=== PATIENT | male | born 1940 | race Caucasian/White ===

== ENCOUNTER → 2020-05-06 08:21 | Outpatient (BNVA) | payer MEDICARE, SELFPAY | PROVIDERS: PCP Internal Medicine; Referring Provider Internal Medicine; Visit Provider Internal Medicine | DX: I48.19 Other persistent atrial fibrillation (principal); Z51.81 Encounter for therapeutic drug level monitoring; Z79.01 Long term (current) use of anticoagulants | CPT/HCPCS: 85610 ==

== ENCOUNTER 2020-05-06 18:57 | Outpatient (REF) | payer MEDICARE, SELFPAY | END 2020-05-06 18:58 | disposition home or self-care (01) | LOC: HO.LNP 18:57 | PROVIDERS: Visit Provider Internal Medicine | DX: Z79.01 Long term (current) use of anticoagulants (principal) ==

== ENCOUNTER → 2020-05-25 10:03 | Outpatient (BNVA) | payer MEDICARE, SELFPAY | PROVIDERS: PCP Internal Medicine; Visit Provider Internal Medicine | DX: I48.19 Other persistent atrial fibrillation (principal); Z51.81 Encounter for therapeutic drug level monitoring; Z79.01 Long term (current) use of anticoagulants | CPT/HCPCS: 85610; 99211 ==

== ENCOUNTER → 2020-06-08 08:02 | Outpatient (BNVA) | payer MEDICARE, SELFPAY | PROVIDERS: PCP Internal Medicine; Visit Provider Internal Medicine | DX: I48.19 Other persistent atrial fibrillation (principal); Z51.81 Encounter for therapeutic drug level monitoring; Z79.01 Long term (current) use of anticoagulants | CPT/HCPCS: 85610; 99211 ==

== ENCOUNTER → 2020-07-06 08:06 | Outpatient (BNVA) | payer MEDICARE, SELFPAY | PROVIDERS: PCP Internal Medicine; Visit Provider Internal Medicine | DX: I48.19 Other persistent atrial fibrillation (principal); Z51.81 Encounter for therapeutic drug level monitoring; Z79.01 Long term (current) use of anticoagulants | CPT/HCPCS: 85610; 99211 ==

== ENCOUNTER → 2020-07-21 14:47 | Outpatient (BNVA) | payer MEDICARE, SELFPAY | PROVIDERS: PCP Internal Medicine; Visit Provider Internal Medicine | DX: I48.19 Other persistent atrial fibrillation (principal); Z51.81 Encounter for therapeutic drug level monitoring; Z79.01 Long term (current) use of anticoagulants | CPT/HCPCS: 85610; 99211 ==

== ENCOUNTER → 2020-08-01 09:01 | Outpatient (BNVA) | payer MEDICARE, SELFPAY | PROVIDERS: PCP Internal Medicine; Visit Provider Internal Medicine | DX: I48.19 Other persistent atrial fibrillation (principal); Z51.81 Encounter for therapeutic drug level monitoring; Z79.01 Long term (current) use of anticoagulants | CPT/HCPCS: 85610; 99211 ==

== ENCOUNTER → 2020-08-31 15:48 | Outpatient (BNVA) | payer MEDICARE, SELFPAY | PROVIDERS: PCP Internal Medicine; Visit Provider Internal Medicine | DX: I48.19 Other persistent atrial fibrillation (principal); Z51.81 Encounter for therapeutic drug level monitoring; Z79.01 Long term (current) use of anticoagulants | CPT/HCPCS: 85610; 99211 ==

== ENCOUNTER → 2020-09-12 08:49 | Outpatient (BNVA) | payer MEDICARE, SELFPAY | PROVIDERS: PCP Internal Medicine; Visit Provider Internal Medicine | DX: I48.19 Other persistent atrial fibrillation (principal); Z51.81 Encounter for therapeutic drug level monitoring; Z79.01 Long term (current) use of anticoagulants | CPT/HCPCS: 85610; 99211 ==

== ENCOUNTER → 2020-09-28 08:27 | Outpatient (BNVA) | payer MEDICARE, SELFPAY | PROVIDERS: PCP Internal Medicine; Visit Provider Internal Medicine | DX: I48.19 Other persistent atrial fibrillation (principal); Z51.81 Encounter for therapeutic drug level monitoring; Z79.01 Long term (current) use of anticoagulants | CPT/HCPCS: 85610; 99211 ==

== ENCOUNTER → 2020-10-06 08:04 | Outpatient (BNVA) | payer MEDICARE, SELFPAY | PROVIDERS: PCP Internal Medicine; Visit Provider Internal Medicine | DX: I48.19 Other persistent atrial fibrillation (principal); Z51.81 Encounter for therapeutic drug level monitoring; Z79.01 Long term (current) use of anticoagulants | CPT/HCPCS: 85610; 99211 ==

== ENCOUNTER → 2020-10-10 08:50 | Outpatient (BNVA) | payer MEDICARE, SELFPAY | PROVIDERS: PCP Internal Medicine; Visit Provider Internal Medicine | DX: I48.19 Other persistent atrial fibrillation (principal); Z51.81 Encounter for therapeutic drug level monitoring; Z79.01 Long term (current) use of anticoagulants | CPT/HCPCS: 85610; 99211 ==

== ENCOUNTER → 2020-10-13 08:03 | Outpatient (BNVA) | payer MEDICARE, SELFPAY | PROVIDERS: PCP Internal Medicine; Visit Provider Internal Medicine | DX: I48.19 Other persistent atrial fibrillation (principal); Z51.81 Encounter for therapeutic drug level monitoring; Z79.01 Long term (current) use of anticoagulants | CPT/HCPCS: 85610; 99211 ==

== ENCOUNTER → 2020-10-27 08:09 | Outpatient (BNVA) | payer MEDICARE, SELFPAY | PROVIDERS: PCP Internal Medicine; Visit Provider Internal Medicine | DX: I48.19 Other persistent atrial fibrillation (principal); Z51.81 Encounter for therapeutic drug level monitoring; Z79.01 Long term (current) use of anticoagulants | CPT/HCPCS: 85610; 99211 ==

== ENCOUNTER → 2020-11-10 08:04 | Outpatient (BNVA) | payer MEDICARE, SELFPAY | PROVIDERS: PCP Internal Medicine; Visit Provider Internal Medicine | DX: I48.19 Other persistent atrial fibrillation (principal); Z79.01 Long term (current) use of anticoagulants; Z51.81 Encounter for therapeutic drug level monitoring | CPT/HCPCS: 85610; 99211 ==

== ENCOUNTER → 2020-11-24 08:02 | Outpatient (BNVA) | payer MEDICARE, SELFPAY | PROVIDERS: PCP Internal Medicine; Visit Provider Internal Medicine | DX: I48.19 Other persistent atrial fibrillation (principal); Z79.01 Long term (current) use of anticoagulants; Z51.81 Encounter for therapeutic drug level monitoring | CPT/HCPCS: 85610; 99211 ==

== ENCOUNTER → 2020-12-12 08:46 | Outpatient (BNVA) | payer MEDICARE, SELFPAY | PROVIDERS: PCP Internal Medicine; Visit Provider Internal Medicine | DX: I48.19 Other persistent atrial fibrillation (principal); Z51.81 Encounter for therapeutic drug level monitoring; Z79.01 Long term (current) use of anticoagulants | CPT/HCPCS: 99211 ==

== ENCOUNTER → 2020-12-22 08:21 | Outpatient (BNVA) | payer MEDICARE, SELFPAY | PROVIDERS: PCP Internal Medicine; Visit Provider Internal Medicine | DX: I48.19 Other persistent atrial fibrillation (principal); Z51.81 Encounter for therapeutic drug level monitoring; Z79.01 Long term (current) use of anticoagulants | CPT/HCPCS: 85610; 99211 ==

== ENCOUNTER → 2020-12-29 08:19 | Outpatient (BNVA) | payer MEDICARE, SELFPAY | PROVIDERS: PCP Internal Medicine; Visit Provider Internal Medicine | DX: I48.19 Other persistent atrial fibrillation (principal); Z51.81 Encounter for therapeutic drug level monitoring; Z79.01 Long term (current) use of anticoagulants | CPT/HCPCS: 85610; 99211 ==

== ENCOUNTER → 2021-01-05 11:04 | Outpatient (BNVA) | payer MEDICARE, SELFPAY | PROVIDERS: PCP Internal Medicine; Visit Provider Internal Medicine | DX: Z13.89 Encounter for screening for other disorder (principal) | CPT/HCPCS: Q3014 ==

== ENCOUNTER → 2021-01-12 08:21 | Outpatient (BNVA) | payer MEDICARE, SELFPAY | PROVIDERS: PCP Internal Medicine; Visit Provider Internal Medicine | DX: I48.19 Other persistent atrial fibrillation (principal); Z51.81 Encounter for therapeutic drug level monitoring; Z79.01 Long term (current) use of anticoagulants | CPT/HCPCS: 85610; 99211 ==

== ENCOUNTER → 2021-01-19 08:16 | Outpatient (BNVA) | payer MEDICARE, SELFPAY | PROVIDERS: PCP Internal Medicine; Visit Provider Internal Medicine | DX: I48.19 Other persistent atrial fibrillation (principal); Z51.81 Encounter for therapeutic drug level monitoring; Z79.01 Long term (current) use of anticoagulants | CPT/HCPCS: 85610; 99211 ==

== ENCOUNTER → 2021-02-01 08:06 | Outpatient (BNVA) | payer MEDICARE, SELFPAY | PROVIDERS: PCP Internal Medicine; Visit Provider Internal Medicine | DX: I48.19 Other persistent atrial fibrillation (principal); Z51.81 Encounter for therapeutic drug level monitoring; Z79.01 Long term (current) use of anticoagulants | CPT/HCPCS: 85610; 99211 ==

== ENCOUNTER → 2021-02-09 08:15 | Outpatient (BNVA) | payer MEDICARE, SELFPAY | PROVIDERS: PCP Internal Medicine; Visit Provider Internal Medicine | DX: I48.19 Other persistent atrial fibrillation (principal); Z51.81 Encounter for therapeutic drug level monitoring; Z79.01 Long term (current) use of anticoagulants | CPT/HCPCS: 85610; 99211 ==

== ENCOUNTER → 2021-02-23 08:00 | Outpatient (BNVA) | payer MEDICARE, SELFPAY | PROVIDERS: PCP Internal Medicine; Visit Provider Internal Medicine | DX: I48.0 Paroxysmal atrial fibrillation (principal); Z51.81 Encounter for therapeutic drug level monitoring; Z79.01 Long term (current) use of anticoagulants | CPT/HCPCS: 85610; 99211 ==

== ENCOUNTER → 2021-03-09 08:05 | Outpatient (BNVA) | payer MEDICARE, SELFPAY | PROVIDERS: PCP Internal Medicine; Visit Provider Internal Medicine | DX: I48.19 Other persistent atrial fibrillation (principal); Z51.81 Encounter for therapeutic drug level monitoring; Z79.01 Long term (current) use of anticoagulants | CPT/HCPCS: 85610; 99211 ==

== ENCOUNTER → 2021-03-22 08:00 | Outpatient (BNVA) | payer MEDICARE, SELFPAY | PROVIDERS: PCP Internal Medicine; Visit Provider Internal Medicine | DX: I48.19 Other persistent atrial fibrillation (principal); Z51.81 Encounter for therapeutic drug level monitoring; Z79.01 Long term (current) use of anticoagulants | CPT/HCPCS: 85610; 99211 ==

== ENCOUNTER → 2021-04-03 10:02 | Outpatient (BNVA) | payer MEDICARE, SELFPAY | PROVIDERS: PCP Internal Medicine; Visit Provider Internal Medicine | DX: I48.19 Other persistent atrial fibrillation (principal); Z51.81 Encounter for therapeutic drug level monitoring; Z79.01 Long term (current) use of anticoagulants | CPT/HCPCS: 85610; 99211 ==

== ENCOUNTER → 2021-04-26 08:02 | Outpatient (BNVA) | payer MEDICARE, SELFPAY | PROVIDERS: PCP Internal Medicine; Visit Provider Internal Medicine | DX: I48.19 Other persistent atrial fibrillation (principal); Z51.81 Encounter for therapeutic drug level monitoring; Z79.01 Long term (current) use of anticoagulants | CPT/HCPCS: 85610; 99211 ==

== ENCOUNTER → 2021-05-24 08:17 | Outpatient (BNVA) | payer MEDICARE, SELFPAY | PROVIDERS: PCP Internal Medicine; Visit Provider Internal Medicine | DX: I48.19 Other persistent atrial fibrillation (principal); Z51.81 Encounter for therapeutic drug level monitoring; Z79.01 Long term (current) use of anticoagulants | CPT/HCPCS: 85610; 99211 ==

== ENCOUNTER → 2021-06-21 08:13 | Outpatient (BNVA) | payer MEDICARE, SELFPAY | PROVIDERS: PCP Internal Medicine; Visit Provider Internal Medicine | DX: I48.19 Other persistent atrial fibrillation (principal); Z51.81 Encounter for therapeutic drug level monitoring; Z79.01 Long term (current) use of anticoagulants | CPT/HCPCS: 85610; 99211 ==

== ENCOUNTER → 2021-07-05 08:11 | Outpatient (BNVA) | payer MEDICARE, SELFPAY | PROVIDERS: PCP Internal Medicine; Visit Provider Internal Medicine | DX: I48.19 Other persistent atrial fibrillation (principal); Z51.81 Encounter for therapeutic drug level monitoring; Z79.01 Long term (current) use of anticoagulants | CPT/HCPCS: 85610; 99211 ==

== ENCOUNTER → 2021-07-26 08:02 | Outpatient (BNVA) | payer MEDICARE, SELFPAY | PROVIDERS: PCP Internal Medicine; Visit Provider Internal Medicine | DX: I48.19 Other persistent atrial fibrillation (principal); Z51.81 Encounter for therapeutic drug level monitoring; Z79.01 Long term (current) use of anticoagulants | CPT/HCPCS: 85610; 99211 ==

== ENCOUNTER → 2021-07-31 08:44 | Outpatient (BNVA) | payer MEDICARE, SELFPAY | PROVIDERS: PCP Internal Medicine; Visit Provider Internal Medicine | DX: I48.19 Other persistent atrial fibrillation (principal); Z51.81 Encounter for therapeutic drug level monitoring; Z79.01 Long term (current) use of anticoagulants | CPT/HCPCS: 85610; 99211 ==

== ENCOUNTER → 2021-08-03 11:14 | Outpatient (BNVA) | payer MEDICARE, SELFPAY | PROVIDERS: PCP Internal Medicine; Visit Provider Internal Medicine | DX: I48.19 Other persistent atrial fibrillation (principal); Z51.81 Encounter for therapeutic drug level monitoring; Z79.01 Long term (current) use of anticoagulants | CPT/HCPCS: 85610; 99211 ==

== ENCOUNTER → 2021-08-24 08:10 | Outpatient (BNVA) | payer MEDICARE, SELFPAY | PROVIDERS: PCP Internal Medicine; Visit Provider Internal Medicine | DX: I48.19 Other persistent atrial fibrillation (principal); Z51.81 Encounter for therapeutic drug level monitoring; Z79.01 Long term (current) use of anticoagulants | CPT/HCPCS: 85610; 99211 ==

== ENCOUNTER → 2021-09-21 08:01 | Outpatient (BNVA) | payer MEDICARE, SELFPAY | PROVIDERS: PCP Internal Medicine; Visit Provider Internal Medicine | DX: I48.19 Other persistent atrial fibrillation (principal); Z51.81 Encounter for therapeutic drug level monitoring; Z79.01 Long term (current) use of anticoagulants | CPT/HCPCS: 85610; 99211 ==

== ENCOUNTER → 2021-10-19 07:59 | Outpatient (BNVA) | payer MEDICARE, SELFPAY | PROVIDERS: PCP Internal Medicine; Visit Provider Internal Medicine | DX: I48.19 Other persistent atrial fibrillation (principal); Z51.81 Encounter for therapeutic drug level monitoring; Z79.01 Long term (current) use of anticoagulants | CPT/HCPCS: 85610; 99211 ==

== ENCOUNTER → 2021-11-16 08:06 | Outpatient (BNVA) | payer MEDICARE, SELFPAY | PROVIDERS: PCP Internal Medicine; Visit Provider Internal Medicine | DX: I48.19 Other persistent atrial fibrillation (principal); Z79.01 Long term (current) use of anticoagulants; Z51.81 Encounter for therapeutic drug level monitoring | CPT/HCPCS: 85610; 99211 ==

== ENCOUNTER → 2021-12-14 08:03 | Outpatient (BNVA) | payer MEDICARE, SELFPAY | PROVIDERS: PCP Internal Medicine; Visit Provider Internal Medicine | DX: I48.19 Other persistent atrial fibrillation (principal); Z79.01 Long term (current) use of anticoagulants; Z51.81 Encounter for therapeutic drug level monitoring | CPT/HCPCS: 85610; 99211 ==

== ENCOUNTER → 2021-12-18 08:29 | Outpatient (BNVA) | payer MEDICARE, SELFPAY | PROVIDERS: PCP Internal Medicine; Visit Provider Internal Medicine | DX: I48.19 Other persistent atrial fibrillation (principal); Z79.01 Long term (current) use of anticoagulants; Z51.81 Encounter for therapeutic drug level monitoring | CPT/HCPCS: 85610; 99211 ==

== ENCOUNTER → 2022-01-10 08:22 | Outpatient (BNVA) | payer MEDICARE, SELFPAY | PROVIDERS: PCP Internal Medicine; Visit Provider Internal Medicine | DX: I48.19 Other persistent atrial fibrillation (principal); Z79.01 Long term (current) use of anticoagulants; Z51.81 Encounter for therapeutic drug level monitoring | CPT/HCPCS: 85610; 99211 ==

== ENCOUNTER → 2022-02-07 08:01 | Outpatient (BNVA) | payer MEDICARE, SELFPAY | PROVIDERS: PCP Internal Medicine; Visit Provider Internal Medicine | DX: I48.19 Other persistent atrial fibrillation (principal); Z79.01 Long term (current) use of anticoagulants; Z51.81 Encounter for therapeutic drug level monitoring | CPT/HCPCS: 85610; 99211 ==

== ENCOUNTER → 2022-03-07 08:05 | Outpatient (BNVA) | payer MEDICARE, SELFPAY | PROVIDERS: PCP Internal Medicine; Visit Provider Internal Medicine | DX: I48.19 Other persistent atrial fibrillation (principal); Z79.01 Long term (current) use of anticoagulants; Z51.81 Encounter for therapeutic drug level monitoring | CPT/HCPCS: 85610; 99211 ==

== ENCOUNTER → 2022-04-04 08:01 | Outpatient (BNVA) | payer MEDICARE, SELFPAY | PROVIDERS: PCP Internal Medicine; Visit Provider Internal Medicine | DX: I48.19 Other persistent atrial fibrillation (principal); Z51.81 Encounter for therapeutic drug level monitoring; Z79.01 Long term (current) use of anticoagulants | CPT/HCPCS: 85610; 99211 ==

== ENCOUNTER → 2022-04-11 09:06 | Outpatient (BNVA) | payer MEDICARE, SELFPAY | PROVIDERS: PCP Internal Medicine; Visit Provider Internal Medicine | DX: I48.19 Other persistent atrial fibrillation (principal); Z79.01 Long term (current) use of anticoagulants; Z51.81 Encounter for therapeutic drug level monitoring | CPT/HCPCS: 85610; 99211 ==

== ENCOUNTER → 2022-04-18 08:39 | Outpatient (BNVA) | payer MEDICARE, SELFPAY | PROVIDERS: PCP Internal Medicine; Visit Provider Internal Medicine | DX: I48.19 Other persistent atrial fibrillation (principal); Z51.81 Encounter for therapeutic drug level monitoring; Z79.01 Long term (current) use of anticoagulants | CPT/HCPCS: 85610; 99211 ==

== ENCOUNTER → 2022-05-02 08:36 | Outpatient (BNVA) | payer MEDICARE, SELFPAY | PROVIDERS: PCP Internal Medicine; Visit Provider Internal Medicine | DX: I48.19 Other persistent atrial fibrillation (principal); Z79.01 Long term (current) use of anticoagulants; Z51.81 Encounter for therapeutic drug level monitoring | CPT/HCPCS: 85610; 99211 ==

== ENCOUNTER → 2022-05-23 08:22 | Outpatient (BNVA) | payer MEDICARE, SELFPAY | PROVIDERS: PCP Internal Medicine; Visit Provider Internal Medicine | DX: I48.19 Other persistent atrial fibrillation (principal); Z79.01 Long term (current) use of anticoagulants; Z51.81 Encounter for therapeutic drug level monitoring | CPT/HCPCS: 85610; 99212 ==

== ENCOUNTER → 2022-06-13 08:16 | Outpatient (BNVA) | payer MEDICARE, SELFPAY | PROVIDERS: PCP Internal Medicine; Visit Provider Internal Medicine | DX: I48.19 Other persistent atrial fibrillation (principal); Z79.01 Long term (current) use of anticoagulants; Z51.81 Encounter for therapeutic drug level monitoring | CPT/HCPCS: 85610; 99211 ==

== ENCOUNTER → 2022-07-12 08:03 | Outpatient (BNVA) | payer MEDICARE, SELFPAY | PROVIDERS: PCP Internal Medicine; Visit Provider Internal Medicine | DX: I48.19 Other persistent atrial fibrillation (principal); Z79.01 Long term (current) use of anticoagulants; Z51.81 Encounter for therapeutic drug level monitoring | CPT/HCPCS: 85610; 99211 ==

== ENCOUNTER → 2022-08-09 08:10 | Outpatient (BNVA) | payer MEDICARE, SELFPAY | PROVIDERS: PCP Internal Medicine; Visit Provider Internal Medicine | DX: I48.19 Other persistent atrial fibrillation (principal); Z79.01 Long term (current) use of anticoagulants; Z51.81 Encounter for therapeutic drug level monitoring | CPT/HCPCS: 85610; 99211 ==

== ENCOUNTER → 2022-08-23 08:01 | Outpatient (BNVA) | payer MEDICARE, SELFPAY | PROVIDERS: PCP Internal Medicine; Visit Provider Internal Medicine | DX: I48.19 Other persistent atrial fibrillation (principal); Z79.01 Long term (current) use of anticoagulants; Z51.81 Encounter for therapeutic drug level monitoring | CPT/HCPCS: 85610; 99211 ==

== ENCOUNTER → 2022-09-20 07:55 | Outpatient (BNVA) | payer MEDICARE, SELFPAY | PROVIDERS: PCP Internal Medicine; Visit Provider Internal Medicine | DX: I48.19 Other persistent atrial fibrillation (principal); Z51.81 Encounter for therapeutic drug level monitoring; Z79.01 Long term (current) use of anticoagulants | CPT/HCPCS: 85610; 99211 ==

== ENCOUNTER → 2022-10-04 08:34 | Outpatient (BNVA) | payer MEDICARE, SELFPAY | PROVIDERS: PCP Internal Medicine; Visit Provider Internal Medicine | DX: I48.19 Other persistent atrial fibrillation (principal); Z79.01 Long term (current) use of anticoagulants; Z51.81 Encounter for therapeutic drug level monitoring | CPT/HCPCS: 85610; 99211 ==

== ENCOUNTER → 2022-10-25 08:04 | Outpatient (BNVA) | payer MEDICARE, SELFPAY | PROVIDERS: PCP Internal Medicine; Visit Provider Internal Medicine | DX: I48.19 Other persistent atrial fibrillation (principal); Z79.01 Long term (current) use of anticoagulants; Z51.81 Encounter for therapeutic drug level monitoring | CPT/HCPCS: 85610; 99211 ==

== ENCOUNTER → 2022-10-30 08:25 | Outpatient (BNVA) | payer MEDICARE, SELFPAY | PROVIDERS: PCP Internal Medicine; Visit Provider Internal Medicine | DX: I48.19 Other persistent atrial fibrillation (principal); Z79.01 Long term (current) use of anticoagulants; Z51.81 Encounter for therapeutic drug level monitoring | CPT/HCPCS: 85610; 99211 ==

== ENCOUNTER → 2022-11-05 08:00 | Outpatient (BNVA) | payer MEDICARE, SELFPAY | PROVIDERS: PCP Internal Medicine; Visit Provider Internal Medicine | DX: I48.19 Other persistent atrial fibrillation (principal); Z79.01 Long term (current) use of anticoagulants; Z51.81 Encounter for therapeutic drug level monitoring | CPT/HCPCS: 85610; 99211 ==

== ENCOUNTER → 2022-11-21 07:58 | Outpatient (BNVA) | payer MEDICARE, SELFPAY | PROVIDERS: PCP Internal Medicine; Visit Provider Internal Medicine | DX: I48.19 Other persistent atrial fibrillation (principal); Z79.01 Long term (current) use of anticoagulants; Z51.81 Encounter for therapeutic drug level monitoring | CPT/HCPCS: 85610; 99211 ==

== ENCOUNTER → 2022-12-18 13:42 | Outpatient (BNVA) | payer MEDICARE, SELFPAY | PROVIDERS: PCP Internal Medicine; Visit Provider Internal Medicine | DX: I48.19 Other persistent atrial fibrillation (principal); Z79.01 Long term (current) use of anticoagulants; Z51.81 Encounter for therapeutic drug level monitoring | CPT/HCPCS: 85610; 99211 ==

== ENCOUNTER → 2023-01-08 07:53 | Outpatient (BNVA) | payer MEDICARE, SELFPAY | PROVIDERS: PCP Internal Medicine; Visit Provider Internal Medicine | DX: I48.19 Other persistent atrial fibrillation (principal); Z79.01 Long term (current) use of anticoagulants; Z51.81 Encounter for therapeutic drug level monitoring | CPT/HCPCS: 85610; 99211 ==

== ENCOUNTER → 2023-01-29 08:02 | Outpatient (BNVA) | payer MEDICARE, SELFPAY | PROVIDERS: PCP Internal Medicine; Visit Provider Internal Medicine | DX: I48.19 Other persistent atrial fibrillation (principal); Z51.81 Encounter for therapeutic drug level monitoring; Z79.01 Long term (current) use of anticoagulants | CPT/HCPCS: 85610; 99211 ==

== ENCOUNTER 2023-02-12 09:02 | Outpatient (AMB) | payer MEDICARE, SELFPAY ==
--- NOTE | 2023-02-12 09:25 | MHC.OFFVISCO ---
Intake Intake Visit Reasons: Anticoagulation Allergies morphine Allergy (Severe, Verified 02/12/23 09:19) Rash baclofen Adverse Reaction (Intermediate, Verified 02/12/23 09:19) Confusion codeine Adverse Reaction (Intermediate, Verified 02/12/23 09:19) GI UPSET divalproex sodium [From Depakote] Adverse Reaction (Intermediate, Verified 02/12/23 09:19) Chest Pain latex Adverse Reaction (Intermediate, Verified 02/12/23 09:19) RASH Medication List - Last Reconciled 02/12/23 by Africa Cao RN acetaminophen ER 1,300 mg PO Q12H allopurinol 200 mg PO DAILY atorvastatin 40 mg PO DAILY brimonidine 0.2% 0 drps ophthalmic (eye) chlorthalidone 25 mg PO DAILY duloxetine 30 mg PO BID gabapentin 600 mg PO TID lisinopril 20 mg PO DAILY prednisolone acetate 1% 1 drp ophthalmic (eye) BID sotalol 120 mg PO BID [carlene bio healer topical] timolol maleate 0.5% 0 drps ophthalmic (eye) warfarin 5 mg See Protocol PO DAILY Nursing Note INR 3.7-?? out of therapeutic range Medications and supplements reviewed Patient status: pt s/p corneal surgery left eye on 01/31/23- no hold for warfarin- eye sclera reddened, pt states improved vision in that eye Medications or supplements: no longer taking ganesh and ofloxacin eye drops, cont timoptic, pred and Diet: states decreased appetite, had less greens Denies any signs and symptoms of bleeding or clotting or unusual bruising Bleeding, bruising, clotting discussed Nutritional guidance given: eat greens to lower inr, no reds for 2 days Dose: 2.5mg today and tomm then cont reg dosing- 5mg x 5, 2.5mg x 2 F/U INR Date : 10 days Patient verbalizing understanding of instructions given. 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
[2023-02-12 15:40] LABS: Prothrombin Time Whole Bld POC 44.8 sec (11.1-13.5); ~PT, ~INR - Anti Coag Clinic 3.7 (0.9-1.1)
== END 2023-02-12 09:38 | disposition home or self-care (01) ==
LOC: HO.ACS 09:02
PROVIDERS: PCP Internal Medicine; Visit Provider Internal Medicine
DX: Z79.01 Long term (current) use of anticoagulants (principal)

== ENCOUNTER → 2023-02-12 09:02 | Outpatient (BNVA) | payer MEDICARE, SELFPAY | PROVIDERS: PCP Internal Medicine; Visit Provider Internal Medicine | DX: I48.19 Other persistent atrial fibrillation (principal); Z79.01 Long term (current) use of anticoagulants; Z51.81 Encounter for therapeutic drug level monitoring | CPT/HCPCS: 85610; 99211 ==

== ENCOUNTER 2023-02-22 08:25 | Outpatient (AMB) | payer MEDICARE, SELFPAY ==
[2023-02-22 08:34] LABS: Prothrombin Time Whole Bld POC 31.8 sec (11.1-13.5); ~PT, ~INR - Anti Coag Clinic 2.7 (0.9-1.1)
--- NOTE | 2023-02-22 08:36 | MHC.OFFVISCO ---
Intake Intake Visit Reasons: Anticoagulation Allergies morphine Allergy (Severe, Verified 02/22/23 08:27) Rash baclofen Adverse Reaction (Intermediate, Verified 02/22/23 08:27) Confusion codeine Adverse Reaction (Intermediate, Verified 02/22/23 08:27) GI UPSET divalproex sodium [From Depakote] Adverse Reaction (Intermediate, Verified 02/22/23 08:27) Chest Pain latex Adverse Reaction (Intermediate, Verified 02/22/23 08:27) RASH Medication List - Last Reconciled 02/22/23 by Annia Mckeon RN acetaminophen ER 1,300 mg PO Q12H allopurinol 200 mg PO DAILY atorvastatin 40 mg PO DAILY brimonidine 0.2% 0 drps ophthalmic (eye) chlorthalidone 25 mg PO DAILY duloxetine 30 mg PO BID gabapentin 600 mg PO TID lisinopril 20 mg PO DAILY prednisolone acetate 1% 1 drp ophthalmic (eye) BID sotalol 120 mg PO BID [carlene bio healer topical] timolol maleate 0.5% 0 drps ophthalmic (eye) warfarin 5 mg See Protocol PO DAILY Nursing Note PT.DENIES ANY CP,SOB,DIET/MD CHANGES,FALLS OR SX OF BLEEDING. CONTINUE PRESEN DOSE AND FOLLOW-UP IN 2 WEEKS. GOOD UNDERSTANDING OF DOSING INSTR. Coding Level of Care Code Est Patient Level 1 Diagnoses Current use of anticoagulant therapy Z79.01 Assessment & Plan Assessment & Plan (1) Current use of anticoagulant therapy: Code(s): Z79.01 - digital analyst (current) 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
== END 2023-02-22 09:11 | disposition home or self-care (01) ==
LOC: HO.ACS 08:25
PROVIDERS: PCP Internal Medicine; Visit Provider Internal Medicine
DX: Z79.01 Long term (current) use of anticoagulants (principal)

== ENCOUNTER → 2023-02-22 08:25 | Outpatient (BNVA) | payer MEDICARE, SELFPAY | PROVIDERS: PCP Internal Medicine; Visit Provider Internal Medicine | DX: I48.19 Other persistent atrial fibrillation (principal); Z79.01 Long term (current) use of anticoagulants; Z51.81 Encounter for therapeutic drug level monitoring | CPT/HCPCS: 85610; 99211 ==

== ENCOUNTER 2023-03-08 08:20 | Outpatient (AMB) | payer MEDICARE, SELFPAY ==
[2023-03-08 08:27] LABS: Prothrombin Time Whole Bld POC 30.9 sec (11.1-13.5); ~PT, ~INR - Anti Coag Clinic 2.6 (0.9-1.1)
--- NOTE | 2023-03-08 08:30 | MHC.OFFVISCO ---
Intake Intake Visit Reasons: Anticoagulation Allergies morphine Allergy (Severe, Verified 03/08/23 08:20) Rash baclofen Adverse Reaction (Intermediate, Verified 03/08/23 08:20) Confusion codeine Adverse Reaction (Intermediate, Verified 03/08/23 08:20) GI UPSET divalproex sodium [From Depakote] Adverse Reaction (Intermediate, Verified 03/08/23 08:20) Chest Pain latex Adverse Reaction (Intermediate, Verified 03/08/23 08:20) RASH Medication List - Last Reconciled 03/08/23 by Aster De La Fuente, RN acetaminophen ER 1,300 mg PO Q12H allopurinol 200 mg PO DAILY atorvastatin 40 mg PO DAILY brimonidine 0.2% 0 drps ophthalmic (eye) chlorthalidone 25 mg PO DAILY duloxetine 30 mg PO BID gabapentin 600 mg PO TID lisinopril 20 mg PO DAILY prednisolone acetate 1% 1 drp ophthalmic (eye) BID sotalol 120 mg PO BID [carlene bio healer topical] timolol maleate 0.5% 0 drps ophthalmic (eye) warfarin 5 mg See Protocol PO DAILY Nursing Note Amb to [facility] feeling tuckered out , sts didn't sleep well last night Medications and supplements reviewed No changes in health, diet, medications, or supplements Denies any unusual signs and symptoms of bruising, bleeding Denies any new Chest pain, SOB, or clotting INR: 2.6 in therapeutic range Nutritional guidance given: balance greens and reds in diet, be conistent Dose: continue usual dosing;2.5mg x 2 days and 5mg x 5 days F/U INR:4 weeks Patient verbalizes understanding of instructions given with accurate read back/ teach back of dosing Coding Level of Care Code Est Patient Level 1 Diagnoses Current use of anticoagulant therapy Z79.01 Time Spent (min) 15 Assessment & Plan Assessment & Plan (1) Current use of anticoagulant therapy: Code(s): 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
== END 2023-03-08 08:35 | disposition home or self-care (01) ==
LOC: HO.ACS 08:20
PROVIDERS: PCP Internal Medicine; Visit Provider Internal Medicine
DX: Z79.01 Long term (current) use of anticoagulants (principal)

== ENCOUNTER → 2023-03-08 08:20 | Outpatient (BNVA) | payer MEDICARE, SELFPAY | PROVIDERS: PCP Internal Medicine; Visit Provider Internal Medicine | DX: I48.19 Other persistent atrial fibrillation (principal); Z79.01 Long term (current) use of anticoagulants; Z51.81 Encounter for therapeutic drug level monitoring | CPT/HCPCS: 85610; 99211 ==

== ENCOUNTER 2023-04-04 08:02 | Outpatient (AMB) | payer MEDICARE, SELFPAY ==
[2023-04-04 08:09] LABS: Prothrombin Time Whole Bld POC 42.8 sec (11.1-13.5); ~PT, ~INR - Anti Coag Clinic 3.6 (0.9-1.1)
--- NOTE | 2023-04-04 08:12 | MHC.OFFVISCO ---
Intake Intake Visit Reasons: Anticoagulation Allergies morphine Allergy (Severe, Verified 04/04/23 08:03) Rash baclofen Adverse Reaction (Intermediate, Verified 04/04/23 08:03) Confusion codeine Adverse Reaction (Intermediate, Verified 04/04/23 08:03) GI UPSET divalproex sodium [From Depakote] Adverse Reaction (Intermediate, Verified 04/04/23 08:03) Chest Pain latex Adverse Reaction (Intermediate, Verified 04/04/23 08:03) RASH Medication List - Last Reconciled 04/04/23 by Sofía Gillette, RN acetaminophen ER 1,300 mg PO Q12H allopurinol 200 mg PO DAILY atorvastatin 40 mg PO DAILY brimonidine 0.2% 0 drps ophthalmic (eye) chlorthalidone 25 mg PO DAILY duloxetine 30 mg PO BID gabapentin 600 mg PO TID lisinopril 20 mg PO DAILY prednisolone acetate 1% 1 drp ophthalmic (eye) BID sotalol 120 mg PO BID [carlene bio healer topical] timolol maleate 0.5% 0 drps ophthalmic (eye) warfarin 5 mg See Protocol PO DAILY Nursing Note INR: 3.6 NOT therapeutic range Medications and supplements reviewed TAKING CBD AT NIGHT FOR PAIN WITH RELIEF PT STATING HE HAS RENAL CANCER - NOT TAKING ANY TREATMENT THE GROWTH, USING THE CARLENE BIO HEALER Denies any signs and symptoms of bleeding or bruising or clotting. 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
== END 2023-04-04 08:20 | disposition home or self-care (01) ==
LOC: HO.ACS 08:02
PROVIDERS: PCP Internal Medicine; Visit Provider Internal Medicine
DX: Z79.01 Long term (current) use of anticoagulants (principal)

== ENCOUNTER → 2023-04-04 08:02 | Outpatient (BNVA) | payer MEDICARE, SELFPAY | PROVIDERS: PCP Internal Medicine; Visit Provider Internal Medicine | DX: I48.19 Other persistent atrial fibrillation (principal); Z79.01 Long term (current) use of anticoagulants; Z51.81 Encounter for therapeutic drug level monitoring | CPT/HCPCS: 85610; 99211 ==

== ENCOUNTER 2023-04-18 08:01 | Outpatient (AMB) | payer MEDICARE, SELFPAY ==
--- NOTE | 2023-04-18 08:14 | MHC.OFFVISCO ---
Intake Intake Visit Reasons: Anticoagulation Allergies morphine Allergy (Severe, Verified 04/18/23 08:07) Rash baclofen Adverse Reaction (Intermediate, Verified 04/18/23 08:07) Confusion codeine Adverse Reaction (Intermediate, Verified 04/18/23 08:07) GI UPSET divalproex sodium [From Depakote] Adverse Reaction (Intermediate, Verified 04/18/23 08:07) Chest Pain latex Adverse Reaction (Intermediate, Verified 04/18/23 08:07) RASH Medication List - Last Reconciled 04/18/23 by Sofía Gillette RN acetaminophen ER 1,300 mg PO Q12H allopurinol 200 mg PO DAILY atorvastatin 40 mg PO DAILY brimonidine 0.2% 0 drps ophthalmic (eye) [CBD PO] chlorthalidone 25 mg PO DAILY duloxetine 30 mg PO BID gabapentin 600 mg PO TID lisinopril 20 mg PO DAILY prednisolone acetate 1% 1 drp ophthalmic (eye) BID sotalol 120 mg PO BID [carlene bio healer topical] timolol maleate 0.5% 0 drps ophthalmic (eye) triamcinolone acetonide 0.1% 1 appl topical BID-TID warfarin 5 mg See Protocol PO DAILY Nursing Note INR: 3.5 OUT OF therapeutic range Medications and supplements reviewed No changes in health, diet, medications, or supplements, Denies any signs and symptoms of bleeding or bruising or clotting. 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
[2023-04-18 08:19] LABS: Prothrombin Time Whole Bld POC 42.2 sec (11.1-13.5); ~PT, ~INR - Anti Coag Clinic 3.5 (0.9-1.1)
== END 2023-04-18 08:31 | disposition home or self-care (01) ==
LOC: HO.ACS 08:01
PROVIDERS: PCP Internal Medicine; Visit Provider Internal Medicine
DX: Z79.01 Long term (current) use of anticoagulants (principal)

== ENCOUNTER → 2023-04-18 08:01 | Outpatient (BNVA) | payer MEDICARE, SELFPAY | PROVIDERS: PCP Internal Medicine; Visit Provider Internal Medicine | DX: I48.19 Other persistent atrial fibrillation (principal); Z79.01 Long term (current) use of anticoagulants; Z51.81 Encounter for therapeutic drug level monitoring | CPT/HCPCS: 85610; 99211 ==

== ENCOUNTER 2023-05-03 08:07 | Outpatient (AMB) | payer MEDICARE, SELFPAY ==
[2023-05-03 08:25] LABS: Prothrombin Time Whole Bld POC 14.7 sec (11.1-13.5); ~PT, ~INR - Anti Coag Clinic 1.2 (0.9-1.1)
--- NOTE | 2023-05-03 08:34 | MHC.OFFVISCO ---
Intake Intake Visit Reasons: Anticoagulation Allergies morphine Allergy (Severe, Verified 05/03/23 08:20) Rash baclofen Adverse Reaction (Intermediate, Verified 05/03/23 08:20) Confusion codeine Adverse Reaction (Intermediate, Verified 05/03/23 08:20) GI UPSET divalproex sodium [From Depakote] Adverse Reaction (Intermediate, Verified 05/03/23 08:20) Chest Pain latex Adverse Reaction (Intermediate, Verified 05/03/23 08:20) RASH Medication List - Last Reconciled 05/03/23 by Annia Mckeon, RN acetaminophen ER 1,300 mg PO Q12H allopurinol 200 mg PO DAILY atorvastatin 40 mg PO DAILY brimonidine 0.2% 0 drps ophthalmic (eye) [CBD PO] chlorthalidone 25 mg PO DAILY duloxetine 30 mg PO BID gabapentin 600 mg PO TID lisinopril 20 mg PO DAILY prednisolone acetate 1% 1 drp ophthalmic (eye) BID sotalol 120 mg PO BID [carlene bio healer topical] timolol maleate 0.5% 0 drps ophthalmic (eye) triamcinolone acetonide 0.1% 1 appl topical BID-TID warfarin 5 mg See Protocol PO DAILY Nursing Note PT.MISSED AT LEAST 1 DOSE THIS WEEK. NO CP,SOB,DIET/MED CHANGES,FALLS OR SX OF BLEEDING. 7.5MGM BOOSTER DOSE TODAY THEN RESUME PREVIOUS DOSE AND FOLLOW-UP ON 05/08. NO GREENS 3 DAYS AND WILL INCREASE REDS. GOOD UNDERSTANDING OF DOSING INSTR. ([facility])NOTIFIED OF LOW INR AND PLAN OF CARE. Coding Level of Care Code Est Patient Level 1 Diagnoses Current use of anticoagulant therapy Z79.01 Assessment & Plan Assessment & Plan (1) Current use of anticoagulant therapy: Code(s): Z79.01 - detention (current) 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
== END 2023-05-03 10:11 | disposition home or self-care (01) ==
LOC: HO.ACS 08:07
PROVIDERS: PCP Internal Medicine; Visit Provider Internal Medicine
DX: Z79.01 Long term (current) use of anticoagulants (principal)

== ENCOUNTER → 2023-05-03 08:07 | Outpatient (BNVA) | payer MEDICARE, SELFPAY | PROVIDERS: PCP Internal Medicine; Visit Provider Internal Medicine | DX: I48.19 Other persistent atrial fibrillation (principal); Z79.01 Long term (current) use of anticoagulants; Z51.81 Encounter for therapeutic drug level monitoring | CPT/HCPCS: 85610; 99211 ==

== ENCOUNTER 2023-05-08 08:49 | Outpatient (AMB) | payer MEDICARE, SELFPAY ==
[2023-05-08 08:58] LABS: Prothrombin Time Whole Bld POC 25.5 sec (11.1-13.5); ~PT, ~INR - Anti Coag Clinic 2.1 (0.9-1.1)
--- NOTE | 2023-05-08 09:05 | MHC.OFFVISCO ---
Intake Intake Visit Reasons: Anticoagulation Allergies morphine Allergy (Severe, Verified 05/08/23 08:53) Rash baclofen Adverse Reaction (Intermediate, Verified 05/08/23 08:53) Confusion codeine Adverse Reaction (Intermediate, Verified 05/08/23 08:53) GI UPSET divalproex sodium [From Depakote] Adverse Reaction (Intermediate, Verified 05/08/23 08:53) Chest Pain latex Adverse Reaction (Intermediate, Verified 05/08/23 08:53) RASH Medication List - Last Reconciled 05/08/23 by Annia Mckeon, RN acetaminophen ER 1,300 mg PO Q12H allopurinol 200 mg PO DAILY atorvastatin 40 mg PO DAILY brimonidine 0.2% 0 drps ophthalmic (eye) [CBD PO] chlorthalidone 25 mg PO DAILY duloxetine 30 mg PO BID gabapentin 600 mg PO TID lisinopril 20 mg PO DAILY prednisolone acetate 1% 1 drp ophthalmic (eye) BID sotalol 120 mg PO BID [carlene bio healer topical] timolol maleate 0.5% 0 drps ophthalmic (eye) triamcinolone acetonide 0.1% 1 appl topical BID-TID warfarin 5 mg See Protocol PO DAILY Nursing Note NO CP,SOB,DIET/MED CHANGES,FALLS OR SX OF BLEEDING. CONTINUE PRESENT DOSE AND FOLLOW-UP IN 2 WEEKS. GOOD UNDERSTANDING OF DOSING INSTR. 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
== END 2023-05-08 09:07 | disposition home or self-care (01) ==
LOC: HO.ACS 08:49
PROVIDERS: PCP Internal Medicine; Visit Provider Internal Medicine
DX: Z79.01 Long term (current) use of anticoagulants (principal)

== ENCOUNTER → 2023-05-08 08:49 | Outpatient (BNVA) | payer MEDICARE, SELFPAY | PROVIDERS: PCP Internal Medicine; Visit Provider Internal Medicine | DX: I48.19 Other persistent atrial fibrillation (principal); Z51.81 Encounter for therapeutic drug level monitoring; Z79.01 Long term (current) use of anticoagulants | CPT/HCPCS: 85610; 99211 ==

== ENCOUNTER 2023-05-23 08:01 | Outpatient (AMB) | payer MEDICARE, SELFPAY ==
[2023-05-23 08:07] LABS: Prothrombin Time Whole Bld POC 46.3 sec (11.1-13.5); ~PT, ~INR - Anti Coag Clinic 3.9 (0.9-1.1)
--- NOTE | 2023-05-23 08:19 | MHC.OFFVISCO ---
Intake Intake Visit Reasons: Anticoagulation Allergies morphine Allergy (Severe, Verified 05/23/23 08:01) Rash baclofen Adverse Reaction (Intermediate, Verified 05/23/23 08:01) Confusion codeine Adverse Reaction (Intermediate, Verified 05/23/23 08:01) GI UPSET divalproex sodium [From Depakote] Adverse Reaction (Intermediate, Verified 05/23/23 08:01) Chest Pain latex Adverse Reaction (Intermediate, Verified 05/23/23 08:01) RASH Medication List - Last Reconciled 05/23/23 by Sofía Gillette, RN acetaminophen ER 1,300 mg PO Q12H allopurinol 200 mg PO DAILY atorvastatin 40 mg PO DAILY brimonidine 0.2% 0 drps ophthalmic (eye) [CBD PO] chlorthalidone 25 mg PO DAILY duloxetine 30 mg PO BID gabapentin 600 mg PO TID lisinopril 20 mg PO DAILY nitroglycerin mg sublingual prednisolone acetate 1% 1 drp ophthalmic (eye) BID sotalol 120 mg PO BID [carlene bio healer topical] timolol maleate 0.5% 0 drps ophthalmic (eye) triamcinolone acetonide 0.1% 1 appl topical BID-TID warfarin 5 mg See Protocol PO DAILY Nursing Note INR: 3.9 in therapeutic range HE HAD BEEN TAKING NITRO DURING THE WEEK FOR C/PRESSURE STATES HE GETS RELIEF WITH NITRO - B/P 130/82 HR 62 AFIB Medications and supplements reviewed TAKING MORE TYLENOL THAN UUAL FOR BACK PAIN Denies any signs and symptoms of bleeding or bruising or clotting. Bleeding, bruising, clotting discussed Nutritional guidance given - EAT GREENS TODAY Dose: DECREASE DOSE 2.5 TODY THEN KEEP 5MG X 4 DAYS/ 2.5MG X 3 DAYS F/U INR: 2 WEEKS PT ENC TO GO TO ER WITH CONT C/PRESSURE AND BODY ACHES - HE HAS CARDIOLOGY APPT 06/14/23 Patient verbalizes understanding of instructions given ' WILL NOTIFY PCP Coding Level of Care Code Est Patient Level 1 Diagnoses Current use of anticoagulant therapy Z79.01 Assessment & Plan Assessment & Plan (1) Current use of anticoagulant therapy: Code(s): Z79.01 - [facility] (current) 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
== END 2023-05-23 08:24 | disposition home or self-care (01) ==
LOC: HO.ACS 08:01
PROVIDERS: PCP Internal Medicine; Visit Provider Internal Medicine
DX: Z79.01 Long term (current) use of anticoagulants (principal)

== ENCOUNTER → 2023-05-23 08:01 | Outpatient (BNVA) | payer MEDICARE, SELFPAY | PROVIDERS: PCP Internal Medicine; Visit Provider Internal Medicine | DX: I48.19 Other persistent atrial fibrillation (principal); Z79.01 Long term (current) use of anticoagulants; Z51.81 Encounter for therapeutic drug level monitoring | CPT/HCPCS: 85610; 99211 ==

== ENCOUNTER 2023-05-27 08:12 | Outpatient (AMB) | payer MEDICARE, SELFPAY ==
[2023-05-27 08:47] LABS: Prothrombin Time Whole Bld POC 16.3 sec (11.1-13.5); ~PT, ~INR - Anti Coag Clinic 1.4 (0.9-1.1)
--- NOTE | 2023-05-27 08:54 | MHC.OFFVISCO ---
Intake Intake Visit Reasons: Anticoagulation Allergies morphine Allergy (Severe, Verified 05/27/23 08:39) Rash baclofen Adverse Reaction (Intermediate, Verified 05/27/23 08:39) Confusion codeine Adverse Reaction (Intermediate, Verified 05/27/23 08:39) GI UPSET divalproex sodium [From Depakote] Adverse Reaction (Intermediate, Verified 05/27/23 08:39) Chest Pain latex Adverse Reaction (Intermediate, Verified 05/27/23 08:39) RASH Medication List - Last Reconciled 05/27/23 by Sofía Gillette RN acetaminophen ER 1,300 mg PO Q12H allopurinol 200 mg PO DAILY atorvastatin 40 mg PO DAILY brimonidine 0.2% 0 drps ophthalmic (eye) [CBD PO] chlorthalidone 25 mg PO DAILY duloxetine 30 mg PO BID gabapentin 600 mg PO TID isosorbide mononitrate ER 30 mg PO DAILY lisinopril 20 mg PO DAILY nitroglycerin mg sublingual prednisolone acetate 1% 1 drp ophthalmic (eye) BID sotalol 120 mg PO BID [carlene bio healer topical] timolol maleate 0.5% 0 drps ophthalmic (eye) triamcinolone acetonide 0.1% 1 appl topical BID-TID warfarin 5 mg See Protocol PO DAILY Nursing Note INR: 1.4 out of therapeutic range pt went to PCP office last after being notified of pt status last week of having chest pressure, he was admitted started on isosorbide and to have cardiac cath in near future Medications and supplements reviewed No changes in health, diet, medications, or supplements, Denies any signs and symptoms of bleeding or bruising or clotting. Bleeding, bruising, clotting discussed Nutritional guidance given - avoid greens today Dose: 5mg today then resume 5mg x sun sat, 2.5mg x 4 days F/U INR: this week saturday05/31/23 Patient verbalizes understanding of instructions given t/c to PCP with pt status PCP office instructed to call [facility]. t/c to [facility] cardiology spoke with Sissy who will talk with medical team and call [facility] back Coding Level of Care Code Est Patient Level 1 Diagnoses Current use of anticoagulant therapy Z79.01 Results AMB INR Fingerstick AMB INR Fingerstick 1.4 Last Edit by Sofía Gillette RN on 05/27/23 08:47 manual entry delayed interface Assessment & Plan Assessment & Plan (1) Current use of anticoagulant therapy: Code(s): Z79.01 - halfway (current) 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
== END 2023-05-27 10:08 | disposition home or self-care (01) ==
LOC: HO.ACS 08:12
PROVIDERS: PCP Internal Medicine; Visit Provider Internal Medicine
DX: Z79.01 Long term (current) use of anticoagulants (principal)

== ENCOUNTER → 2023-05-27 08:12 | Outpatient (BNVA) | payer MEDICARE, SELFPAY | PROVIDERS: PCP Internal Medicine; Visit Provider Internal Medicine | DX: I48.19 Other persistent atrial fibrillation (principal); Z79.01 Long term (current) use of anticoagulants; Z51.81 Encounter for therapeutic drug level monitoring | CPT/HCPCS: 85610; 99211 ==

== ENCOUNTER 2023-05-31 08:14 | Outpatient (AMB) | payer MEDICARE, SELFPAY ==
[2023-05-31 08:21] LABS: ~PT, ~INR - Anti Coag Clinic 2.3 (0.9-1.1)
--- NOTE | 2023-05-31 08:28 | MHC.OFFVISCO ---
Intake Intake Visit Reasons: Anticoagulation Allergies morphine Allergy (Severe, Verified 05/31/23 08:15) Rash baclofen Adverse Reaction (Intermediate, Verified 05/31/23 08:15) Confusion codeine Adverse Reaction (Intermediate, Verified 05/31/23 08:15) GI UPSET divalproex sodium [From Depakote] Adverse Reaction (Intermediate, Verified 05/31/23 08:15) Chest Pain latex Adverse Reaction (Intermediate, Verified 05/31/23 08:15) RASH Medication List - Last Reconciled 05/31/23 by Sofía Gillette, RN acetaminophen ER 1,300 mg PO Q12H allopurinol 200 mg PO DAILY atorvastatin 40 mg PO DAILY brimonidine 0.2% 0 drps ophthalmic (eye) [CBD PO] chlorthalidone 25 mg PO DAILY duloxetine 30 mg PO BID gabapentin 600 mg PO TID isosorbide mononitrate ER 30 mg PO DAILY lisinopril 20 mg PO DAILY nitroglycerin mg sublingual prednisolone acetate 1% 1 drp ophthalmic (eye) BID sotalol 120 mg PO BID [carlene bio healer topical] timolol maleate 0.5% 0 drps ophthalmic (eye) triamcinolone acetonide 0.1% 1 appl topical BID-TID warfarin 5 mg See Protocol PO DAILY Nursing Note HAVING INERMITTEN FLANK PAIN, HAS RENAL CANCER - ENC TO CALL MD - COULD BE THAT OR INFECTION INR: 2.6 in therapeutic range Medications and supplements reviewed No changes in health, diet, medications, or supplements, Denies any signs and symptoms of bleeding or bruising or clotting. 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
== END 2023-05-31 08:33 | disposition home or self-care (01) ==
LOC: HO.ACS 08:14
PROVIDERS: PCP Internal Medicine; Visit Provider Internal Medicine
DX: Z79.01 Long term (current) use of anticoagulants (principal)

== ENCOUNTER → 2023-05-31 08:14 | Outpatient (BNVA) | payer MEDICARE, SELFPAY | PROVIDERS: PCP Internal Medicine; Visit Provider Internal Medicine | DX: I48.19 Other persistent atrial fibrillation (principal); Z79.01 Long term (current) use of anticoagulants; Z51.81 Encounter for therapeutic drug level monitoring | CPT/HCPCS: 85610; 99211 ==

== ENCOUNTER 2023-06-07 08:00 | Outpatient (AMB) | payer MEDICARE, SELFPAY ==
[2023-06-07 08:12] LABS: Prothrombin Time Whole Bld POC 42.6 sec (11.1-13.5); ~PT, ~INR - Anti Coag Clinic 3.6 (0.9-1.1)
--- NOTE | 2023-06-07 08:22 | MHC.OFFVISCO ---
Intake Intake Visit Reasons: Anticoagulation Allergies morphine Allergy (Severe, Verified 05/31/23 08:15) Rash baclofen Adverse Reaction (Intermediate, Verified 05/31/23 08:15) Confusion codeine Adverse Reaction (Intermediate, Verified 05/31/23 08:15) GI UPSET divalproex sodium [From Depakote] Adverse Reaction (Intermediate, Verified 05/31/23 08:15) Chest Pain latex Adverse Reaction (Intermediate, Verified 05/31/23 08:15) RASH Nursing Note INR 3.6?? out of therapeutic range Medications and supplements reviewed Patient status: ATE A LOT OF GRAPES A WHOLE BAG FEW DAYS AGO, STILL HAS CHEST PRESSURE - MDS ARE, HE IS ON ISOSORBIDE , TO HAVE ECHO 06/18/23 THEN POSSBILE CATH AND OR AGIOGRAM AD OR ABLATION ALL CONTINGENT ON ECHO Medications or supplements: NO NEW CHANGES Diet: GOOD Denies any signs and symptoms of bleeding or clotting or unusual bruising Bleeding, bruising, clotting discussed Nutritional guidance given: GREENS TODAY AND TOMORROW Dose: KEEP SAME DUE TO HEART PRESSURE HE HAS BEEN HAVING 2.5MG MWF/ 5MG X 4 DAYS F/U INR Date : 2 WEEKS?? Patient verbalizing understanding of instructions given. 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
== END 2023-06-07 08:26 | disposition home or self-care (01) ==
LOC: HO.ACS 08:00
PROVIDERS: PCP Internal Medicine; Visit Provider Internal Medicine
DX: Z79.01 Long term (current) use of anticoagulants (principal)

== ENCOUNTER → 2023-06-07 08:00 | Outpatient (BNVA) | payer MEDICARE, SELFPAY | PROVIDERS: PCP Internal Medicine; Visit Provider Internal Medicine | DX: I48.19 Other persistent atrial fibrillation (principal); Z79.01 Long term (current) use of anticoagulants; Z51.81 Encounter for therapeutic drug level monitoring | CPT/HCPCS: 85610; 99211 ==

== ENCOUNTER 2023-06-21 08:28 | Outpatient (AMB) | payer MEDICARE, SELFPAY ==
[2023-06-21 08:41] LABS: Prothrombin Time Whole Bld POC 31.1 sec (11.1-13.5); ~PT, ~INR - Anti Coag Clinic 2.6 (0.9-1.1)
--- NOTE | 2023-06-21 08:48 | MHC.OFFVISCO ---
Intake Intake Visit Reasons: Anticoagulation Allergies morphine Allergy (Severe, Verified 06/21/23 08:42) Rash baclofen Adverse Reaction (Intermediate, Verified 06/21/23 08:42) Confusion codeine Adverse Reaction (Intermediate, Verified 06/21/23 08:42) GI UPSET divalproex sodium [From Depakote] Adverse Reaction (Intermediate, Verified 06/21/23 08:42) Chest Pain latex Adverse Reaction (Intermediate, Verified 06/21/23 08:42) RASH Medication List - Last Reconciled 06/21/23 by Aster De La Fuente, RN acetaminophen ER 1,300 mg PO Q12H allopurinol 200 mg PO DAILY atorvastatin 40 mg PO DAILY brimonidine 0.2% 0 drps ophthalmic (eye) [CBD PO] chlorthalidone 25 mg PO DAILY duloxetine 30 mg PO BID gabapentin 600 mg PO TID isosorbide mononitrate ER 30 mg PO DAILY lisinopril 20 mg PO DAILY nitroglycerin mg sublingual prednisolone acetate 1% 1 drp ophthalmic (eye) BID sotalol 120 mg PO BID [carlene bio healer topical] timolol maleate 0.5% 0 drps ophthalmic (eye) triamcinolone acetonide 0.1% 1 appl topical BID-TID warfarin 5 mg See Protocol PO DAILY Nursing Note Amb to [facility] feeling well Medications and supplements reviewed No changes in health, diet, medications, or supplements PT STS THAT HE IS HAVING A TEST ON 07/01 FOR SPINE , IS NOT AWARE IF HOLDING WARFARIN I HAVEN'T HEARD PT ALSO SPOKE ABOUT CARDIAC CATH, AND ABLATION PT ENCOURAGED TO CALL ALL PROVIDERS REGARDING THESE TESTS AND THAT HE IS ON WARFARIN PT STS HE DIDN'T TAKE WARFARIN ON SATURDAY BECAUSE SOMEONE CALLED ME ABOUT A TEST AND TO HOLD IT THEN NEVER CALLED BACK SO I TOOK USUAL DOSING ON SATURDAY Denies any unusual signs and symptoms of bruising, bleeding Denies any new Chest pain, SOB, or clotting INR: 2.6 in therapeutic range Nutritional guidance given: no greens x 2 days because of missed dose then balance greens and reds in diet Dose: continue usual dosing;2.5mg x 3 days and 5mg x4 days unless there will be hold for upcoming procedure F/U INR: 10 days Sunday 07/01 Patient verbalizes understanding of instructions given with accurate read back/ teach back of dosing PT TO CALL US WITH DATES AND WARFARIN HOLDS TC TO PCP DR CHOI- OFFICE CLOSED TODAY WILL TRY TO REACH ON SATURDAY Coding Level of Care Code Est Patient Level 2 Diagnoses Current use of anticoagulant therapy Z79.01 Time Spent (min) 30 Assessment & Plan Assessment & Plan (1) Current use of anticoagulant therapy: Code(s): 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
== END 2023-06-21 08:52 | disposition home or self-care (01) ==
LOC: HO.ACS 08:28
PROVIDERS: PCP Internal Medicine; Visit Provider Internal Medicine
DX: Z79.01 Long term (current) use of anticoagulants (principal)

== ENCOUNTER → 2023-06-21 08:28 | Outpatient (BNVA) | payer MEDICARE, SELFPAY | PROVIDERS: PCP Internal Medicine; Visit Provider Internal Medicine | DX: I48.19 Other persistent atrial fibrillation (principal); Z79.01 Long term (current) use of anticoagulants; Z51.81 Encounter for therapeutic drug level monitoring | CPT/HCPCS: 85610; 99212 ==

== ENCOUNTER 2023-07-01 08:35 | Outpatient (AMB) | payer MEDICARE, SELFPAY ==
[2023-07-01 08:45] LABS: Prothrombin Time Whole Bld POC 31.7 sec (11.1-13.5); ~PT, ~INR - Anti Coag Clinic 2.6 (0.9-1.1)
--- NOTE | 2023-07-01 08:56 | MHC.OFFVISCO ---
Intake Intake Visit Reasons: Anticoagulation Allergies morphine Allergy (Severe, Verified 06/21/23 08:42) Rash baclofen Adverse Reaction (Intermediate, Verified 06/21/23 08:42) Confusion codeine Adverse Reaction (Intermediate, Verified 06/21/23 08:42) GI UPSET divalproex sodium [From Depakote] Adverse Reaction (Intermediate, Verified 06/21/23 08:42) Chest Pain latex Adverse Reaction (Intermediate, Verified 06/21/23 08:42) RASH Nursing Note cardiac cath 07/08/23 holding warfarin 5 days per md orders, no lovenox order at this time - will f/u call with pcp and cardiology today INR:2.6 in therapeutic range Medications and supplements reviewed No changes in health, diet, medications, or supplements, Denies any signs and symptoms of bleeding or bruising or clotting. Bleeding, bruising, clotting discussed Nutritional guidance given- avoid greens after your procedure eat orange and reds to help raise the INR post procedure Dose: keep same for now 2.5mg x 3 days/ 5mg x 4 days then hold per md orders, lovenox per md orders, then post procedure 5mg sat / 7.5mg sat/ 5mg sat and recheck saturday F/U INR: 08/01/23Patient verbalizes understanding of instructions given Coding Level of Care Code Est Patient Level 1 Comment calls need to made to cardiology and PCP
== END 2023-07-01 09:01 | disposition home or self-care (01) ==
LOC: HO.ACS 08:35
PROVIDERS: PCP Internal Medicine; Visit Provider Internal Medicine
DX: Z79.01 Long term (current) use of anticoagulants (principal)

== ENCOUNTER → 2023-07-01 08:35 | Outpatient (BNVA) | payer MEDICARE, SELFPAY | PROVIDERS: PCP Internal Medicine; Visit Provider Internal Medicine | DX: I48.19 Other persistent atrial fibrillation (principal); Z79.01 Long term (current) use of anticoagulants; Z51.81 Encounter for therapeutic drug level monitoring | CPT/HCPCS: 85610; 99211 ==

== ENCOUNTER 2023-07-12 08:04 | Outpatient (AMB) | payer MEDICARE, SELFPAY ==
[2023-07-12 08:36] LABS: Prothrombin Time Whole Bld POC 20.9 sec (11.1-13.5); ~PT, ~INR - Anti Coag Clinic 1.7 (0.9-1.1)
--- NOTE | 2023-07-12 08:48 | MHC.OFFVISCO ---
Intake Intake Visit Reasons: Anticoagulation Allergies morphine Allergy (Severe, Verified 07/12/23 08:29) Rash baclofen Adverse Reaction (Intermediate, Verified 07/12/23 08:29) Confusion codeine Adverse Reaction (Intermediate, Verified 07/12/23 08:29) GI UPSET divalproex sodium [From Depakote] Adverse Reaction (Intermediate, Verified 07/12/23 08:29) Chest Pain latex Adverse Reaction (Intermediate, Verified 07/12/23 08:29) RASH Medication List - Last Reconciled 07/12/23 by Sofía Gillette RN acetaminophen ER 1,300 mg PO Q12H allopurinol 200 mg PO DAILY atorvastatin 40 mg PO DAILY brimonidine 0.2% 0 drps ophthalmic (eye) [CBD PO] chlorthalidone 25 mg PO DAILY duloxetine 30 mg PO BID enoxaparin mg subcut gabapentin 600 mg PO TID isosorbide mononitrate ER 30 mg PO DAILY lisinopril 20 mg PO DAILY nitroglycerin mg sublingual prednisolone acetate 1% 1 drp ophthalmic (eye) BID sotalol 120 mg PO BID [carlene bio healer topical] timolol maleate 0.5% 0 drps ophthalmic (eye) triamcinolone acetonide 0.1% 1 appl topical BID-TID warfarin 5 mg See Protocol PO DAILY Nursing Note INR 1.7? out of therapeutic range Medications and supplements reviewed Patient status:STATUS POST CARDIAC CATH 07/08/23 , NEEDS STENT AND ABLATION, 90% BLOCAKAGE Medications or supplements: NO CHANGE, COMPLETED LOVENOX Diet: GOOD Denies any signs and symptoms of bleeding or clotting or unusual bruising Bleeding, bruising, clotting discussed Nutritional guidance given: AVOID GREENS X 3 DAYS Dose: HAD BOOSTER DOSES THIS WEEK, 7.5MGTODAY DUE TO HEART BLOCKAGE THEN RESUME 2.5MG MWF/ 5MG X 4 DAYS F/U INR Date : 07/15/23 ?? Patient verbalizing understanding of instructions given. Coding Level of Care Code Est Patient Level 1 Diagnoses Current use of anticoagulant therapy Z79.01 Results AMB INR Fingerstick AMB INR Fingerstick 1.7 Last Edit by Sofía Gillette RN on 07/12/23 08:40 manual entry Assessment & Plan Assessment & Plan (1) Current use of anticoagulant therapy: Code(s): Z79.01 - long term acute care registered nurse (current) 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
== END 2023-07-12 08:53 | disposition home or self-care (01) ==
LOC: HO.ACS 08:04
PROVIDERS: PCP Internal Medicine; Visit Provider Internal Medicine
DX: Z79.01 Long term (current) use of anticoagulants (principal)

== ENCOUNTER → 2023-07-12 08:04 | Outpatient (BNVA) | payer MEDICARE, SELFPAY | PROVIDERS: PCP Internal Medicine; Visit Provider Internal Medicine | DX: I48.19 Other persistent atrial fibrillation (principal); Z79.01 Long term (current) use of anticoagulants; Z51.81 Encounter for therapeutic drug level monitoring | CPT/HCPCS: 85610; 99211 ==

== ENCOUNTER 2023-07-15 08:02 | Outpatient (AMB) | payer MEDICARE, SELFPAY ==
--- NOTE | 2023-07-15 08:11 | MHC.OFFVISCO ---
Intake Intake Visit Reasons: Anticoagulation Allergies morphine Allergy (Severe, Verified 07/15/23 08:07) Rash baclofen Adverse Reaction (Intermediate, Verified 07/15/23 08:07) Confusion codeine Adverse Reaction (Intermediate, Verified 07/15/23 08:07) GI UPSET divalproex sodium [From Depakote] Adverse Reaction (Intermediate, Verified 07/12/23 08:29) Chest Pain latex Adverse Reaction (Intermediate, Verified 07/12/23 08:29) RASH Medication List - Last Reconciled 07/15/23 by Africa Cao RN acetaminophen ER 1,300 mg PO Q12H allopurinol 200 mg PO DAILY atorvastatin 40 mg PO DAILY brimonidine 0.2% 0 drps ophthalmic (eye) [CBD PO] chlorthalidone 25 mg PO DAILY duloxetine 30 mg PO BID gabapentin 600 mg PO TID isosorbide mononitrate ER 30 mg PO DAILY lisinopril 20 mg PO DAILY nitroglycerin mg sublingual prednisolone acetate 1% 1 drp ophthalmic (eye) BID sotalol 120 mg PO BID [carlene bio healer topical] timolol maleate 0.5% 0 drps ophthalmic (eye) triamcinolone acetonide 0.1% 1 appl topical BID-TID warfarin 5 mg See Protocol PO DAILY Nursing Note INR: 2.6-in therapeutic range- of 2-3 Medications and supplements reviewed No changes in health, diet, medications, or supplements, Denies any signs and symptoms of bleeding or bruising or clotting. Bleeding, bruising, clotting discussed Nutritional guidance given Dose: 2.5mg x 3, 5mg x 4 F/U INR: 1 week Patient verbalizes understanding of instructions given pt s/p cardiac cath on 07/08/23, pt states ablation scheduled for 07/24/23, no appt for stent pt will ? warfarin hold and call acs Coding Level of Care Code Est Patient Level 1 Diagnoses Current use of anticoagulant therapy Z79.01 Results AMB INR Fingerstick AMB INR Fingerstick 2.6 Last Edit by Africa Cao RN on 07/15/23 08:15 AMB INR Fingerstick AMB INR Fingerstick 2.6 Last Edit by Africa Cao RN on 07/15/23 08:16 AMB INR Fingerstick AMB INR Fingerstick 2.6 Last Edit by Africa Cao RN on 07/15/23 08:17 Assessment & Plan Assessment & Plan (1) Current use of anticoagulant therapy: Code(s): Z79.01 - nursing home (current) 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
[2023-07-15 08:22] LABS: Prothrombin Time Whole Bld POC 30.8 sec (11.1-13.5); ~PT, ~INR - Anti Coag Clinic 2.6 (0.9-1.1)
== END 2023-07-15 08:21 | disposition home or self-care (01) ==
PROVIDERS: PCP Internal Medicine; Visit Provider Internal Medicine
DX: Z79.01 Long term (current) use of anticoagulants (principal)

== ENCOUNTER → 2023-07-15 08:02 | Outpatient (BNVA) | payer MEDICARE, SELFPAY | PROVIDERS: PCP Internal Medicine; Visit Provider Internal Medicine | DX: I48.19 Other persistent atrial fibrillation (principal); Z79.01 Long term (current) use of anticoagulants; Z51.81 Encounter for therapeutic drug level monitoring | CPT/HCPCS: 85610; 99211 ==

== ENCOUNTER 2023-07-22 09:18 | Outpatient (AMB) | payer MEDICARE, SELFPAY ==
[2023-07-22 09:48] LABS: Prothrombin Time Whole Bld POC 34.5 sec (11.1-13.5); ~PT, ~INR - Anti Coag Clinic 2.9 (0.9-1.1)
--- NOTE | 2023-07-22 09:48 | MHC.OFFVISCO ---
Intake Intake Visit Reasons: Anticoagulation Allergies morphine Allergy (Severe, Verified 07/22/23 09:31) Rash baclofen Adverse Reaction (Intermediate, Verified 07/22/23 09:31) Confusion codeine Adverse Reaction (Intermediate, Verified 07/22/23 09:31) GI UPSET divalproex sodium [From Depakote] Adverse Reaction (Intermediate, Verified 07/22/23 09:31) Chest Pain latex Adverse Reaction (Intermediate, Verified 07/22/23 09:31) RASH Medication List - Last Reconciled 07/22/23 by Sofía Gillette, RN acetaminophen ER 1,300 mg PO Q12H allopurinol 200 mg PO DAILY atorvastatin 40 mg PO DAILY brimonidine 0.2% 0 drps ophthalmic (eye) [CBD PO] chlorthalidone 25 mg PO DAILY duloxetine 30 mg PO BID gabapentin 600 mg PO TID isosorbide mononitrate ER 30 mg PO DAILY lisinopril 20 mg PO DAILY nitroglycerin mg sublingual prednisolone acetate 1% 1 drp ophthalmic (eye) BID sotalol 120 mg PO BID [carlene bio healer topical] timolol maleate 0.5% 0 drps ophthalmic (eye) triamcinolone acetonide 0.1% 1 appl topical BID-TID warfarin 5 mg See Protocol PO DAILY Nursing Note INR: 2.6 in therapeutic range Medications and supplements reviewed pt to have a cardiac stent placed possibly 07/30/23 but has not heard from [facility] with any instructions as of this date - he may need to hold warfrain and bridge with lovenox, will call cardiology and PCP today. Denies any signs and symptoms of bleeding or bruising or clotting. Bleeding, bruising, clotting discussed Nutritional guidance given - eat a mix of fruits and vegetables Dose: keep same dose for now until instructions are received F/U INR: 08/02/23 a tentative date - he may need to stay 1-2 days post procedure Patient verbalizes understanding of instructions given call placed to [facility] cardiology group spoke with Linda regarding pt instructions regarding warfarin and lovenox bridging prior and post procedure for cardiac stent, she stated that he may be having the procedure there but is not a pt there, will try [facility] cardiology after the re-open from lunch. 1400 t/c to [facility] cardiology - spoke with Mikhail the procedure is pending a peer review bcause the insurance has declined the procedure at the moment, Mikhail will call the pt if approved and if on target for 07/30/23 - if not it will be r/s to another time, call to PCP office for mahnaz cady spoke with Taylor who will convey msg to pcp of pt status and request. will call PCP and have them f/u with providers and the person performing the stent. t/c to pt he stated he is now going to have the ablation done and does not have to stop the warfarin for that procedure. [facility] will f/u with pt 07/25/23 for an update. Coding Level of Care Code Est Patient Level 1 Diagnoses Current use of anticoagulant therapy Z79.01 Assessment & Plan Assessment & Plan (1) Current use of anticoagulant therapy: Code(s): Z79.01 - correction (current) 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
== END 2023-07-22 16:03 | disposition home or self-care (01) ==
LOC: HO.ACS 09:18
PROVIDERS: PCP Internal Medicine; Visit Provider Internal Medicine
DX: Z79.01 Long term (current) use of anticoagulants (principal)

== ENCOUNTER → 2023-07-22 09:18 | Outpatient (BNVA) | payer MEDICARE, SELFPAY | PROVIDERS: PCP Internal Medicine; Visit Provider Internal Medicine | DX: I48.19 Other persistent atrial fibrillation (principal); Z79.01 Long term (current) use of anticoagulants; Z51.81 Encounter for therapeutic drug level monitoring | CPT/HCPCS: 85610; 99211 ==

== ENCOUNTER 2023-07-26 08:16 | Outpatient (AMB) | payer MEDICARE, SELFPAY ==
[2023-07-26 08:49] LABS: Prothrombin Time Whole Bld POC 26.6 sec (11.1-13.5); ~PT, ~INR - Anti Coag Clinic 2.2 (0.9-1.1)
--- NOTE | 2023-07-26 09:02 | MHC.OFFVISCO ---
Intake Intake Visit Reasons: Anticoagulation Allergies morphine Allergy (Severe, Verified 07/26/23 08:42) Rash baclofen Adverse Reaction (Intermediate, Verified 07/26/23 08:42) Confusion codeine Adverse Reaction (Intermediate, Verified 07/26/23 08:42) GI UPSET divalproex sodium [From Depakote] Adverse Reaction (Intermediate, Verified 07/26/23 08:42) Chest Pain latex Adverse Reaction (Intermediate, Verified 07/26/23 08:42) RASH Medication List - Last Reconciled 07/26/23 by Sofía Gillette, RN acetaminophen ER 1,300 mg PO Q12H allopurinol 200 mg PO DAILY atorvastatin 40 mg PO DAILY brimonidine 0.2% 0 drps ophthalmic (eye) [CBD PO] chlorthalidone 25 mg PO DAILY duloxetine 30 mg PO BID enoxaparin mg subcut gabapentin 600 mg PO TID isosorbide mononitrate ER 30 mg PO DAILY lisinopril 20 mg PO DAILY nitroglycerin mg sublingual prednisolone acetate 1% 1 drp ophthalmic (eye) BID sotalol 120 mg PO BID [carlene bio healer topical] timolol maleate 0.5% 0 drps ophthalmic (eye) triamcinolone acetonide 0.1% 1 appl topical BID-TID warfarin 5 mg See Protocol PO DAILY Nursing Note INR: 2.2 in therapeutic range pt is status post ablation yesterday - has stopped warfarin and started lovenox as of yesterday he will cont per md orders stopping the lovenox 24 hours before the procedure Medications and supplements reviewed No changes in health, diet, medications, or supplements, Denies any signs and symptoms of bleeding or bruising or clotting. Bleeding, bruising, clotting discussed Nutritional guidance given - avoid greens until INR 2.0 or greater Dose: holding warfarin to resume 7.5mg x 3 days post procedure per md, then resume usual dose f/u INR 08/02/23 if able then 08/06/22 or per md orders F/U INR: 08/02/23 Patient verbalizes understanding of instructions given Coding Level of Care Code Est Patient Level 2 Diagnoses Current use of anticoagulant therapy Z79.01 Assessment & Plan Assessment & Plan (1) Current use of anticoagulant therapy: Code(s): Z79.01 - USP (current) 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
== END 2023-07-26 09:07 | disposition home or self-care (01) ==
LOC: HO.ACS 08:16
PROVIDERS: PCP Internal Medicine; Visit Provider Internal Medicine
DX: Z79.01 Long term (current) use of anticoagulants (principal)

== ENCOUNTER → 2023-07-26 08:16 | Outpatient (BNVA) | payer MEDICARE, SELFPAY | PROVIDERS: PCP Internal Medicine; Visit Provider Internal Medicine | DX: I48.19 Other persistent atrial fibrillation (principal); Z51.81 Encounter for therapeutic drug level monitoring; Z79.01 Long term (current) use of anticoagulants | CPT/HCPCS: 85610; 99212 ==

== ENCOUNTER 2023-08-02 08:07 | Outpatient (AMB) | payer MEDICARE, SELFPAY ==
[2023-08-02 08:28] LABS: ~PT, ~INR - Anti Coag Clinic 1.3 (0.9-1.1)
--- NOTE | 2023-08-02 09:30 | MHC.OFFVISCO ---
Intake Intake Visit Reasons: Anticoagulation Allergies morphine Allergy (Severe, Verified 08/02/23 08:22) Rash baclofen Adverse Reaction (Intermediate, Verified 08/02/23 08:22) Confusion codeine Adverse Reaction (Intermediate, Verified 08/02/23 08:22) GI UPSET divalproex sodium [From Depakote] Adverse Reaction (Intermediate, Verified 08/02/23 08:22) Chest Pain latex Adverse Reaction (Intermediate, Verified 08/02/23 08:22) RASH Medication List - Last Reconciled 08/02/23 by Annia Mckeon RN acetaminophen ER 1,300 mg PO Q12H allopurinol 200 mg PO DAILY atorvastatin 40 mg PO DAILY brimonidine 0.2% 0 drps ophthalmic (eye) [CBD PO] chlorthalidone 25 mg PO DAILY duloxetine 30 mg PO BID enoxaparin mg See Protocol subcut gabapentin 600 mg PO TID isosorbide mononitrate ER 30 mg PO DAILY lisinopril 20 mg PO DAILY nitroglycerin mg sublingual prednisolone acetate 1% 1 drp ophthalmic (eye) BID sotalol 120 mg PO BID [carlene bio healer topical] timolol maleate 0.5% 0 drps ophthalmic (eye) triamcinolone acetonide 0.1% 1 appl topical BID-TID warfarin 5 mg See Protocol PO DAILY Nursing Note PT.HAD CARDIAC ABLATION ON 07/26 AND STENT PLACEMENT ON 07/30 WITHOUT INCIDENT. PT.STARTED PLAVIX AND ASA 81MGM ON 07/30. PT.AND SON SABINA STATE THAT PER DR. KRISHNAN NO LOVENOX POST PROCEDURE WAS PREV.PLANNED DUE TO INCREASED BLEEDING RISK. TO REMAIN ON ASA UNTIL INR IS > 2.0. WARFARIN 7.5MGM AGAIN TODAY THEN RESUME USUAL DOSE AND FOLLOW-UP HERE ON 08/06. NO GREENS IN MEANTIME. PT.DENIES ANY CP,SOB OR SX OF BLEEDING. LASIX IS INCREASED TO 40MGM BID. 'S OFFICE CLOSED TODAY. MESSAGE LEFT ON [facility] [employer] LINE WITH INR AND PLAN OF CARE AT 1:15PM. PT.AND SON AYALA.GOOD UNDERSTANDING OF INSTRUCTIONS. TO SEE PCP TODAY AFTER [facility] APPT. Coding Level of Care Code Est Patient Level 1 Diagnoses Current use of anticoagulant therapy Z79.01 Assessment & Plan Assessment & Plan (1) Current use of anticoagulant therapy: Code(s): Z79.01 - half-way (current) 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
== END 2023-08-02 14:16 | disposition home or self-care (01) ==
LOC: HO.ACS 08:07
PROVIDERS: PCP Internal Medicine; Visit Provider Internal Medicine
DX: Z79.01 Long term (current) use of anticoagulants (principal)

== ENCOUNTER → 2023-08-02 08:07 | Outpatient (BNVA) | payer MEDICARE, SELFPAY | PROVIDERS: PCP Internal Medicine; Visit Provider Internal Medicine | DX: I48.19 Other persistent atrial fibrillation (principal); Z51.81 Encounter for therapeutic drug level monitoring; Z79.01 Long term (current) use of anticoagulants | CPT/HCPCS: 85610; 99211 ==

== ENCOUNTER 2023-08-06 08:04 | Outpatient (AMB) | payer MEDICARE, SELFPAY ==
--- NOTE | 2023-08-06 08:14 | MHC.OFFVISCO ---
Intake Intake Visit Reasons: Anticoagulation Allergies morphine Allergy (Severe, Verified 08/06/23 08:08) Rash baclofen Adverse Reaction (Intermediate, Verified 08/06/23 08:08) Confusion codeine Adverse Reaction (Intermediate, Verified 08/06/23 08:08) GI UPSET divalproex sodium [From Depakote] Adverse Reaction (Intermediate, Verified 08/06/23 08:08) Chest Pain latex Adverse Reaction (Intermediate, Verified 08/06/23 08:08) RASH Medication List - Last Reconciled 08/06/23 by Africa Cao RN acetaminophen ER 1,300 mg PO Q12H allopurinol 200 mg PO DAILY atorvastatin 40 mg PO DAILY brimonidine 0.2% 0 drps ophthalmic (eye) [CBD PO] chlorthalidone 25 mg PO DAILY duloxetine 30 mg PO BID gabapentin 600 mg PO TID isosorbide mononitrate ER 30 mg PO DAILY lisinopril 20 mg PO DAILY nitroglycerin mg sublingual prednisolone acetate 1% 1 drp ophthalmic (eye) BID sotalol 120 mg PO BID [carlene bio healer topical] timolol maleate 0.5% 0 drps ophthalmic (eye) triamcinolone acetonide 0.1% 1 appl topical BID-TID warfarin 5 mg See Protocol PO DAILY Nursing Note INR: 2.4- in therapeutic range of 2-3 no lovenox post proc- pt s/p ablation 07/26/23 and stent 07/30/23 Medications and supplements reviewed- stop asa when inr greater than 2.0 No changes in health, diet, medications, or supplements, Denies any signs and symptoms of bleeding or bruising or clotting. Bleeding, bruising, clotting discussed Nutritional guidance given Dose: 2.5mg x 3, 5mg x 4 F/U INR: 1 week Patient verbalizes understanding of instructions given Coding Level of Care Code Est Patient Level 1 Diagnoses Current use of anticoagulant therapy Z79.01 Assessment & Plan Assessment & Plan (1) Current use of anticoagulant therapy: Code(s): Z79.01 - half-way (current) 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
[2023-08-06 08:15] LABS: Prothrombin Time Whole Bld POC 29.1 sec (11.1-13.5); ~PT, ~INR - Anti Coag Clinic 2.4 (0.9-1.1)
== END 2023-08-06 08:23 | disposition home or self-care (01) ==
LOC: HO.ACS 08:04
PROVIDERS: PCP Internal Medicine; Visit Provider Internal Medicine
DX: Z79.01 Long term (current) use of anticoagulants (principal)

== ENCOUNTER → 2023-08-06 08:04 | Outpatient (BNVA) | payer MEDICARE, SELFPAY | PROVIDERS: PCP Internal Medicine; Visit Provider Internal Medicine | DX: I48.19 Other persistent atrial fibrillation (principal); Z51.81 Encounter for therapeutic drug level monitoring; Z79.01 Long term (current) use of anticoagulants | CPT/HCPCS: 85610; 99211 ==

== ENCOUNTER 2023-08-13 08:01 | Outpatient (AMB) | payer MEDICARE, SELFPAY ==
[2023-08-13 08:11] LABS: Prothrombin Time Whole Bld POC 27.2 sec (11.1-13.5); ~PT, ~INR - Anti Coag Clinic 2.3 (0.9-1.1)
--- NOTE | 2023-08-13 08:12 | MHC.OFFVISCO ---
Intake Intake Visit Reasons: Anticoagulation Allergies morphine Allergy (Severe, Verified 08/13/23 08:05) Rash baclofen Adverse Reaction (Intermediate, Verified 08/13/23 08:05) Confusion codeine Adverse Reaction (Intermediate, Verified 08/13/23 08:05) GI UPSET divalproex sodium [From Depakote] Adverse Reaction (Intermediate, Verified 08/13/23 08:05) Chest Pain latex Adverse Reaction (Intermediate, Verified 08/13/23 08:05) RASH Medication List - Last Reconciled 08/13/23 by Sofía Gillette, RN acetaminophen ER 1,300 mg PO Q12H allopurinol 200 mg PO DAILY atorvastatin 40 mg PO DAILY brimonidine 0.2% 0 drps ophthalmic (eye) [CBD PO] chlorthalidone 25 mg PO DAILY clopidogrel 75 mg PO DAILY duloxetine 30 mg PO BID gabapentin 600 mg PO TID isosorbide mononitrate ER 30 mg PO DAILY lisinopril 20 mg PO DAILY nitroglycerin mg sublingual prednisolone acetate 1% 1 drp ophthalmic (eye) BID sotalol 120 mg PO BID [carlene bio healer topical] timolol maleate 0.5% 0 drps ophthalmic (eye) triamcinolone acetonide 0.1% 1 appl topical BID-TID warfarin 5 mg See Protocol PO DAILY Nursing Note INR: 2.3 in therapeutic range Medications and supplements reviewed feeling better with new cardiac stent walking more and improving strength and going to cardiac rehab Denies any signs and symptoms of bleeding or bruising or clotting. Bleeding, bruising, clotting discussed Nutritional guidance given Dose: 2.5mg mwf/ 5mg x 4 days F/U INR: 2 weeks Patient verbalizes understanding of instructions given Coding Level of Care Code Est Patient Level 1 Diagnoses Current use of anticoagulant therapy Z79.01 Assessment & Plan Assessment & Plan (1) Current use of anticoagulant therapy: Code(s): Z79.01 - half-way (current) 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
== END 2023-08-13 08:21 | disposition home or self-care (01) ==
LOC: HO.ACS 08:01
PROVIDERS: PCP Internal Medicine; Visit Provider Internal Medicine
DX: Z79.01 Long term (current) use of anticoagulants (principal)

== ENCOUNTER → 2023-08-13 08:01 | Outpatient (BNVA) | payer MEDICARE, SELFPAY | PROVIDERS: PCP Internal Medicine; Visit Provider Internal Medicine | DX: I48.19 Other persistent atrial fibrillation (principal); Z79.01 Long term (current) use of anticoagulants; Z51.81 Encounter for therapeutic drug level monitoring | CPT/HCPCS: 85610; 99211 ==

== ENCOUNTER 2023-08-27 08:00 | Outpatient (AMB) | payer MEDICARE, SELFPAY ==
[2023-08-27 08:17] LABS: Prothrombin Time Whole Bld POC 33.8 sec (11.1-13.5); ~PT, ~INR - Anti Coag Clinic 2.8 (0.9-1.1)
--- NOTE | 2023-08-27 08:21 | MHC.OFFVISCO ---
Intake Intake Visit Reasons: Anticoagulation Allergies morphine Allergy (Severe, Verified 08/27/23 08:09) Rash baclofen Adverse Reaction (Intermediate, Verified 08/27/23 08:09) Confusion codeine Adverse Reaction (Intermediate, Verified 08/27/23 08:09) GI UPSET divalproex sodium [From Depakote] Adverse Reaction (Intermediate, Verified 08/27/23 08:09) Chest Pain latex Adverse Reaction (Intermediate, Verified 08/27/23 08:09) RASH Medication List - Last Reconciled 08/27/23 by Aster De La Fuente, RN acetaminophen ER 1,300 mg PO Q12H allopurinol 200 mg PO DAILY atorvastatin 40 mg PO DAILY brimonidine 0.2% 0 drps ophthalmic (eye) chlorthalidone 25 mg PO DAILY clopidogrel 75 mg PO DAILY duloxetine 30 mg PO BID gabapentin 600 mg PO TID isosorbide mononitrate ER 30 mg PO DAILY lisinopril 20 mg PO DAILY nitroglycerin mg sublingual prednisolone acetate 1% 1 drp ophthalmic (eye) BID sotalol 120 mg PO BID [carlene bio healer topical] timolol maleate 0.5% 0 drps ophthalmic (eye) triamcinolone acetonide 0.1% 1 appl topical BID-TID warfarin 5 mg See Protocol PO DAILY Nursing Note Amb to [facility] using cane, feeling well S/P cardiac cath/stent and ablation 07/30, sts breathing so much better Medications and supplements reviewed No changes in health, diet, medications, or supplements Denies any unusual signs and symptoms of bruising, bleeding Denies any new Chest pain, SOB, or clotting INR: 2.8 in therapeutic range Nutritional guidance given: balance greens and reds in diet, be consistent Dose: continue usual dosing; 2.5mg x 3 days and 5mg x 4 days F/U INR: 2 weeks Patient verbalizes understanding of instructions given with accurate read back/ teach back of dosing Coding Level of Care Code Est Patient Level 1 Diagnoses Current use of anticoagulant therapy Z79.01 Time Spent (min) 15 Assessment & Plan Assessment & Plan (1) Current use of anticoagulant therapy: Code(s): Z79.01 - [facility] (current) 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
== END 2023-08-27 08:27 | disposition home or self-care (01) ==
LOC: HO.ACS 08:00
PROVIDERS: PCP Internal Medicine; Visit Provider Internal Medicine
DX: Z79.01 Long term (current) use of anticoagulants (principal)

== ENCOUNTER → 2023-08-27 08:00 | Outpatient (BNVA) | payer MEDICARE, SELFPAY | PROVIDERS: PCP Internal Medicine; Visit Provider Internal Medicine | DX: I48.19 Other persistent atrial fibrillation (principal); Z79.01 Long term (current) use of anticoagulants; Z51.81 Encounter for therapeutic drug level monitoring | CPT/HCPCS: 85610; 99211 ==

== ENCOUNTER 2023-09-10 07:57 | Outpatient (AMB) | payer MEDICARE, SELFPAY ==
--- NOTE | 2023-09-10 08:12 | MHC.OFFVISCO ---
Intake Intake Visit Reasons: Anticoagulation Allergies morphine Allergy (Severe, Verified 09/10/23 08:02) Rash baclofen Adverse Reaction (Intermediate, Verified 09/10/23 08:02) Confusion codeine Adverse Reaction (Intermediate, Verified 09/10/23 08:02) GI UPSET divalproex sodium [From Depakote] Adverse Reaction (Intermediate, Verified 09/10/23 08:02) Chest Pain latex Adverse Reaction (Intermediate, Verified 09/10/23 08:02) RASH Medication List - Last Reconciled 09/10/23 by Aster De La Fuente RN acetaminophen ER 1,300 mg PO Q12H allopurinol 200 mg PO DAILY atorvastatin 40 mg PO DAILY brimonidine 0.2% 0 drps ophthalmic (eye) chlorthalidone 25 mg PO DAILY clopidogrel 75 mg PO DAILY duloxetine 30 mg PO BID gabapentin 600 mg PO TID isosorbide mononitrate ER 30 mg PO DAILY lisinopril 20 mg PO DAILY nitroglycerin mg sublingual prednisolone acetate 1% 1 drp ophthalmic (eye) BID sotalol 120 mg PO BID [carlene bio healer topical] timolol maleate 0.5% 0 drps ophthalmic (eye) triamcinolone acetonide 0.1% 1 appl topical BID-TID warfarin 5 mg See Protocol PO DAILY Nursing Note Amb to [facility] feeling well s/p ablation and cardiac stent, on plavix Medications and supplements reviewed No changes in health, diet, medications, or supplements Denies any unusual signs and symptoms of bruising, bleeding Denies any new Chest pain, SOB, or clotting INR:2.8 in therapeutic range Nutritional guidance given: balance greens and reds in diet Dose: continue usual dosing;2.5mg x 3 days and 5mg x 4 days F/U INR: 2 weeks Patient verbalizes understanding of instructions given with accurate read back/ teach back of dosing Questionnaires HAS-BLED Does the patient had uncontrolled Hypertension?: No Does the patient have renal disease?: Yes Does the patient have liver disease?: No Does the patient have a history of stroke?: Yes Has the patient had major bleeding or predisposition to bleeding?: No Does the patient have labile INRs?: No Is the patient over 65 years of age?: Yes Is the patient on medications that gives them a predisposition to bleeding?: Yes Does the patient use alcohol?: No HAS-BLED Score: 4 CHADSVASC Age: 75 or over Gender: Male Does the patient have a history of CHF?: No Does the patient have a history of Hypertension?: Yes Does the patient have a history of Stroke/TIA/Thromboembolism?: Yes Does the patient have a history of Vascular Disease (prior OK, PAD or aortic plaque)?: Yes Does the patient have a history of Diabetes?: No CHADS VACS Score: 6 Alo Prediction Score Rsk VTE Active Cancer: No Previous VTE, excluding superficial vein thrombosis: Yes Reduced mobility: Yes Already known Thrombophilic Condition: Yes With-in last month Trauma and/or Surgery: No Elderly 70 year or older: Yes Heart and/or Respiratory Failure: No Acute Myocardial infarction and/or Ischemic Stroke: Yes Acute Infection and/or Rheumatologic Disorder: No Obesity (BMI 30 or greater): No Ongoing Hormonal Treatment: No Score: 11 Alo Score less than 4; Low Risk of VTE Alo Score 4 or greater; High Risk of VTE Coding Level of Care Code Est Patient Level 1 Diagnoses Current use of anticoagulant therapy Z79.01 Time Spent (min) 15 Assessment & Plan Assessment & Plan (1) Current use of anticoagulant therapy: Code(s): 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
[2023-09-11 08:16] LABS: Prothrombin Time Whole Bld POC 31.7 sec (11.1-13.5); ~PT, ~INR - Anti Coag Clinic 2.6 (0.9-1.1)
== END 2023-09-10 08:40 | disposition home or self-care (01) ==
LOC: HO.ACS 07:57
PROVIDERS: PCP Internal Medicine; Visit Provider Internal Medicine
DX: Z79.01 Long term (current) use of anticoagulants (principal)

== ENCOUNTER → 2023-09-10 07:57 | Outpatient (BNVA) | payer MEDICARE, SELFPAY | PROVIDERS: PCP Internal Medicine; Visit Provider Internal Medicine | DX: I48.19 Other persistent atrial fibrillation (principal); Z79.01 Long term (current) use of anticoagulants; Z51.81 Encounter for therapeutic drug level monitoring | CPT/HCPCS: 85610; 99211 ==

== ENCOUNTER 2023-09-24 09:22 | Outpatient (AMB) | payer MEDICARE, SELFPAY ==
--- NOTE | 2023-09-24 09:42 | MHC.OFFVISCO ---
Intake Intake Visit Reasons: Anticoagulation Allergies morphine Allergy (Severe, Verified 09/24/23 09:35) Rash baclofen Adverse Reaction (Intermediate, Verified 09/24/23 09:35) Confusion codeine Adverse Reaction (Intermediate, Verified 09/24/23 09:35) GI UPSET divalproex sodium [From Depakote] Adverse Reaction (Intermediate, Verified 09/24/23 09:35) Chest Pain latex Adverse Reaction (Intermediate, Verified 09/24/23 09:35) RASH Medication List - Last Reconciled 09/24/23 by Africa Cao RN acetaminophen ER 1,300 mg PO Q12H allopurinol 200 mg PO DAILY atorvastatin 40 mg PO DAILY brimonidine 0.2% 0 drps ophthalmic (eye) chlorthalidone 25 mg PO DAILY clopidogrel 75 mg PO DAILY duloxetine 30 mg PO BID gabapentin 600 mg PO TID isosorbide mononitrate ER 30 mg PO DAILY lisinopril 20 mg PO DAILY nitroglycerin mg sublingual prednisolone acetate 1% 1 drp ophthalmic (eye) BID sotalol 120 mg PO BID [carlene bio healer topical] timolol maleate 0.5% 0 drps ophthalmic (eye) triamcinolone acetonide 0.1% 1 appl topical BID-TID warfarin 5 mg See Protocol PO DAILY Nursing Note INR: 2.5- in therapeutic range of 2-3 Medications and supplements reviewed- no changes No changes in health, diet, medications, or supplements, Denies any signs and symptoms of bleeding or bruising or clotting. 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
[2023-09-24 09:43] LABS: ~PT, ~INR - Anti Coag Clinic 2.5 (0.9-1.1)
== END 2023-09-24 09:48 | disposition home or self-care (01) ==
LOC: HO.ACS 09:22
PROVIDERS: PCP Internal Medicine; Visit Provider Internal Medicine
DX: Z79.01 Long term (current) use of anticoagulants (principal)

== ENCOUNTER → 2023-09-24 09:22 | Outpatient (BNVA) | payer MEDICARE, SELFPAY | PROVIDERS: PCP Internal Medicine; Visit Provider Internal Medicine | DX: I48.19 Other persistent atrial fibrillation (principal); Z79.01 Long term (current) use of anticoagulants; Z51.81 Encounter for therapeutic drug level monitoring | CPT/HCPCS: 85610; 99211 ==

== ENCOUNTER 2023-10-08 08:02 | Outpatient (AMB) | payer MEDICARE, SELFPAY ==
[2023-10-08 08:11] LABS: Prothrombin Time Whole Bld POC 26.5 sec (11.1-13.5); ~PT, ~INR - Anti Coag Clinic 2.2 (0.9-1.1)
--- NOTE | 2023-10-08 08:12 | MHC.OFFVISCO ---
Intake Intake Visit Reasons: Anticoagulation Allergies morphine Allergy (Severe, Verified 10/08/23 08:06) Rash baclofen Adverse Reaction (Intermediate, Verified 10/08/23 08:06) Confusion codeine Adverse Reaction (Intermediate, Verified 10/08/23 08:06) GI UPSET divalproex sodium [From Depakote] Adverse Reaction (Intermediate, Verified 10/08/23 08:06) Chest Pain latex Adverse Reaction (Intermediate, Verified 10/08/23 08:06) RASH Medication List - Last Reconciled 10/08/23 by Aster Barksdale, RN acetaminophen ER 1,300 mg PO Q12H allopurinol 200 mg PO DAILY atorvastatin 40 mg PO DAILY brimonidine 0.2% 0 drps ophthalmic (eye) chlorthalidone 25 mg PO DAILY clopidogrel 75 mg PO DAILY duloxetine 30 mg PO BID gabapentin 600 mg PO TID isosorbide mononitrate ER 30 mg PO DAILY lisinopril 20 mg PO DAILY nitroglycerin mg sublingual prednisolone acetate 1% 1 drp ophthalmic (eye) BID sotalol 120 mg PO BID [carlene bio healer topical] timolol maleate 0.5% 0 drps ophthalmic (eye) triamcinolone acetonide 0.1% 1 appl topical BID-TID warfarin 5 mg See Protocol PO DAILY Nursing Note INR: 2.2 in therapeutic range of 2-3 Medications and supplements reviewed No changes in health, diet, medications, or supplements, Denies any signs and symptoms of bleeding or bruising or clotting. Bleeding, bruising, clotting discussed Nutritional guidance given Dose: continue usual dose of 2.5mg X3 days and 5mg X4 days F/U INR: 3 weeks Patient verbalizes understanding of instructions given Coding Level of Care Code Est Patient Level 1 Diagnoses Current use of anticoagulant therapy Z79.01 Assessment & Plan Assessment & Plan (1) Current use of anticoagulant therapy: Code(s): Z79.01 - half-way (current) 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
== END 2023-10-08 08:19 | disposition home or self-care (01) ==
LOC: HO.ACS 08:02
PROVIDERS: PCP Internal Medicine; Visit Provider Internal Medicine
DX: Z79.01 Long term (current) use of anticoagulants (principal)

== ENCOUNTER → 2023-10-08 08:02 | Outpatient (BNVA) | payer MEDICARE, SELFPAY | PROVIDERS: PCP Internal Medicine; Visit Provider Internal Medicine | DX: I48.19 Other persistent atrial fibrillation (principal); Z79.01 Long term (current) use of anticoagulants; Z51.81 Encounter for therapeutic drug level monitoring | CPT/HCPCS: 85610; 99211 ==

== ENCOUNTER 2023-10-29 07:56 | Outpatient (AMB) | payer MEDICARE, SELFPAY ==
[2023-10-29 08:10] LABS: Prothrombin Time Whole Bld POC 29.7 sec (11.1-13.5); ~PT, ~INR - Anti Coag Clinic 2.5 (0.9-1.1)
--- NOTE | 2023-10-29 08:18 | MHC.OFFVISCO ---
Intake Intake Visit Reasons: Anticoagulation Allergies morphine Allergy (Severe, Verified 10/08/23 08:06) Rash baclofen Adverse Reaction (Intermediate, Verified 10/08/23 08:06) Confusion codeine Adverse Reaction (Intermediate, Verified 10/08/23 08:06) GI UPSET divalproex sodium [From Depakote] Adverse Reaction (Intermediate, Verified 10/08/23 08:06) Chest Pain latex Adverse Reaction (Intermediate, Verified 10/08/23 08:06) RASH Medication List - Last Reconciled 10/29/23 by Sofía Gillette RN acetaminophen ER 1,300 mg PO Q12H allopurinol 200 mg PO DAILY atorvastatin 80 mg PO DAILY brimonidine 0.2% 0 drps ophthalmic (eye) chlorthalidone 25 mg PO DAILY cholecalciferol (vitamin D3) 1,250 mcg PO QWEEK clopidogrel 75 mg PO DAILY duloxetine 30 mg PO BID gabapentin 600 mg PO TID isosorbide mononitrate ER 30 mg PO DAILY lisinopril 20 mg PO DAILY nitroglycerin mg sublingual prednisolone acetate 1% 1 drp ophthalmic (eye) BID sotalol 120 mg PO BID [carlene bio healer topical] timolol maleate 0.5% 0 drps ophthalmic (eye) triamcinolone acetonide 0.1% 1 appl topical BID-TID warfarin 5 mg See Protocol PO DAILY Nursing Note INR: 2.5 in therapeutic range Medications and supplements reviewed- ATORVASTATIN INCREASED TO 80 MG No changes in health, diet, medications, or supplements, Denies any signs and symptoms of bleeding or bruising or clotting. Bleeding, bruising, clotting discussed Nutritional guidance given - REVIEW FOOD LIST WEEKLY Dose: 2.5MG X 3 DAYS/5MG X 4 DAYS F/U INR: 3 WEEKS Patient verbalizes understanding of instructions given Coding Level of Care Code Est Patient Level 1 Diagnoses Current use of anticoagulant therapy Z79.01 Assessment & Plan Assessment & Plan (1) Current use of anticoagulant therapy: Code(s): Z79.01 - [facility] (current) 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
== END 2023-10-29 08:23 | disposition home or self-care (01) ==
LOC: HO.ACS 07:56
PROVIDERS: PCP Internal Medicine; Visit Provider Internal Medicine
DX: Z79.01 Long term (current) use of anticoagulants (principal)

== ENCOUNTER → 2023-10-29 07:56 | Outpatient (BNVA) | payer MEDICARE, SELFPAY | PROVIDERS: PCP Internal Medicine; Visit Provider Internal Medicine | DX: I48.19 Other persistent atrial fibrillation (principal); Z79.01 Long term (current) use of anticoagulants; Z51.81 Encounter for therapeutic drug level monitoring | CPT/HCPCS: 85610; 99211 ==

== ENCOUNTER 2023-11-19 07:58 | Outpatient (AMB) | payer MEDICARE, SELFPAY ==
[2023-11-19 08:03] LABS: Prothrombin Time Whole Bld POC 34.7 sec (11.1-13.5); ~PT, ~INR - Anti Coag Clinic 2.9 (0.9-1.1)
--- NOTE | 2023-11-19 10:55 | MHC.OFFVISCO ---
Intake Intake Visit Reasons: Anticoagulation Allergies morphine Allergy (Severe, Verified 11/19/23 07:59) Rash baclofen Adverse Reaction (Intermediate, Verified 11/19/23 07:59) Confusion codeine Adverse Reaction (Intermediate, Verified 11/19/23 07:59) GI UPSET divalproex sodium [From Depakote] Adverse Reaction (Intermediate, Verified 11/19/23 07:59) Chest Pain latex Adverse Reaction (Intermediate, Verified 11/19/23 07:59) RASH Medication List - Last Reconciled 11/19/23 by Sfoía Gillette RN acetaminophen ER 1,300 mg PO Q12H allopurinol 200 mg PO DAILY atorvastatin 80 mg PO DAILY brimonidine 0.2% 0 drps ophthalmic (eye) chlorthalidone 25 mg PO DAILY cholecalciferol (vitamin D3) 1,250 mcg PO QWEEK clopidogrel 75 mg PO DAILY duloxetine 30 mg PO BID erythromycin ophthalmic (eye) gabapentin 600 mg PO TID isosorbide mononitrate ER 30 mg PO DAILY lisinopril 20 mg PO DAILY nitroglycerin mg sublingual prednisolone acetate 1% 1 drp ophthalmic (eye) BID sotalol 120 mg PO BID [carlene bio healer topical] timolol maleate 0.5% 0 drps ophthalmic (eye) triamcinolone acetonide 0.1% 1 appl topical BID-TID warfarin 5 mg See Protocol PO DAILY Nursing Note INR: 2.9 in therapeutic range Medications and supplements reviewed Pt came wrong day for appt - but taken due to having an bleeding event- He stated 2 weeks ago he sneezed and popped a blood vessel in his eye- his eye became red with blood and periorbital all balck and blue up to the brow and then some, he stated he went to [facility] ER - he did not call [facility], he was instructed that any time something like that occurs apply cold compress go to ER and then call [facility] . He states he did not receive any warfarin instruction when he left [facility] and he did not bring ER notes - he stated he threw them out 2 days ago, again he was advised to bring to clinic any new health information that it helps better understand the situation and helps us know how to best care for him. Bruising is subsided sclera still red but decreasing Bleeding, bruising, clotting discussed Nutritional guidance given - review food list weekly, eat a mix of fruits and vegetables, eat greens today Dose: keep same 2.5mg x 3 days/ 5mg x 4 days F/U INR: 4 weeks or prn any health or med changes or concerns Patient verbalizes understanding of instructions given Coding Level of Care Code Est Patient Level 1 Diagnoses Current use of anticoagulant therapy Z79.01 Results AMB INR Fingerstick AMB INR Fingerstick 2.9 Last Edit by Sofía Gillette RN on 11/19/23 08:04 MANUAL ENTRY Assessment & Plan Assessment & Plan (1) Current use of anticoagulant therapy: Code(s): Z79.01 - alf (current) 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
== END 2023-11-19 11:03 | disposition home or self-care (01) ==
PROVIDERS: PCP Internal Medicine; Visit Provider Internal Medicine
DX: Z79.01 Long term (current) use of anticoagulants (principal)

== ENCOUNTER → 2023-11-19 07:58 | Outpatient (BNVA) | payer MEDICARE, SELFPAY | PROVIDERS: PCP Internal Medicine; Visit Provider Internal Medicine | DX: I48.19 Other persistent atrial fibrillation (principal); Z79.01 Long term (current) use of anticoagulants; Z51.81 Encounter for therapeutic drug level monitoring | CPT/HCPCS: 85610; 99211 ==

== ENCOUNTER 2023-12-17 07:59 | Outpatient (AMB) | payer MEDICARE, SELFPAY ==
[2023-12-17 08:09] LABS: Prothrombin Time Whole Bld POC 32.9 sec (11.1-13.5); ~PT, ~INR - Anti Coag Clinic 2.7 (0.9-1.1)
--- NOTE | 2023-12-17 08:15 | MHC.OFFVISCO ---
Intake Intake Visit Reasons: Anticoagulation Allergies morphine Allergy (Severe, Verified 12/17/23 08:02) Rash baclofen Adverse Reaction (Intermediate, Verified 12/17/23 08:02) Confusion codeine Adverse Reaction (Intermediate, Verified 12/17/23 08:02) GI UPSET divalproex sodium [From Depakote] Adverse Reaction (Intermediate, Verified 12/17/23 08:02) Chest Pain latex Adverse Reaction (Intermediate, Verified 12/17/23 08:02) RASH Medication List - Last Reconciled 12/17/23 by Sofía Gillette RN acetaminophen ER 1,300 mg PO Q12H allopurinol 200 mg PO DAILY atorvastatin 80 mg PO DAILY brimonidine 0.2% 0 drps ophthalmic (eye) chlorthalidone 25 mg PO DAILY cholecalciferol (vitamin D3) 1,250 mcg PO QWEEK clopidogrel 75 mg PO DAILY duloxetine 30 mg PO BID erythromycin ophthalmic (eye) gabapentin 600 mg PO TID isosorbide mononitrate ER 30 mg PO DAILY ketorolac 0.5% drps ophthalmic (eye) lisinopril 20 mg PO DAILY nitroglycerin mg sublingual prednisolone acetate 1% 1 drp ophthalmic (eye) BID sotalol 120 mg PO BID [carlene bio healer topical] timolol maleate 0.5% 0 drps ophthalmic (eye) triamcinolone acetonide 0.1% 1 appl topical BID-TID warfarin 5 mg See Protocol PO DAILY Nursing Note INR: 2.7 in therapeutic range Medications and supplements reviewed To have cataract procedure and a stent placed for his eyes- does not have to hold the warfarin - extra print out given for MD No changes in health, diet, medications, or supplements, Denies any signs and symptoms of bleeding or bruising or clotting. 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
== END 2023-12-17 08:30 | disposition home or self-care (01) ==
LOC: HO.ACS 07:59
PROVIDERS: PCP Internal Medicine; Visit Provider Internal Medicine
DX: Z79.01 Long term (current) use of anticoagulants (principal)

== ENCOUNTER → 2023-12-17 07:59 | Outpatient (BNVA) | payer MEDICARE, SELFPAY | PROVIDERS: PCP Internal Medicine; Visit Provider Internal Medicine | DX: I48.19 Other persistent atrial fibrillation (principal); Z51.81 Encounter for therapeutic drug level monitoring; Z79.01 Long term (current) use of anticoagulants | CPT/HCPCS: 85610; 99211 ==

== ENCOUNTER 2024-01-14 08:01 | Outpatient (AMB) | payer MEDICARE, SELFPAY ==
--- NOTE | 2024-01-14 08:20 | MHC.OFFVISCO ---
Intake Intake Visit Reasons: Anticoagulation Allergies morphine Allergy (Severe, Verified 01/14/24 08:04) Rash baclofen Adverse Reaction (Intermediate, Verified 01/14/24 08:04) Confusion codeine Adverse Reaction (Intermediate, Verified 01/14/24 08:04) GI UPSET divalproex sodium [From Depakote] Adverse Reaction (Intermediate, Verified 01/14/24 08:04) Chest Pain latex Adverse Reaction (Intermediate, Verified 01/14/24 08:04) RASH Medication List - Last Reconciled 01/14/24 by Aster Barksdale RN acetaminophen ER 1,300 mg PO Q12H allopurinol 200 mg PO DAILY atorvastatin 80 mg PO DAILY brimonidine 0.2% 0 drps ophthalmic (eye) chlorthalidone 25 mg PO DAILY cholecalciferol (vitamin D3) 1,250 mcg PO QWEEK clopidogrel 75 mg PO DAILY duloxetine 30 mg PO BID erythromycin ophthalmic (eye) gabapentin 600 mg PO TID isosorbide mononitrate ER 30 mg PO DAILY ketorolac 0.5% drps ophthalmic (eye) lisinopril 20 mg PO DAILY nitroglycerin mg sublingual prednisolone acetate 1% 1 drp ophthalmic (eye) BID sotalol 120 mg PO BID [carlene bio healer topical] timolol maleate 0.5% 0 drps ophthalmic (eye) triamcinolone acetonide 0.1% 1 appl topical BID-TID warfarin 5 mg See Protocol PO DAILY Nursing Note Pt to [facility] with use of wheeled walker, gait steady. INR: 2.4 in therapeutic range of 2-3 Medications and supplements reviewed No changes in health, diet, medications, or supplements, Denies any signs and symptoms of bleeding or bruising or clotting. Bleeding, bruising, clotting discussed Nutritional guidance given to cont to balance reds and greens Dose: 5mg X 4 days and 2.5mg X 3 days F/U INR: 4 weeks Patient verbalizes understanding of instructions given Coding Level of Care Code Est Patient Level 1 Diagnoses Current use of anticoagulant therapy Z79.01 Results AMB INR Fingerstick AMB INR Fingerstick 2.4 Last Edit by Aster Barksdale RN on 01/14/24 08:19 interface delay Assessment & Plan Assessment & Plan (1) Current use of anticoagulant therapy: Code(s): Z79.01 - longterm (current) 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
[2024-01-14 09:33] LABS: Prothrombin Time Whole Bld POC 29.2 sec (11.1-13.5); ~PT, ~INR - Anti Coag Clinic 2.4 (0.9-1.1)
== END 2024-01-14 08:22 | disposition home or self-care (01) ==
LOC: HO.ACS 08:01
PROVIDERS: PCP Internal Medicine; Visit Provider Internal Medicine
DX: Z79.01 Long term (current) use of anticoagulants (principal)

== ENCOUNTER → 2024-01-14 08:01 | Outpatient (BNVA) | payer MEDICARE, SELFPAY | PROVIDERS: PCP Internal Medicine; Visit Provider Internal Medicine | DX: I48.19 Other persistent atrial fibrillation (principal); Z79.01 Long term (current) use of anticoagulants; Z51.81 Encounter for therapeutic drug level monitoring | CPT/HCPCS: 85610; 99211 ==

== ENCOUNTER 2024-02-11 07:59 | Outpatient (AMB) | payer MEDICARE, SELFPAY ==
[2024-02-11 08:11] LABS: Prothrombin Time Whole Bld POC 20.8 sec (11.1-13.5); ~PT, ~INR - Anti Coag Clinic 1.7 (0.9-1.1)
--- NOTE | 2024-02-11 08:18 | MHC.OFFVISCO ---
Intake Intake Visit Reasons: Anticoagulation Allergies morphine Allergy (Severe, Verified 02/11/24 08:05) Rash baclofen Adverse Reaction (Intermediate, Verified 02/11/24 08:05) Confusion codeine Adverse Reaction (Intermediate, Verified 02/11/24 08:05) GI UPSET divalproex sodium [From Depakote] Adverse Reaction (Intermediate, Verified 02/11/24 08:05) Chest Pain latex Adverse Reaction (Intermediate, Verified 02/11/24 08:05) RASH Medication List - Last Reconciled 02/11/24 by Sofía Gillette RN acetaminophen ER 1,300 mg PO Q12H allopurinol 200 mg PO DAILY atorvastatin 80 mg PO DAILY brimonidine 0.2% 0 drps ophthalmic (eye) chlorthalidone 25 mg PO DAILY cholecalciferol (vitamin D3) 1,250 mcg PO QWEEK clopidogrel 75 mg PO DAILY duloxetine 30 mg PO BID erythromycin ophthalmic (eye) gabapentin 600 mg PO TID isosorbide mononitrate ER 30 mg PO DAILY ketorolac 0.5% drps ophthalmic (eye) lisinopril 20 mg PO DAILY nitroglycerin mg sublingual prednisolone acetate 1% 1 drp ophthalmic (eye) BID sotalol 120 mg PO BID [carlene bio healer topical] timolol maleate 0.5% 0 drps ophthalmic (eye) triamcinolone acetonide 0.1% 1 appl topical BID-TID warfarin 5 mg See Protocol PO DAILY Nursing Note INR 1.7 out of therapeutic range Medications and supplements reviewed Patient status: Pt from colon cancer 2 weeks ago - may have missed a dose Medications or supplements: atorvastatin will decrese to 40mg daily from 80 mg in about 2 weeks Diet: improving Denies any signs and symptoms of bleeding or clotting or unusual bruising Bleeding, bruising, clotting discussed Nutritional guidance given: 0 greens x 3 days, orange and reds today Dose: 7.5mg today then resume usual dose 5mg x 4 days/ 2.5mg x 3 days F/U INR Date : 2 weeks ?? Patient verbalizing understanding of instructions given. Coding Level of Care Code Est Patient Level 1 Diagnoses Current use of anticoagulant therapy Z79.01 Results AMB INR Fingerstick AMB INR Fingerstick 1.7 Last Edit by Sofía Gillette RN on 02/11/24 08:11 manual entry NO INTERFACING Assessment & Plan Assessment & Plan (1) Current use of anticoagulant therapy: Code(s): Z79.01 - alf (current) 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
== END 2024-02-11 08:23 | disposition home or self-care (01) ==
LOC: HO.ACS 07:59
PROVIDERS: PCP Internal Medicine; Visit Provider Internal Medicine
DX: Z79.01 Long term (current) use of anticoagulants (principal)

== ENCOUNTER → 2024-02-11 07:59 | Outpatient (BNVA) | payer MEDICARE, SELFPAY | PROVIDERS: PCP Internal Medicine; Visit Provider Internal Medicine | DX: I48.19 Other persistent atrial fibrillation (principal); Z79.01 Long term (current) use of anticoagulants; Z51.81 Encounter for therapeutic drug level monitoring | CPT/HCPCS: 85610; 99211 ==

== ENCOUNTER 2024-02-25 08:02 | Outpatient (AMB) | payer MEDICARE, SELFPAY ==
[2024-02-25 08:16] LABS: Prothrombin Time Whole Bld POC 34.2 sec (11.1-13.5); ~PT, ~INR - Anti Coag Clinic 2.8 (0.9-1.1)
--- NOTE | 2024-02-25 08:16 | MHC.OFFVISCO ---
Intake Intake Visit Reasons: Anticoagulation Allergies morphine Allergy (Severe, Verified 02/25/24 08:10) Rash baclofen Adverse Reaction (Intermediate, Verified 02/25/24 08:10) Confusion codeine Adverse Reaction (Intermediate, Verified 02/25/24 08:10) GI UPSET divalproex sodium [From Depakote] Adverse Reaction (Intermediate, Verified 02/25/24 08:10) Chest Pain latex Adverse Reaction (Intermediate, Verified 02/25/24 08:10) RASH Medication List - Last Reconciled 02/25/24 by Africa Cao RN acetaminophen ER 1,300 mg PO Q12H allopurinol 200 mg PO DAILY atorvastatin 80 mg PO DAILY brimonidine 0.2% 0 drps ophthalmic (eye) chlorthalidone 25 mg PO DAILY cholecalciferol (vitamin D3) 1,250 mcg PO QWEEK clopidogrel 75 mg PO DAILY duloxetine 30 mg PO BID erythromycin ophthalmic (eye) gabapentin 600 mg PO TID isosorbide mononitrate ER 30 mg PO DAILY ketorolac 0.5% drps ophthalmic (eye) lisinopril 20 mg PO DAILY nitroglycerin mg sublingual prednisolone acetate 1% 1 drp ophthalmic (eye) BID sotalol 120 mg PO BID [carlene bio healer topical] timolol maleate 0.5% 0 drps ophthalmic (eye) triamcinolone acetonide 0.1% 1 appl topical BID-TID warfarin 5 mg See Protocol PO DAILY Nursing Note INR: 2.8- in therapeutic range of 2-3 Medications and supplements reviewed- omeprazole 20mg dly- will raise inr per micromedex, atorvastatin increased to 80mg daily- no interaction with warfarin No changes in health, diet, medications, or supplements, Denies any signs and symptoms of bleeding or bruising or clotting. Bleeding, bruising, clotting discussed Nutritional guidance given Dose: reduce today to 2.5mg due to active bleeding then cont 2.5mg x 3, 5mg x 4 F/U INR: 1 week Patient verbalizes understanding of instructions given pt with c.o oral bleeding from gums for one week- is going to pcp office today pcp dr isaac called to make aware of pt c.o bleeding, inr and dosing today. 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
== END 2024-02-25 08:31 | disposition home or self-care (01) ==
LOC: HO.ACS 08:02
PROVIDERS: PCP Internal Medicine; Visit Provider Internal Medicine
DX: Z79.01 Long term (current) use of anticoagulants (principal)

== ENCOUNTER → 2024-02-25 08:02 | Outpatient (BNVA) | payer MEDICARE, SELFPAY | PROVIDERS: PCP Internal Medicine; Visit Provider Internal Medicine | DX: I48.19 Other persistent atrial fibrillation (principal); Z79.01 Long term (current) use of anticoagulants; Z51.81 Encounter for therapeutic drug level monitoring | CPT/HCPCS: 85610; 99211 ==

== ENCOUNTER 2024-03-03 08:22 | Outpatient (AMB) | payer MEDICARE, SELFPAY ==
[2024-03-03 08:27] LABS: Prothrombin Time Whole Bld POC 45.4 sec (11.1-13.5); ~PT, ~INR - Anti Coag Clinic 3.8 (0.9-1.1)
--- NOTE | 2024-03-03 08:42 | MHC.OFFVISCO ---
Intake Intake Visit Reasons: Anticoagulation Allergies morphine Allergy (Severe, Verified 03/03/24 08:22) Rash baclofen Adverse Reaction (Intermediate, Verified 03/03/24 08:22) Confusion codeine Adverse Reaction (Intermediate, Verified 03/03/24 08:22) GI UPSET divalproex sodium [From Depakote] Adverse Reaction (Intermediate, Verified 03/03/24 08:22) Chest Pain latex Adverse Reaction (Intermediate, Verified 03/03/24 08:22) RASH Medication List - Last Reconciled 03/03/24 by Sofía Gillette, RN acetaminophen ER 1,300 mg PO Q12H allopurinol 200 mg PO DAILY atorvastatin 80 mg PO DAILY brimonidine 0.2% 0 drps ophthalmic (eye) chlorthalidone 25 mg PO DAILY cholecalciferol (vitamin D3) 1,250 mcg PO QWEEK clopidogrel 75 mg PO DAILY duloxetine 30 mg PO BID erythromycin ophthalmic (eye) gabapentin 600 mg PO TID isosorbide mononitrate ER 30 mg PO DAILY ketorolac 0.5% drps ophthalmic (eye) lisinopril 20 mg PO DAILY nitroglycerin mg sublingual omeprazole 20 mg PO DAILY prednisolone acetate 1% 1 drp ophthalmic (eye) BID sotalol 120 mg PO BID [carlene bio healer topical] timolol maleate 0.5% 0 drps ophthalmic (eye) triamcinolone acetonide 0.1% 1 appl topical BID-TID warfarin 5 mg See Protocol PO DAILY Nursing Note INR 3.8? out of therapeutic range Medications and supplements reviewed Patient status: started omeprazole few weeks ago - can raise the INR, also ate a lot of watermelon Medications or supplements: no new this week Diet: good Denies any signs and symptoms of bleeding or clotting or unusual bruising Bleeding, bruising, clotting discussed Nutritional guidance given: eat a few more greens when eating more melon than usual Dose: decrease 2.5mg x 4 days/ 5mg x 3 days F/U INR Date : 2 weeks per pt request and to see affects of dosing and diet changes?? Patient verbalizing understanding of instructions given. Coding Level of Care Code Est Patient Level 1 Diagnoses Current use of anticoagulant therapy Z79.01 Assessment & Plan Assessment & Plan (1) Current use of anticoagulant therapy: Code(s): Z79.01 - [facility] (current) 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
== END 2024-03-03 08:45 | disposition home or self-care (01) ==
LOC: HO.ACS 08:22
PROVIDERS: PCP Internal Medicine; Visit Provider Internal Medicine
DX: Z79.01 Long term (current) use of anticoagulants (principal)

== ENCOUNTER → 2024-03-03 08:22 | Outpatient (BNVA) | payer MEDICARE, SELFPAY | PROVIDERS: PCP Internal Medicine; Visit Provider Internal Medicine | DX: I48.19 Other persistent atrial fibrillation (principal); Z79.01 Long term (current) use of anticoagulants; Z51.81 Encounter for therapeutic drug level monitoring | CPT/HCPCS: 85610; 99211 ==

== ENCOUNTER 2024-03-16 08:04 | Outpatient (AMB) | payer MEDICARE, SELFPAY ==
[2024-03-16 08:19] LABS: ~PT, ~INR - Anti Coag Clinic 2.7 (0.9-1.1)
--- NOTE | 2024-03-16 08:25 | MHC.OFFVISCO ---
Intake Intake Visit Reasons: Anticoagulation Allergies morphine Allergy (Severe, Verified 03/16/24 08:11) Rash baclofen Adverse Reaction (Intermediate, Verified 03/16/24 08:11) Confusion codeine Adverse Reaction (Intermediate, Verified 03/16/24 08:11) GI UPSET divalproex sodium [From Depakote] Adverse Reaction (Intermediate, Verified 03/16/24 08:11) Chest Pain latex Adverse Reaction (Intermediate, Verified 03/16/24 08:11) RASH Medication List - Last Reconciled 03/16/24 by Sofía Gillette RN acetaminophen ER 1,300 mg PO Q12H allopurinol 200 mg PO DAILY atorvastatin 80 mg PO DAILY brimonidine 0.2% 0 drps ophthalmic (eye) chlorthalidone 25 mg PO DAILY cholecalciferol (vitamin D3) 1,250 mcg PO QWEEK clopidogrel 75 mg PO DAILY duloxetine 30 mg PO BID erythromycin ophthalmic (eye) gabapentin 600 mg PO TID isosorbide mononitrate ER 30 mg PO DAILY ketorolac 0.5% drps ophthalmic (eye) lisinopril 20 mg PO DAILY nitroglycerin mg sublingual omeprazole 20 mg PO DAILY prednisolone acetate 1% 1 drp ophthalmic (eye) BID sotalol 120 mg PO BID [carlene bio healer topical] timolol maleate 0.5% 0 drps ophthalmic (eye) triamcinolone acetonide 0.1% 1 appl topical BID-TID warfarin 5 mg See Protocol PO DAILY Nursing Note INR: 2.7 in therapeutic range Medications and supplements reviewed- omeprazole for about 3-4 weeks now Had a stomach virus since last visit x 3 days Denies any signs and symptoms of bleeding or bruising or clotting. Bleeding, bruising, clotting discussed Nutritional guidance given - eat amix of fruits and vegetables Dose: keep same 5mg mwf/ 2.5mg x 4 days F/U INR: 2 weeks due to adding omeprazole to diet Patient verbalizes understanding of instructions given Coding Level of Care Code Est Patient Level 1 Diagnoses Current use of anticoagulant therapy Z79.01 Results AMB INR Fingerstick AMB INR Fingerstick 2.7 Last Edit by Sofía Gillette RN on 03/16/24 08:22 FAILED INTERFACING MANUAL ENTRY ONGING Assessment & Plan Assessment & Plan (1) Current use of anticoagulant therapy: Code(s): Z79.01 - [facility] (current) 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
== END 2024-03-16 08:29 | disposition home or self-care (01) ==
LOC: HO.ACS 08:04
PROVIDERS: PCP Internal Medicine; Visit Provider Internal Medicine
DX: Z79.01 Long term (current) use of anticoagulants (principal)

== ENCOUNTER → 2024-03-16 08:04 | Outpatient (BNVA) | payer MEDICARE, SELFPAY | PROVIDERS: PCP Internal Medicine; Visit Provider Internal Medicine | DX: I48.19 Other persistent atrial fibrillation (principal); Z79.01 Long term (current) use of anticoagulants; Z51.81 Encounter for therapeutic drug level monitoring | CPT/HCPCS: 85610; 99211 ==

== ENCOUNTER 2024-03-30 08:17 | Outpatient (AMB) | payer MEDICARE, SELFPAY ==
--- NOTE | 2024-03-30 08:32 | MHC.OFFVISCO ---
Intake Intake Visit Reasons: Anticoagulation Allergies morphine Allergy (Severe, Verified 03/30/24 08:24) Rash baclofen Adverse Reaction (Intermediate, Verified 03/30/24 08:24) Confusion codeine Adverse Reaction (Intermediate, Verified 03/30/24 08:24) GI UPSET divalproex sodium [From Depakote] Adverse Reaction (Intermediate, Verified 03/30/24 08:24) Chest Pain latex Adverse Reaction (Intermediate, Verified 03/30/24 08:24) RASH Medication List - Last Reconciled 03/30/24 by Africa Cao RN acetaminophen ER 1,300 mg PO Q12H allopurinol 200 mg PO DAILY atorvastatin 80 mg PO DAILY brimonidine 0.2% 0 drps ophthalmic (eye) chlorthalidone 25 mg PO DAILY cholecalciferol (vitamin D3) 1,250 mcg PO QWEEK clopidogrel 75 mg PO DAILY duloxetine 30 mg PO BID erythromycin ophthalmic (eye) gabapentin 600 mg PO TID isosorbide mononitrate ER 30 mg PO DAILY ketorolac 0.5% drps ophthalmic (eye) lisinopril 20 mg PO DAILY nitroglycerin mg sublingual omeprazole 20 mg PO DAILY prednisolone acetate 1% 1 drp ophthalmic (eye) BID sotalol 120 mg PO BID [carlene bio healer topical] timolol maleate 0.5% 0 drps ophthalmic (eye) triamcinolone acetonide 0.1% 1 appl topical BID-TID warfarin 5 mg See Protocol PO DAILY Nursing Note INR: 2.4- in therapeutic range of 2-3 Medications and supplements reviewed- no changes No changes in health, diet, medications, or supplements, Denies any signs and symptoms of bleeding or bruising or clotting. Bleeding, bruising, clotting discussed Nutritional guidance given Dose: 2.5mg x 4, 5mg x 3 F/U INR: 2 weeks Patient verbalizes understanding of instructions given pt states unable to have [place] in [place] due to pacemaker, [facility] Coding Level of Care Code Est Patient Level 1 Diagnoses Current use of anticoagulant therapy Z79.01 Results AMB INR Fingerstick AMB INR Fingerstick 2.4 Last Edit by Africa Cao RN on 03/30/24 08:34 interface delay Assessment & Plan Assessment & Plan (1) Current use of anticoagulant therapy: Code(s): Z79.01 - [employer] (current) 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
[2024-03-30 08:42] LABS: Prothrombin Time Whole Bld POC 28.4 sec (11.1-13.5); ~PT, ~INR - Anti Coag Clinic 2.4 (0.9-1.1)
== END 2024-03-30 08:59 | disposition home or self-care (01) ==
LOC: HO.ACS 08:17
PROVIDERS: PCP Internal Medicine; Visit Provider Internal Medicine
DX: Z79.01 Long term (current) use of anticoagulants (principal)

== ENCOUNTER → 2024-03-30 08:17 | Outpatient (BNVA) | payer MEDICARE, SELFPAY | PROVIDERS: PCP Internal Medicine; Visit Provider Internal Medicine | DX: I48.19 Other persistent atrial fibrillation (principal); Z79.01 Long term (current) use of anticoagulants; Z51.81 Encounter for therapeutic drug level monitoring | CPT/HCPCS: 85610; 99211 ==

== ENCOUNTER 2024-04-13 08:00 | Outpatient (AMB) | payer MEDICARE, SELFPAY ==
[2024-04-13 08:12] LABS: Prothrombin Time Whole Bld POC 28.5 sec (11.1-13.5); ~PT, ~INR - Anti Coag Clinic 2.4 (0.9-1.1)
--- NOTE | 2024-04-13 08:18 | MHC.OFFVISCO ---
Intake Intake Visit Reasons: Anticoagulation Allergies morphine Allergy (Severe, Verified 04/13/24 08:02) Rash baclofen Adverse Reaction (Intermediate, Verified 04/13/24 08:02) Confusion codeine Adverse Reaction (Intermediate, Verified 04/13/24 08:02) GI UPSET divalproex sodium [From Depakote] Adverse Reaction (Intermediate, Verified 04/13/24 08:02) Chest Pain latex Adverse Reaction (Intermediate, Verified 04/13/24 08:02) RASH Medication List - Last Reconciled 04/13/24 by Aster Barksdale, RN acetaminophen ER 1,300 mg PO Q12H allopurinol 200 mg PO DAILY atorvastatin 80 mg PO DAILY brimonidine 0.2% 0 drps ophthalmic (eye) chlorthalidone 25 mg PO DAILY clopidogrel 75 mg PO DAILY duloxetine 30 mg PO BID erythromycin ophthalmic (eye) gabapentin 600 mg PO TID isosorbide mononitrate ER 30 mg PO DAILY ketorolac 0.5% drps ophthalmic (eye) lisinopril 20 mg PO DAILY nitroglycerin mg sublingual omeprazole 20 mg PO DAILY PRN prednisolone acetate 1% 1 drp ophthalmic (eye) BID sotalol 120 mg PO BID [carlene bio healer topical] timolol maleate 0.5% 0 drps ophthalmic (eye) triamcinolone acetonide 0.1% 1 appl topical BID-TID warfarin 5 mg See Protocol PO DAILY Nursing Note INR: 2.4 in therapeutic range of 2-3 Medications and supplements reviewed No changes in health, diet, or supplements, stopped omeprazole daily and only takes prn now. Denies any signs and symptoms of bleeding or bruising or clotting. 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
== END 2024-04-13 08:20 | disposition home or self-care (01) ==
LOC: HO.ACS 08:00
PROVIDERS: PCP Internal Medicine; Visit Provider Internal Medicine
DX: Z79.01 Long term (current) use of anticoagulants (principal)

== ENCOUNTER → 2024-04-13 08:00 | Outpatient (BNVA) | payer MEDICARE, SELFPAY | PROVIDERS: PCP Internal Medicine; Visit Provider Internal Medicine | DX: I48.19 Other persistent atrial fibrillation (principal); Z79.01 Long term (current) use of anticoagulants; Z51.81 Encounter for therapeutic drug level monitoring | CPT/HCPCS: 85610; 99211 ==

== ENCOUNTER 2024-05-11 07:59 | Outpatient (AMB) | payer MEDICARE, SELFPAY ==
[2024-05-11 08:08] LABS: Prothrombin Time Whole Bld POC 25.7 sec (11.1-13.5); ~PT, ~INR - Anti Coag Clinic 2.1 (0.9-1.1)
--- NOTE | 2024-05-11 08:10 | MHC.OFFVISCO ---
Intake Intake Visit Reasons: Anticoagulation Allergies morphine Allergy (Severe, Verified 05/11/24 08:01) Rash baclofen Adverse Reaction (Intermediate, Verified 05/11/24 08:01) Confusion codeine Adverse Reaction (Intermediate, Verified 05/11/24 08:01) GI UPSET divalproex sodium [From Depakote] Adverse Reaction (Intermediate, Verified 05/11/24 08:01) Chest Pain latex Adverse Reaction (Intermediate, Verified 05/11/24 08:01) RASH Medication List - Last Reconciled 05/11/24 by Sofía Gillette RN acetaminophen ER 1,300 mg PO Q12H allopurinol 200 mg PO DAILY atorvastatin 80 mg PO DAILY brimonidine 0.2% 0 drps ophthalmic (eye) chlorthalidone 25 mg PO DAILY clopidogrel 75 mg PO DAILY duloxetine 30 mg PO BID erythromycin ophthalmic (eye) gabapentin 600 mg PO TID isosorbide mononitrate ER 30 mg PO DAILY ketorolac 0.5% drps ophthalmic (eye) lisinopril 20 mg PO DAILY nitroglycerin mg sublingual omeprazole 20 mg PO DAILY PRN prednisolone acetate 1% 1 drp ophthalmic (eye) BID sotalol 120 mg PO BID [carlene bio healer topical] timolol maleate 0.5% 0 drps ophthalmic (eye) triamcinolone acetonide 0.1% 1 appl topical BID-TID warfarin 5 mg See Protocol PO DAILY Nursing Note INR: 2.1 in therapeutic range Medications and supplements reviewed No changes in health, diet, medications, or supplements, Denies any signs and symptoms of bleeding or bruising or clotting. Bleeding, bruising, clotting discussed Nutritional guidance given Dose: KEEP SAME 5MG X 3 DAYS/ 2.5MG X 4 DAYS F/U INR: 1 MONTH Patient verbalizes understanding of instructions given Coding Level of Care Code Est Patient Level 1 Diagnoses Current use of anticoagulant therapy Z79.01 Results AMB INR Fingerstick AMB INR Fingerstick 2.1 Last Edit by Sofía Gillette RN on 05/11/24 08:09 manual entry Assessment & Plan Assessment & Plan (1) Current use of anticoagulant therapy: Code(s): Z79.01 - FPC (current) 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
== END 2024-05-11 08:14 | disposition home or self-care (01) ==
LOC: HO.ACS 07:59
PROVIDERS: PCP Internal Medicine; Visit Provider Internal Medicine
DX: Z79.01 Long term (current) use of anticoagulants (principal)

== ENCOUNTER → 2024-05-11 07:59 | Outpatient (BNVA) | payer MEDICARE, SELFPAY | PROVIDERS: PCP Internal Medicine; Visit Provider Internal Medicine | DX: I48.19 Other persistent atrial fibrillation (principal); Z79.01 Long term (current) use of anticoagulants; Z51.81 Encounter for therapeutic drug level monitoring | CPT/HCPCS: 85610; 99211 ==

== ENCOUNTER 2024-06-08 07:57 | Outpatient (AMB) | payer MEDICARE, SELFPAY ==
--- NOTE | 2024-06-08 08:09 | MHC.OFFVISCO ---
Intake Intake Visit Reasons: Anticoagulation Allergies morphine Allergy (Severe, Verified 06/08/24 08:00) Rash baclofen Adverse Reaction (Intermediate, Verified 06/08/24 08:00) Confusion codeine Adverse Reaction (Intermediate, Verified 06/08/24 08:00) GI UPSET divalproex sodium [From Depakote] Adverse Reaction (Intermediate, Verified 06/08/24 08:00) Chest Pain latex Adverse Reaction (Intermediate, Verified 06/08/24 08:00) RASH Medication List - Last Reconciled 06/08/24 by Sofía Gillette RN acetaminophen ER 1,300 mg PO Q12H allopurinol 200 mg PO DAILY atorvastatin 80 mg PO DAILY brimonidine 0.2% 0 drps ophthalmic (eye) chlorthalidone 25 mg PO DAILY clopidogrel 75 mg PO DAILY duloxetine 30 mg PO BID erythromycin ophthalmic (eye) gabapentin 600 mg PO TID isosorbide mononitrate ER 30 mg PO DAILY ketorolac 0.5% drps ophthalmic (eye) lisinopril 20 mg PO DAILY nitroglycerin mg sublingual omeprazole 20 mg PO DAILY PRN prednisolone acetate 1% 1 drp ophthalmic (eye) BID sotalol 120 mg PO BID [carlene bio healer topical] timolol maleate 0.5% 0 drps ophthalmic (eye) triamcinolone acetonide 0.1% 1 appl topical BID-TID warfarin 5 mg See Protocol PO DAILY Nursing Note INR: 2.9 in therapeutic range Medications and supplements reviewed No changes in health, diet, medications, or supplements, c/o of chronic back pain - may need surgery in near future Denies any signs and symptoms of bleeding or bruising or clotting. Bleeding, bruising, clotting discussed Nutritional guidance given Dose: 5mg x 3 days/ 2.5mg x 4 days F/U INR: 1 month Patient verbalizes understanding of instructions given Coding Level of Care Code Est Patient Level 1 Diagnoses Current use of anticoagulant therapy Z79.01 Results AMB INR Fingerstick AMB INR Fingerstick 2.9 Last Edit by Sofía Gillette RN on 06/08/24 08:07 manual entry Assessment & Plan Assessment & Plan (1) Current use of anticoagulant therapy: Code(s): Z79.01 - long term care phlebotomist (current) 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
[2024-06-08 08:27] LABS: Prothrombin Time Whole Bld POC 34.4 sec (11.1-13.5); ~PT, ~INR - Anti Coag Clinic 2.9 (0.9-1.1)
== END 2024-06-08 08:12 | disposition home or self-care (01) ==
LOC: HO.ACS 07:57
PROVIDERS: PCP Internal Medicine; Visit Provider Internal Medicine
DX: Z79.01 Long term (current) use of anticoagulants (principal)

== ENCOUNTER → 2024-06-08 07:57 | Outpatient (BNVA) | payer MEDICARE, SELFPAY | PROVIDERS: PCP Internal Medicine; Visit Provider Internal Medicine | DX: I48.19 Other persistent atrial fibrillation (principal); Z79.01 Long term (current) use of anticoagulants; Z51.81 Encounter for therapeutic drug level monitoring | CPT/HCPCS: 85610; 99211 ==

== ENCOUNTER 2024-07-06 08:00 | Outpatient (AMB) | payer MEDICARE, SELFPAY ==
[2024-07-06 08:08] LABS: Prothrombin Time Whole Bld POC 31.6 sec (11.1-13.5); ~PT, ~INR - Anti Coag Clinic 2.6 (0.9-1.1)
--- NOTE | 2024-07-06 08:09 | MHC.OFFVISCO ---
Intake Intake Visit Reasons: Anticoagulation Allergies morphine Allergy (Severe, Verified 07/06/24 08:01) Rash baclofen Adverse Reaction (Intermediate, Verified 07/06/24 08:01) Confusion codeine Adverse Reaction (Intermediate, Verified 07/06/24 08:01) GI UPSET divalproex sodium [From Depakote] Adverse Reaction (Intermediate, Verified 07/06/24 08:01) Chest Pain latex Adverse Reaction (Intermediate, Verified 07/06/24 08:01) RASH Medication List - Last Reconciled 07/06/24 by Sofía Gillette, RN acetaminophen ER 1,300 mg PO Q12H allopurinol 200 mg PO DAILY atorvastatin 80 mg PO DAILY brimonidine 0.2% 0 drps ophthalmic (eye) chlorthalidone 25 mg PO DAILY clopidogrel 75 mg PO DAILY duloxetine 30 mg PO BID erythromycin ophthalmic (eye) gabapentin 600 mg PO TID isosorbide mononitrate ER 30 mg PO DAILY ketorolac 0.5% drps ophthalmic (eye) lisinopril 20 mg PO DAILY nitroglycerin mg sublingual omeprazole 20 mg PO DAILY PRN prednisolone acetate 1% 1 drp ophthalmic (eye) BID sotalol 120 mg PO BID [carlene bio healer topical] timolol maleate 0.5% 0 drps ophthalmic (eye) triamcinolone acetonide 0.1% 1 appl topical BID-TID warfarin 5 mg See Protocol PO DAILY Nursing Note INR: 2.6 in therapeutic range Medications and supplements reviewed No changes in health, diet, medications, or supplements, Denies any signs and symptoms of bleeding or bruising or clotting. Bleeding, bruising, clotting discussed Nutritional guidance given Dose: 5MG X 3 DAYS/ 2.5MG X 4 DAYS F/U INR: 1 MONTH Patient verbalizes understanding of instructions given- PT TO CALL IF HE IS GOING TO HAVE ANY SPINAL SURGERY OR INJECTION- NO DATES YET Coding Level of Care Code Est Patient Level 1 Diagnoses Current use of anticoagulant therapy Z79.01 Assessment & Plan Assessment & Plan (1) Current use of anticoagulant therapy: Code(s): Z79.01 - FDC (current) 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 Medications: New cholecalciferol (vitamin D3) PO
== END 2024-07-06 08:15 | disposition home or self-care (01) ==
LOC: HO.ACS 08:00
PROVIDERS: PCP Internal Medicine; Visit Provider Internal Medicine
DX: Z79.01 Long term (current) use of anticoagulants (principal)

== ENCOUNTER → 2024-07-06 08:00 | Outpatient (BNVA) | payer MEDICARE, SELFPAY | PROVIDERS: PCP Internal Medicine; Visit Provider Internal Medicine | DX: I48.19 Other persistent atrial fibrillation (principal); Z79.01 Long term (current) use of anticoagulants; Z51.81 Encounter for therapeutic drug level monitoring | CPT/HCPCS: 85610; 99211 ==

== ENCOUNTER 2024-08-03 08:01 | Outpatient (AMB) | payer MEDICARE, SELFPAY ==
--- OUTSIDE RECORDS SUMMARY | 2024-08-03 08:03 | XMS_ITS | Data Portability ---
Author Organization [place] [facility], [facility] Address [address] [place] [address] Assessment Encounter Date Assessment Date Assessment LastModified by Organization Details LastModified Time 12/27/2023 12/27/2023 83-year-old man with postlaminectomy syndrome once again recommend that spinal cord stimulator trial implant. Procedure reviewed in detail. He wishes to proceed. Will arrange and follow-up for reevaluation. Natural history reviewed and questions answered. This patient has debilitating back and radiating leg pain refractory to conservative care, thus far. I have recommended a referral for spinal cord stimulator evaluation. Risks and benefits reviewed. I have explained that I do not perform spinal injections and we will refer the patient to a pain management group that does such injections on a routine basis. [email or web address] Not available 12/27/2023 12:28:17 Plan of Treatment Reminders Order Date Submit Date Provider Last Modified By Organization Details Last Modified Time Details Appointments None record ed. Lab None record ed. Referral None record ed. Procedures None record ed. Surgeries None record ed. Imaging None record ed. Medication Orders None record ed. Patient TargetsNo targets recorded. Patient InstructionsNo instructions recorded. Reason for Referral None Reported. Problems Name Problem SNOMED Code Status Onset Date Resolution Date Notes Provider Name and Address Organization Details Recorded Time No complaints 716493776 Active Status : 'I'; Not Available [facility] [place] [facility] 4 09:28:03 Problem Notes None recorded. Medical Equipment None Reported. Allergies Allergen ID Allergen Name Allergen Category Reaction Reaction Severity Criticality Documentation Date Start Date Code Code System Note Provider Name and Address Organization Details Recorded Time 03871 codeine sulfate medicatio n Not available Not available Not available 10/07/20232016 95049 RxNorm Not Available [facility] [place] [facility] 4 12:08:52 53891 morphine sulfate medicatio n Not available Not available Not available 10/07/20232013 69852 RxNorm Not Available [facility] 12:08:52 Medications Name Sig Start Date Stop Date Status Note LastModified by Organization Details LastModified Time pseudoeph edrine-gu aifenesin ER 80-700 mg tablet,ex tended release DO NOT DRIVE WHILE ON THIS MEDICATION 014 active Statu s: 'Curr ent'; Not Available Not Available Not Available Vitals Date Recorded Body height Body mass index (BMI) Body weight Provider Name and Address Organization Details Last Updated DateTime 12/27/2023 165.1 cm 35.1 kg/m2 33182.99 g SCAR VELIZ [place] [facility] 12/27/2023 09:09:13 Social History None recorded. Functional Status None recorded. Mental Status None recorded. Family History Nothing Reported. Medical History No medical history recorded. Past Encounters Encounter ID Performer Location Encounter Start Date Encounter Closed Date Diagnosis/Indication Diagnosis SNOMED-CT Code Diagnosis ICD10 Code [id number] Augie Simons MD [place] [address] [place] [address] 12/27/2023 08:37:56 01/15/2024 11:37:33 Lumbar post-laminectomy syndrome 549273991 M96.1 Health Concerns Section Related Observation LastModified by Organization Detai ls LastModified Time None Recorded Concern Status LastModified by Organization Details LastModified Time None Recorded Advance Directives Directive None Recorded Payers Encounter Date Sequence Insurance Name Policy Number Policy Oliver Covered Member ID Oliver Member ID Guarantor Name 12/27/2023 2 [place] [facility] Raine Ken [id number] Raine Ken 12/27/2023 1 [facility] (MEDICARE REPLACEMENT/A DVANTAGE - PPO) [id number] Raine Ken [id number] Raine Ken Notes Date Note Type Note Provider Name and Address Organization Details Recorded Time 12/27/2023 text/html HPI: 83-year-old man with ongoing debilitating back and radiating leg pain. Last seen for this 4 months ago. Diagnosed with postlaminectomy syndrome. We recommended a spinal cord stimulator trial placement however reviewed at a recent stent placed and could not come off his Plavix. Now is in a position that he can come off his Plavix. Symptoms the same. Back and radiating leg pain. WORK STATUS: Disabled PFMSH and ROS has been reviewed, updated, and is located in the patient's chart RADIOGRAPHS: Not indicated PHYSICAL EXAMINATION: Augie Simons MD [address] [place] [address] [address], [place], [address], [facility] - [facility] 12/27/2023 12:28:38
--- OUTSIDE RECORDS SUMMARY | 2024-08-03 08:03 | XMS_ITS | Data Portability ---
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 My measurement today was 22 degrees in the vertebrae above and below where the DJ K was noted. This is at this point related to his pain however I am concerned about neurologic function. If the kyphosis progresses the spinal cord can develop compression over the kyphosis. This could lead to neurologic decline and loss of function. To that end I would like to have him undergo a CT myelogram to better assess the spinal cord and spinal canal at T1-2 but also at T3-4. [email or web address] Not available 09/04/2022 11:25:34 10/31/2022 10/31/2022 I discussed with Raine and his son that there has been reasonable evidence that the disc degeneration at T3-4 has progressed. This is good radiographic evidence of adjacent segment disease at the distal level. 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 There is a risk that this might progress and lead to spinal cord compression with neurological sequelae. I discussed treatment options with him. He is tried multiple injections and physical therapy in the recent past and is no longer able or willing to pursue those treatments. Rather he would like to pursue operative intervention. We discussed extension of his fusion construct 3 levels to the T7 Not available 10/31/2022 16:51:46 03/03/2024 03/03/2024 84-year-old male persistent thoracic pain. We had previously submitted for surgical revision of his construct related to distal junctional kyphosis. We could submit once again as he relates to me that he has more clarity on his case and there may be an opportunity for him to undergo revision surgery. I would propose extension fusion to T7 or T8. Possible T3-4 osteotomy [email or web address] Not available 03/03/2024 14:33:41 06/16/2024 06/16/2024 We discussed treatment options. It sounds like he would like to still proceed with surgery. There are and have been insurance having ups which may or may not get resolved in the near future [email or web address] Not available 06/16/2024 16:34:46 Plan of Treatment Reminders Order Date Submit Date Provider Last Modified By Organization Details Last Modified Time Details Appointments None record ed. Lab None record ed. Referral None record ed. Procedures None record ed. Surgeries None record ed. Imaging None record ed. Medication Orders None record ed. Patient TargetsNo targets recorded. Patient Instructions Encounter Date Encounter Id Patient Instructions Last Modified By Organization Details Last Modified Time 10/31/2022 [id number] Submit to Worker 's Comp. for approval. In person pre-op meeting Not available 10/31/2022 16:51:57 03/03/2024 [id number] MRI thoracic spi ne with and without contrast Extension fusion to T7/T8, possible T3-4 osteotomy with instrumentation Preop meeting with me [email or web address] Not available 03/03/2024 14:33:42 06/16/2024 [id number] Mr. Gunter should get in touch with [facility] or have his geotechnical intern's office called [employer] to discuss his financial responsibility and the various scenarios [email or web address] Not available 06/16/2024 16:34:47 Reason for Referral None Reported. Results Created Date Observation Date Name Description Value Unit Range Abnormal Flag Note LastModifiedBy Organization Detail LastModifiedTime 03/27/2003/27/2024 COMPR EHENS DIANA METAB OLIC PANEL sodium 138 mmol/ L 135-14 5 Not Available [facility] - Lab [address], [place], [address], 03/27/2024 11:38:19 03/27/2003/27/2024 COMPR EHENS DIANA METAB OLIC PANEL potassium 5.7 mmol/ L 3.5-5. 3 high Not Available [facility] - Lab [address], [place], [address], 03/27/2024 11:38:19 03/27/20 24 03/27/2024 COMPR EHENS DIANA METAB OLIC PANEL chloride 100 mmol/ L 100-11 2 Not Available [facility] - Lab [address], [place], [address], 03/27/2024 11:38:19 03/27/20 24 03/27/2024 COMPR EHENS DIANA METAB OLIC PANEL total CO2 29 mmol/ L 21-30 Not Available [facility] - Lab [address], [place], [address], 03/27/2024 11:38:19 03/27/20 24 03/27/2024 COMPR EHENS DIANA METAB OLIC PANEL anion gap 9 mmol/ L 4-20 Not Available [facility] - Lab [address], [place], [address], 03/27/2024 11:38:19 03/27/20 24 03/27/2024 COMPR EHENS DIANA METAB OLIC PANEL BUN 28 mg/dL 6-20 high Not Available [facility] - Lab [address], [place], [address], 03/27/2024 11:38:19 03/27/20 24 03/27/2024 COMPR EHENS DIANA METAB OLIC PANEL creatinine 1.30 mg/dL 0.00-1 .30 Not Available [facility] Lab [address], [place], [address], 03/27/2024 11:38:19 03/27/20 24 03/27/2024 COMPR EHENS DIANA METAB OLIC PANEL glucose 124 mg/dL 70-105 high Not Available [facility] - Lab [address], [place], [address], 03/27/2024 11:38:19 03/27/20 24 03/27/2024 COMPR EHENS DIANA METAB OLIC PANEL calcium 9.6 mg/dL 8.4-10 .2 Not Available [facility] - Lab [address], [place], [address], 03/27/2024 11:38:19 03/27/20 24 03/27/2024 COMPR EHENS DIANA METAB OLIC PANEL total protein 7.4 g/dL 6.5-8. 0 Not Available [facility] - Lab [address], [place], [address], 03/27/2024 11:38:19 03/27/20 24 03/27/2024 COMPR EHENS DIANA METAB OLIC PANEL albumin, blood 4.1 g/dL 3.5-5. 0 Not Available [facility] - Lab [address], [place], [address], 03/27/2024 11:38:19 03/27/20 24 03/27/2024 COMPR EHENS DIANA METAB OLIC PANEL globulin 3.3 g/dL 2.0-4. 0 Not Available [facility] - Lab [address], [place], [address], 03/27/2024 11:38:19 03/27/20 24 03/27/2024 COMPR EHENS DIANA METAB OLIC PANEL AST (SGOT) 69 U/L 0-40 high Speci men hemol yzed; resul t may be inval id. Inter pret with cauti on. Not Available [facility] - Lab [address], [place], [address], 03/27/2024 11:38:19 03/27/20 24 03/27/2024 COMPR EHENS DIANA METAB OLIC PANEL ALT (SGPT) 20 U/L 12-78 Speci men hemol yzed; resul t may be inval id. Inter pret with cauti on. Not Available [facility] - Lab [address], [place], [address], 03/27/2024 11:38:19 03/27/20 24 03/27/2024 COMPR EHENS DIANA METAB OLIC PANEL alk phosphatase 97 U/L 40-120 Speci men hemol yzed; resul t may be inval id. Inter pret with cauti on. Not Available [facility] - Lab [address], [place], [address], 03/27/2024 11:38:19 03/27/20 24 03/27/2024 COMPR EHENS DIANA METAB OLIC PANEL total bilirubin 0.5 mg/dL 0.0-1. 5 Not Available [facility] - Lab [address], [place], [address], 03/27/2024 11:38:19 03/27/20 24 03/27/2024 COMPR EHENS DIANA METAB OLIC PANEL estimated GFR (CKD-epi) 55 mL/mi n/bsa >=60 low Not Available [facility] - Lab [address], [place], [address], 03/27/2024 11:38:19 11/01/19 23 10/31/2022 CT, myelo gram, thora cic spine No observ ation record ed. [email or web address] Not Available 02/18 15:56:53 05/25/20 24 05/05/2024 MRI, thora cic spine , w/wo contr ast No observ ation record ed. [facility] [address] [facility], [place], [address], 06/04/2024 15:11:31 Result Notes None recorded. 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 Instrument ation. Not Available [employer] 16:31:37 Problem Notes None recorded. Procedures Surgical History Date Name Laterality Status Provider Name and Address Organization Details Recorded Time 07/30/20 23 Other completed Yimi Grayson [place] [facility] 03/03/2024 14:00:59 01/04/20 18 Orthopaedic Surgery completed Yimi Grayson [place] - [facility] 03/03/2024 14:00:32 08/05/19 18 Orthopaedic Surgery completed Dalila Grider [place] - [facility] 09/04/2022 09:12:44 Orthopaedic Surgery completed Dalila Grider [place] - [facility] 09/04/2022 09:20:57 Orthopaedic Surgery completed Dalila Grider [place] - [facility] 09/04/2022 09:21:01 Orthopaedic Surgery completed Dalila Grider [place] - [facility] 09/04/2022 09:21:05 Orthopaedic Surgery completed Dalila Grider [place] - [facility] 09/04/2022 09:21:10 Orthopaedic Surgery completed Dalila Grider [place] - [facility] 09/04/2022 09:21:18 Orthopaedic Surgery completed Dalila Grider [place] - [facility] 09/04/2022 09:21:34 cardiac pacemaker procedure completed Dalila Grider [place] - [facility] 09/04/2022 09:21:53 Imaging Results Imaging Date Name Status LastModified by Organiz ation Details LastModified Time 10/31/2022 CT, myelogram, thoracic spine completed [email or web address] Information not available 02/18/2023 15:56:53 05/05/2024 MRI, thoracic spine, w/wo contrast completed [facility] [address] [place] [address], [place], [address], 06/04/2024 15:11:31 Procedure Notes None recorded. Medical Equipment None Reported. Allergies Allergen ID Allergen Name Allergen Category Reaction Reaction Severity Criticality Documentation Date Start Date Code Code System Note Provider Name and Address Organization Details Recorded Time 396863 morphine medicatio n Not available Not available Not available 07/12/2022 7052 RxNorm React ion: Unkno wn, sever ity: Unkno wn Not Available [employer] 22:22:36 096251 latex environme nt,medica tion Not available Not available Not available 09/04/2022 27204 91 RxNorm Dalila zaragoza [place] - [facility] 09:17:14 Medications Name Sig Start Date Stop Date Status Note LastModified by Organization Details LastModified Time atorvastatin 40 mg tablet Take 1 tablet every day by oral route. active Not Available Not Available No t Available lisinopril 20 mg tablet Take 1 tablet every day by oral route. active Not Available Not Available No t Available chlorthalido ne 25 mg tablet Take 1 tablet every day by oral route. active Not Available Not Available No t Available warfarin 5 mg tablet Take 1 tablet every day by oral route. active Not Available Not Available No t Available gabapentin 300 mg capsule Take 1 capsule 3 times a day by oral route. active Not Available Not Available No t Available Tylenol 650 mg tablet,exten ded release Take 2 tablets every 8 hours by oral route. active Not Available Not Available No t Available Sotalol AF 120 mg tablet Take 1 tablet twice a day by oral route. active Not Available Not Available No t Available omeprazole active Not Available Not Av ailable Not Available Plavix active Not Available Not Availa ble Not Available duloxetine active Not Available Not Av ailable Not Available PreserVision AREDS active Not Available Not Available Not Available oxycodone 5 mg tablet,oral ONLY (not feeding tubes) 1-2 tablet as needed Orally every 6 hrs 03/03 completed Not Available Not Available Not Available allopurinol 200 mg tablet Take 1 tablet every day by oral route. active Not Available Not Available No t Available Vitals Date Recorded Body height Body mass index (BMI) Body weight Provider Name and Address Organization Details Last Updated DateTime 09/04/2022 165.1 cm 33.3 kg/m2 27596.47 g Dalila Grider [facility] 09/04/2022 09:16:56 Date Recorded Body height Body mass index (BMI) Body weight Provider Name and Address Organization Details Last Updated DateTime 10/31/2022 165.1 cm 33.3 kg/m2 33762.47 g Dalila Grider [facility] 10/31/2022 13:34:45 Social History Question Answer Notes LastModified by Organizat ion Details LastModified Time Tobacco Smoking Status Never Smoker Not Available [employer] 07/12/2022 23:20:40 What Is Your Level Of Alcohol Consumption? None Information not available 03/03/2024 Are You Currently Employed? No [email or web address] Information not available 09/04/2022 Do You Or Have You Ever Used E-cigarettes Or Vape? Never Used Electronic Cigarettes Information not available 03/03/2024 What Is Your Occupation? Disabled Information not available 03/03/2024 Do You Or Have You Ever Used Smokeless Tobacco? Never Used Smokeless Tobacco Information not available 03/03/2024 Sex: Unknown Functional Status None recorded. Mental Status None recorded. Family History Relationship Description Onset Age of this Age Resolved Age Notes LastModified by Organization Details LastModified Time Brother Myocardial infarction [email or web address] Not available 09:20:22 Sister Malignant neoplastic disease [email or web address] Not available 09:20:30 Medical History Condition Response Blood Clots / Phlebitis Y Diabetes Y High Blood Pressure Y Angina, Heart Failure or Attack Y Irregular Heartbeat N Seizures / Epilepsy N MRSA N Night Sweats N Osteoarthritis / Rheumatoid arthritis / Other N Cancer N Reaction to General/Local Anesthesia N Stroke Y Ulcer / Stomach Bleeding / Indigestion N Visual Loss or Glaucoma Y Thyroid Disorder N Psoriasis / Skin Rash N Weight Gain / Loss N Heart Disease Y Pulmonary Embolism N Kidney / Bladder Infections N Past Encounters Encounter ID Performer Location Encounter Start Date Encounter Closed Date Diagnosis/Indication Diagnosis SNOMED-CT Code Diagnosis ICD10 Code [id number] ASHU WOODS MD [facility] [address] [place] [id number] 09/04/2022 08:37:15 09/04/2022 09:54:52 Spondylosis without myelopathy 98027186 M47.13 Prolapsed thoracic intervertebral disc 827061453 M51.24 [id number] ASHU WOODS MD [facility] Office [address] [address] 10/31/2022 12:13:15 10/31/2022 13:49:37 Degeneration of thoracic intervertebral disc 14474426 M51.34 [id number] ASHU WOODS MD [facility] [address] [place] [id number] 03/03/2024 13:23:12 03/03/2024 21:35:17 Degeneration of thoracic intervertebral disc 36492749 M51.34 [id number] ASHU WOODS MD [facility] [address] [place] [id number] 06/16/2024 13:55:38 07/23/2024 10:43:28 Degeneration of thoracic intervertebral disc 50719648 M51.34 Health Concerns Section Related Observation LastModified by Organization Detai ls LastModified Time None Recorded Concern Status LastModified by Organization Details LastModified Time None Recorded Advance Directives Directive None Recorded Payers Encounter Date Sequence Insurance Name Policy Number Policy Oliver Covered Member ID Oliver Member ID Guarantor Name 09/04/2022 Aarki Aim 10/31/2022 [employer]Bot Aim 03/03/2024 [employer] 06/16/2024 [employer] Aim Notes Date Note Type Note Provider Name and Address Organization Details Recorded Time 09/04/2022 text/html 03/10/2018 C5-T3 fusion, T1-2 laminectomy Mr. Hill returns with continued pain and feeling of a lump in his upper thoracic spine. He notes also upper extremity numbness weakness. He recalls an anecdote where he was having lunch and had a spasm in his hand and flung his food off of his utensil. He also notes some gait and balance but his primary concern is the pain over the upper part of his lumbar spine near the bottom 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 ASHU WOODS MD [address] [place] [address], [phone], [facility] 09/04/2022 15:00:03 10/31/2022 text/html Raine is here w ith his son follow-up after thoracic CT myelogram. ASHU WOODS MD [address] [place] [address], [phone], [facility] 10/31/2022 16:52:05 03/03/2024 text/html Last visit here was 10/31/2022. He had a previous cervical thoracic fusion. At T3. 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 He He returns today are related to persistent pain and difficulties particularly in his neck and upper back. He gets pain radiating to both of his forearms as well as numbness tingling and occasional weakness in his upper extremities. His gait remains stable. His Worker's Comp. case is still active according to the patient. ASHU WOODS MD [address] [place] [address], [phone], [facility] 03/03/2024 15:45:53 06/16/2024 text/html Here for MRI review. He states he has not had no improvement upper back pain still very sore. He also has pain in his thigh and calf ASHU WOODS MD [address] [place] [address], [phone], [facility] 06/16/2024 16:37:04
--- OUTSIDE RECORDS SUMMARY | 2024-08-03 08:03 | XMS_ITS ---
Author Name [facility] Organization Unknown History of Medication Use Medication Directions Dispensed Refills Start Date End Date Stat isosorbide mononitrate (IMDUR) 30 MG 24 hr tablet Take 1 tablet (30 mg total) by mouth daily. 10/12/2023 active atorvastatin (LIPITOR) 40 MG tablet 04/11/2023 active traMADol (ULTRAM) 50 MG tablet TAKE 1 TABLET BY MOUTH TWICE DAILY NEEDED FOR PAIN. DO NOT DRIVE WHILE TAKING THIS MEDICATION 10/12/2023 active nystatin 507651 UNIT/GM powder APPLY ONE GRAM POWDER TOPICALLY ONCE DAILY 10/12/2023 active DULoxetine (CYMBALTA) 30 MG capsule 04/11/2023 active triamcinolone (KENALOG) 0.1 % cream apply topically once daily as needed, mix with moisturizer 04/11/2023 active SOTALOL AF 120 MG Tab 04/11/2023 active prednisoLONE acetate (PRED FORTE) 1 % ophthalmic suspension INSTILL 1 DROP INTO LEFT EYE 4 TIMES DAILY FOR 7 DAYS FOLLOWING EYE SURGERY AND THEN DIRECTED BY DOCTOR. SHAKE WELL BEFORE USE. 04/11/2023 active warfarin (COUMADIN) 5 MG tablet 04/11/2023 active timolol (TIMOPTIC) 0.5 % ophthalmic solution INSTILL 1 DROP INTO EACH EYE TWICE DAILY 10/12/2023 active gabapentin (NEURONTIN) 300 MG capsule Take 1 capsule (300 mg total) by mouth 3 (three) times a day. 04/11/2023 active atorvastatin (LIPITOR) 80 MG tablet Take 1 tablet (80 mg total) by mouth nightly. 10/12/2023 active brimonidine (ALPHAGAN) 0.2 % ophthalmic solution INSTILL 1 DROP INTO LEFT EYE TWICE DAILY 04/11/2023 active clopidogrel (PLAVIX) 75 MG tablet Take 1 tablet (75 mg total) by mouth daily. 10/12/2023 active lisinopril (PRINIVIL,ZeSTRIL) 20 MG tablet 04/11/2023 active chlorthalidone (HYGROTON) 25 MG tablet 04/11/2023 active allopurinol (ZYLOPRIM) 100 mg tablet 04/11/2023 active Problems Problem Status Onset Date Problem Type Date of Resoluti on Source Inflamed seborrheic keratosis active EncounterDiagnosisAct [facility] Lentigines active EncounterDiagnosisAct [facility] Actinic keratosis active EncounterDiagnosisAct [facility] Sebaceous hyperplasia active EncounterDiagnosisAct [facility] History of basal cell carcinoma (BCC) active EncounterDiagnosisAct [facility] Seborrheic keratosis active EncounterDiagnosisA ct [facility] Vieyra angioma active EncounterDiagnosisAct [facility] Multiple melanocytic nevi active EncounterDiagnosisAct [facility]
--- OUTSIDE RECORDS SUMMARY | 2024-08-03 08:03 | XMS_ITS | Continuity of Care Document ---
Author Organization [facility] Jewel arizmendi Office Address [address] [place] [id number] Care Team Providers Care Motor Pool Driver Name Role Phone DEWEY GARCIA Household Personal Assistant Assessment Encounter Date Assessment Date Assessment LastModified by Organization Details LastModified Time 06/16/2024 06/16/2024 We discussed treatment options. It [...] Modified By Organization Details Last Modified Time 06/16/2024 [id number] Mr. 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 Results Created Date Observation Date Name Description Value Unit Range Abnormal Flag Note LastModifiedBy Organization Detail LastModifiedTime 05/25/2005/05/2024 MRI, thora cic spine , w/wo contr ast No observ ation record ed. [facility] Imaging Dept [address] [place], [address], 06/04/2024 15:11:31 Result Notes None recorded. 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 Instrument ation. Not Available [employer] 16:31:37 Problem Notes None recorded. Procedures Surgical History Date Name Laterality Status Provider Name and Address Organization Details Recorded Time 07/30/20 23 Other completed Yimi Renuka [facility] - [facility] 03/03/2024 14:00:59 01/04/20 18 Orthopaedic Surgery completed Yimi Renuka STEPHANIE - [facility] 03/03/2024 14:00:32 08/05/19 18 Orthopaedic Surgery completed Dalila Huertaenter STEPHANIE - [facility] 09/04/2022 09:12:44 Orthopaedic Surgery completed Dalila Huertaenter STEPHANIE - [facility] 09/04/2022 09:20:57 Orthopaedic Surgery completed Dalila Huertaenter STEPHANIE - [facility] 09/04/2022 09:21:01 Orthopaedic Surgery completed Dalila Huertaenter STEPHANIE - [facility] 09/04/2022 09:21:05 Orthopaedic Surgery completed Dalila Huertaenter STEPHANIE - [facility] 09/04/2022 09:21:10 Orthopaedic Surgery completed Dalila Huertaenter STEPHANIE - [facility] 09/04/2022 09:21:18 Orthopaedic Surgery completed Dalila Huertaenter STEPHANIE - [facility] 09/04/2022 09:21:34 cardiac pacemaker procedure completed Dalila Grider [place] - [facility] 09/04/2022 09:21:53 Imaging Results None recorded. Procedure Notes None recorded. Medical Equipment None Reported. Allergies Allergen ID Allergen Name Allergen Category Reaction Reaction Severity Criticality Documentation Date Start Date Code Code System Note Provider Name and Address Organization Details Recorded Time 208471 morphine medicatio n Not available Not available Not available 07/12/2022 7052 RxNorm React ion: Unkno wn, sever ity: Unkno wn Not Available [facility] 2 22:22:36 [id number] latex environme nt,medica tion Not available Not available Not available 09/04/2022 29705 91 RxNorm Dalila zaragoza [place] - [facility] 09:17:14 Medications Name Sig [...] Available Not Available No t Available Vitals None Recorded Social History Question Answer Notes LastModified by Organizat ion Details LastModified Time Tobacco Smoking Status Never Smoker Not Available [facility] 07/12/2022 23:20:40 What Is Your Level Of Alcohol Consumption? None Information not available 03/03/2024 Are You Currently Employed? No Information not available 09/04/2022 Do You Or [...] Organization Details LastModified Time Brother Myocardial infarction [email or web address] Not available 09:20:22 Sister Malignant neoplastic disease [email or web address] Not available 09:20:30 Medical History Condition Response Blood Clots / Phlebitis Y High Blood Pressure Y Irregular Heartbeat N MRSA N Reaction to General/Local Anesthesia N Weight Gain / Loss N Kidney / Bladder Infections N Diabetes Y Angina, Heart Failure or Attack Y Night Sweats N Seizures / Epilepsy N Osteoarthritis / Rheumatoid arthritis / Other N Cancer N Stroke Y Ulcer / Stomach Bleeding / Indigestion N Visual Loss or Glaucoma Y Psoriasis / Skin Rash N Thyroid Disorder N Heart Disease Y Pulmonary Embolism N Past Encounters Encounter ID Performer Location Encounter Start Date Encounter Closed Date Diagnosis/Indication Diagnosis SNOMED-CT Code Diagnosis ICD10 Code [id number] ASHU WOODS MD [address] [address] 06/16/2024 13:55:38 07/23/2024 10:43:28 Degeneration of thoracic intervertebral disc 72811189 M51.34 Health Concerns Section Related Observation LastModified by Organization Detai ls LastModified Time None Recorded Concern Status LastModified by Organization Details LastModified Time None Recorded Payers Encounter Date Sequence Insurance Name Policy Number Policy Oliver Covered Member ID Oliver Member ID Guarantor Name 06/16/2024 [facility] [employer] [facility] [employer] Notes Date Note Type Note Provider Name and Address Organization Details Recorded Time 06/16/2024 text/html Here for MRI review. He states he has not had no improvement upper back pain still very sore. He also has pain in his thigh and calf ASHU WOODS MD [address] [place] [address], [place], [address], [facility] 06/16/2024 16:37:04
[2024-08-03 08:15] LABS: Prothrombin Time Whole Bld POC 23.1 sec (11.1-13.5); ~PT, ~INR - Anti Coag Clinic 1.9 (0.9-1.1)
--- NOTE | 2024-08-03 08:24 | MHC.OFFVISCO ---
Intake Intake Visit Reasons: Anticoagulation Allergies morphine Allergy (Severe, Verified 08/03/24 08:04) Rash baclofen Adverse Reaction (Intermediate, Verified 08/03/24 08:04) Confusion codeine Adverse Reaction (Intermediate, Verified 08/03/24 08:04) GI UPSET divalproex sodium [From Depakote] Adverse Reaction (Intermediate, Verified 08/03/24 08:04) Chest Pain latex Adverse Reaction (Intermediate, Verified 08/03/24 08:04) RASH Medication List - Last Reconciled 08/03/24 by Aster Barksdale, RN acetaminophen ER 1,300 mg PO Q12H allopurinol 200 mg PO DAILY atorvastatin 80 mg PO DAILY brimonidine 0.2% 0 drps ophthalmic (eye) buprenorphine 7.5 mcg/hour 1 patch topical QWEEK chlorthalidone 25 mg PO DAILY cholecalciferol (vitamin D3) PO clopidogrel 75 mg PO DAILY duloxetine 30 mg PO BID erythromycin ophthalmic (eye) gabapentin 600 mg PO TID isosorbide mononitrate ER 30 mg PO DAILY ketorolac 0.5% drps ophthalmic (eye) latanoprost 0.005% drps ophthalmic (eye) lisinopril 20 mg PO DAILY nitroglycerin mg sublingual omeprazole 20 mg PO DAILY PRN prednisolone acetate 1% 1 drp ophthalmic (eye) BID sotalol 120 mg PO BID [carlene bio healer topical] timolol maleate 0.5% 0 drps ophthalmic (eye) triamcinolone acetonide 0.1% 1 appl topical BID-TID warfarin 5 mg See Protocol PO DAILY Nursing Note Pt to ACS with use of cane INR: 1.9?out of therapeutic range of 2-3 Pt states he missed a dose Medications and supplements reviewed Patient status: pt c/o pain all over Medications or supplements: new pain patch (no effect on INR) Diet: usual diet for pt Denies any signs and symptoms of bleeding or clotting or unusual bruising Bleeding, bruising, clotting discussed Nutritional guidance given: no greens today. Food list discussed. Pt states he will have strawberries. Dose: usual dose is 5mg Mon, Wed and Fri but will increase Tues this week to 5mg then 2.5mg the other days F/U INR Date : 2 weeks?? Patient verbalizing understanding of instructions given. 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
== END 2024-08-03 08:28 | disposition home or self-care (01) ==
LOC: HO.ACS 08:01
PROVIDERS: PCP Internal Medicine; Visit Provider Internal Medicine
DX: Z79.01 Long term (current) use of anticoagulants (principal)

== ENCOUNTER → 2024-08-03 08:01 | Outpatient (BNVA) | payer MEDICARE, SELFPAY | PROVIDERS: PCP Internal Medicine; Visit Provider Internal Medicine | DX: I48.19 Other persistent atrial fibrillation (principal); Z79.01 Long term (current) use of anticoagulants; Z51.81 Encounter for therapeutic drug level monitoring | CPT/HCPCS: 85610; 99211 ==

== ENCOUNTER 2024-08-18 07:54 | Outpatient (AMB) | payer MEDICARE, SELFPAY ==
--- OUTSIDE RECORDS SUMMARY | 2024-08-18 08:06 | XMS_ITS | Data Portability ---
Author Organization [place] - [facility], [facility] Address [address] [place] [address] Assessment Encounter Date Assessment Date Assessment LastModified [...] Address Organization Details Recorded Time No complaints [id number] Active Status : 'I'; Not Available [facility] 4 09:28:03 Problem Notes None recorded. Medical Equipment None Reported. Allergies Allergen ID Allergen Name Allergen Category Reaction Reaction Severity Criticality Documentation Date Start Date Code Code System Note Provider Name and Address Organization Details Recorded Time 30162 codeine sulfate medicatio n Not available Not available Not available 10/07/20232016 05045 RxNorm Not Available [facility] 4 12:08:52 81185 morphine sulfate medicatio n Not available Not available Not available 10/07/20232013 87335 RxNorm Not Available [facility] 12:08:52 Medications Name Sig Start Date Stop Date Status Note LastModified by Organization Details LastModified Time pseudoepmichael edrine-gu aifenesin ER 80-700 mg tablet,ex tended release DO NOT DRIVE WHILE ON THIS MEDICATION 014 active Statu s: 'Curr ent'; Not Available Not Available Not Available Vitals Date Recorded Body height Body mass index (BMI) Body weight Provider Name and Address Organization Details Last Updated DateTime 12/27/2023 165.1 cm 35.1 kg/m2 94779.99 g SCAR VELIZ [place] - [facility] 12/27/2023 09:09:13 Social History None recorded. Functional Status None recorded. Mental Status None recorded. Family History Nothing Reported. Medical History No medical history recorded. Past Encounters Encounter ID Performer Location Encounter Start Date Encounter Closed Date Diagnosis/Indication Diagnosis SNOMED-CT Code Diagnosis ICD10 Code Diagnosis Note [id number] Augie Simons MD [place] [address] [place] [address] 12/27/2023 08:37:56 01/15/2024 11:37:33 Lumbar post-laminectomy syndrome 204984761 M96.1 Health Concerns Section Related Observation LastModified by Organization Detai ls LastModified Time None Recorded Concern Status LastModified by Organization Details LastModified Time None Recorded Advance Directives Directive None Recorded Payers Encounter Date Sequence Insurance Name Policy Number Policy Oliver Covered Member ID Oliver Member ID Guarantor Name 12/27/2023 2 [place] [facility] Raine Ken [id number] Raine Ken 12/27/2023 1 [facility] (MEDICARE REPLACEMENT/A DVANTAGE - PPO) [id number] Raine Ken [id number] Raine Ken Notes Date Note Type Note [...] Not indicated PHYSICAL EXAMINATION: Augie Simons MD [address] [place] [address] [address], [place], [address], [facility] - [facility] 12/27/2023 12:28:38
--- OUTSIDE RECORDS SUMMARY | 2024-08-18 08:06 | XMS_ITS | Data Portability ---
Author Organization [facility] Address [address] [facility] [address] [place] [address] Care Team Providers Care Dice Manager Name Role Phone DEWEY GARCIA All Around Patternmaker [phone] Assessment Encounter Date Assessment Date Assessment LastModified [...] By Organization Details Last Modified Time 10/31/2022 [id number] Submit to Worker 's Comp. for approval. In person pre-op meeting Not available 10/31/2022 16:51:57 03/03/2024 [id number] MRI thoracic spi ne with and without contrast Extension fusion to T7/T8, possible T3-4 osteotomy with instrumentation Preop meeting with me [email or web address] Not available 03/03/2024 14:33:42 06/16/2024 [id number] Mr. 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 Results Created Date Observation Date Name Description Value Unit Range Abnormal Flag Note LastModifiedBy Organization Detail LastModifiedTime 03/27/2003/27/2024 COMPR EHENS DIANA METAB OLIC PANEL sodium 138 mmol/ L 135-14 5 Not Available [facility] [address], [place], [address], 03/27/2024 11:38:19 03/27/2003/27/2024 COMPR EHENS DIANA METAB OLIC PANEL potassium 5.7 mmol/ L 3.5-5. 3 high Not Available [facility] [address], [place], [address], 03/27/2024 11:38:19 03/27/20 24 03/27/2024 COMPR EHENS DIANA METAB OLIC PANEL chloride 100 mmol/ L 100-11 2 Not Available [facility] [address], [place], [address], 03/27/2024 11:38:19 03/27/20 24 03/27/2024 COMPR EHENS DIANA METAB OLIC PANEL total CO2 29 mmol/ L 21-30 Not Available [facility] [address], [place], [address], 03/27/2024 11:38:19 03/27/20 24 03/27/2024 COMPR EHENS DIANA METAB OLIC PANEL anion gap 9 mmol/ L 4-20 Not Available [facility] [address], [place], [address], 03/27/2024 11:38:19 03/27/20 24 03/27/2024 COMPR EHENS DIANA METAB OLIC PANEL BUN 28 mg/dL 6-20 high Not Available [facility] [address], [place], [address], 03/27/2024 11:38:19 03/27/20 24 03/27/2024 COMPR EHENS DIANA METAB OLIC PANEL creatinine 1.30 mg/dL 0.00-1 .30 Not Available [facility] [address], [place], [address], 03/27/2024 11:38:19 03/27/20 24 03/27/2024 COMPR EHENS DIANA METAB OLIC PANEL glucose 124 mg/dL 70-105 high Not Available [facility] [address], [place], [address], 03/27/2024 11:38:19 03/27/20 24 03/27/2024 COMPR EHENS DIANA METAB OLIC PANEL calcium 9.6 mg/dL 8.4-10 .2 Not Available [facility] [address], [place], [address], 03/27/2024 11:38:19 03/27/20 24 03/27/2024 COMPR EHENS DIANA METAB OLIC PANEL total protein 7.4 g/dL 6.5-8. 0 Not Available [facility] [address], [place], [address], 03/27/2024 11:38:19 03/27/20 24 03/27/2024 COMPR EHENS DIANA METAB OLIC PANEL albumin, blood 4.1 g/dL 3.5-5. 0 Not Available [facility] [address], [place], [address], 03/27/2024 11:38:19 03/27/20 24 03/27/2024 COMPR EHENS DIANA METAB OLIC PANEL globulin 3.3 g/dL 2.0-4. 0 Not Available [facility] [address], [place], [address], 03/27/2024 11:38:19 03/27/20 24 03/27/2024 COMPR EHENS DIANA METAB OLIC PANEL AST (SGOT) 69 U/L 0-40 high Speci men hemol yzed; resul t may be inval id. Inter pret with cauti on. Not Available [facility] [address], [place], [address], 03/27/2024 11:38:19 03/27/20 24 03/27/2024 COMPR EHENS DIANA METAB OLIC PANEL ALT (SGPT) 20 U/L 12-78 Speci men hemol yzed; resul t may be inval id. Inter pret with cauti on. Not Available [facility] [address], [place], [address], 03/27/2024 11:38:19 03/27/20 24 03/27/2024 COMPR EHENS DIANA METAB OLIC PANEL alk phosphatase 97 U/L 40-120 Speci men hemol yzed; resul t may be inval id. Inter pret with cauti on. Not Available [facility] [address], [place], [address], 03/27/2024 11:38:19 03/27/20 24 03/27/2024 COMPR EHENS DIANA METAB OLIC PANEL total bilirubin 0.5 mg/dL 0.0-1. 5 Not Available [facility] [address], [place], [address], 03/27/2024 11:38:19 03/27/20 24 03/27/2024 COMPR EHENS DIANA METAB OLIC PANEL estimated GFR (CKD-epi) 55 mL/mi n/bsa >=60 low Not Available [facility] [address], [place], [address], 03/27/2024 11:38:19 11/01/19 23 10/31/2022 CT, myelo gram, thora cic spine No observ ation record ed. [email or web address] Not Available 02/18 15:56:53 05/25/20 24 05/05/2024 MRI, thora cic spine , w/wo contr ast No observ ation record ed. [facility] [address] [facility], [place], [address], 06/04/2024 15:11:31 Result Notes None recorded. 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 Instrument ation. Not Available [employer] 16:31:37 Problem Notes None recorded. Procedures Surgical History Date Name Laterality Status Provider Name and Address Organization Details Recorded Time 07/30/20 23 Other completed Yimi Grayson [facility] [place] [facility] 03/03/2024 14:00:59 01/04/20 18 Orthopaedic Surgery completed Yimi Grayson [facility] - [facility] 03/03/2024 14:00:32 08/05/19 18 Orthopaedic Surgery completed Dalila Grider [facility] - [facility] 09/04/2022 09:12:44 Orthopaedic Surgery completed Dalila Grider [facility] - [facility] 09/04/2022 09:20:57 Orthopaedic Surgery completed Dalila Grider [facility] - [facility] 09/04/2022 09:21:01 Orthopaedic Surgery completed Dalila Grider [place] - [facility] 09/04/2022 09:21:05 Orthopaedic Surgery completed Dalila Grider [place] - [facility] 09/04/2022 09:21:10 Orthopaedic Surgery completed Dalila Grider [place] - [facility] 09/04/2022 09:21:18 Orthopaedic Surgery completed Dalila Grider [place] - [facility] 09/04/2022 09:21:34 cardiac pacemaker procedure completed Dalila Grider [place] - [facility] 09/04/2022 09:21:53 Imaging Results Imaging Date Name Status LastModified by Organiz ation Details LastModified Time 10/31/2022 CT, myelogram, thoracic spine completed [email or web address] Information not available 02/18/2023 15:56:53 05/05/2024 MRI, thoracic spine, w/wo contrast completed [facility] [address] [place] [address], [place], [address], 06/04/2024 15:11:31 Procedure Notes None recorded. Medical Equipment None Reported. Allergies Allergen ID Allergen Name Allergen Category Reaction Reaction Severity Criticality Documentation Date Start Date Code Code System Note Provider Name and Address Organization Details Recorded Time 504764 morphine medicatio n Not available Not available Not available 07/12/2022 7052 RxNorm React ion: Unkno wn, sever ity: Unkno wn Not Available [facility] 22:22:36 147620 latex environme nt,medica tion Not available Not available Not available 09/04/2022 05457 91 RxNorm Dalila zaragoza [place] - [facility] 09:17:14 Medications Name Sig [...] Updated DateTime 09/04/2022 165.1 cm 33.3 kg/m2 29006.47 g Dalila Grider [facility] 09/04/2022 09:16:56 Date Recorded Body height Body mass index (BMI) Body weight Provider Name and Address Organization Details Last Updated DateTime 10/31/2022 165.1 cm 33.3 kg/m2 55661.47 g Dalila Grider [facility] 10/31/2022 13:34:45 Social History Question Answer Notes LastModified by Organizat ion Details LastModified Time Tobacco Smoking Status Never Smoker Not Available [facility] 07/12/2022 23:20:40 What Is Your Level Of Alcohol Consumption? None Information not available 03/03/2024 Are You Currently Employed? No [email or web address] Information not available 09/04/2022 Do You Or [...] Organization Details LastModified Time Brother Myocardial infarction [email or web address] Not available 09:20:22 Sister Malignant neoplastic disease [email or web address] Not available 09:20:30 Medical History Condition Response Blood Clots / Phlebitis Y Diabetes Y High Blood Pressure Y Angina, Heart Failure or Attack Y Irregular Heartbeat N Night Sweats N Seizures / Epilepsy N MRSA N Osteoarthritis / Rheumatoid arthritis / Other [...] SNOMED-CT Code Diagnosis ICD10 Code Diagnosis Note [id number] ASHU WOODS MD [place] [facility] [address] [place] [phone] 09/04/2022 08:37:15 09/04/2022 09:54:52 Spondylosis without myelopathy 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 [id number] ASHU WOODS MD [facility] Office [address] [phone] 10/31/2022 12:13:15 10/31/2022 13:49:37 Degeneration of thoracic intervertebral disc 72683565 M51.34 T3-T7 posterior fusion, extension. Instrument ation. [id number] ASHU WOODS MD [place] [facility] [address] [place] [phone] 03/03/2024 13:23:12 03/03/2024 21:35:17 Degeneration of thoracic intervertebral disc 91076162 M51.34 [id number] ASHU WOODS MD [place] [address] [place] [phone] 06/16/2024 13:55:38 07/23/2024 10:43:28 Degeneration of thoracic intervertebral disc 51732670 M51.34 Health Concerns Section Related Observation LastModified by Organization Detai ls LastModified Time None Recorded Concern Status LastModified by Organization Details LastModified Time None Recorded Advance Directives Directive None Recorded Payers Encounter Date Sequence Insurance Name Policy Number Policy Oliver Covered Member ID Oliver Member ID Guarantor Name 09/04/2022 [employer] 10/31/2022 [employer] 03/03/2024 [employer] 06/16/2024 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 ASHU WOODS MD [address] [place] [address], [phone], [facility] 09/04/2022 15:00:03 10/31/2022 text/html Raine is here w ith his son follow-up after thoracic CT myelogram. ASHU WOODS MD [address] [place] [address], [phone], [facility] 10/31/2022 16:52:05 03/03/2024 [...] according to the patient. ASHU WOODS MD [address] [place] [address], [phone], [facility] 03/03/2024 15:45:53 06/16/2024 text/html Here for MRI review. He states he has not had no improvement upper back pain still very sore. He also has pain in his thigh and calf ASHU WOODS MD [address] [place] [address], [phone], [facility] 06/16/2024 16:37:04
[2024-08-18 08:08] LABS: Prothrombin Time Whole Bld POC 30.1 sec (11.1-13.5); ~PT, ~INR - Anti Coag Clinic 2.5 (0.9-1.1)
--- NOTE | 2024-08-18 08:21 | MHC.OFFVISCO ---
Intake Intake Visit Reasons: Anticoagulation Allergies morphine Allergy (Severe, Verified 08/18/24 08:00) Rash baclofen Adverse Reaction (Intermediate, Verified 08/18/24 08:00) Confusion codeine Adverse Reaction (Intermediate, Verified 08/18/24 08:00) GI UPSET divalproex sodium [From Depakote] Adverse Reaction (Intermediate, Verified 08/18/24 08:00) Chest Pain latex Adverse Reaction (Intermediate, Verified 08/18/24 08:00) RASH Medication List - Last Reconciled 08/18/24 by Sofía Gillette RN acetaminophen ER 1,300 mg PO Q12H allopurinol 200 mg PO DAILY atorvastatin 80 mg PO DAILY brimonidine 0.2% 0 drps ophthalmic (eye) buprenorphine 7.5 mcg/hour 1 patch topical QWEEK chlorthalidone 25 mg PO DAILY cholecalciferol (vitamin D3) PO clopidogrel 75 mg PO DAILY duloxetine 30 mg PO BID erythromycin ophthalmic (eye) gabapentin 600 mg PO TID isosorbide mononitrate ER 30 mg PO DAILY ketorolac 0.5% drps ophthalmic (eye) latanoprost 0.005% drps ophthalmic (eye) lisinopril 20 mg PO DAILY nitroglycerin mg sublingual omeprazole 20 mg PO DAILY PRN prednisolone acetate 1% 1 drp ophthalmic (eye) BID sotalol 120 mg PO BID [carlene bio healer topical] timolol maleate 0.5% 0 drps ophthalmic (eye) triamcinolone acetonide 0.1% 1 appl topical BID-TID warfarin 5 mg See Protocol PO DAILY Nursing Note INR: 2.5 in therapeutic range Medications and supplements reviewed STATES HE HAS HAD SEVERAL EPISODES WHERE HIS CHEST FELT LIKE THE WIND WAS KNOCKED OUT OF HIM AND COULDNT BREATH, HE CALLED HIS CARDILOGIST AND HAS AN APPT NEXT MONTH- HE WAS ADVISED TO GO TO THE ER IF HE FEELS LIKE IT IS GOING TO HAPPEN AGAIN. HE STATES IT WAS THE SAME PAIN HE HAD WENT HE HAD THE STENT PLACED HIS HAS CHRONIC BACK PAIN Denies any signs and symptoms of bleeding or bruising or clotting. 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
== END 2024-08-18 08:25 | disposition home or self-care (01) ==
LOC: HO.ACS 07:54
PROVIDERS: PCP Internal Medicine; Visit Provider Internal Medicine
DX: Z79.01 Long term (current) use of anticoagulants (principal)

== ENCOUNTER → 2024-08-18 07:54 | Outpatient (BNVA) | payer MEDICARE, SELFPAY | PROVIDERS: PCP Internal Medicine; Visit Provider Internal Medicine | DX: I48.19 Other persistent atrial fibrillation (principal); Z79.01 Long term (current) use of anticoagulants; Z51.81 Encounter for therapeutic drug level monitoring | CPT/HCPCS: 85610; 99211 ==

== ENCOUNTER 2024-09-08 07:57 | Outpatient (AMB) | payer MEDICARE, SELFPAY ==
--- OUTSIDE RECORDS SUMMARY | 2024-09-08 08:00 | XMS_ITS | Encounter Summary ---
Author Organization [facility] [place] [address] Care Team Providers Care Merchandising Team Lead Name Role Phone Bonilla Quijano MD Primary Care Provider [phone] Encounter Details Date Type Department Care Team (Late st Contact Info) Description 05/05/2024 9:52 AM EDT Hospital Encounter TH HISTORIC ENCOUNTERS EASTERN CONVERSION ONLY Soto Stephenson MD [address] [place] [phone] Social History Tobacco Use Types Packs/Day Years Used Date Smoking Tobacco: Former Smokeless Tobacco: Never Alcohol Use Standard Drinks/Week Comments Yes 0 (1 standard drink = 0.6 oz pur e alcohol) Sex and Gender Information Value Date Recorded Sex Assigned at Not on file Gender Identity Not on file Sexual Orientation Not on file Job Start Date Occupation Industry Not on file Not on file Not on file documented as of this [...] Description 03/11/2025 1:30 PM EDT Ancillary Procedure [facility] [address] [facility] [address] [place] [address] documented as of this encounter Visit Diagnoses Not on filedocumented in this encounter Care Teams Merchandising Team Lead Relationship Specialty Start Date End Date Bonilla Quijano MD [address] [place] [address] PCP - General Internal Medicine 07/14/12 documented as of this encounter
--- OUTSIDE RECORDS SUMMARY | 2024-09-08 08:00 | XMS_ITS | Encounter Summary ---
Author Organization [facility] Address [address] [place] [address] Care Team Providers Care Power Wood Sawyer Name Role Phone Bonilla Quijano MD Primary Care Provider [phone] Reason for Referral * Cardiac Stress Testing (Routine) - Pending Review Specialty Diagnoses / Procedures Referred By Arjun t Referred To Contact Cardiology Diagnoses Chest pain due to coronary artery disease (CMS/HCC) Procedures Regadenoson (Lexiscan) nuclear stress test with myocardial perfusion ID MYOCARDIAL PERFUSION IMAGING TOMOGRAPHIC MULTI STUDIES AT REST OR STRESS ID MYOCARDIAL PERFUSION IMAGING TOMOGRAPHIC SINGLE STUDY AT REST OR STRESS ID CARDIOVASCULAR STRESS TEST GLOBAL ID CV TMST/BIKE MAX/SUBMAX CONTINUOUS ECG MON/PHARM STRESS SUPVSR ONLY ID CV STRESS TEST/BIKE CONT ECG MON/PHARM STRESS INTERP & REPORT ONLY ID TEST STRESS CARDIOVASCULAR TRACING ONLY Annia Barrios, JUMA [address] [place] [address] [facility] Referral ID Status Reason Start Date Expiration Date V isits Requested Visits Authorized [id number] Pending Review 08/18/2024 08/18/2025 1 1 Reason for Visit * Reason Onset Date Comments Chest Pain 08/18/2024 Encounter Details Date Type Department Care Team (Late st Contact Info) Description 08/18/2024 Telephone [facility] - [address] [place] [phone] Jose David San MD [address] [facility] [address] [place] [address] Chest Pain Social History Tobacco Use Types Packs/Day Years [...] on file documented as of this encounter Ordered Prescriptions Prescription Sig Dispensed Refills Start Date End Da te nitroglycerin (NITROSTAT) 0.[address] 1 tablet (0.4 mg total) under the tongue every 5 (five) minutes if needed for chest pain. May repeat dose every 5 minutes for up to 3 doses total. 25 tablet 2 08/18/2024 08/18/2025 documented in this encounter Progress Notes * Abi Wilson RN - 09/03/2024 2:42 PM EST Noted SL response. Per SL do not reschedule stress test. * Anina Barrios NP - 09/03/2024 2:35 PM EST Thank you for the clarification, do not rescheduled stress test * Kalen Delgado RN - 09/03/2024 2:24 PM EST Please see below. LVM for a call back from pt. * Lakesha Cintron - 09/03/2024 2:03 PM EST On 08/20/24 patient called to cancel Nuclear test, said he felt fine on medications & didn't feel he needed the stress test at this time. He did not want to reschedule. FYI. * Annia Barrios NP - 09/03/2024 12:48 PM EST Pt canceled stress test and no showed for today's appointment - please call to reschedule stress test and subsequent follow up - thank you! * Ann Grover - 08/18/2024 4:41 PM EST Spoke with the patients son petrona and scheduled for 09/03/24 with Annia Barrios. * Kalen Delgado RN - 08/18/2024 4:19 PM EST Per Indio Barrios can we please schedule f/u apt after the stress test that was scheduled for 08/27/24, TY * Kalen Delgado RN - 08/18/2024 11:56 AM EST Called pt this AM. Made aware of recs below from Indio Barrios. Is aware scheduling will be calling to schedule the ordered stress test. Is aware there will be a OV scheduled after the stress test is scheduled. States his Nitro SL pills ordered by his PCP are outdated by 2 years [facility] [place] [facility] RX has any last RX bulk picker was in 2022. I have refilled Nitro SL to requested pharmacy and provided instructions on taking medication for CP. Is aware if CP not relieved after 2 dose to take 3rd dose and call 911. Is thankful for the call back. * Annia Barrios NP - 08/18/2024 11:36 AM EST Please schedule stress test ANNE MARIE - thank you * Annia Barrios NP - 08/18/2024 11:27 AM EST Be sure he has a script for sl NTG - I have entered an order for an ANNE MARIE stress test - please schedule for fu after that - and agree with guidelines for ER presentation * Lona Wen MA - 08/18/2024 10:25 AM EST Remote received and scanned in * Kalen Delgado RN - 08/18/2024 9:29 AM EST Is coming up on needing a 6 month f/u also, CLAUDIA 03/11/24 with [place] Barrios. Last device download was 07/01/24 - normal device function and no events noted. Will ask him to send a download. Called pt this AM. States he had 2 episodes of SOB that just came on all of a sudden starting 2 weeks ago. The first episode was worse - stated it lasted 1 min and he felt like the wind was knocked out of him - happened when he got up in the AM when putting on his pants. States he had some chest tightness during the episode - had funny feeling in chest that resolved once the SOB resolved. The second episode was 2-3 days later after the first episode except that it was less intense in nature -it occurred when he was sitting and relaxing. Denies CP, dizziness, THEODORA, PND, orthopnea. States he does not weigh himself daily. Last weight was 4 weeks ago at the PCP office and it was 211. Does notcheck daily BP/HR. Has been taking Gabapentin 600mg TID, Allopurinol 200mg daily, Sotalol 120mg BID, Chlorthalidone 25mg daily, Lisinopril 20mg daily, Fluoxetine 30mg daily, Warfarin as directed, Atorvastatin 80mg daily, Plavix 75mg daily, Isosorbide 30mg daily. No missed doses. Denies any recent increase in NA+ - states he does watch his salt intake. Has only been drinking root beer and coffee, 2 (16 oz) glasses each daily - does not drink any water. I have made him aware he needs to drink water and cutback on the soda and coffee to stay more hydrated. Urine is darker yellow in the AM and then clears up towards bedtime. Is aware for any SOB and/or CP that is worsening - feels like he can't catch his breath or developsCP lasting 10 min or longer to call 911. Will be sending a device download. Triage OV? * Ann Grover - 08/18/2024 9:12 AM EST Tanja from [facility] called, a couple days ago the patient had an episode where he suddenly felt winded. It was like the wind was knocked out of him and he couldn't breathe. He is concerned that he has another blockage because the symptoms were similar. Please call the patient back directly at [phone]. documented in this encounter Plan of Treatment Upcoming Encounters Date Type Department Care Team ([facility] st Contact Info) Description 03/11/2025 1:30 PM EDT Ancillary Procedure [facility] - [facility] [address] [facility] [address] [place] [phone] Scheduled Orders Name Type Priority Associated Diagnoses Order Schedule Regadenoson (Lexiscan) nuclear stress test with myocardial perfusion Cardiac Nuclear Medicine Routine Chest pain due to coronary artery disease (CMS/HCC) 1 Occurrences starting 08/18/2024 until 08/18/2025 documented as of this encounter Visit Diagnoses Diagnosis Chest pain due to coronary artery disease (CMS/HCC)- Primary Encounter for adjustment or management of cardiac device documented in this encounter Care Teams Power Wood Sawyer Relationship Specialty Start Date End Date Bonilla Quijano MD [address] [place] [address] PCP - General Internal Medicine 07/14/12 documented as of this encounter
--- OUTSIDE RECORDS SUMMARY | 2024-09-08 08:00 | XMS_ITS | Data Portability ---
Author Organization [place] - [facility], [facility] Address [address] [place] [address] Assessment Encounter Date Assessment Date Assessment LastModified [...] Address Organization Details Recorded Time No complaints [id number] Active Status : 'I'; Not Available [facility] 4 09:28:03 Problem Notes None recorded. Medical Equipment None Reported. Allergies Allergen ID Allergen Name Allergen Category Reaction Reaction Severity Criticality Documentation Date Start Date Code Code System Note Provider Name and Address Organization Details Recorded Time 21171 codeine sulfate medicatio n Not available Not available Not available 10/07/20232016 87576 RxNorm Not Available [facility] 4 12:08:52 93178 morphine sulfate medicatio n Not available Not available Not available 10/07/20232013 05720 RxNorm Not Available [facility] 12:08:52 Medications Name Sig Start [...] Updated DateTime 12/27/2023 165.1 cm 35.1 kg/m2 32389.99 g SCAR VELIZ [place] - [facility] 12/27/2023 09:09:13 Social History None recorded. Functional Status None recorded. Mental Status None recorded. Family History Nothing Reported. Medical History No medical history recorded. Past Encounters Encounter ID Performer Location Encounter Start Date Encounter Closed Date Diagnosis/Indication Diagnosis SNOMED-CT Code Diagnosis ICD10 Code Diagnosis Note [id number] Augie Simons MD [address] [place] [address] 12/27/2023 08:37:56 01/15/2024 11:37:33 Lumbar post-laminectomy syndrome 656702581 M96.1 Health Concerns Section Related Observation LastModified by Organization Detai ls LastModified Time None Recorded Concern Status LastModified by Organization Details LastModified Time None Recorded Advance Directives Directive None Recorded Payers Encounter Date Sequence Insurance Name Policy Number Policy Oliver Covered Member ID Oliver Member ID Guarantor Name 12/27/2023 2 [place] [facility] Raine Ken [id number] Raine Ken 12/27/2023 1 [facility] (MEDICARE REPLACEMENT/A DVANTAGE - PPO) [id number] Raine Ken [id number] Raine Ken Notes Date Note Type Note [...] Not indicated PHYSICAL EXAMINATION: Augie Simons MD [address] [place] [address] [address], [place], [address], [facility] - [facility] 12/27/2023 12:28:38
--- OUTSIDE RECORDS SUMMARY | 2024-09-08 08:01 | XMS_ITS | Clinical Summary ---
Author Organization [address] [place] [address] [place] [phone] Phone Care Team Providers Care Hot Metal Car Operator Name Role Phone Bonilla Quijano MD Primary Care Provider [phone] Allergies Active Allergy Reactions Criticality Noted Date Comments Adhesive Tape-Silicones 11/25/2020 Adhesive Tape [Tape] Codeine 11/25/2020 Latex 06/04/2023 Other reaction(s): Not available Morphine High 08/23/2020 Other Reaction(s): Rash/Dermatitis Other 11/25/2020 Dignity Plus Sheet-linen Prot [Wet Wipes] Medications Medication Sig Dispensed Refills Start Date End Date Status nitroglycerin (NITROSTAT) 0.[address] 1 tablet (0.4 mg total) under the tongue every 5 (five) minutes if needed for chest pain. May repeat dose every 5 minutes for up to 3 doses total. 25 tablet 2 08/18/2024 08/18/2025 Active acetaminophen (TYLENOL) 325 mg tablet Take 650 mg by mouth every 6 hours as needed. Active allopurinoL (ZYLOPRIM) 100 mg tablet Take 1 Tablet by mouth 2 times daily. Active atorvastatin (LIPITOR) 80 mg tablet Take 1 Tablet by mouth at bedtime. 08/29/2023 Active chlorthalidone (HYGROTON) 25 mg tablet Take 25 mg by mouth daily. Active clopidogreL (PLAVIX) 75 mg tablet Take 1 tablet by mouth once daily 04/15/2024 Active gabapentin (NEURONTIN) 300 mg capsule Take 300 mg by mouth 3 times daily. Active isosorbide mononitrate (IMDUR) 30 mg 24 hr tablet Take 1 tablet by mouth once daily 03/20/2024 Active lisinopriL (PRINIVIL,ZESTRIL) 20 mg tablet Take 20 mg by mouth daily. Active vit A/vit C/vit E/zinc/copper (PRESERVISION AREDS ORAL) Take by mouth. Active omeprazole magnesium (PRILOSEC ORAL) Take 20 mg by mouth daily. Active sotaloL (BETAPACE) 120 mg tablet TAKE 1 TABLET BY MOUTH TWICE DAILY 05/08/2024 Active warfarin (COUMADIN) 5 mg tablet Take 5 mg by mouth See Admin Instructions. May cause heavy bleeding. Take at same time every day. Do not change dietary habits. Active Active Problems Problem Noted Date Diagnosed Date CAD (coronary artery disease) 08/27/2023 Atypical chest pain 07/24/2022 Overview (08/19/2024): Last Assessment & Plan: This 83-year-old gentleman with multiple cardiac risk factors is presenting with typical anginal symptoms with exertional chest heaviness. He did rule out for myocardial infarction during his last admission but the symptoms are quite typical. He has not apparently ever had a cardiac catheterization and only had a nuclear study back in 2013 which was benign. He has normal baseline renal function despite his history of renal cancer which is being followed conservatively. I went through the pros and cons of coronary angiogram and he would like to proceed. We will need to hold his warfarin for several days. I went through the pros and cons of bridging with Lovenox given an increased risk for stroke and he would like to simply hold the warfarin and restart after the catheterization. He wants to do this at [facility] given his insurance does not cover [facility] and if he needs revascularization we will schedule a follow-up procedure at [facility]. (HFpEF) heart failure with preserved ejection fr action 02/02/2021 Overview (08/19/2024): Last Assessment & Plan: History of HFpEF preserved left ventricular function currently low-sodium diet. He has some abdominal fullness and mild peripheral edema but otherwise only mildly volume overloaded. He does not want to be diuresed to be on the chlorthalidone given his kidney cancer history and a half of 2 weigh himself daily will weigh himself and monitor his weight and follow a low-sodium diet and call us if he gains more than 3 to 5 pounds. Cerebrovascular accident 02/01/2021 Overview (08/19/2024): Cerebrovascular accident Deep venous thrombosis 02/01/2021 Overview (08/19/2024): Deep venous thrombosis Dizziness 02/01/2021 Overview (08/19/2024): Dizziness Atrial flutter 01/30/2021 CHF (congestive heart failure) 01/30/2021 HLD (hyperlipidemia) 01/30/2021 Overview (08/19/2024): Last Assessment & Plan: LDL 120 HDL 44. Normal triglycerides. Continue healthy diet. Encouraged increasing walking mellitus pain is better controlled. Continue his current statin dose. Obesity (BMI 35.0-39.9 without comorbidity) 01/04 Syncope 01/30/2021 Overview (08/19/2024): Last Assessment & Plan: Raine is having marked lightheaded spells of unclear etiology. Some of these may be rhythm related as he feels pounding in his chest when he is up and around and there may be some component of orthostasis of the leg of systolic blood pressure check in the office today was negative for significant hypotension. I did review his pacemaker interrogation done recently and he is 40% paced and conducting 60% of time says that his atrial fibrillation certainly may be contributing. He agreed to AV node ablation which we are arranging which should improve the chances of tachycardia causing symptoms. PAF (paroxysmal atrial fibrillation) 08/23/2020 Overview (08/19/2024): Last Assessment & Plan: Raine appears to have recurrent AV danielito conduction and periods of tachycardia that bring on what sounds like classic angina. I went over the pros and cons of repeat AV node ablation and he agrees to proceed. He is already on sotalol and clearly breaking through and I do think that further attempted AV node ablation is reasonable. I reviewed the procedure with him and his son in detail. He understands a very small risk of venous access complications and pacemaker dependency and agrees to proceed. We will continue sotalol for now and we can decide if we should discontinue it after the procedure if successful. Peripheral vascular disease 08/23/2020 Overview (08/19/2024): Peripheral vascular disease Encounters Date Type Department Care Team Description 09/04/2024 Telephone [facility]iology [facility] [address] [place] [address] Annia Barrios NP No Show 08/18/2024 10:50 AM EST Ancillary Procedure [facility] [address] [place] [address] 08/18/2024 Telephone [facility] [address] [place] [address] Jose David San MD Chest Pain 07/01/2024 10:15 AM EST Ancillary Procedure [facility] [address] [place] [address] from Last 3 Months Surgical History Surgery Date Site/Laterality Comments OTHER SURGICAL HISTORY 01/04/2021 PROCEDURE: HISTORY OTHER; COMMENT: S/p cardioversion OTHER SURGICAL HISTORY 2014 PROCEDURE: HISTORY OTHER; COMMENT: Cardiac ablation OTHER SURGICAL HISTORY Right PROCEDURE: DC ARTHRP ACETBLR/PROX FEM PROSTC AGRFT/ALGRFT TOTAL KNEE ARTHROPLASTY Left PROCEDURE: DC ARTHRP KNE CONDYLE&PLATU MEDIAL&LAT COMPARTMENTS SHOULDER SURGERY Bilateral PROCEDURE: HISTORICAL SHOULDER SURGERY OTHER SURGICAL HISTORY PROCEDURE: HISTORY OTHER; COMMENT: S/p Lumbar spine fusion OTHER SURGICAL HISTORY PROCEDURE: HISTORY OTHER; COMMENT: S/p Cervical and thoracic spine surgery with hardware placement Medical History Medical History Date Comments CVA (cerebral vascular accid ent) ([facility]) DX:CVA (cerebral vascular ac cident) ([facility]); COMMENT: with right-sided weakness DVT (deep venous thrombosis) ([facility]) DX:DVT (deep venous thrombosis) (HCC) Gout DX:Gout Chronic back pain DX:Chronic jessenia k pain 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:Adjustment reaction with prolonged depressive reaction PVD (peripheral vascular dis ease) (CMS/HCC) DX:PVD (peripheral vascular disease) (HCC) Dizziness DX:Dizziness Obesity DX:Obesity Glaucoma DX:Glaucoma Cervical disc disease DX:Cervica l disc disease Family history of cardiovascular disease DX:Family history of cardiovascular disease Essential hypertension DX:Essent ial hypertension Hyperlipidemia DX:Hyperlipidemi a Family History Medical History Relation Name Comments CABG Brother 1 Heart attack Brother 1 Heart attack Brother 2 Diabetes Neg Hx FHx is signific ant for diabetes and heart disease Relation Name Status Comments Brother 1 Brother 2 Social History Tobacco Use Types Packs/Day Years [...] file Not on file Not on file Obstetrics History Last Filed Vital Signs Vital Sign Reading Time Taken Comments Blood Pressure 112/76 03/11/2024 1:22 PM EDT Pulse 74 03/11/2024 1:22 PM EDT Temperature - - Respiratory Rate - - Oxygen Saturation - - Inhaled Oxygen Concentration - - Weight 94.3 kg (208 lb) 03/11/2024 1:22 PM EDT Height 167.6 cm (5' 6 ) 03/11/2024 1:22 PM EDT Body Mass Index 33.57 03/11/2024 1:22 PM EDT Plan of Treatment Upcoming Encounters Date Type Department Care Team (Late st Contact Info) Description 03/11/2025 1:30 PM EDT Ancillary Procedure [facility] [address] [facility] [address] [place] [address] Health Maintenance Due Date Last Done Comments Pneumococcal Vaccine: 65+ Years (1 of 2 - PCV) 01/04/1946 DTaP,Tdap,and Td Vaccines (1 - Tdap) 1961 Zoster Vaccines (1 of 2) 1961 RSV Immunization Patients 60+ Years Old (1 - 1-dose 75+ series) 2017 Cholesterol Screening (Lipid Panel) 07/14/2022 Depression Screening 07/14/2022 Falls Risk Assessment 07/14/2022 Medicare Annual Wellness Visit 07/14/2022 Social Influencers of Health Screening 07/14/2022 COVID-19 Vaccine ( season) 2024 07/05/2021, 12/01/2020, 11/10/2020 Influenza Vaccine (#1) 2024 2, 04/27/2019, 04/24/2018, Additional history exists Hypertension/CHF/CAD Annual BMP Blood Test 03/27/2025 03/27/2024, 07/05/2023 HIB Vaccines Aged Out No longer eligi ble based on patient's age to complete this topic HPV Vaccines Aged Out No longer eligi ble based on patient's age to complete this topic Hepatitis A Vaccines Aged Out No long er eligible based on patient's age to complete this topic Hepatitis B Vaccines Aged Out No long er eligible based on patient's age to complete this topic IPV Vaccines Aged Out No longer eligi ble based on patient's age to complete this topic MMR Vaccines Aged Out No longer eligi ble based on patient's age to complete this topic Meningococcal ACWY Vaccine Aged Out N o longer eligible based on patient's age to complete this topic RSV Immunization Patients Under 20 months Aged Out No longer eligible based on patient's age to complete this topic Varicella Vaccines Aged Out No longer eligible based on patient's age to complete this topic Medical Devices Implanted Type Area Vocational School Teacher Device Identifier Shelf Expiration Date Model / Serial / Lot Medt-Card Micra Av [id number] Implanted:02/2021 (Quantity not on file) 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 AV [id number] / [id number] / Procedures Procedure Name Priority Date/Time Associated Diagnosis Comments EXTERNAL CLINICAL LAB Routine 08/31/2024 2:45 PM EST CARDIAC DEVICE CHECK- REMOTE- MURJ Routine 08/18/2024 10:49 AM EST EXTERNAL CLINICAL LAB Routine 07/23/2024 2:46 PM EST CARDIAC DEVICE CHECK- REMOTE- MURJ Routine 07/01/2024 10:13 AM EST ANNUAL BMP BLOOD TEST Routine 07/05/2023 from Last 3 Months or Most Recently Relevant to Health Maintenance Results * External clinical lab (08/31/2024 2:45 PM EST) Only the most recent of2 resultswithin the time period is included. Historical Provider MD LAB BLOOD ORDERAB LES * Cardiac device check - Remote- MURJ (08/18/2024 10:49 AM EST) Only the most recent of2 resultswithin the time period is included. Date Time Interrogation Session [id number] CV DEVICE CHECK Type Interrogation Session Remote CV DEVICE CHECK Implantable Pulse Generator Vocational School Teacher MDT CV DEVICE CHECK Implantable Pulse Generator Type IPG CV DEVICE CHECK Implantable Pulse Generator Model Micra AV [id number] CV DEVICE CHECK Implantable Pulse Generator Serial Number [id number] CV DEVICE CHECK Implantable Pulse Generator Implant Date 20210109 CV DEVICE CHECK Battery Remaining Longevity 70.0 CV DEVICE CHECK Battery Voltage 2.960 CV D EVICE CHECK Battery TRANSPORT NURSE Trigger 2.558 CV DEVICE CHECK Battery Status Middle of Service CV DEVICE CHECK Kavon Statistic RV Percent Paced 99.86 CV DEVICE CHECK Lead Channel Sensing Intrinsic Amplitude 26.775 CV DEVICE CHECK Lead Channel Setting Sensing Sensitivity 2.00 CV DEVICE CHECK Lead Channel Impedance Value 530 CV DEVICE CHECK Lead Channel Pacing Threshold Amplitude 0.625 CV DEVICE CHECK Lead Channel Pacing Threshold Pulse Width 0.2 CV DEVICE CHECK Lead Channel RV Pacing Threshold Date 2024-08-18 CV DEVICE CHECK Lead Channel Setting Pacing Amplitude 1.250 CV DEVICE CHECK Lead Channel Setting Pacing Pulse Width 0.2 CV DEVICE CHECK Kavon Setting Mode (NBG Code) VDD CV DEVICE CHECK Kavon Setting Lower Rate Limit 50 CV DEVICE CHECK Kavon Setting Maximum Tracking Rate 100 CV DEVICE CHECK Kavon Setting Maximum Sensor Rate 100 CV DEVICE CHECK Kavon Setting PEDRITO Delay 20 CV DEVICE CHECK Date of Service 2024-09-30 CV DEVICE CHECK Anatomical Region Laterality Modality Device Interroga tion 08/18/2024 10:3 8 AM EST Impressions 08/18/2024 10:48 AM EST Normal Remote: No Events Triage * Normal Device Function * Alerts or events: None * Battery: OK, 5.83 yrs * Sensing, impedance and thresholds reviewed * Programmed parameters reviewed * Presenting rhythm reviewed * Heart Rate Histograms reviewed * No significant changes noted Narrative Procedure Note Jane Barraza PA - 08/18/2024 IMPRESSION: Normal Remote: No Events Triage * Normal Device Function * Alerts or events: None * Battery: OK, 5.83 yrs * Sensing, impedance and thresholds reviewed * Programmed parameters reviewed * Presenting rhythm reviewed * Heart Rate Histograms reviewed * No significant changes noted Jane BAUTISTA CV IMPLANTABLE CARDI AC DEVICE PROCEDURES * Annual BMP Blood Test (07/05/2023) Annual BMP Blood Test abstracted Historical Provider MD CINTIA Brady from Last 3 Months or Most Recently Relevant to Health Maintenance Advance Directives Documents on File Type Date Recorded 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 Health Care Decision (hx) 05/10/2020 AD [facility] DIRECTIVE Health Care Decision (hx) 05/10/2020 AD [facility] DIRECTIVE Health Care Decision (hx) 05/10/2020 AD [facility] DIRECTIVE Health Care Decision (hx) 05/10/2020 AD [facility] DIRECTIVE Health Care Decision (hx) 05/10/2020 AD [facility] DIRECTIVE Health Care Decision (hx) 05/10/2020 AD [facility] DIRECTIVE Health Care Decision (hx) 05/10/2020 AD [facility] DIRECTIVE Health Care Decision (hx) 05/10/2020 AD [facility] DIRECTIVE Health Care Decision (hx) 05/10/2020 AD [facility] DIRECTIVE Health Care Decision (hx) 05/10/2020 AD [facility] DIRECTIVE Health Care Decision (hx) 05/10/2020 AD [facility] DIRECTIVE Health Care Decision (hx) 05/10/2020 AD [facility] DIRECTIVE Health Care Decision (hx) 05/10/2020 AD [facility] DIRECTIVE Health Care Decision (hx) 05/10/2020 AD [facility] DIRECTIVE Health Care Decision (hx) 05/10/2020 AD [facility] DIRECTIVE Health Care Decision (hx) 05/10/2020 AD [facility] DIRECTIVE Health Care Decision (hx) 05/10/2020 AD [facility] DIRECTIVE Health Care Decision (hx) 05/10/2020 AD [facility] DIRECTIVE Health Care Decision (hx) 05/10/2020 AD [facility] DIRECTIVE Health Care Decision (hx) 05/10/2020 AD [facility] DIRECTIVE Health Care Decision (hx) 05/10/2020 AD [facility] DIRECTIVE Health Care Decision (hx) 05/10/2020 AD [facility] DIRECTIVE Health Care Decision (hx) 05/10/2020 AD [facility] DIRECTIVE Health Care Decision (hx) 05/10/2020 AD [facility] DIRECTIVE Health Care Decision (hx) 05/10/2020 AD [facility] DIRECTIVE Health Care Decision (hx) 05/10/2020 AD [facility] DIRECTIVE Health Care Decision (hx) 05/10/2020 AD [facility] DIRECTIVE Health Care Decision (hx) 05/10/2020 AD [facility] DIRECTIVE Health Care Decision (hx) 05/10/2020 AD [facility] DIRECTIVE Care Teams Hot Metal Car Operator Relationship Specialty Start Date End Date Bonilla Quijano MD [address] [place] [address] PCP - General Internal Medicine 07/14/12
--- OUTSIDE RECORDS SUMMARY | 2024-09-08 08:01 | XMS_ITS | Encounter Summary ---
Author Organization [facility] [place] [address] Care Team Providers Care Certified Medication Technician Name Role Phone Bonilla Quijano MD Primary Care Provider [phone] Reason for Visit * Reason Onset Date Comments No Show 09/04/2024 Encounter Details Date Type Department Care Team (Late st Contact Info) Description 09/04/2024 Telephone [facility] - [facility] [address] [facility] [address] [place] [phone] Annia Barrios NP [address] [facility] [address] [place] [phone] No Show Social History Tobacco Use Types Packs/Day Years [...] on file documented as of this encounter Progress Notes * Mae Ordoñez MA - 09/04/2024 10:34 AM EST Letter sent with information on no showed appointment and no show policy documented in this encounter Plan of Treatment Upcoming Encounters Date Type Department Care Team (Late st Contact Info) Description 03/11/2025 1:30 PM EDT Ancillary Procedure [facility] - [facility] [address] [facility] [address] [place] [address] documented as of this encounter Visit Diagnoses Not on filedocumented in this encounter Care Teams Certified Medication Technician Relationship Specialty Start Date End Date Bonilla Quijano MD [address] [place] [address] PCP - General Internal Medicine 07/14/12 documented as of this encounter
--- OUTSIDE RECORDS SUMMARY | 2024-09-08 08:01 | XMS_ITS | Encounter Summary ---
Author Organization [facility] [place] [address] Care Team Providers Care Social Media Coordinator Name Role Phone Bonilla Quijano MD Primary Care Provider [phone] Encounter Details Date Type Department Care Team (Late st Contact Info) Description 08/18/2024 10:50 AM EST Ancillary Procedure [facility] - [address] [facility] [address] [place] [address] Social History Tobacco Use Types Packs/Day Years [...] on file documented as of this encounter Plan of Treatment Upcoming Encounters Date Type Department Care Team (Late st Contact Info) Description 03/11/2025 1:30 PM EDT Ancillary Procedure [facility] Cardiology [facility] [address] [facility] [address] [place] [address] documented as of this encounter Procedures Procedure Name Priority Date/Time Associated Diagnosis Comments CARDIAC DEVICE CHECK- REMOTE- MURJ Routine 08/18/2024 10:49 AM EST documented in this encounter Results * Cardiac device check - Remote- MURJ (08/18/2024 10:49 AM EST) Date Time Interrogation Session [id number] CV DEVICE CHECK Type Interrogation Session Remote CV DEVICE CHECK Implantable Pulse Generator Ticket Chopper Assembler MDT CV DEVICE CHECK Implantable Pulse Generator Type IPG CV DEVICE CHECK Implantable Pulse Generator Model Micra AV [id number] CV DEVICE CHECK Implantable Pulse Generator Serial Number [id number] CV DEVICE CHECK Implantable Pulse Generator Implant Date 20210109 CV DEVICE CHECK Battery Remaining Longevity 70.0 CV DEVICE CHECK Battery Voltage 2.960 CV D EVICE CHECK Battery DIAMOND CLEAVER Trigger 2.558 CV DEVICE CHECK Battery Status [...] BAUTISTA CV IMPLANTABLE CARDI AC DEVICE PROCEDURES documented in this encounter Visit Diagnoses Not on filedocumented in this encounter Care Teams Social Media Coordinator Relationship Specialty Start Date End Date Bonilla Quijano MD [address] [place] [address] PCP - General Internal Medicine 07/14/12 documented as of this encounter
--- OUTSIDE RECORDS SUMMARY | 2024-09-08 08:01 | XMS_ITS | Clinical Summary ---
Author Organization [facility] Address [address] [place] [address] Care Team Providers Care Cad Intern Name Role Phone Bonilla Quijano MD Primary Care Provider [phone] Allergies Active Allergy Reactions Criticality Noted Date Comments Adhesives/Tape Unknown/Patient and Family Unable to Define Medium 04/09/2023 Codeine GI Intolerance/Nausea/Vomiting Low 04/09 Morphine Hives Medium 04/09/2023 Medications Medication Sig Dispensed Refills Start Date End Date Status allopurinol (ZYLOPRIM) 100 mg tablet 03/06/2023 Active atorvastatin (LIPITOR) 40 MG tablet 02/01/2023 Active brimonidine (ALPHAGAN) 0.2 % ophthalmic solution INSTILL 1 DROP INTO LEFT EYE TWICE DAILY 02/27/2023 Active chlorthalidone (HYGROTON) 25 MG tablet 02/01/2023 Active DULoxetine (CYMBALTA) 30 MG capsule 04/05/2023 Active lisinopril (PRINIVIL,ZeSTRIL) 20 MG tablet 02/09/2023 Active warfarin (COUMADIN) 5 MG tablet 04/05/2023 Active prednisoLONE acetate (PRED FORTE) 1 % ophthalmic suspension INSTILL 1 DROP INTO LEFT EYE 4 TIMES DAILY FOR 7 DAYS FOLLOWING EYE SURGERY AND THEN DIRECTED BY DOCTOR. SHAKE WELL BEFORE USE. 03/21/2023 Active SOTALOL AF 120 MG Tab 01/15/2023 Act ede gabapentin (NEURONTIN) 300 MG capsule Take 1 capsule (300 mg total) by mouth 3 (three) times a day. Active triamcinolone (KENALOG) 0.1 % creamIndications:Hansen sient acantholytic dermatosis (rayo) apply topically once daily as needed, mix with moisturizer 453 g 1 04/09/2023 Active atorvastatin (LIPITOR) 80 MG tablet Take 1 tablet (80 mg total) by mouth nightly. 08/29/2023 Active isosorbide mononitrate (IMDUR) 30 MG 24 hr tablet Take 1 tablet (30 mg total) by mouth daily. 09/26/2023 Active nystatin 422554 UNIT/GM powder APPLY ONE GRAM POWDER TOPICALLY ONCE DAILY 08/27/2023 Active timolol (TIMOPTIC) 0.5 % ophthalmic solution INSTILL 1 DROP INTO EACH EYE TWICE DAILY 09/18/2023 Active traMADol (ULTRAM) 50 MG tablet TAKE 1 TABLET BY MOUTH TWICE DAILY NEEDED FOR PAIN. DO NOT DRIVE WHILE TAKING THIS MEDICATION 10/02/2023 Active clopidogrel (PLAVIX) 75 MG tablet Take 1 tablet (75 mg total) by mouth daily. 07/31/2023 Active Social History Tobacco Use Types Packs/Day Years Used Date Smoking Tobacco: Never Assessed Sex and Gender Information Value Date Recorded Sex Assigned at Not on file Gender Identity Not on file Sexual Orientation Not on file Plan of Treatment Health Maintenance Due Date Last Done Comments DTaP/Tdap/Td Vaccines (1 - Tdap) 1961 Pneumococcal Vaccines 50+ (1 of 1 - PCV) 01/04/1992 Zoster (Shingles) Vaccine (1 of 2) 01/04/1992 RSV Vaccine 60 years and old er and Patients (1 - 1-dose 75+ series) 2017 Influenza Vaccine 03/05/2024 COVID-19 Vaccine (2023-2 5 season) 2024 Hepatitis B Vaccines Aged Out No long er eligible based on patient's age to complete this topic Care Teams Cad Intern Relationship Specialty Start Date End Date Bonilla Quijano MD [address] [place] [address] PCP - General 04/09/23
--- NOTE | 2024-09-08 08:16 | MHC.OFFVISCO ---
Intake Intake Visit Reasons: Anticoagulation Allergies morphine Allergy (Severe, Verified 09/08/24 08:06) Rash baclofen Adverse Reaction (Intermediate, Verified 09/08/24 08:06) Confusion codeine Adverse Reaction (Intermediate, Verified 09/08/24 08:06) GI UPSET divalproex sodium [From Depakote] Adverse Reaction (Intermediate, Verified 09/08/24 08:06) Chest Pain latex Adverse Reaction (Intermediate, Verified 09/08/24 08:06) RASH Medication List - Last Reconciled 09/08/24 by Aster Barksdale RN acetaminophen ER 1,300 mg PO Q12H allopurinol 200 mg PO DAILY atorvastatin 80 mg PO DAILY brimonidine 0.2% 0 drps ophthalmic (eye) buprenorphine 7.5 mcg/hour 1 patch topical QWEEK chlorthalidone 25 mg PO DAILY cholecalciferol (vitamin D3) PO clopidogrel 75 mg PO DAILY duloxetine 30 mg PO BID erythromycin ophthalmic (eye) gabapentin 600 mg PO TID isosorbide mononitrate ER 30 mg PO DAILY ketorolac 0.5% drps ophthalmic (eye) latanoprost 0.005% drps ophthalmic (eye) lisinopril 20 mg PO DAILY [id number] S-zdnlio-pgxseme (PreserVision AREDS 2 Plus MV) PO nitroglycerin mg sublingual omeprazole 20 mg PO DAILY PRN prednisolone acetate 1% 1 drp ophthalmic (eye) BID sotalol 120 mg PO BID [carlene bio healer topical] timolol maleate 0.5% 0 drps ophthalmic (eye) triamcinolone acetonide 0.1% 1 appl topical BID-TID warfarin 5 mg See Protocol PO DAILY Nursing Note INR: 2.3 in therapeutic range of 2-3 Medications and supplements reviewed No changes in health, diet, medications, or supplements, Denies any signs and symptoms of bleeding or bruising or clotting. Bleeding, bruising, clotting discussed Nutritional guidance given Dose: 2.5mg X 4 days and 5mg X 3 days F/U INR: 3 weeks Patient verbalizes understanding of instructions given Coding Level of Care Code Est Patient Level 1 Diagnoses Current use of anticoagulant therapy Z79.01 Results AMB INR Fingerstick AMB INR Fingerstick 2.3 Last Edit by Aster Barksdale RN on 09/08/24 08:15 interface delay Assessment & Plan Assessment & Plan (1) Current use of anticoagulant therapy: Code(s): Z79.01 - penitentiary (current) 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
[2024-09-08 08:20] LABS: Prothrombin Time Whole Bld POC 27.6 sec (11.1-13.5); ~PT, ~INR - Anti Coag Clinic 2.3 (0.9-1.1)
== END 2024-09-08 08:21 | disposition home or self-care (01) ==
LOC: HO.ACS 07:57
PROVIDERS: PCP Internal Medicine; Visit Provider Internal Medicine
DX: Z79.01 Long term (current) use of anticoagulants (principal)

== ENCOUNTER → 2024-09-08 07:57 | Outpatient (BNVA) | payer MEDICARE, SELFPAY | PROVIDERS: PCP Internal Medicine; Visit Provider Internal Medicine | DX: I48.19 Other persistent atrial fibrillation (principal); Z79.01 Long term (current) use of anticoagulants; Z51.81 Encounter for therapeutic drug level monitoring | CPT/HCPCS: 85610; 99211 ==

== ENCOUNTER 2024-09-29 07:55 | Outpatient (AMB) | payer MEDICARE, SELFPAY ==
--- OUTSIDE RECORDS SUMMARY | 2024-09-29 07:58 | XMS_ITS | Data Portability ---
Author Organization [place] [facility] Address [address] [place] [address] Assessment Encounter Date Assessment Date Assessment LastModified [...] Address Organization Details Recorded Time No complaints [id number] Active Status : 'I'; Not Available [facility] 4 09:28:03 Problem Notes None recorded. Medical Equipment None Reported. Allergies Allergen ID Allergen Name Allergen Category Reaction Reaction Severity Criticality Documentation Date Start Date Code Code System Note Provider Name and Address Organization Details Recorded Time 33986 codeine sulfate medicatio n Not available Not available Not available 10/07/20232016 83487 RxNorm Not Available [facility] 4 12:08:52 44349 morphine sulfate medicatio n Not available Not available Not available 10/07/20232013 58285 RxNorm Not Available [facility] 12:08:52 Medications Name Sig Start Date Stop [...] Updated DateTime 12/27/2023 165.1 cm 35.1 kg/m2 49587.99 g SCAR VELIZ [place] [facility] 12/27/2023 09:09:13 Social History None recorded. Functional Status None recorded. Mental Status None recorded. Family History Nothing Reported. Medical History No medical history recorded. Past Encounters Encounter ID Performer Location Encounter Start Date Encounter Closed Date Diagnosis/Indication Diagnosis SNOMED-CT Code Diagnosis ICD10 Code Diagnosis Note [id number] Augie Simons MD [facility] [address] [place] [address] 12/27/2023 08:37:56 01/15/2024 11:37:33 Lumbar post-laminectomy syndrome 776888331 M96.1 Health Concerns Section Related Observation LastModified by Organization Detai ls LastModified Time None Recorded Concern Status LastModified by Organization Details LastModified Time None Recorded Advance Directives Directive None Recorded Payers Encounter Date Sequence Insurance Name Policy Number Policy Oliver Covered Member ID Oliver Member ID Guarantor Name 12/27/2023 2 [place] [facility] Raine Ken [id number] Raine Ken 12/27/2023 1 [facility] (MEDICARE REPLACEMENT/A DVANTAGE - PPO) [id number] Raine Ken [id number] Raine Ken Notes Date Note Type Note [...] Not indicated PHYSICAL EXAMINATION: Augie Simons MD [address] [place] [address] [address], [place], [address], [facility] - [facility] 12/27/2023 12:28:38
--- OUTSIDE RECORDS SUMMARY | 2024-09-29 07:58 | XMS_ITS | Encounter Summary ---
Author Organization [facility] [place] [address] Care Team Providers Care Supervising Broker Name Role Phone Bonilla Quijano MD Primary Care Provider [phone] Reason for Visit * Reason Onset Date Comments No Show 09/04/2024 Encounter Details Date Type Department Care Team (Late st Contact Info) Description 09/04/2024 Telephone [facility] [address] [facility] [address] [place] [phone] Annia Barrios NP [address] [facility] [address] [place] [phone] No Show Social History Tobacco Use Types [...] Description 03/11/2025 1:30 PM EDT Ancillary Procedure [facility] [address] [facility] [address] [place] [address] documented as of this encounter Visit Diagnoses Not on filedocumented in this encounter Care Teams Supervising Broker Relationship Specialty Start Date End Date Bonilla Quijano MD [address] [place] [address] PCP - General Internal Medicine 07/14/12 documented as of this encounter
--- OUTSIDE RECORDS SUMMARY | 2024-09-29 07:58 | XMS_ITS | Encounter Summary ---
Author Organization [facility] [place] [address] Care Team Providers Care Bar Turner Name Role Phone Bonilla Quijano MD Primary Care Provider [phone] Encounter Details Date Type Department Care Team (Late st Contact Info) Description 05/05/2024 9:52 AM EDT Hospital Encounter TH HISTORIC ENCOUNTERS EASTERN CONVERSION ONLY Soto Stephenson MD [address] [place] [phone] Social History Tobacco Use Types Packs/Day [...] Description 03/11/2025 1:30 PM EDT Ancillary Procedure [facility] [address] [facility] [address] [place] [address] documented as of this encounter Visit Diagnoses Not on filedocumented in this encounter Care Teams Bar Turner Relationship Specialty Start Date End Date Bonilla Quijano MD [address] [place] [address] PCP - General Internal Medicine 07/14/12 documented as of this encounter
--- OUTSIDE RECORDS SUMMARY | 2024-09-29 07:58 | XMS_ITS | Clinical Summary ---
Author Organization [facility] Address [address] [place] [address] Care Team Providers Care Practice Coordinator Name Role Phone Bonilla Quijano MD Primary Care Provider [phone] Allergies Active Allergy Reactions Criticality Noted Date [...] a day. Active triamcinolone (KENALOG) 0.1 % creamIndications:Hnasen sient acantholytic dermatosis (rayo) apply topically once daily as needed, mix with moisturizer 453 g 1 04/09/2023 Active atorvastatin (LIPITOR) 80 MG tablet Take 1 tablet (80 mg total) by mouth nightly. 08/29/2023 Active isosorbide mononitrate (IMDUR) 30 MG 24 hr tablet Take 1 tablet (30 mg total) by mouth daily. 09/26/2023 Active nystatin 161798 UNIT/GM powder APPLY ONE GRAM POWDER TOPICALLY [...] age to complete this topic Care Teams Practice Coordinator Relationship Specialty Start Date End Date Bonilla Quijano MD [address] [place] [address] PCP - General 04/09/23
--- OUTSIDE RECORDS SUMMARY | 2024-09-29 07:58 | XMS_ITS | Data Portability ---
Author Organization [facility], [facility] Address [address] [facility] [place] [address] Care Team Providers Care Dope Dry House Operator Name Role Phone JOSE, DEWEY Journeyman Pipe Fitter Assessment Encounter Date Assessment Date Assessment LastModified [...] By Organization Details Last Modified Time 10/31/2022 [id number] Submit to Worker 's Comp. for approval. In person pre-op meeting Not available 10/31/2022 16:51:57 03/03/2024 [id number] MRI thoracic spi ne with and without contrast Extension fusion to T7/T8, possible T3-4 osteotomy with instrumentation Preop meeting with me [email or web address] Not available 03/03/2024 14:33:42 06/16/2024 [id number] Mr. Gunter should get in touch with [facility] or have his stock tracer's office called [facility] to discuss his financial responsibility and the various scenarios [email or web address] Not available 06/16/2024 16:34:47 Reason for Referral None Reported. Results Created Date Observation Date Name Description Value Unit Range Abnormal Flag Note LastModifiedBy Organization Detail LastModifiedTime 03/27/2003/27/2024 COMPR EHENS DIANA METAB OLIC PANEL sodium 138 mmol/ L 135-14 5 Not Available [facility] [address] [facility], [place], [address], 03/27/2024 11:38:19 03/27/20 24 03/27/2024 COMPR EHENS DIANA METAB OLIC PANEL potassium 5.7 mmol/ L 3.5-5. 3 high Not Available [facility] [address] [facility], [place], [address], 03/27/2024 11:38:19 03/27/20 24 03/27/2024 COMPR EHENS DIANA METAB OLIC PANEL chloride 100 mmol/ L 100-11 2 Not Available [facility] [address] [facility], [place], [address], 03/27/2024 11:38:19 03/27/20 24 03/27/2024 COMPR EHENS DIANA METAB OLIC PANEL total CO2 29 mmol/ L 21-30 Not Available [facility] [address] [facility], [place], [address], 03/27/2024 11:38:19 03/27/20 24 03/27/2024 COMPR EHENS DIANA METAB OLIC PANEL anion gap 9 mmol/ L 4-20 Not Available [facility] [address] [facility], [place], [address], 03/27/2024 11:38:19 03/27/20 24 03/27/2024 COMPR EHENS DIANA METAB OLIC PANEL BUN 28 mg/dL 6-20 high Not Available [facility] [address] [facility], [place], [address], 03/27/2024 11:38:19 03/27/20 24 03/27/2024 COMPR EHENS DIANA METAB OLIC PANEL creatinine 1.30 mg/dL 0.00-1 .30 Not Available [facility] [address] [facility], [place], [address], 03/27/2024 11:38:19 03/27/20 24 03/27/2024 COMPR EHENS DIANA METAB OLIC PANEL glucose 124 mg/dL 70-105 high Not Available [facility] [address] [facility], [place], [address], 03/27/2024 11:38:19 03/27/20 24 03/27/2024 COMPR EHENS DIANA METAB OLIC PANEL calcium 9.6 mg/dL 8.4-10 .2 Not Available [facility] [address] [facility], [place], [address], 03/27/2024 11:38:19 03/27/20 24 03/27/2024 COMPR EHENS DIANA METAB OLIC PANEL total protein 7.4 g/dL 6.5-8. 0 Not Available [facility] [address] [facility], [place], [address], 03/27/2024 11:38:19 03/27/20 24 03/27/2024 COMPR EHENS DIANA METAB OLIC PANEL albumin, blood 4.1 g/dL 3.5-5. 0 Not Available [facility] [address] [facility], [place], [address], 03/27/2024 11:38:19 03/27/20 24 03/27/2024 COMPR EHENS DIANA METAB OLIC PANEL globulin 3.3 g/dL 2.0-4. 0 Not Available [facility] [address] [facility], [place], [address], 03/27/2024 11:38:19 03/27/20 24 03/27/2024 COMPR EHENS DIANA METAB OLIC PANEL AST (SGOT) 69 U/L 0-40 high Speci men hemol yzed; resul t may be inval id. Inter pret with cauti on. Not Available [facility] [address] [facility], [place], [address], 03/27/2024 11:38:19 03/27/20 24 03/27/2024 COMPR EHENS DIANA METAB OLIC PANEL ALT (SGPT) 20 U/L 12-78 Speci men hemol yzed; resul t may be inval id. Inter pret with cauti on. Not Available [facility] [address] [facility], [place], [address], 03/27/2024 11:38:19 03/27/20 24 03/27/2024 COMPR EHENS DIANA METAB OLIC PANEL alk phosphatase 97 U/L 40-120 Speci men hemol yzed; resul t may be inval id. Inter pret with cauti on. Not Available [facility] [address] [facility], [place], [address], 03/27/2024 11:38:19 03/27/20 24 03/27/2024 COMPR EHENS DIANA METAB OLIC PANEL total bilirubin 0.5 mg/dL 0.0-1. 5 Not Available [facility] [address] [facility], [place], [address], 03/27/2024 11:38:19 03/27/20 24 03/27/2024 COMPR EHENS DIANA METAB OLIC PANEL estimated GFR (CKD-epi) 55 mL/mi n/bsa >=60 low Not Available [facility] [address] [facility], [place], [address], 03/27/2024 11:38:19 11/01/19 23 10/31/2022 CT, myelo gram, thora cic spine No observ ation record ed. [email or web address] Not Available 02/18 15:56:53 05/25/20 24 05/05/2024 MRI, thora cic spine , w/wo contr ast No observ ation record ed. [facility] [address] [place] [address], [place], [address], 06/04/2024 15:11:31 Result Notes None recorded. 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 Instrument ation. Not Available [employer] 16:31:37 Problem Notes None recorded. Procedures Surgical History Date Name Laterality Status Provider Name and Address Organization Details Recorded Time 07/30/20 23 Other completed Yimi Grayson [place] - [facility] 03/03/2024 14:00:59 01/04/20 18 Orthopaedic Surgery completed Yimi Grayson [place] - [facility] 03/03/2024 14:00:32 08/05/19 18 Orthopaedic Surgery completed Dalila Grider [place] - [facility] 09/04/2022 09:12:44 Orthopaedic Surgery completed Dalila Grider [place] - [facility] 09/04/2022 09:20:57 Orthopaedic Surgery completed Dalila Grider [place] - [facility] 09/04/2022 09:21:01 Orthopaedic Surgery completed Dalila Grider [place] - [facility] 09/04/2022 09:21:05 Orthopaedic Surgery completed Dalila Grider [place] - [facility] 09/04/2022 09:21:10 Orthopaedic Surgery completed Dalila Grider [place] - [facility] 09/04/2022 09:21:18 Orthopaedic Surgery completed Dalila Grider [place] - [facility] 09/04/2022 09:21:34 cardiac pacemaker procedure completed Dalila Grider [place] - [facility] 09/04/2022 09:21:53 Imaging Results Imaging Date Name Status LastModified by Organiz ation Details LastModified Time 10/31/2022 CT, myelogram, thoracic spine completed [email or web address] Information not available 02/18/2023 15:56:53 05/05/2024 MRI, thoracic spine, w/wo contrast completed [facility] [address] [place] [address], [place], [address], 06/04/2024 15:11:31 Procedure Notes None recorded. Medical Equipment None Reported. Allergies Allergen ID Allergen Name Allergen Category Reaction Reaction Severity Criticality Documentation Date Start Date Code Code System Note Provider Name and Address Organization Details Recorded Time 333560 morphine medicatio n Not available Not available Not available 07/12/2022 7052 RxNorm React ion: Unkno wn, sever ity: Unkno wn Not Available [employer] 22:22:36 831872 latex environme nt,medica tion Not available Not available Not available 09/04/2022 12426 91 RxNorm Dalila Grider [facility] 09:17:14 Medications Name Sig [...] Updated DateTime 09/04/2022 165.1 cm 33.3 kg/m2 55853.47 g Dalila Grider [facility] 09/04/2022 09:16:56 Date Recorded Body height Body mass index (BMI) Body weight Provider Name and Address Organization Details Last Updated DateTime 10/31/2022 165.1 cm 33.3 kg/m2 93590.47 g Dalila Grider [facility] 10/31/2022 13:34:45 Social History Question Answer Notes LastModified by Organizat ion Details LastModified Time Tobacco Smoking Status Never Smoker Not Available [employer] 07/12/2022 23:20:40 What Is Your Level Of Alcohol Consumption? None Information not available 03/03/2024 Are You Currently Employed? No [email or web address] Information not available 09/04/2022 Do You Or [...] Organization Details LastModified Time Brother Myocardial infarction [email or web address] Not available 09:20:22 Sister Malignant neoplastic disease [email or web address] Not available 09:20:30 Medical History Condition Response High Blood Pressure Y Irregular Heartbeat N MRSA N Weight Gain / Loss N Angina, Heart Failure or Attack Y Night Sweats N Seizures / Epilepsy N Osteoarthritis / Rheumatoid arthritis / Other N Cancer N Stroke Y Ulcer / Stomach Bleeding / Indigestion N Visual Loss or Glaucoma Y Blood Clots / Phlebitis Y Reaction to General/Local Anesthesia N Kidney / Bladder Infections N Diabetes Y Psoriasis / Skin Rash N Thyroid Disorder N Heart Disease Y Pulmonary Embolism N Past Encounters Encounter ID Performer Location Encounter Start Date Encounter Closed Date Diagnosis/Indication Diagnosis SNOMED-CT Code Diagnosis ICD10 Code Diagnosis Note [id number] ASHU WOODS MD [address] [address] 09/04/2022 08:37:15 09/04/2022 09:54:52 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 [id number] ASHU WOODS MD [facility] Office [address] [address] 10/31/2022 12:13:15 10/31/2022 13:49:37 Degeneration of thoracic intervertebral disc 23658660 M51.34 T3-T7 posterior fusion, extension. Instrument ation. [id number] ASHU WOODS MD [address] [address] 03/03/2024 13:23:12 03/03/2024 21:35:17 Degeneration of thoracic intervertebral disc 13443631 M51.34 [id number] ASHU WOODS MD [facility] Office [address] [place] [address] 06/16/2024 13:55:38 07/23/2024 10:43:28 Degeneration of thoracic intervertebral disc 01077293 M51.34 Health Concerns Section Related Observation LastModified by Organization Detai ls LastModified Time None Recorded Concern Status LastModified by Organization Details LastModified Time None Recorded Advance Directives Directive None Recorded Payers Encounter Date Sequence Insurance Name Policy Number Policy Oliver Covered Member ID Oliver Member ID Guarantor Name 09/04/2022 [employer] 10/31/2022 Editorially 03/03/2024 [employer] 06/16/2024 [employer] Notes Date Note Type Note Provider [...] 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 ASHU WOODS MD [address] [place] [address], [phone], [facility] 09/04/2022 15:00:03 10/31/2022 text/html Raine is here w ith his son follow-up after thoracic CT myelogram. ASHU WOODS MD [address] [place] [address], [phone], [facility] 10/31/2022 16:52:05 03/03/2024 [...] according to the patient. ASHU WOODS MD [address] [place] [address], [phone], [facility] 03/03/2024 15:45:53 06/16/2024 text/html Here for MRI review. He states he has not had no improvement upper back pain still very sore. He also has pain in his thigh and calf ASHU WOODS MD [address] [place] [address], [phone], [facility] 06/16/2024 16:37:04
--- OUTSIDE RECORDS SUMMARY | 2024-09-29 07:58 | XMS_ITS | Encounter Summary ---
Author Organization [facility] Address [address] [place] [address] Care Team Providers Care Industrial Economist Name Role Phone Bonilla Quijano MD Primary Care Provider [phone] Reason for Referral * Cardiac Stress Testing (Routine) - Pending Review Specialty Diagnoses / Procedures Referred By Arjun manning Referred To Contact Cardiology Diagnoses Chest pain due to coronary artery disease (CMS/HCC) Procedures Regadenoson (Lexiscan) nuclear stress test with myocardial perfusion UT MYOCARDIAL PERFUSION IMAGING TOMOGRAPHIC MULTI STUDIES AT REST OR STRESS UT MYOCARDIAL PERFUSION IMAGING TOMOGRAPHIC SINGLE STUDY AT REST OR STRESS UT CARDIOVASCULAR STRESS TEST GLOBAL UT CV TMST/BIKE MAX/SUBMAX CONTINUOUS ECG MON/PHARM STRESS SUPVSR ONLY UT CV STRESS TEST/BIKE CONT ECG MON/PHARM STRESS INTERP & REPORT ONLY UT TEST STRESS CARDIOVASCULAR TRACING ONLY Annia Barrios NP [address] [address] Phone: tel: fax: [facility] Referral ID Status Reason Start Date Expiration Date V isits Requested Visits Authorized [id number] Pending Review 08/18/2024 08/18/2025 1 1 Reason for Visit * Reason Onset Date Comments Chest Pain 08/18/2024 Encounter Details Date Type Department Care Team (Late st Contact Info) Description 08/18/[address] [facility] - [facility] [address] [facility] [address] [place] [address] Jose David San MD 300 [facility] [address] [place] [address] Chest Pain Social History Tobacco Use Types [...] of this encounter Ordered Prescriptions Prescription Sig Dispense Quantity Refills Last Filled Start Date End Date nitroglycerin (NITROSTAT) 0.[address] 1 tablet (0.4 mg total) under the tongue every 5 (five) minutes if needed for chest pain. May repeat dose every 5 minutes for up to 3 doses total. 25 tablet 2 08/18/2024 documented in this encounter Progress Notes * Abi Wilson RN - 09/03/2024 2:42 PM EST Noted SL response. Per SL do not reschedule stress test. * Annia Barrios NP - 09/03/2024 2:35 PM EST [...] time. He did not want to reschedule. HENRYI. * Annia Brarios NP - 09/03/2024 12:48 PM EST Pt canceled stress test and no showed for today's appointment - please call to reschedule stress test and subsequent follow up - thank you! * Ann Grover - 08/18/2024 4:41 PM EST Spoke with the patients rhea russ and scheduled for 09/03/24 with Annia Barrios. [...] outdated by 2 years [facility] [place] [facility] verified that RX has any last RX machine pecan picker was in 2022. I have refilled [...] - 08/18/2024 9:12 AM EST Tanja from [facility] called, a couple days ago the patient had an episode where he suddenly felt winded. It was like the wind was knocked out of him and he couldn't breathe. He is concerned that he has another blockage because the symptoms were similar. Please call the patient back directly at [phone]. documented in this encounter Plan of Treatment Upcoming Encounters Date Type Department Care Team (Late st Contact Info) Description 03/11/2025 1:30 PM EDT Ancillary Procedure [facility] - [facility] [address] 300 [facility] [address] [place] [address] Scheduled Orders Name Type Priority Associated Diagnoses [...] device documented in this encounter Care Teams Industrial Economist Relationship Specialty Start Date End Date Bonilla Quijano MD [address] [place] [address] PCP - General Internal Medicine 07/14/12 documented as of this encounter
--- OUTSIDE RECORDS SUMMARY | 2024-09-29 07:58 | XMS_ITS | Clinical Summary ---
Author Organization [address] [place] [address] [place] [phone] Phone Care Team Providers Care Shipwright Name Role Phone Bonilla Quijano MD Primary Care Provider Allergies Active Allergy Reactions Criticality Noted Date Comments Adhesive Tape-Silicones 11/25/2020 Adhesive Tape [Tape] Codeine 11/25/2020 Latex 06/04/2023 Other reaction(s): Not available Morphine High 08/23/2020 Other Reaction(s): Rash/Dermatitis Other 11/25/2020 Dignity Plus Sheet-linen Prot [Wet Wipes] Medications nitroglycerin (NITROSTAT) 0.[address] 1 tablet (0.4 mg total) under the tongue every 5 (five) minutes if needed for chest pain. May repeat dose every 5 minutes for up to 3 doses total. 25 tablet 2 08/18/2024 08/18/19 26 Active acetaminophen (TYLENOL) 325 mg tablet Take [...] by mouth once daily 03/20/2024 Active lisinopriL (PRINIVIL,ZESTRI L) 20 mg tablet Take 20 mg by mouth daily. Active vit A/vit C/vit E/zinc/copper (PRESERVISION AREDS ORAL) Take by mouth. Active omeprazole magnesium (PRILOSEC ORAL) Take 20 mg by mouth daily. Active sotaloL (BETAPACE) 120 mg tablet TAKE 1 TABLET BY MOUTH TWICE DAILY 05/08/2024 Active warfarin (COUMADIN) 5 mg tablet Take 5 mg by mouth See Admin Instructions . May cause heavy bleeding. Take at same [...] catheterization. He wants to do this at [facility] given his insurance does not cover [facility] and if he needs revascularization we will schedule a follow-up procedure at [facility]. (HFpEF) heart failure with preserved ejection fr [...] Type Department Care Team Description 09/04/2024 Telephone [facility] Cardiology [facility] - [address] [place] [address] Annia Barrios NP No Show 08/18/2024 10:50 AM EST Ancillary Procedure [facility] - [address] [place] [address] 08/18/2024 Telephone [facility] - [address] [place] [address] Jose David San MD Chest Pain 07/01/2024 10:15 AM EST Ancillary Procedure [facility] Cardiology [facility] [address] [place] [address] from Last 3 Months Surgical History Surgery Date Site/Laterality Comments OTHER SURGICAL HISTORY 01/04/2021 PROCEDURE: HISTORY OTHER; COMMENT: S/p cardioversion OTHER SURGICAL HISTORY 2014 PROCEDURE: HISTORY OTHER; COMMENT: Cardiac ablation OTHER SURGICAL HISTORY Right PROCEDURE: [facility] ARTHRP ACETBLR/PROX FEM PROSTC AGRFT/ALGRFT TOTAL KNEE ARTHROPLASTY Left PROCEDURE: [facility] ARTHRP KNE CONDYLE&PLATU MEDIAL&LAT COMPARTMENTS SHOULDER SURGERY Bilateral PROCEDURE: HISTORICAL SHOULDER SURGERY OTHER SURGICAL HISTORY PROCEDURE: HISTORY OTHER; COMMENT: S/p Lumbar spine fusion OTHER SURGICAL HISTORY PROCEDURE: HISTORY OTHER; COMMENT: S/p Cervical and thoracic spine surgery with hardware placement Medical History Medical History Date Comments CVA (cerebral vascular accid ent) ([facility]) DX:CVA (cerebral vascular ac cident) ([facility]); COMMENT: with right-sided weakness DVT (deep venous thrombosis) ([facility]) DX:DVT (deep venous thrombosis) ([facility]) Gout DX:Gout Chronic back pain DX:Chronic jessenia [...] on file Sexual Orientation Not on file Obstetrics History Last Filed [...] Description 03/11/2025 1:30 PM EDT Ancillary Procedure [facility] - [address] [facility] [address] [place] [address] Health Maintenance Due Date Last Done Comments DTaP,Tdap,and Td Vaccines (1 - Tdap) 1959 Pneumococcal Vaccine: 50+ Years (1 of 2 - PCV) 1959 Zoster Vaccines (1 of 2) 1959 [...] patient's age to complete this topic Meningococcal B Vacine Aged Out No lo nger eligible based on patient's age to complete this topic RSV Immunization Patients Under 20 months Aged Out No longer eligible based on patient's age to complete this topic Varicella Vaccines Aged Out No longer eligible based on patient's age to complete this topic Medical Devices Implanted Type Area Retail Service Specialist Device Identifier Shelf Expiration Date Model / Serial / Lot Medt-Card Micra Av [id number] Implanted:02/2021 (Quantity not on file) 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 us Historical Provider MD LAB BLOOD ORDERABLES Sonja l Result * Cardiac device check - Remote- MURJ (08/18/2024 10:49 AM EST) Only the most recent of2 resultswithin the time period is included. Date Time Interrogation Session [id number] CV DEVICE CHECK Type Interrogation Session Remote CV DEVICE CHECK Implantable Pulse Generator Retail Service Specialist MDT CV DEVICE CHECK Implantable Pulse Generator Type IPG CV DEVICE CHECK Implantable Pulse Generator Model Micra AV [id number] CV DEVICE CHECK Implantable Pulse Generator Serial Number [id number] CV DEVICE CHECK Implantable Pulse Generator Implant Date 20210109 CV DEVICE CHECK Battery Remaining Longevity 70.0 CV DEVICE CHECK Battery Voltage 2.960 CV D EVICE CHECK Battery AUTOMATIC SPINNING LATHE OPERATOR Trigger 2.558 CV DEVICE CHECK Battery Status [...] significant changes noted Jane BAUTISTA CV IMPLANTABLE CARDIAC DEVICE VA OCEDURES Final Result * Annual BMP Blood Test (07/05/2023) Pathologist [facility] Annual BMP Blood Test abstracted Historical Provider HEALTH MAINTENANCE Final Result from Last 3 Months or Most Recently Relevant to Health Maintenance Insurance [employer] MEDICARE Advance Directives Documents on File Type Date Recorded Patient Finance Lead Expl anation Health Care Decision (hx) 05/10/2020 [...] (hx) 05/10/2020 AD [facility] DIRECTIVE Care Teams Shipwright Relationship Specialty Start Date End Date Bonilla Quijano MD [address] [place] [address] PCP - General Internal Medicine 07/14/12
[2024-09-29 08:14] LABS: Prothrombin Time Whole Bld POC 41.8 sec (11.1-13.5); ~PT, ~INR - Anti Coag Clinic 3.5 (0.9-1.1)
--- NOTE | 2024-09-29 08:18 | MHC.OFFVISCO ---
Intake Intake Visit Reasons: Anticoagulation Allergies morphine Allergy (Severe, Verified 09/29/24 08:08) Rash baclofen Adverse Reaction (Intermediate, Verified 09/29/24 08:08) Confusion codeine Adverse Reaction (Intermediate, Verified 09/29/24 08:08) GI UPSET divalproex sodium [From Depakote] Adverse Reaction (Intermediate, Verified 09/29/24 08:08) Chest Pain latex Adverse Reaction (Intermediate, Verified 09/29/24 08:08) RASH Medication List - Last Reconciled 09/29/24 by Aster Barksdale, RN acetaminophen ER 1,300 mg PO Q12H allopurinol 200 mg PO DAILY atorvastatin 80 mg PO DAILY brimonidine 0.2% 0 drps ophthalmic (eye) buprenorphine 7.5 mcg/hour 1 patch topical QWEEK chlorthalidone 25 mg PO DAILY cholecalciferol (vitamin D3) PO clopidogrel 75 mg PO DAILY duloxetine 30 mg PO BID erythromycin ophthalmic (eye) gabapentin 600 mg PO TID isosorbide mononitrate ER 30 mg PO DAILY ketorolac 0.5% drps ophthalmic (eye) latanoprost 0.005% drps ophthalmic (eye) lisinopril 20 mg PO DAILY sm-qcn-FH-vit C-vlkpmz-evcrtkb (PreserVision AREDS 2 Plus MV) PO nitroglycerin mg sublingual omeprazole 20 mg PO DAILY PRN prednisolone acetate 1% 1 drp ophthalmic (eye) BID sotalol 120 mg PO BID [carlene bio healer topical] timolol maleate 0.5% 0 drps ophthalmic (eye) triamcinolone acetonide 0.1% 1 appl topical BID-TID warfarin 5 mg See Protocol PO DAILY Nursing Note INR: 3.5?out of therapeutic range of 2-3 Medications and supplements reviewed Patient status: well but c/o arthritis pain, takes tylenol Medications or supplements: no changes Diet: usual diet for pt Denies any signs and symptoms of bleeding or clotting or unusual bruising Bleeding, bruising, clotting discussed Nutritional guidance given: to have a serving of greens today. Pt states he will have spinach Dose: hold today dose of 2.5mg then 2.5mg X 4 days and 5mg X 3 days on Mon, Wed & Fri. F/U INR Date : 3 weeks?? Patient verbalizing understanding of instructions given. 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
== END 2024-09-29 08:23 | disposition home or self-care (01) ==
LOC: HO.ACS 07:55
PROVIDERS: PCP Internal Medicine; Visit Provider Internal Medicine
DX: Z79.01 Long term (current) use of anticoagulants (principal)

== ENCOUNTER → 2024-09-29 07:55 | Outpatient (BNVA) | payer MEDICARE, SELFPAY | PROVIDERS: PCP Internal Medicine; Visit Provider Internal Medicine | DX: I48.19 Other persistent atrial fibrillation (principal); Z79.01 Long term (current) use of anticoagulants; Z51.81 Encounter for therapeutic drug level monitoring | CPT/HCPCS: 85610; 99211 ==

== ENCOUNTER 2024-10-20 09:15 | Outpatient (AMB) | payer MEDICARE, SELFPAY ==
--- NOTE | 2024-10-20 09:22 | MHC.OFFVISCO ---
Intake Intake Visit Reasons: Anticoagulation Allergies morphine Allergy (Severe, Verified 09/29/24 08:08) Rash baclofen Adverse Reaction (Intermediate, Verified 09/29/24 08:08) Confusion codeine Adverse Reaction (Intermediate, Verified 09/29/24 08:08) GI UPSET divalproex sodium [From Depakote] Adverse Reaction (Intermediate, Verified 09/29/24 08:08) Chest Pain latex Adverse Reaction (Intermediate, Verified 09/29/24 08:08) RASH Medication List - Last Reconciled 10/20/24 by Africa Cao RN acetaminophen ER 1,300 mg PO Q12H allopurinol 200 mg PO DAILY atorvastatin 80 mg PO DAILY brimonidine 0.2% 0 drps ophthalmic (eye) buprenorphine 7.5 mcg/hour 1 patch topical QWEEK buprenorphine 10 mcg/hour 1 patch topical QWEEK chlorthalidone 25 mg PO DAILY cholecalciferol (vitamin D3) PO clopidogrel 75 mg PO DAILY duloxetine 30 mg PO BID erythromycin ophthalmic (eye) gabapentin 600 mg PO TID isosorbide mononitrate ER 30 mg PO DAILY ketorolac 0.5% drps ophthalmic (eye) latanoprost 0.005% drps ophthalmic (eye) lisinopril 20 mg PO DAILY bk-isu-TN-vit J-sxwahx-earevcg (PreserVision AREDS 2 Plus MV) PO nitroglycerin mg sublingual omeprazole 20 mg PO DAILY PRN prednisolone acetate 1% 1 drp ophthalmic (eye) BID sotalol 120 mg PO BID [carlene bio healer topical] timolol maleate 0.5% 0 drps ophthalmic (eye) triamcinolone acetonide 0.1% 1 appl topical BID-TID warfarin 5 mg See Protocol PO DAILY Nursing Note INR: 2.1- in therapeutic range of 2-3 Medications and supplements reviewed- buprenorphine top patch increased to 10mg- no interaction with warfarin per micromedex No changes in health, diet, medications, or supplements, Denies any signs and symptoms of bleeding or bruising or clotting. 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
[2024-10-20 09:23] LABS: Prothrombin Time Whole Bld POC 25.3 sec (11.1-13.5); ~PT, ~INR - Anti Coag Clinic 2.1 (0.9-1.1)
--- OUTSIDE RECORDS SUMMARY | 2024-10-20 09:57 | XMS_ITS | Encounter Summary ---
Author Organization [facility] [place] [address] Care Team Providers Care Char Filter Operator Helper Name Role Phone Bonilla Quijano MD Primary Care Provider [phone] Encounter Details Date Type Department Care Team (Late st Contact Info) Description 05/05/2024 9:52 AM EDT Hospital Encounter TH HISTORIC ENCOUNTERS [facility]AST[facility] CONVERSION ONLY Soto Stephenson MD [address] [place] [phone] Social History Tobacco Use Types Packs/Day [...] Description 03/11/2025 1:30 PM EDT Ancillary Procedure [facility] Cardiology [facility] [address] [address] 05/24/2025 9:25 AM EDT Office Visit [facility] - [facility] [address] 300 [facility] 154 [place] [address] Jose David San MD [address] [address] documented as of this encounter Visit Diagnoses Not on filedocumented in this encounter Care Teams Char Filter Operator Helper Relationship Specialty Start Date End Date Bonilla Quijano MD [address] [place] [address] PCP - General Internal Medicine 07/14/12 documented as of this encounter
--- OUTSIDE RECORDS SUMMARY | 2024-10-20 09:57 | XMS_ITS | Clinical Summary ---
Author Organization [facility] Address [address] [place] [address] Care Team Providers Care Manager Integrated Name Role Phone Bonilla Quijano MD Primary Care Provider [phone] Allergies Active Allergy Reactions Criticality Noted Date [...] total) by mouth daily. 09/26/2023 Active nystatin 433972 UNIT/GM powder APPLY ONE GRAM POWDER TOPICALLY [...] age to complete this topic Care Teams Manager Integrated Relationship Specialty Start Date End Date Bonilla Quijano MD [address] [place] [address] PCP - General 04/09/23
--- OUTSIDE RECORDS SUMMARY | 2024-10-20 09:57 | XMS_ITS | Continuity of Care Document ---
Author Organization [facility] [place] Address [address] [facility] [place] [address]- Care Team Providers Care Transportation Director Name Role Phone Samm ALVES, Bonilla Kumar Primary Care Physician Encounter 09/30/24 - 10/07/24 [facility] [place] [address] [facility], [address] [place] [address]- Attending Physician: Arcenio Marvin MD Admitting Physician: Arcenio Marvin MD Referring Physician: Arcenio Marvin MD Encounter Type: OutPatient One Time Allergies, Adverse Reactions, Alerts Substance Criticality Severity Reaction Reaction Severity Status codeine nausea Active morphine Active Adhesive Bandage Act ede Other Environmental Allergy 1 hospital linen Active 1hospital linen Medications allopurinol 100 mg oral tablet Refills 0, Maintenance, 07/30/23 6:34:00 AM EST, Partial fill upon patient request if the prescription is for a schedule II opioid drug. Start Date: 07/30/23 Status: Ordered Repeat number: 1 aspirin 81 mg oral tablet, chewable = 81 mg, By Mouth, Daily, # 30 tablet, 0 Refills, Maintenance, 07/31/23 9:16:00 AM EST, Chew Tablet, [facility], Partial fill upon patient request if the prescription is for a schedule II opioid drug., 165, cm, 07/30/23 16:26:00 EST, Height, 96.6, kg, 07/30/23 7:00:00 EST, Dry Weight Start Date: 07/31/23 Status: Ordered Quantity: 30.0 Unit: tablet Repeat number: 1 atorvastatin 40 mg oral tablet 0 Refills, Maintenance, 07/30/23 6:35:00 AM EST, Partial fill upon patient request if the prescription is for a schedule II opioid drug. Start Date: 07/30/23 Status: Ordered Repeat number: 1 clopidogrel 75 mg oral tablet 75 mg, By Mouth, Daily, # 90 tablet, Refills 0, Tot. Refills 0, Maintenance, 07/31/23 9:16:00 AM EST, Route to Pharmacy Electronically, [facility], Partial fill upon patient request if the prescription is for a schedule II opioid drug., 165, cm, 07/30/23 16:26:00 EST, Height, 96.6, kg, 07/30/23 7:00:00 EST, Dry Weight Start Date: 07/31/23 Status: Ordered Quantity: 90.0 Unit: tablet Repeat number: 1 gabapentin 300 mg oral capsule Refills 0, Maintenance, 07/30/23 6:34:00 AM EST, Partial fill upon patient request if the prescription is for a schedule II opioid drug. Start Date: 07/30/23 Status: Ordered Repeat number: 1 isosorbide mononitrate 30 mg oral tablet, extended release TAKE 1 TABLET BY MOUTH ONCE DAILY Start Date: 07/30/23 Status: Ordered Repeat number: 1 nitroglycerin 0.4 mg sublingual tablet DISSOLVE ONE TABLET UNDER THE TONGUE EVERY 5 MINUTES NEEDED FOR CHEST PAIN. DO NOT EXCEED A TOTAL OF 3 DOSES IN 15 MINUTES Start Date: 07/30/23 Status: Ordered Repeat number: 1 Sotalol Hydrochloride AF 120 mg oral tablet 0 Refills, Maintenance, 07/30/23 6:34:00 AM EST, Partial fill upon patient request if the prescription is for a schedule II opioid drug. Start Date: 07/30/23 Status: Ordered Repeat number: 1 timolol maleate 0.5% ophthalmic solution INSTILL 1 DROP INTO EACH EYE TWICE DAILY Start Date: 07/30/23 Status: Ordered Repeat number: 1 warfarin 4 mg oral tablet By Mouth, Once, T-TH-Pelayo 5mg M-W-F-S 7.5 mg, 0 Refills, Maintenance, 08/09/13 9:34:11 AM EST, Tablet Start Date: 08/09/13 Status: Ordered Repeat number: 1 Problem List Condition Confirmation Course Effective Dates Status Health St atus Informant Obese class II Confirmed Active Results Radiology Reports * Exam Date Time Procedure Performing Provider Status 09/29/24 11:28 AM [facility] Christiano Coombs; Auth (Verified) Notes: ([facility]) Reason For Exam: cyst of kidney acquired RESULT: Compound Time [facility] Compound Time Ret[facility]per[facility] Pharm[facility]cine Study performed at [address] Reason: Cyst of kidney. COMPARISON: 10/03/2023. FINDINGS: Right kidney: 11.9 cm in length. No hydronephrosis. Normal parenchymal thickness and echotexture. No shadowing stones. 5 mm echogenic focus in the upper pole suspicious for a nonobstructive calculus.3 mm echogenic focus in the mid to lower pole of the right kidney, likely parenchymal calcification.. Simple cyst in the upper pole measures 0.8 x 0.7 x 0.9 cm. The previously described 2 cm lesion in the upper pole is not well-demonstrated on the current examination. Left kidney: 12.1 cm in length. No hydronephrosis. Normal parenchymal thickness and echotexture. Noshadowing stones. 3 to 4 mm echogenic foci in the lower pole of the left kidney without posterior acoustic shadowing, nonspecific and may represent tiny nonobstructive calculi/collecting system debris versus parenchymal calcification.. No suspicious mass. IMPRESSION: Nonvisualization of the previously described indeterminant 2 cm right renal lesion. Simple 0.9 cm right renal cyst. Tiny nonshadowing echogenic foci in both kidneys, as described above, possibly representing nonobstructive calculi/collecting system debris and/or parenchymal calcifications. WSN: [id number] Ordering Physician: Arcenio Marvin Dictated By: Salima Schmitt MD Dictated Date/Time: 10/01/24 7:43 am Reviewed By: Salima Schmitt MD Signed By: Salima Schmitt MD Signed Date/Time: 10/01/24 7:43 am Transcribed By: VICTOR M Transcribed Date/Time: 09/30/24 3:00 pm Patient Care team information Care Team Personnel Name: Christine Patel RN Position: [facility] RN Member Role: Primary Care Nurse Name: Paz Conrad RN Position: [facility] RN Member Role: Primary Care Nurse Name: Sue Shepard RN Position: [facility] PARAMJIT Nurse Member Role: Primary Care Nurse Name: Bonilla Quijano MD Position: [facility] Physician - Primary Care Member Role: PCP Address: [address] [place] [address]- Telecom: Name: Yon ALVES, Arcenio Brady Position: [facility] Physician - Urology Med Service: Urology Member Role: Ordering Physician Address: [address] [place] [address]- Telecom: Care Team Related Persons Name: GIANLUCA LINK Name: SABINA LINK Name: MATEO LINK Insurance Providers Guarantor name: HARVINDER LINK Health Plan Information #: 2 P[facility] [employer] Member Number: [id number] Policy Number: NA Group Number: NA Health Plan Information #: 1 Payer: [facility] [employer] Member Number: [id number] Policy Number: NA Group Number: NA
--- OUTSIDE RECORDS SUMMARY | 2024-10-20 09:57 | XMS_ITS | Clinical Summary ---
Author Organization [address] [place] [address] [place] [phone] Phone Care Team Providers Care Groover And Striper Operator Name Role Phone Bonilla Quijano MD Primary Care Provider [phone] Allergies Active Allergy Reactions Criticality Noted Date [...] to 3 doses total. 25 tablet 2 5 026 Active acetaminophen (TYLENOL) 325 mg tablet Take 650 mg by mouth every 6 hours as needed. Active allopurinoL (ZYLOPRIM) 100 mg tablet Take 1 Tablet by mouth 2 times daily. Active atorvastatin (LIPITOR) 80 mg tablet Take 1 Tablet by mouth at bedtime. 4 Active chlorthalidone (HYGROTON) 25 mg tablet Take 25 mg by mouth daily. Active clopidogreL (PLAVIX) 75 mg tablet Take 1 tablet by mouth once daily 4 Active gabapentin (NEURONTIN) 300 mg capsule Take 300 mg by mouth 3 times daily. Active isosorbide mononitrate (IMDUR) 30 mg 24 hr tablet Take 1 tablet by mouth once daily 4 Active lisinopriL (PRINIVIL,ZESTR IL) 20 mg tablet Take 20 mg by mouth daily. Active vit A/vit C/vit E/zinc/copper (PRESERVISION AREDS ORAL) Take by mouth. Active omeprazole magnesium (PRILOSEC ORAL) Take 20 mg by mouth daily. Active warfarin (COUMADIN) 5 mg tablet Take 5 mg by mouth See Admin Instruction s. May cause heavy bleeding. Take at same time every day. Do not change dietary habits. Active sotalol AF (BETAPACE AF) 120 mg tablet TAKE 1 TABLET BY MOUTH TWICE DAILY 180 tablet 5 Active sotaloL (BETAPACE) 120 mg tablet TAKE 1 TABLET BY MOUTH TWICE DAILY 4 025 Discontinued Active Problems Problem Noted Date Diagnosed Date [...] catheterization. He wants to do this at [facility] given his insurance does not cover [facility] and if he needs revascularization we will schedule a follow-up procedure at [facility]. (HFpEF) heart failure with preserved ejection [...] Type Department Care Team Description 09/04/2024 Telephone [facility] [address] [place] [address] Annia Barrios [employer]TERN[employer] No Show 08/18/2024 10:50 AM EST Ancillary Procedure [facility] [address] [place] [address] 08/18/2024 Telephone [facility] [address] [place] [address] Jose David San MD Chest Pain from Last 3 Months Surgical History Surgery Date Site/Laterality Comments OTHER SURGICAL HISTORY 01/04/2021 PROCEDURE: HISTORY OTHER; COMMENT: S/p cardioversion OTHER SURGICAL HISTORY 2014 PROCEDURE: HISTORY OTHER; COMMENT: Cardiac ablation OTHER SURGICAL HISTORY Right PROCEDURE: NV ARTHRP ACETBLR/PROX FEM PROSTC AGRFT/ALGRFT TOTAL KNEE ARTHROPLASTY Left PROCEDURE: NV ARTHRP KNE CONDYLE&PLATU MEDIAL&LAT COMPARTMENTS SHOULDER SURGERY Bilateral PROCEDURE: HISTORICAL SHOULDER SURGERY OTHER SURGICAL HISTORY PROCEDURE: HISTORY OTHER; COMMENT: S/p Lumbar spine fusion OTHER SURGICAL HISTORY PROCEDURE: HISTORY OTHER; COMMENT: S/p Cervical and thoracic spine surgery with hardware placement Medical History Medical History Date Comments CVA (cerebral vascular accid ent) ([facility]) DX:CVA (cerebral vascular ac cident) ([facility]); COMMENT: with right-sided weakness DVT (deep venous thrombosis) ([facility]) DX:DVT (deep venous thrombosis) ([facility]) Gout DX:Gout [...] Description 03/11/2025 1:30 PM EDT Ancillary Procedure [facility] [address] [place] [address] 05/24/2025 9:25 AM EDT Office Visit [facility] [address] [place] [address] Jose David San MD [address] [place] [address] Health Maintenance Due Date Last Done Comments DTaP,Tdap,and Td Vaccines (1 - Tdap) 1959 Pneumococcal Vaccine: 50+ Years (1 of 1 - PCV) 01/04/1992 Zoster Vaccines (1 of 2) 01/04/1992 RSV Immunization Patients 60+ Years Old (1 [...] this topic Medical Devices Implanted Type Area Developer Advisor Device Identifier Shelf Expiration Date Model / Serial / Lot Medt-Card Micra Av [id number] Implanted:02/2021 (Quantity not on file) 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 us Historical Provider MD LAB BLOOD ORDERABLES Sonja l Result * Cardiac device check - Remote- MURJ (08/18/2024 10:49 AM EST) Date Time Interrogation Session [id number] CV DEVICE CHECK Type Interrogation Session Remote CV DEVICE CHECK Implantable Pulse Generator Developer Advisor MDT CV DEVICE CHECK Implantable Pulse Generator Type IPG CV DEVICE CHECK Implantable Pulse Generator Model Micra AV [id number] CV DEVICE CHECK Implantable Pulse Generator Serial Number [id number] CV DEVICE CHECK Implantable Pulse Generator Implant Date 20210109 CV DEVICE CHECK Battery Remaining Longevity 70.0 CV DEVICE CHECK Battery Voltage 2.960 CV D EVICE CHECK Battery SHIPPING SUPERVISOR Trigger 2.558 CV DEVICE CHECK Battery Status [...] noted Jane BAUTISTA CV IMPLANTABLE CARDIAC DEVICE NV OCEDURES Final Result * Annual BMP Blood Test (07/05/2023) Pathologist Replaced by [facility] Annual BMP Blood Test abstracted Historical Provider MD HEALTH MAINTENANCE Final Result from Last 3 Months or Most Recently Relevant to Health Maintenance Insurance [employer] MEDICARE Advance Directives Documents on File Type Date Recorded Patient Track Vehicle Repairer Expl anation Health Care Decision (hx) 05/10/2020 [...] (hx) 05/10/2020 AD [facility] DIRECTIVE Care Teams Groover And Striper Operator Relationship Specialty Start Date End Date Bonilla Quijano MD [address] [place] [address] PCP - General Internal Medicine 07/14/12
== END 2024-10-20 09:28 | disposition home or self-care (01) ==
LOC: HO.ACS 09:15
PROVIDERS: PCP Internal Medicine; Visit Provider Internal Medicine
DX: Z79.01 Long term (current) use of anticoagulants (principal)

== ENCOUNTER → 2024-10-20 09:15 | Outpatient (BNVA) | payer MEDICARE, SELFPAY | PROVIDERS: PCP Internal Medicine; Visit Provider Internal Medicine | DX: I48.19 Other persistent atrial fibrillation (principal); Z79.01 Long term (current) use of anticoagulants; Z51.81 Encounter for therapeutic drug level monitoring | CPT/HCPCS: 85610; 99211 ==

== ENCOUNTER 2024-11-10 08:05 | Outpatient (AMB) | payer MEDICARE, SELFPAY ==
[2024-11-10 08:12] LABS: Prothrombin Time Whole Bld POC 20.7 sec (11.1-13.5); ~PT, ~INR - Anti Coag Clinic 1.7 (0.9-1.1)
--- OUTSIDE RECORDS SUMMARY | 2024-11-10 08:13 | XMS_ITS | Data Portability ---
Author Organization [place] [facility] [place] [facility] [place], [facility] - INPATIENT Address [address] [place] [address] Care Team Providers Care Process Specialist Name Role Phone DEWEY GARCIA Jerker Assessment Encounter Date Assessment Date Assessment LastModified [...] By Organization Details Last Modified Time 10/31/2022 [id number] Submit to Worker 's Comp. for approval. In person pre-op meeting Not available 10/31/2022 16:51:57 03/03/2024 [id number] MRI thoracic spi ne with and without contrast Extension fusion to T7/T8, possible T3-4 osteotomy with instrumentation Preop meeting with me [email or web address] Not available 03/03/2024 14:33:42 06/16/2024 [id number] Mr. Gunter should get in touch with [facility] or have his circuit rider's office called [facility] to discuss his financial responsibility and the various scenarios [email or web address] Not available 06/16/2024 16:34:47 Reason for Referral None Reported. Results Created Date Observation Date Name Description Value Unit Range Abnormal Flag Note LastModifiedBy Organization Detail LastModifiedTime 03/27/2003/27/2024 COMPR EHENS DIANA METAB OLIC PANEL sodium 138 mmol/ L 135-14 5 Not Available [facility] - Lab [address] [facility], [place], [address], 03/27/2024 11:38:19 03/27/2003/27/2024 COMPR EHENS DIANA METAB OLIC PANEL potassium 5.7 mmol/ L 3.5-5. 3 high Not Available [facility] [address] [facility], [place], [address], 03/27/2024 11:38:19 03/27/20 24 03/27/2024 COMPR EHENS DIANA METAB OLIC PANEL chloride 100 mmol/ L 100-11 2 Not Available [facility] Lab [address] [facility], [place], [address], 03/27/2024 11:38:19 03/27/20 24 03/27/2024 COMPR EHENS DIANA METAB OLIC PANEL total CO2 29 mmol/ L 21-30 Not Available [facility] [address] [facility], [place], [address], 03/27/2024 11:38:19 03/27/20 24 03/27/2024 COMPR EHENS DIANA METAB OLIC PANEL anion gap 9 mmol/ L 4-20 Not Available [facility] Lab [address] [facility], [place], [address], 03/27/2024 11:38:19 03/27/20 24 03/27/2024 COMPR EHENS DIANA METAB OLIC PANEL BUN 28 mg/dL 6-20 high Not Available [facility] - Lab [address] [facility], [place], [address], 03/27/2024 11:38:19 03/27/20 24 03/27/2024 COMPR EHENS DIANA METAB OLIC PANEL creatinine 1.30 mg/dL 0.00-1 .30 Not Available [facility] [address] [facility], [place], [address], 03/27/2024 11:38:19 03/27/20 24 03/27/2024 COMPR EHENS DIANA METAB OLIC PANEL glucose 124 mg/dL 70-105 high Not Available [facility] - Lab [address] [facility], [place], [address], 03/27/2024 11:38:19 03/27/20 24 03/27/2024 COMPR EHENS DIANA METAB OLIC PANEL calcium 9.6 mg/dL 8.4-10 .2 Not Available [facility] [address] [facility], [place], [address], 03/27/2024 11:38:19 03/27/20 24 03/27/2024 COMPR EHENS DIANA METAB OLIC PANEL total protein 7.4 g/dL 6.5-8. 0 Not Available [facility] Lab [address] [facility], [place], [address], 03/27/2024 11:38:19 03/27/20 24 03/27/2024 COMPR EHENS DIANA METAB OLIC PANEL albumin, blood 4.1 g/dL 3.5-5. 0 Not Available [facility] [address] [facility], [place], [address], 03/27/2024 11:38:19 03/27/20 24 03/27/2024 COMPR EHENS DIANA METAB OLIC PANEL globulin 3.3 g/dL 2.0-4. 0 Not Available [facility] [address] [facility], [place], [address], 03/27/2024 11:38:19 03/27/20 24 03/27/2024 COMPR EHENS DIANA METAB OLIC PANEL AST (SGOT) 69 U/L 0-40 high Speci men hemol yzed; resul t may be inval id. Inter pret with cauti on. Not Available [facility] - Lab [address] [facility], [place], [address], 03/27/2024 11:38:19 03/27/20 24 03/27/2024 COMPR EHENS DIANA METAB OLIC PANEL ALT (SGPT) 20 U/L 12-78 Speci men hemol yzed; resul t may be inval id. Inter pret with cauti on. Not Available [facility] - Lab [address] [place], [address], 03/27/2024 11:38:19 03/27/20 24 03/27/2024 COMPR EHENS DIANA METAB OLIC PANEL alk phosphatase 97 U/L 40-120 Speci men hemol yzed; resul t may be inval id. Inter pret with cauti on. Not Available [facility] [address] [facility], [place], [address], 03/27/2024 11:38:19 03/27/20 24 03/27/2024 COMPR EHENS DIANA METAB OLIC PANEL total bilirubin 0.5 mg/dL 0.0-1. 5 Not Available [facility] [address] [facility], [place], [address], 03/27/2024 11:38:19 03/27/20 24 03/27/2024 COMPR EHENS DIANA METAB OLIC PANEL estimated GFR (CKD-epi) 55 mL/mi n/bsa >=60 low Not Available [facility] - Lab [address] [facility], [place], [address], 03/27/2024 11:38:19 11/01/19 23 10/31/2022 CT, myelo gram, thora cic spine No observ ation record ed. [email or web address] Not Available 02/18 15:56:53 05/25/20 24 05/05/2024 MRI, thora cic spine , w/wo contr ast No observ ation record ed. [facility] Dept [address] [place] [address], [place], [address], 06/04/2024 15:11:31 Result Notes None recorded. 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 Instrument ation. Not Available [employer] 16:31:37 Problem Notes None recorded. Procedures Surgical History Date Name Laterality Status Provider Name and Address Organization Details Recorded Time 12/26/20 23 Other completed Yimi Ortegatrena STEPHANIE [facility] 03/03/2024 14:00:59 01/04/20 18 Orthopaedic Surgery completed Yimi Grayson MA [facility] 03/03/2024 14:00:32 08/05/19 18 Orthopaedic Surgery completed Dalila Grider MA [facility] 09/04/2022 09:12:44 Orthopaedic Surgery completed Dalila Grider MA [facility] 09/04/2022 09:20:57 Orthopaedic Surgery completed Dalila Grider MA [facility] 09/04/2022 09:21:01 Orthopaedic Surgery completed Dalila Grider MA [facility] 09/04/2022 09:21:05 Orthopaedic Surgery completed Dalila Grider MA [facility] 09/04/2022 09:21:10 Orthopaedic Surgery completed Dalila Grider MA [facility] [place] 09/04/2022 09:21:18 Orthopaedic Surgery completed Dalila Grider MA [facility] 09/04/2022 09:21:34 cardiac pacemaker procedure completed Dalila Grider MA [facility] 09/04/2022 09:21:53 Imaging Results Imaging Date Name Status LastModified by Organiz ation Details LastModified Time 10/31/2022 CT, myelogram, thoracic spine completed [email or web address] Information not available 02/18/2023 15:56:53 05/05/2024 MRI, thoracic spine, w/wo contrast completed [facility] [address] [place] [address], [address], 06/04/2024 15:11:31 Procedure Notes None recorded. Medical Equipment None Reported. Allergies Allergen ID Allergen Name Allergen Category Reaction Reaction Severity Criticality Documentation Date Start Date Code Code System Note Provider Name and Address Organization Details Recorded Time 755421 morphine medicatio n Not available Not available Not available 07/12/2022 7052 RxNorm React ion: Unkno wn, sever ity: Unkno wn Not Available [facility] 22:22:36 791544 latex environme nt,medica tion Not available Not available Not available 09/04/2022 10999 91 RxNorm Dalila Cheo zaragoza [facility] 09:17:14 Medications Name Sig Start Date Stop [...] Updated DateTime 09/04/2022 165.1 cm 33.3 kg/m2 07391.47 g Dalila Cheo [facility] 09/04/2022 09:16:56 Date Recorded Body height Body mass index (BMI) Body weight Provider Name and Address Organization Details Last Updated DateTime 10/31/2022 165.1 cm 33.3 kg/m2 76011.47 g Dalila Cheo [facility] 10/31/2022 13:34:45 Social History Question Answer Notes LastModified by Organizat ion Details LastModified Time Tobacco Smoking Status Never Smoker Not Available [email or web address] 07/12/2022 23:20:40 What Is Your Level Of Alcohol Consumption? None Information not available 03/03/2024 Are You Currently Employed? No [email or web address] Information not available 09/04/2022 Do You Or [...] Organization Details LastModified Time Brother Myocardial infarction [email or web address] Not available 09:20:22 Sister Malignant neoplastic disease [email or web address] Not available 09:20:30 Medical History Condition Response Blood Clots / Phlebitis Y Diabetes Y High Blood Pressure Y Angina, Heart Failure or Attack Y Irregular Heartbeat N MRSA N Seizures / Epilepsy N Night Sweats N Osteoarthritis / Rheumatoid arthritis / Other N Cancer N Reaction to General/Local Anesthesia N Stroke Y Ulcer / Stomach Bleeding / Indigestion N Visual Loss or Glaucoma Y Psoriasis / Skin Rash N Thyroid Disorder N Weight Gain / Loss N Heart Disease Y Pulmonary Embolism N Kidney / Bladder Infections N Past Encounters Encounter ID Performer Location Encounter Start Date Encounter Closed Date Diagnosis/Indication Diagnosis SNOMED-CT Code Diagnosis ICD10 Code Diagnosis Note [id number] ASHU WOODS MD [facility] Office [address] [place] [phone] 09/04/2022 08:37:15 09/04/2022 09:54:52 Spondylosis without myelopathy 35362474 M47.13 Prolapsed thoracic intervertebral disc 272950165 M51.24 CT myelogram thoracic spine. [id number] ASHU WOODS MD [facility] Office [address] [address] 10/31/2022 12:13:15 10/31/2022 13:49:37 Degeneration of thoracic intervertebral disc 97530020 M51.34 T3-T7 posterior fusion, extension. Instrument ation. [id number] ASHU WOODS MD [facility] Office [address] [place] [phone] 03/03/2024 13:23:12 03/03/2024 21:35:17 Degeneration of thoracic intervertebral disc 38598753 M51.34 [id number] ASHU WOODS MD [facility] Office [address] [place] [phone] 06/16/2024 13:55:38 07/23/2024 10:43:28 Degeneration of thoracic intervertebral disc 99601335 M51.34 Health Concerns Section Related Observation LastModified by Organization Detai ls LastModified Time None Recorded Concern Status LastModified by Organization Details LastModified Time None Recorded Advance Directives Directive None Recorded Payers Encounter Date Sequence Insurance Name Policy Number Policy Oliver Covered Member ID Oliver Member ID Guarantor Name 09/04/2022 [employer] 10/31/2022 [employer] 03/03/2024 [employer] 06/16/2024 AIM [employer] Aim Notes Date Note Type Note Provider [...] 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 ASHU WOODS MD [address] [place] [address], [phone], [facility] 09/04/2022 15:00:03 10/31/2022 text/html Raine is here w ith his son follow-up after thoracic CT myelogram. ASHU WOODS MD [address] [place] [address], [phone], [facility] 10/31/2022 16:52:05 03/03/2024 text/html Last visit here [...] according to the patient. ASHU WOODS MD [address] [place] [address], [phone], [facility] 03/03/2024 15:45:53 06/16/2024 text/html Here for MRI review. He states he has not had no improvement upper back pain still very sore. He also has pain in his thigh and calf ASHU WOODS MD [address] [place] [address], [phone], [facility] 06/16/2024 16:37:04
--- OUTSIDE RECORDS SUMMARY | 2024-11-10 08:13 | XMS_ITS | Clinical Summary ---
Author Organization [address] [place] [address] [place] [phone] Phone Care Team Providers Care Inside Sales Engineer Name Role Phone Bonilla Quijano MD Primary Care Provider [phone] Allergies Active Allergy Reactions Criticality Noted Date [...] TABLET BY MOUTH TWICE DAILY 180 tablet 10/01/2024 Active Active Problems Problem Noted Date Diagnosed [...] catheterization. He wants to do this at [facility] given his insurance does not cover [facility] and if he needs revascularization we will schedule a follow-up procedure at [facility]. (HFpEF) heart failure with preserved ejection [...] Type Department Care Team Description 09/04/2024 Telephone [facility] [address] [place] [address] Annia Barrios NP No Show 08/18/2024 10:50 AM EST Ancillary Procedure [facility] [address] [place] [address] 08/18/2024 Telephone [facility] [address] [address] [place] [address] Jose David San MD Chest Pain from Last 3 Months Surgical History Surgery Date Site/Laterality Comments OTHER SURGICAL HISTORY 01/04/2021 PROCEDURE: HISTORY OTHER; COMMENT: S/p cardioversion OTHER SURGICAL HISTORY 2014 PROCEDURE: HISTORY OTHER; COMMENT: Cardiac ablation OTHER SURGICAL HISTORY Right PROCEDURE: CO ARTHRP ACETBLR/PROX FEM PROSTC AGRFT/ALGRFT TOTAL KNEE ARTHROPLASTY Left PROCEDURE: CO ARTHRP KNE CONDYLE&PLATU MEDIAL&LAT COMPARTMENTS SHOULDER SURGERY Bilateral PROCEDURE: HISTORICAL SHOULDER SURGERY OTHER SURGICAL HISTORY PROCEDURE: HISTORY OTHER; COMMENT: S/p Lumbar spine fusion OTHER SURGICAL HISTORY PROCEDURE: HISTORY OTHER; COMMENT: S/p Cervical and thoracic spine surgery with hardware placement Medical History Medical History Date Comments CVA (cerebral vascular accid ent) ([facility]) DX:CVA (cerebral vascular ac cident) ([facility]); COMMENT: with right-sided weakness DVT (deep venous thrombosis) ([facility]) DX:DVT (deep venous thrombosis) ([facility]) Gout DX:Gout Chronic back pain DX:Chronic jessenia k pain 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:Adjustment reaction with prolonged depressive reaction PVD (peripheral vascular dis ease) ([facility]) DX:PVD (peripheral vascular disease) ([facility]) Dizziness DX:Dizziness Obesity DX:Obesity Glaucoma DX:Glaucoma Cervical [...] Description 03/11/2025 1:30 PM EDT Ancillary Procedure [facility] [address] [facility] [address] [place] [address] 05/24/2025 9:25 AM EDT Office Visit [facility] [address] [facility] [address] [place] [address] Jose David San MD [facility] [place] [address] Health Maintenance Due Date Last Done Comments DTaP,Tdap,and Td Vaccines (1 - Tdap) 1959 Pneumococcal Vaccine: 50+ Years (1 of 1 - PCV) 01/04/1992 Zoster Vaccines (1 of 2) 01/04/1992 RSV Immunization Adult Patients (1 - 1-dose 75+ series) 2017 Cholesterol Screening (Lipid Panel) 07/14/2022 Depression Screening 07/14/2022 Falls Risk Assessment 07/14/2022 Medicare Annual Wellness Visit 07/14/2022 Social Influencers of Health Screening 07/14/2022 COVID-19 Vaccine ( season) 2024 07/05/2021, 12/01/2020, 11/10/2020 Hypertension/CHF/CAD Annual BMP Blood Test 03/27/2025 03/27/2024, 07/05/2023 Influenza Vaccine (Season Ended) 2025 05/23/2022, 04/27/2019, 04/24/2018, Additional history exists HIB Vaccines Aged Out No longer eligi [...] age to complete this topic Meningococcal B Vaccine Aged Out No l onger eligible based on patient's age to complete this topic RSV Immunization Patients Under 20 months Aged Out No longer eligible based on patient's age to complete this topic Varicella Vaccines Aged Out No longer eligible based on patient's age to complete this topic Medical Devices Implanted Type Area Dispatch Clerk Device Identifier Shelf Expiration Date Model / Serial / Lot Medt-Card Micra Av [id number] Implanted:02/2021 (Quantity not on file) 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 AV [id number] / [id number] / Procedures Procedure Name Priority Date/Time Associated Diagnosis Comments EXTERNAL CLINICAL LAB Routine 08/31/2024 2:45 PM EST CARDIAC DEVICE CHECK- REMOTE- MURJ Routine 08/18/2024 10:49 AM EST ANNUAL BMP BLOOD TEST Routine 07/05/2023 from Last 3 Months or Most Recently Relevant to Health Maintenance Results * External clinical lab (08/31/2024 2:45 PM EST) us Historical Provider MD LAB BLOOD ORDERABLES Sonja l Result * Cardiac device check - Remote- MURJ (08/18/2024 10:49 AM EST) Date Time Interrogation Session [id number] CV DEVICE CHECK Type Interrogation Session Remote CV DEVICE CHECK Implantable Pulse Generator Dispatch Clerk MDT CV DEVICE CHECK Implantable Pulse Generator Type IPG CV DEVICE CHECK Implantable Pulse Generator Model Micra AV [id number] CV DEVICE CHECK Implantable Pulse Generator Serial Number [id number] CV DEVICE CHECK Implantable Pulse Generator Implant Date 20210109 CV DEVICE CHECK Battery Remaining Longevity 70.0 CV DEVICE CHECK Battery Voltage 2.960 CV D EVICE CHECK Battery CORDAGE SALES REPRESENTATIVE Trigger 2.558 CV DEVICE CHECK Battery Status [...] noted Jane BAUTISTA CV IMPLANTABLE CARDIAC DEVICE CO OCEDURES Final Result * Annual BMP Blood Test (07/05/2023) Annual BMP Blood Test abstracted Historical Provider MD HEALTH MAINTENANCE Final Result from Last 3 Months or Most Recently Relevant to Health Maintenance Insurance [employer] MEDICARE Advance Directives Documents on File Type Date Recorded 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
--- OUTSIDE RECORDS SUMMARY | 2024-11-10 08:13 | XMS_ITS | Encounter Summary ---
Author Organization [facility] [place] [address] Care Team Providers Care Architecture Technician Name Role Phone Bonilla Quijano MD Primary Care Provider [phone] Encounter Details Date Type Department Care Team (Late st Contact Info) Description 05/05/2024 9:52 AM EDT Hospital Encounter TH HISTORIC ENCOUNTERS EASTERN CONVERSION ONLY Soto Stephenson MD [address] [place] [id number] Social History Tobacco Use Types Packs/Day [...] Description 03/11/2025 1:30 PM EDT Ancillary Procedure [facility] [address] [address] 05/24/2025 9:25 AM EDT Office Visit [facility] [address] 300 [facility] 154 [place] [address] Jose David San MD [address] [address] documented as of this encounter Visit Diagnoses Not on filedocumented in this encounter Care Teams Architecture Technician Relationship Specialty Start Date End Date Bonilla Quijano MD [address] [place] [address] PCP - General Internal Medicine 07/14/12 documented as of this encounter
--- OUTSIDE RECORDS SUMMARY | 2024-11-10 08:14 | XMS_ITS | Clinical Summary ---
Author Organization [facility] Address [address] [place] [address] Care Team Providers Care Driver Courier Name Role Phone Bonilla Quijano MD Primary Care Provider [phone] Allergies Active Allergy Reactions Criticality Noted Date [...] total) by mouth daily. 09/26/2023 Active nystatin 345954 UNIT/GM powder APPLY ONE GRAM POWDER TOPICALLY [...] age to complete this topic Care Teams Driver Courier Relationship Specialty Start Date End Date Bonilla Quijano MD [address] [place] [id number] PCP - General 04/09/23
--- NOTE | 2024-11-10 08:19 | MHC.OFFVISCO ---
Intake Intake Visit Reasons: Anticoagulation Allergies morphine Allergy (Severe, Verified 11/10/24 08:06) Rash baclofen Adverse Reaction (Intermediate, Verified 11/10/24 08:06) Confusion codeine Adverse Reaction (Intermediate, Verified 11/10/24 08:06) GI UPSET divalproex sodium [From Depakote] Adverse Reaction (Intermediate, Verified 11/10/24 08:06) Chest Pain latex Adverse Reaction (Intermediate, Verified 11/10/24 08:06) RASH Medication List - Last Reconciled 11/10/24 by Sofía Gillette RN acetaminophen ER 1,300 mg PO Q12H allopurinol 200 mg PO DAILY atorvastatin 80 mg PO DAILY brimonidine 0.2% 0 drps ophthalmic (eye) buprenorphine 10 mcg/hour 1 patch topical QWEEK chlorthalidone 25 mg PO DAILY cholecalciferol (vitamin D3) PO clopidogrel 75 mg PO DAILY duloxetine 30 mg PO BID erythromycin ophthalmic (eye) gabapentin 600 mg PO TID isosorbide mononitrate ER 30 mg PO DAILY ketorolac 0.5% drps ophthalmic (eye) latanoprost 0.005% drps ophthalmic (eye) lisinopril 20 mg PO DAILY bs-brt-HM-vit V-relklv-ymcszwl (PreserVision AREDS 2 Plus MV) PO nitroglycerin mg sublingual omeprazole 20 mg PO DAILY PRN prednisolone acetate 1% 1 drp ophthalmic (eye) BID sotalol 120 mg PO BID [carlene bio healer topical] timolol maleate 0.5% 0 drps ophthalmic (eye) triamcinolone acetonide 0.1% 1 appl topical BID-TID warfarin 5 mg See Protocol PO DAILY Nursing Note INR 1.7? out of therapeutic range Medications and supplements reviewed Patient status: MORE CHOCOLATE recently Medications or supplements: no change Diet: good Denies any signs and symptoms of bleeding or clotting or unusual bruising Bleeding, bruising, clotting discussed Nutritional guidance given: no greens or chocolatex 2 days Dose: booster dose today then resume 5mg x 3 days/ 2.5mg x 4 days F/U INR Date: 2 weeks ? Patient verbalizing understanding of instructions given. Questionnaires HAS-BLED Does the patient had uncontrolled Hypertension?: No Does the patient have renal disease?: Yes Does the patient have liver disease?: No Does the patient have a history of stroke?: Yes Has the patient had major bleeding or predisposition to bleeding?: No Does the patient have labile INRs?: No Is the patient over 65 years of age?: Yes Is the patient on medications that gives them a predisposition to bleeding?: Yes (warfarin and clopidogrel) Does the patient use alcohol?: No HAS-BLED Score: 4 CHADSVASC Age: 75 or over Gender: Male Does the patient have a history of CHF?: No Does the patient have a history of Hypertension?: Yes Does the patient have a history of Stroke/TIA/Thromboembolism?: Yes Does the patient have a history of Vascular Disease (prior CO, PAD or aortic plaque)?: Yes Does the patient have a history of Diabetes?: No CHADS VACS Score: 6 Alo Prediction Score Rsk VTE Active Cancer: No Previous VTE, excluding superficial vein thrombosis: Yes Reduced mobility: Yes Already known Thrombophilic Condition: No (DVT X2 / CVA X 2 - HAS AFIB) With-in last month Trauma and/or Surgery: No Elderly 70 year or older: Yes Heart and/or Respiratory Failure: No Acute Myocardial infarction and/or Ischemic Stroke: Yes Acute Infection and/or Rheumatologic Disorder: No Obesity (BMI 30 or greater): No Ongoing Hormonal Treatment: No Score: 8 Alo Score less than 4; Low Risk of VTE Alo Score 4 or greater; High Risk of VTE Coding Level of Care Code Est Patient Level 1 Diagnoses Current use of anticoagulant therapy Z79.01 Results AMB INR Fingerstick AMB INR Fingerstick 1.7 Last Edit by Sofía Gillette RN on 11/10/24 08:14 Assessment & Plan Assessment & Plan (1) Current use of anticoagulant therapy: Code(s): Z79.01 - technician terminal and repeater (current) 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
== END 2024-11-10 08:21 | disposition home or self-care (01) ==
LOC: HO.ACS 08:05
PROVIDERS: PCP Internal Medicine; Visit Provider Internal Medicine Medical Oncology
DX: Z79.01 Long term (current) use of anticoagulants (principal)

== ENCOUNTER → 2024-11-10 08:05 | Outpatient (BNVA) | payer MEDICARE, SELFPAY | PROVIDERS: PCP Internal Medicine; Visit Provider Internal Medicine Medical Oncology | DX: I48.19 Other persistent atrial fibrillation (principal); Z79.01 Long term (current) use of anticoagulants; Z51.81 Encounter for therapeutic drug level monitoring | CPT/HCPCS: 85610; 99211 ==

== ENCOUNTER 2024-11-24 07:59 | Outpatient (AMB) | payer MEDICARE, SELFPAY ==
--- OUTSIDE RECORDS SUMMARY | 2024-11-24 08:05 | XMS_ITS | Encounter Summary ---
Author Organization [facility] [place] [address] Care Team Providers Care Mirror Framer Name Role Phone Bonilla Quijano MD Primary Care Provider [phone] Encounter Details Date Type Department Care Team (Late st Contact Info) Description 05/05/2024 9:52 AM EDT Hospital Encounter TH HISTORIC ENCOUNTERS EASTERN CONVERSION ONLY Soto Stephenson MD [address] [place] [phone] Social History Tobacco Use Types Packs/Day [...] Description 03/11/2025 1:30 PM EDT Ancillary Procedure [facility] [address] [address] 05/24/2025 9:25 AM EDT Office Visit [facility] [address] [facility] 154 [place] [address] Jose David San MD [address] [address] documented as of this encounter Visit Diagnoses Not on filedocumented in this encounter Care Teams Mirror Framer Relationship Specialty Start Date End Date Bonilla Quijano MD [address] [place] [address] PCP - General Internal Medicine 07/14/12 documented as of this encounter
--- OUTSIDE RECORDS SUMMARY | 2024-11-24 08:05 | XMS_ITS | Clinical Summary ---
Author Organization [facility] Address [address] [place] [address] Care Team Providers Care Account Underwriter Name Role Phone Bonilla Quijano MD Primary Care Provider [phone] Allergies Active Allergy Reactions Criticality Noted Date Comments Adhesives/Tape Unknown/Patient and Family Unable to Define Medium 04/09/2023 Codeine GI Intolerance/Nausea/Vomiting Low 04/09 Morphine Hives Medium 04/09/2023 Medications allopurinol (ZYLOPRIM) 100 mg tablet 3 Active atorvastatin (LIPITOR) 40 MG tablet 3 Active brimonidine (ALPHAGAN) 0.2 % ophthalmic solution INSTILL 1 DROP INTO LEFT EYE TWICE DAILY 3 Active chlorthalidone (HYGROTON) 25 MG tablet 3 Active DULoxetine (CYMBALTA) 30 MG capsule 3 Active lisinopril (PRINIVIL,ZeSTRI L) 20 MG tablet 3 Active warfarin (COUMADIN) 5 MG tablet 3 Active prednisoLONE acetate (PRED FORTE) 1 % ophthalmic suspension INSTILL 1 DROP INTO LEFT EYE 4 TIMES DAILY FOR 7 DAYS FOLLOWING EYE SURGERY AND THEN DIRECTED BY DOCTOR. SHAKE WELL BEFORE USE. 3 Active SOTALOL AF 120 MG Tab 3 Active gabapentin (NEURONTIN) 300 MG capsule Take 1 capsule (300 mg total) by mouth 3 (three) times a day. Active triamcinolone (KENALOG) 0.1 % creamIndications :Transient acantholytic dermatosis (rayo) apply topically once daily as needed, mix with moisturizer 453 g 1 3 Active atorvastatin (LIPITOR) 80 MG tablet Take 1 tablet (80 mg total) by mouth nightly. 4 Active isosorbide mononitrate (IMDUR) 30 MG 24 hr tablet Take 1 tablet (30 mg total) by mouth daily. 4 Active nystatin 280319 UNIT/GM powder APPLY ONE GRAM POWDER TOPICALLY ONCE DAILY 4 Active timolol (TIMOPTIC) 0.5 % ophthalmic solution INSTILL 1 DROP INTO EACH EYE TWICE DAILY 4 Active traMADol (ULTRAM) 50 MG tablet TAKE 1 TABLET BY MOUTH TWICE DAILY NEEDED FOR PAIN. DO NOT DRIVE WHILE TAKING THIS MEDICATION 4 Active clopidogrel (PLAVIX) 75 MG tablet Take 1 tablet (75 mg total) by mouth daily. 3 Active Social History Tobacco Use Types Packs/Day Years Used Date Smoking Tobacco: Never Assessed Sex and Gender Information Value Date Recorded Sex Assigned at Not on file Legal Sex Male 10:33 AM EDT Gender Identity Not on file Sexual Orientation Not on file Plan of Treatment Health Maintenance Due Date Last Done Comments DTaP/Tdap/Td Vaccines (1 - Tdap) 1959 Pneumococcal Vaccines 50+ (1 of 1 - PCV) 01/04/1992 Zoster (Shingles) Vaccine (1 of 2) 01/04/1992 RSV Vaccine 60 years and old er and Patients (1 - 1-dose 75+ series) 2017 Influenza Vaccine 03/05/2024 COVID-19 Vaccine (1 - 2023-2 5 season) 2024 Hepatitis B Vaccines Aged Out No long er eligible based on patient's age to complete this topic Insurance [facility] MEDICARE [facility] Care Teams Account Underwriter Relationship Specialty Start Date End Date Bonilla Quijano MD [address] [place] [id number] PCP - General 04/09/23
--- OUTSIDE RECORDS SUMMARY | 2024-11-24 08:05 | XMS_ITS | Clinical Summary ---
Author Organization [address] [place] [address] [place] [phone] Phone Care Team Providers Care Die Tester Name Role Phone Bonilla Quijano MD Primary Care Provider [phone] Allergies Active Allergy Reactions Criticality Noted Date [...] catheterization. He wants to do this at [facility] given his insurance does not cover [facility] and if he needs revascularization we will schedule a follow-up procedure at [facility]. 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 Cerebrovascular accident ([facility] V24, [facility] V 28) 02/01/2021 Overview (08/19/2024): Cerebrovascular accident Deep venous thrombosis ([facility] V24, [facility] V28 ) 02/01/2021 Overview (08/19/2024): Deep venous thrombosis Dizziness 02/01/2021 Overview (08/19/2024): Dizziness Atrial flutter ([facility] V24, [facility] V28) 2020 CHF (congestive heart failure) ([facility] V24, [facility] V28) 01/30/2021 HLD (hyperlipidemia) 01/30/2021 Overview (08/19/2024): Last [...] of tachycardia causing symptoms. PAF (paroxysmal atrial fibri llation) [place] [place] [facility] [place] 08/23/2020 Overview (08/19/2024): Last Assessment & Plan: [...] the procedure if successful. Peripheral vascular disease [place] [place] 2020 Overview (08/19/2024): Peripheral vascular disease Encounters Date Type Department Care Team Description 11/19/2024 8:29 AM EDT - 11/19/2024 10:03 AM EDT Emergency [facility] [address] [place] [address] Manny Ashraf DO Acute left eye pain (Primary Dx); Glaucoma, unspecified glaucoma type, unspecified laterality Discharge Disposition: Home or Self Care 09/04/2024 Telephone [facility] - [address] [facility] [address] [place] [address] Annia Barrios NP No Show from Last 3 Months Surgical History Surgery Date Site/Laterality Comments OTHER SURGICAL HISTORY 01/04/2021 PROCEDURE: HISTORY OTHER; COMMENT: S/p cardioversion OTHER SURGICAL HISTORY 2014 PROCEDURE: HISTORY OTHER; COMMENT: Cardiac ablation OTHER SURGICAL HISTORY Right PROCEDURE: [place] ARTHRP ACETBLR/PROX FEM PROSTC AGRFT/ALGRFT TOTAL KNEE ARTHROPLASTY Left PROCEDURE: [place] ARTHRP KNE CONDYLE&PLATU MEDIAL&LAT COMPARTMENTS SHOULDER SURGERY Bilateral PROCEDURE: HISTORICAL SHOULDER SURGERY OTHER SURGICAL HISTORY PROCEDURE: HISTORY OTHER; COMMENT: S/p Lumbar spine fusion OTHER SURGICAL HISTORY PROCEDURE: HISTORY OTHER; COMMENT: S/p Cervical and thoracic spine surgery with hardware placement Medical History Medical History Date Comments CVA (cerebral vascular accid ent) [place] [place] [facility] [place] DX:CVA (cerebral vascular a ccident) ([facility]); COMMENT: with right-sided weakness DVT (deep venous thrombosis) ([facility] V24, [facility] [place] DX:DVT (deep venous thrombos is) ([facility]) Gout DX:Gout Chronic back pain DX:Chronic jessenia k pain 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:Adjustment reaction with prolonged depressive reaction PVD (peripheral vascular dis ease) [place] [place] DX:PVD (peripheral vascular disease) ([facility]) Dizziness DX:Dizziness Obesity DX:Obesity Glaucoma DX:Glaucoma Cervical [...] Sign Reading Time Taken Comments Blood Pressure 144/93 11/19/2024 7:55 AM EDT Pulse 85 11/19/2024 7:55 AM EDT Temperature 36.4 ??C (97.5 ??F) 11/19/2024 7:55 AM ED T Respiratory Rate 18 11/19/2024 7:55 AM EDT Oxygen Saturation 96% 11/19/2024 7:55 AM EDT Inhaled Oxygen Concentration - - Weight 93 kg (205 lb) 11/19/2024 7:55 AM EDT Height 165.1 cm (5' 5 ) 11/19/2024 7:55 AM EDT Body Mass Index 34.11 11/19/2024 7:55 AM EDT Plan of Treatment Upcoming Encounters Date Type Department Care Team (Late st Contact Info) Description 03/11/2025 1:30 PM EDT Ancillary Procedure [facility] - [facility] [address] [place] [address] 05/24/2025 9:25 AM EDT Office Visit [facility] - [facility] [address] [facility] [address] [place] [address] Jose David San MD [address] [place] [address] Health Maintenance Due Date Last Done Comments [...] season) 2024 07/05/2021, 12/01/2020, 11/10/2020 Influenza Vaccine (Season Ended) 2025 05/23/2022, 04/27/2019, 04/24/2018, Additional history exists Hypertension/CHF/CAD Annual BMP Blood Test 11/19/2025 11/19/2024, 03/27/2024, 07/05/2023 HIB Vaccines Aged Out No [...] this topic Medical Devices Implanted Type Area Electronics Maintenance Technician Device Identifier Shelf Expiration Date Model / Serial / Lot Medt-Card Micra Av [id number] Implanted:02/2021 (Quantity not on file) 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 AV [id number] / [id number] / Procedures Procedure Name Priority Date/Time Associated Diagnosis Comments CBC WITH AUTO DIFFERENTIAL STAT 11/19/2024 8:02 AM EDT CBC AND DIFFERENTIAL STAT 11/19/2024 8:02 AM EDT BASIC METABOLIC PANEL STAT 11/19/2024 8:02 AM EDT EXTERNAL CLINICAL LAB Routine 08/31/2024 2:45 PM EST from Last 3 Months Results * (ABNORMAL) CBC auto differential (11/19/2024 8:02 AM EDT) WBC 8.2 4.8 - 10.8 K/mcL LAB HEMETOLOGY METHOD 11/19/2024 8:36 AM EDT [facility] RBC 4.50 4.50 - 5.50 M/mcL LAB HEMETOLOGY METHOD 11/19/2024 8:36 AM EDT [facility] Hemoglobin 13.5 13.5 - 17.5 g/dL LAB HEMETOLOGY METHOD 11/19/2024 8:36 AM EDT [facility] Hematocrit 43.0 42.0 - 54.0 % LAB HEMETOLOGY METHOD 11/19/2024 8:36 AM EDT [facility] MCV 96.0 79.0 - 98.0 FL LAB HEMETOLOGY METHOD 11/19/2024 8:36 AM [facility] MCH 30.1 27.0 - 32.0 pcg LAB HEMETOLOGY METHOD 11/19/2024 8:36 AM [facility] MCHC 31.4(L) 32.0 - 37.0 g/dL LAB HEMETOLOGY METHOD 11/19/2024 8:36 AM [facility] RDW 14.8 11.0 - 15.0 % LAB HEMETOLOGY METHOD 11/19/2024 8:36 AM [facility] Platelets 156 130 - 400 K/mcL LAB HEMETOLOGY METHOD 11/19/2024 8:36 AM [facility] MPV 10.0 7.0 - 11.0 FL LAB HEMETOLOGY METHOD 11/19/2024 8:36 AM [facility] NRBC 0.0 <1.0 % LAB HEMETOLOGY METHOD 11/19/2024 8:36 AM [facility] NRBC Absolute 0.00 <0.10 K/mcL LAB HEMETOLOGY METHOD 11/19/2024 8:36 AM [facility] Neutrophils Relative 60.6 % LAB HEMETOLOGY METHOD 11/19/2024 8:36 AM [facility] Lymphocytes Relative 28.0 % LAB HEMETOLOGY METHOD 11/19/2024 8:36 AM [facility] Monocytes Relative 8.3 % LAB HEMETOLOGY METHOD 11/19/2024 8:36 AM [facility] Eosinophils Relative 2.4 % LAB HEMETOLOGY METHOD 11/19/2024 8:36 AM [facility] Basophils Relative 0.5 % LAB HEMETOLOGY METHOD 11/19/2024 8:36 AM [facility] Immature Granulocytes Relative 0.2 % LAB HEMETOLOGY METHOD 11/19/2024 8:36 AM [facility] Neutrophils Absolute 4.96 1.50 - 7.00 K/mcL LAB HEMETOLOGY METHOD 11/19/2024 8:36 AM EDT [facility] Lymphocytes Absolute 2.30 1.00 - 5.00 K/mcL LAB HEMETOLOGY METHOD 11/19/2024 8:36 AM EDT [facility] Monocytes Absolute 0.68 0.20 - 1.00 K/mcL LAB HEMETOLOGY METHOD 11/19/2024 8:36 AM EDT [facility] Eosinophils Absolute 0.20 0.00 - 0.50 K/[facility] LAB HEMETOLOGY METHOD 11/19/2024 8:36 AM EDT [facility] Basophils Absolute 0.04 0.00 - 0.20 K/[facility] LAB HEMETOLOGY METHOD 11/19/2024 8:36 AM EDT [facility] Immature Granulocytes Absolute 0.02 0.00 - 0.03 K/[facility] LAB HEMETOLOGY METHOD 11/19/2024 8:36 AM EDT [facility] Blood Venous blood specimen / Unknown Venipuncture / Unknown 11/19/2024 8:02 AM EDT 11/19/2024 8:24 AM EDT us Manny Ashraf DO LAB BLOOD ORDERABLES Final Result [facility] [address] [place] [address], * (ABNORMAL) Basic metabolic panel (11/19/2024 8:02 AM EDT) Sodium 140 133 - 145 mmol/L LAB CHEMISTRY METHOD 11/19/2024 8:56 AM EDT [facility] Potassium 4.7 3.5 - 5.5 mmol/L LAB CHEMISTRY METHOD 11/19/2024 8:56 AM EDT [facility] Chloride 103 96 - 110 mmol/L LAB CHEMISTRY METHOD 11/19/2024 8:56 AM EDT [facility] CO2 31 21 - 32 mmol/L LAB CHEMISTRY METHOD 11/19/2024 8:56 AM [facility] Anion Gap 6 3 - 11 LAB CHEMISTRY METHOD 11/19/2024 8:56 AM [facility] Glucose 135(H) 70 - 100 mg/dL LAB CHEMISTRY METHOD 11/19/2024 8:56 AM [facility] BUN 30(H) 5 - 25 mg/dL LAB CHEMISTRY METHOD 11/19/2024 8:56 AM [facility] Creatinine 1.33(H) 0.70 - 1.30 mg/dL LAB CHEMISTRY METHOD 11/19/2024 8:56 AM [facility] eGFR 53(L) >=60 mL/min/1. 73m2 LAB CHEMISTRY METHOD 11/19/2024 8:56 AM [facility] Comment:Calculation based on the??Chronic Kidney Disease Epidemiology Collaboration (CKD-EPI) equation refit??without adjustment for race. BUN/Creatinine Ratio 22.6 LAB CHEMISTRY METHOD 11/19/2024 8:56 AM [facility] Calcium 9.7 8.5 - 10.5 mg/dL LAB CHEMISTRY METHOD 11/19/2024 8:56 AM [facility] Blood Venous blood specimen / Unknown Venipuncture / Unknown 11/19/2024 8:02 AM EDT 11/19/2024 8:24 AM EDT us Manny Ashraf DO LAB BLOOD ORDERABLES Final Result [facility] [address] [place] [address], * External clinical lab (08/31/2024 2:45 PM EST) us Historical Provider LAB BLOOD ORDERABLES Sonja l Result from Last 3 Months Insurance [employer] MEDICARE [place]ICA[place] - [place] Advance Directives Documents on File Type Date Recorded 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
--- OUTSIDE RECORDS SUMMARY | 2024-11-24 08:05 | XMS_ITS | Encounter Summary ---
Author Organization [facility] [place] [address] Care Team Providers Care Documentation Coordinator Name Role Phone Bonilla Quijano MD Primary Care Provider [phone] Reason for Visit * Reason Comments Eye Drainage Left eye drainage Encounter Details Date Type Department Care Team (Late st Contact Info) Description 11/19/2024 8:29 AM EDT - 11/19/2024 10:03 AM EDT Emergency [facility] Emergency [address] [place] [id number] Manny Ashraf, DO [address] [place] [address] Acute left eye pain (Primary Dx); Glaucoma, unspecified glaucoma type, unspecified laterality Discharge Disposition: Home or Self Care Social History Tobacco Use Types Packs/Day Years [...] on file documented as of this encounter Last Filed Vital Signs Vital Sign Reading [...] Mass Index 34.11 11/19/2024 7:55 AM EDT documented in this encounter Functional Status * Are you deaf or do you have serious difficulty hearing? Answer Date of Assessment Author No 11/19/2024 8:32 AM EDT Xena Castle RN * Are you blind or do you have serious difficulty seeing, even when wearing glasses? Answer Date of Assessment Author No 11/19/2024 8:32 AM EDT Xena Castle RN * Do you have serious difficulty walking or climbing stairs? Answer Date of Assessment Author No 11/19/2024 8:32 AM EDT Xena Castle RN * Do you have serious difficulty dressing or bathing? Answer Date of Assessment Author No 11/19/2024 8:32 AM EDT Xena Castle RN * Because of a physical, mental, or emotional condition, do you have serious difficulty doing errandsalone such as visiting the doctor? Answer Date of Assessment Author No 11/19/2024 8:32 AM NIXONT Xena Castle RN documented as of this encounter Mental Status * Because of a physical, mental, or emotional condition, do you have serious difficulty concentrating, remembering, or making decisions? (5 years old or older) Answer Entry Date Author No 11/19/2024 8:32 AM EDT Xena Castle RN documented in this encounter Discharge Instructions * Discharge Instructions* Manny Ashraf DO - 11/19/2024 9:53 AM EDT Go to Dr. Lopez's office right now for eye exam and further evaluation documented in this encounter Medications at Time of Discharge acetaminophen (TYLENOL) 325 mg tablet Take 650 mg by mouth every 6 hours as needed. allopurinoL (ZYLOPRIM) 100 mg tablet Take 1 Tablet by mouth 2 times daily. atorvastatin (LIPITOR) 80 mg tablet Take 1 Tablet by mouth at bedtime. 08/29/2023 chlorthalidone (HYGROTON) 25 mg tablet Take 25 mg by mouth daily. clopidogreL (PLAVIX) 75 mg tablet Take 1 tablet by mouth once daily 04/15/2024 gabapentin (NEURONTIN) 300 mg capsule Take 300 mg by mouth 3 times daily. isosorbide mononitrate (IMDUR) 30 mg 24 hr tablet Take 1 tablet by mouth once daily 03/20/2024 lisinopriL (PRINIVIL,ZESTRIL ) 20 mg tablet Take 20 mg by mouth daily. nitroglycerin (NITROSTAT) 0.[address] 1 tablet (0.4 mg total) under the tongue every 5 (five) minutes if needed for chest pain. May repeat dose every 5 minutes for up to 3 doses total. 25 tablet 2 08/18/2024 08/18/2025 omeprazole magnesium (PRILOSEC ORAL) Take 20 mg by mouth daily. sotalol AF (BETAPACE AF) 120 mg tablet TAKE 1 TABLET BY MOUTH TWICE DAILY 180 tablet 10/01/2024 vit A/vit C/vit E/zinc/copper (PRESERVISION AREDS ORAL) Take by mouth. warfarin (COUMADIN) 5 mg tablet Take 5 mg by mouth See Admin Instructions. May cause heavy bleeding. Take at same time every day. Do not change dietary habits. documented as of this encounter Discharge Disposition Disposition Code Departure Means Destination Comment s Home or Self Care documented in this encounter Progress Notes * Renan Doshi RN - 11/19/2024 7:51 AM EDT Pt comes in with c/o left eye redness, pain and drainage since last night. Pt reports last night his eye was itching and felt like there was sand in it. Today patient states it is painful to fully open eye and he is sensitive to light. Eye has yellow/green drainage noted. * Manny Ashraf, DO - 11/19/2024 7:48 AM EDT Emergency Medicine Note Patient Name: Raine Ken Initial Evaluation: 11/19/2024 : 1940 Patient's PCP: Bonilla Quijano MD Emergency Physician: Manny Ashraf DO History of Present Illness Chief Complaint: Chief Complaint Patient presents with Eye Drainage Left eye drainage HPI: 84-year-old male, chief complaint is acute onset of left eye pain which started about 14 hoursago while watching TV in a dark room. He tells me has a history of glaucoma. 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 The eyes been tearing. He has severe photophobia in that eye. He says he can see a shadow Only. There is no headache nausea or vomiting. There is no history of foreign body although he states it started feeling scratched with the onset of the pain. ROS: I have performed a ROS with the pertinent positives and negatives documented in the history ofpresent illness. 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 Cervical disc disease DX:Cervical disc disease Chronic back pain DX:Chronic back pain CVA (cerebral vascular accident) ([facility]/HCC V24, CMS/HCC V28) DX:CVA (cerebral vascular accident) ([facility]); COMMENT: with right-sided weakness Dizziness DX:Dizziness DVT (deep venous thrombosis) (CMS/HCC V24, CMS/HCC V28) DX:DVT (deep venous thrombosis) ([facility]) Essential hypertension DX:Essential hypertension Family history of cardiovascular disease DX:Family history of cardiovascular disease Glaucoma DX:Glaucoma Gout DX:Gout Hyperlipidemia DX:Hyperlipidemia Obesity DX:Obesity PVD (peripheral vascular disease) ([facility]/HCC V24) DX:PVD (peripheral vascular disease) ([facility]) Past Surgical History: Procedure Laterality Date OTHER SURGICAL HISTORY 01/04/2021 PROCEDURE: HISTORY OTHER; COMMENT: S/p cardioversion OTHER SURGICAL HISTORY 2014 PROCEDURE: HISTORY OTHER; COMMENT: Cardiac ablation OTHER SURGICAL HISTORY Right PROCEDURE: IN ARTHRP ACETBLR/PROX FEM PROSTC AGRFT/ALGRFT OTHER SURGICAL HISTORY PROCEDURE: HISTORY OTHER; COMMENT: S/p Lumbar spine fusion OTHER SURGICAL HISTORY PROCEDURE: HISTORY OTHER; COMMENT: S/p Cervical and thoracic spine surgery with hardware placement SHOULDER SURGERY Bilateral PROCEDURE: HISTORICAL SHOULDER SURGERY TOTAL KNEE ARTHROPLASTY Left PROCEDURE: IN ARTHRP KNE CONDYLE&PLATU MEDIAL&LAT COMPARTMENTS Social History Tobacco Use Smoking status: Former Smokeless tobacco: Never Substance Use Topics Alcohol use: Yes Drug use: No Family History Problem Relation Name Age of Onset Heart attack Brother CABG Brother Heart attack Brother Diabetes Neg Hx FHx is significant for diabetes and heart disease is allergic to morphine, adhesive tape-silicones, codeine, latex, and other. No current facility-administered medications on file prior to encounter. Current Outpatient Medications on File Prior to Encounter Medication Sig Dispense Refill acetaminophen (TYLENOL) 325 mg tablet Take 650 mg by mouth every 6 hours as needed. allopurinoL (ZYLOPRIM) 100 mg tablet Take 1 Tablet by mouth 2 times daily. atorvastatin (LIPITOR) 80 mg tablet Take 1 Tablet by mouth at bedtime. chlorthalidone (HYGROTON) 25 mg tablet Take 25 mg by mouth daily. clopidogreL (PLAVIX) 75 mg tablet Take 1 tablet by mouth once daily gabapentin (NEURONTIN) 300 mg capsule Take 300 mg by mouth 3 times daily. isosorbide mononitrate (IMDUR) 30 mg 24 hr tablet Take 1 tablet by mouth once daily lisinopriL (PRINIVIL,ZESTRIL) 20 mg tablet Take 20 mg by mouth daily. nitroglycerin (NITROSTAT) 0.[address] 1 tablet (0.4 mg total) under the tongue every 5 (five) minutes if needed for chest pain. May repeat dose every 5 minutes for up to 3 doses total. 25 tablet 2 omeprazole magnesium (PRILOSEC ORAL) Take 20 mg by mouth daily. sotalol AF (BETAPACE AF) 120 mg tablet TAKE 1 TABLET BY MOUTH TWICE DAILY 180 tablet 0 vit A/vit C/vit E/zinc/copper (PRESERVISION AREDS ORAL) Take by mouth. warfarin (COUMADIN) 5 mg tablet Take 5 mg by mouth See Admin Instructions. May cause heavy bleeding. Take at same time every day. Do not change dietary habits. Physical Exam ED Triage Vitals [11/19/24 0755] Temp Heart Rate Resp BP 36.4 ??C (97.5 ??F) 85 18 (!) 144/93 SpO2 Temp Source Heart Rate Source Patient Position 96 % Oral -- Sitting BP Location FiO2 (%) Right arm -- General: Well-appearing, well nourished, in no acute distress HEENT: PERRL, EOMI, external ears and nose appear unremarkable, airway is patent There is no periorbital edema or skin abnormalities. Temporal artery is non-tender. There is no tenderness or deformity to the bony orbit. There is no lid edema,, lesions,crusting, or erythema. There is watery discharge Both upper and lower eyelids everted without foreign body. Extraocular movements are intact without pain. Left pupil is mid dilated and not reactive. The eye is with chemosis and cloudy There is no proptosis or ptosis. No hyphema or hypopyon There are multiple areas of fluorescein uptake.. There is no Huma sign. No dendritic lesions. Intraocular pressure is anywhere from 48-54 with Mc-Pen on the left side. It is 18 on the right side Neck: Supple, full range of motion Chest: Clear to auscultation; no evidence of respiratory distress Circulatory: RRR, extremities well perfused Abdomen: Non-distended, Non-Tender Extremities: Normal ROM, No edema Skin: Warm and dry Neuro: Alert and oriented, no focal deficits Results Labs Reviewed BASIC METABOLIC PANEL - Abnormal Result Value Sodium 140 Potassium 4.7 Chloride 103 CO2 31 Anion Gap 6 Glucose 135 (*) BUN 30 (*) Creatinine 1.33 (*) eGFR 53 (*) BUN/Creatinine Ratio 22.6 Calcium 9.7 CBC WITH AUTO DIFFERENTIAL - Abnormal WBC 8.2 RBC 4.50 Hemoglobin 13.5 Hematocrit 43.0 MCV 96.0 MCH 30.1 MCHC 31.4 (*) RDW 14.8 Platelets 156 MPV 10.0 NRBC 0.0 NRBC Absolute 0.00 Neutrophils Relative 60.6 Lymphocytes Relative 28.0 Monocytes Relative 8.3 Eosinophils Relative 2.4 Basophils Relative 0.5 Immature Granulocytes Relative 0.2 Neutrophils Absolute 4.96 Lymphocytes Absolute 2.30 Monocytes Absolute 0.68 Eosinophils Absolute 0.20 Basophils Absolute 0.04 Immature Granulocytes Absolute 0.02 CBC AND DIFFERENTIAL Narrative: The following orders were created for panel order CBC and differential. Procedure Abnormality Status --------- ------ CBC auto differential[[id number]] Abnormal Final result Please view results for these tests on the individual orders. Abnormal Labs Reviewed BASIC METABOLIC PANEL - Abnormal; Notable for the following components: Result Value Glucose 135 (*) BUN 30 (*) Creatinine 1.33 (*) eGFR 53 (*) All other components within normal limits CBC WITH AUTO DIFFERENTIAL - Abnormal; Notable for the following components: MCHC 31.4 (*) All other components within normal limits No orders to display I have discussed the incidental/abnormal imaging and/or lab abnormalities with the patient and haveinstructed them the need for further evaluation and workup with their primary care doctor. I have provided the patient with a paper copy of the abnormality. The laboratory results, imaging results and other diagnostic exam results were reviewed in the EMR. EKG Interpretation Critical Care Time None ? Medical Decision Making Differential diagnosis is acute angle-closure glaucoma, corneal abrasion/ulcer, conjunctivitis, HSV Threat of loss of sight is not present because the patient has barely any vision at baseline in hisleft eye but has severe pain. Unclear what is causing the pain at this point. I did speak with his ophthalmology office Dr. 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 Acute left eye pain 2. Glaucoma, unspecified glaucoma type, unspecified laterality Disposition Discharge ED Prescriptions None Physician Attestation Manny Ashraf DO 11/19/24952 documented in this encounter Plan of Treatment Upcoming Encounters Date Type Department Care Team (Late st Contact Info) Description 03/11/2025 1:30 PM EDT Ancillary Procedure [facility] [address] [facility] [address] [place] [address] 05/24/2025 9:25 AM EDT Office Visit [facility] [address] [facility] [address] [place] [address] Jose David San MD [address] [address] documented as of this encounter Procedures Procedure Name Priority Date/Time Associated Diagnosis Comments CBC WITH AUTO DIFFERENTIAL STAT 11/19/2024 8:02 AM EDT CBC AND DIFFERENTIAL STAT 11/19/2024 8:02 AM EDT BASIC METABOLIC PANEL STAT 11/19/2024 8:02 AM EDT documented in this encounter Results * (ABNORMAL) CBC auto differential (11/19/2024 8:02 AM EDT) WBC 8.2 4.8 - 10.8 K/mcL LAB HEMETOLOGY METHOD 11/19/2024 8:36 AM EDT [facility] RBC 4.50 4.50 - 5.50 M/[facility] LAB HEMETOLOGY METHOD 11/19/2024 8:36 AM EDT [facility] Hemoglobin 13.5 13.5 - 17.5 g/dL LAB HEMETOLOGY METHOD 11/19/2024 8:36 AM T [facility] Hematocrit 43.0 42.0 - 54.0 % LAB HEMETOLOGY METHOD 11/19/2024 8:36 AM T [facility] MCV 96.0 79.0 - 98.0 FL LAB HEMETOLOGY METHOD 11/19/2024 8:36 AM [facility] MCH 30.1 27.0 - 32.0 pcg LAB HEMETOLOGY METHOD 11/19/2024 8:36 AM [facility] MCHC 31.4(L) 32.0 - 37.0 g/dL LAB HEMETOLOGY METHOD 11/19/2024 8:36 AM [facility] RDW 14.8 11.0 - 15.0 % LAB HEMETOLOGY METHOD 11/19/2024 8:36 AM [facility] Platelets 156 130 - 400 K/mcL LAB HEMETOLOGY METHOD 11/19/2024 8:36 AM [facility] MPV 10.0 7.0 - 11.0 FL LAB HEMETOLOGY METHOD 11/19/2024 8:36 AM [facility] NRBC 0.0 <1.0 % LAB HEMETOLOGY METHOD 11/19/2024 8:36 AM [facility] NRBC Absolute 0.00 <0.10 K/mcL LAB HEMETOLOGY METHOD 11/19/2024 8:36 AM [facility] Neutrophils Relative 60.6 % LAB HEMETOLOGY METHOD 11/19/2024 8:36 AM [facility] Lymphocytes Relative 28.0 % LAB HEMETOLOGY METHOD 11/19/2024 8:36 AM [facility] Monocytes Relative 8.3 % LAB HEMETOLOGY METHOD 11/19/2024 8:36 AM [facility] Eosinophils Relative 2.4 % LAB HEMETOLOGY METHOD 11/19/2024 8:36 AM [facility] Basophils Relative 0.5 % LAB HEMETOLOGY METHOD 11/19/2024 8:36 AM [facility] Immature Granulocytes Relative 0.2 % LAB HEMETOLOGY METHOD 11/19/2024 8:36 AM [facility] Neutrophils Absolute 4.96 1.50 - 7.00 K/mcL LAB HEMETOLOGY METHOD 11/19/2024 8:36 AM [facility] Lymphocytes Absolute 2.30 1.00 - 5.00 K/mcL LAB HEMETOLOGY METHOD 11/19/2024 8:36 AM [facility] Monocytes Absolute 0.68 0.20 - 1.00 K/mcL LAB HEMETOLOGY METHOD 11/19/2024 8:36 AM EDT [facility] Eosinophils Absolute 0.20 0.00 - 0.50 K/[facility] LAB HEMETOLOGY METHOD 11/19/2024 8:36 AM EDT [facility] Basophils Absolute 0.04 0.00 - 0.20 K/mcL LAB HEMETOLOGY METHOD 11/19/2024 8:36 AM EDT [facility] Immature Granulocytes Absolute 0.02 0.00 - 0.03 K/[facility] LAB HEMETOLOGY METHOD 11/19/2024 8:36 AM EDT [facility] Blood Venous blood specimen / Unknown Venipuncture / Unknown 11/19/2024 8:02 AM EDT 11/19/2024 8:24 AM EDT Manny Ashraf DO LAB BLOOD ORDERABLES Final Result [facility] [address] [place] [address], * (ABNORMAL) Basic metabolic panel (11/19/2024 8:02 AM EDT) Sodium 140 133 - 145 mmol/L LAB CHEMISTRY METHOD 11/19/2024 8:56 AM [facility] Potassium 4.7 3.5 - 5.5 mmol/L LAB CHEMISTRY METHOD 11/19/2024 8:56 AM [facility] Chloride 103 96 - 110 mmol/L LAB CHEMISTRY METHOD 11/19/2024 8:56 AM [facility] CO2 31 21 - 32 mmol/L LAB CHEMISTRY METHOD 11/19/2024 8:56 AM [facility] Anion Gap 6 3 - 11 LAB CHEMISTRY METHOD 11/19/2024 8:56 AM [facility] Glucose 135(H) 70 - 100 mg/dL LAB CHEMISTRY METHOD 11/19/2024 8:56 AM EDT [facility] BUN 30(H) 5 - 25 mg/dL LAB CHEMISTRY METHOD 11/19/2024 8:56 AM EDT [facility] Creatinine 1.33(H) 0.70 - 1.30 mg/dL LAB CHEMISTRY METHOD 11/19/2024 8:56 AM EDT [facility] eGFR 53(L) >=60 mL/min/1. 73m2 LAB CHEMISTRY METHOD 11/19/2024 8:56 AM EDT [facility] Comment:Calculation based on the??Chronic Kidney Disease Epidemiology Collaboration (CKD-EPI) equation refit??without adjustment for race. BUN/Creatinine Ratio 22.6 LAB CHEMISTRY METHOD 11/19/2024 8:56 AM EDT [facility] Calcium 9.7 8.5 - 10.5 mg/dL LAB CHEMISTRY METHOD 11/19/2024 8:56 AM EDT [facility] Blood Venous blood specimen / Unknown Venipuncture / Unknown 11/19/2024 8:02 AM EDT 11/19/2024 8:24 AM EDT Manny Ashraf DO LAB BLOOD ORDERABLES Final Result Performing Organization Address City/State/[facility] Co de Phone Number [facility] [address] [place] [address], documented in this encounter Visit Diagnoses Diagnosis Acute left eye pain- Primary Glaucoma, unspecified glaucoma type, unspecified laterality Encounter for adjustment or management of cardiac device documented in this encounter Administered Medications Inactive Administered Medications - up to 3 most recent administrations Medication Order MAR Action Action Date Dose Rate Site fluorescein 1 mg ophthalmic strip 3 strip 3 strip, Left Eye, Once, On Sat11/19/24 at 0930, For 1 dose Given 11/19/2024 9:47 AM EDT 3 strips proparacaine (ALCAINE) 0.5 % ophthalmic solution 2 drop 2 drop, Both Eyes, Once PRN Procedure, eye exam, Starting on Sat11/19/24 at 0908, For 1 dose Given 11/19/2024 9:46 AM EDT 2 drops documented in this encounter Active and Recently Administered Medications Times are shown in EDT. Scheduled Medication Order 11/17/2024 11/18/2024 11/19/2024 fluorescein 1 mg ophthalmic strip 3 strip (COMPLETED) 3 strip, Left Eye, Once, On Elvira 11/19/24 at 0930, For 1 dose 0947 (Given - Provid er: Maggie Mancilla RN - Comment: by provider) PRN Medication Order 11/17/2024 11/18/2024 11/19/2024 proparacaine (ALCAINE) 0.5 % ophthalmic solution 2 drop (COMPLETED) 2 drop, Both Eyes, Once PRN Procedure, eye exam, Starting on Elvira 11/19/24 at 0908, For 1 dose 0946 (Given - Provid er: Maggie Mancilla RN - Comment: by provider) documented in this encounter Care Teams Documentation Coordinator Relationship Specialty Start Date End Date Bonilla Quijano MD [address] [place] [address] PCP - General Internal Medicine 07/14/12 documented as of this encounter
--- NOTE | 2024-11-24 08:11 | MHC.OFFVISCO ---
Intake Intake Visit Reasons: Anticoagulation Allergies morphine Allergy (Severe, Verified 11/24/24 08:02) Rash baclofen Adverse Reaction (Intermediate, Verified 11/24/24 08:02) Confusion codeine Adverse Reaction (Intermediate, Verified 11/24/24 08:02) GI UPSET divalproex sodium [From Depakote] Adverse Reaction (Intermediate, Verified 11/24/24 08:02) Chest Pain latex Adverse Reaction (Intermediate, Verified 11/24/24 08:02) RASH Medication List - Last Reconciled 11/24/24 by Aster Barksdale, RN acetaminophen ER 1,300 mg PO Q12H allopurinol 200 mg PO DAILY atorvastatin 80 mg PO DAILY brimonidine 0.2% 0 drps ophthalmic (eye) buprenorphine 10 mcg/hour 1 patch topical QWEEK chlorthalidone 25 mg PO DAILY cholecalciferol (vitamin D3) PO clopidogrel 75 mg PO DAILY duloxetine 30 mg PO BID erythromycin ophthalmic (eye) gabapentin 600 mg PO TID isosorbide mononitrate ER 30 mg PO DAILY ketorolac 0.5% drps ophthalmic (eye) latanoprost 0.005% drps ophthalmic (eye) lisinopril 20 mg PO DAILY or-lib-IP-vit [id number] (PreserVision AREDS 2 Plus MV) PO nitroglycerin mg sublingual omeprazole 20 mg PO DAILY PRN prednisolone acetate 1% 1 drp ophthalmic (eye) BID sotalol 120 mg PO BID [carlene bio healer topical] timolol maleate 0.5% 0 drps ophthalmic (eye) triamcinolone acetonide 0.1% 1 appl topical BID-TID warfarin 5 mg See Protocol PO DAILY Nursing Note INR: 1.7 out of therapeutic range of 2-3 Pt states he is well but was in the ER for pain in left eye. 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 He is now on numbing eye drops until he sees the eye doctor on 11/26/24. ALso on antibiotic eye drops. Pt will call with the name of these 2 meds. Medications and supplements reviewed Patient status: as above Medications or supplements: no other changes than mentioned above Diet: usual diet for pt Denies any signs and symptoms of bleeding or clotting or unusual bruising Bleeding, bruising, clotting discussed Nutritional guidance given: food list reviewed and pt to have some foods from the list that raises the INR Dose: increase today's dose to 7.5mg (2.5mg) then resume usual dose of 2.5mg X 4 days and 5mg X 3 days (M/W/F) F/U INR Date: 2 weeks?? Patient verbalizing understanding of instructions given. Coding Level of Care Code Est Patient Level 1 Diagnoses Current use of anticoagulant therapy Z79.01 Results AMB INR Fingerstick AMB INR Fingerstick 1.7 Last Edit by Aster Barksdale RN on 11/24/24 08:14 interface delay Assessment & Plan Assessment & Plan (1) Current use of anticoagulant therapy: Code(s): Z79.01 - buttermaker (current) 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
[2024-11-24 08:14] LABS: ~PT, ~INR - Anti Coag Clinic 1.7 (0.9-1.1)
== END 2024-11-24 08:22 | disposition home or self-care (01) ==
LOC: HO.ACS 07:59
PROVIDERS: PCP Internal Medicine; Visit Provider Internal Medicine Medical Oncology
DX: Z79.01 Long term (current) use of anticoagulants (principal)

== ENCOUNTER → 2024-11-24 07:59 | Outpatient (BNVA) | payer MEDICARE, SELFPAY | PROVIDERS: PCP Internal Medicine; Visit Provider Internal Medicine Medical Oncology | DX: I48.19 Other persistent atrial fibrillation (principal); Z79.01 Long term (current) use of anticoagulants; Z51.81 Encounter for therapeutic drug level monitoring | CPT/HCPCS: 85610; 99211 ==

== ENCOUNTER 2024-12-08 07:59 | Outpatient (AMB) | payer MEDICARE, SELFPAY ==
--- OUTSIDE RECORDS SUMMARY | 2024-12-08 08:01 | XMS_ITS | Clinical Summary ---
Author Organization [address] [place] [address] [place] [phone] Phone Care Team Providers Care Hydraulics Teacher Name Role Phone Bonilla Quijano MD Primary Care Provider [phone] Allergies Active Allergy Reactions Criticality Noted Date [...] TABLET BY MOUTH TWICE DAILY 180 tablet 1 5 Active sotalol AF (BETAPACE AF) 120 mg tablet TAKE 1 TABLET BY MOUTH TWICE DAILY 180 tablet 5 025 Discontinued Active Problems Problem Noted Date [...] catheterization. He wants to do this at [facility] given his insurance does not cover [facility] and if he needs revascularization we will schedule a follow-up procedure at [facility]. (HFpEF) heart failure with p reserved ejection fraction ([facility] V24, CMS/[facility] V28) 02/02/2021 Overview (08/19/2024): Last [...] than 3 to 5 pounds. Cerebrovascular accident ([facility] V24, [facility] V 28) 02/01/2021 Overview (08/19/2024): Cerebrovascular accident Deep venous thrombosis ([facility] V24, [facility] V28 ) 02/01/2021 Overview (08/19/2024): Deep venous thrombosis Dizziness 02/01/2021 Overview (08/19/2024): Dizziness Atrial flutter ([facility] V24, [facility] V28) 2020 CHF (congestive heart failure) ([facility] V24, [facility] V28) 01/30/2021 HLD (hyperlipidemia) 01/30/2021 [...] causing symptoms. PAF (paroxysmal atrial fibri llation) ([facility] V24, [facility] V28) 08/23/2020 Overview (08/19/2024): Last Assessment & [...] the procedure if successful. Peripheral vascular disease ([facility] V24) 2020 Overview (08/19/2024): Peripheral vascular disease Encounters Date Type Department Care Team Description 11/19/2024 8:29 AM EDT - 11/19/2024 10:[address] [facility] [address] [place] [address] Manny Ashraf DO Acute left eye pain (Primary Dx); Glaucoma, unspecified glaucoma type, unspecified laterality Discharge Disposition: Home or Self Care from Last 3 Months Surgical History Surgery Date Site/Laterality Comments OTHER SURGICAL HISTORY 01/04/2021 PROCEDURE: HISTORY OTHER; COMMENT: S/p cardioversion OTHER SURGICAL HISTORY 2014 PROCEDURE: HISTORY OTHER; COMMENT: Cardiac ablation OTHER SURGICAL HISTORY Right PROCEDURE: CA ARTHRP ACETBLR/PROX FEM PROSTC AGRFT/ALGRFT TOTAL KNEE ARTHROPLASTY Left PROCEDURE: CA ARTHRP KNE CONDYLE&PLATU MEDIAL&LAT COMPARTMENTS SHOULDER SURGERY Bilateral PROCEDURE: HISTORICAL SHOULDER SURGERY OTHER SURGICAL HISTORY PROCEDURE: HISTORY OTHER; COMMENT: S/p Lumbar spine fusion OTHER SURGICAL HISTORY PROCEDURE: HISTORY OTHER; COMMENT: S/p Cervical and thoracic spine surgery with hardware placement Medical History Medical History Date Comments CVA (cerebral vascular accid ent) ([facility] V24, [facility] V28) DX:CVA (cerebral vascular a ccident) ([facility]); COMMENT: with right-sided weakness DVT (deep venous thrombosis) ([facility] V24, [facility] V28) DX:DVT (deep venous thrombos is) ([facility]) Gout DX:Gout Chronic back pain DX:Chronic jessenia k pain 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:Adjustment reaction with prolonged depressive reaction PVD (peripheral vascular dis ease) ([facility] V24) DX:PVD (peripheral vascular disease) ([facility]) Dizziness DX:Dizziness Obesity DX:Obesity Glaucoma [...] Description 03/11/2025 1:30 PM EDT Ancillary Procedure [facility] [address] [facility] [address] [place] [address] 05/24/2025 9:25 AM EDT Office Visit [facility] [address] [facility] [address] [place] [address] Jose David San MD [address] [facility] [address] [place] [address] Health Maintenance Due Date Last Done Comments [...] this topic Medical Devices Implanted Type Area Leadership Development Consultant Device Identifier Shelf Expiration Date Model / Serial / Lot Medt-Card Micra Av [id number] Implanted:02/2021 (Quantity not on file) 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 AV [id number] / [id number] / Procedures Procedure Name Priority Date/Time Associated Diagnosis Comments CBC WITH AUTO DIFFERENTIAL STAT 11/19/2024 8:02 AM EDT CBC AND DIFFERENTIAL STAT 11/19/2024 8:02 AM EDT BASIC METABOLIC PANEL STAT 11/19/2024 8:02 AM EDT from Last 3 Months Results * (ABNORMAL) CBC auto differential (11/19/2024 8:02 AM EDT) WBC 8.2 4.8 - 10.8 K/mcL LAB HEMETOLOGY METHOD 11/19/2024 8:36 AM [facility] RBC 4.50 4.50 - 5.50 M/mcL LAB HEMETOLOGY METHOD 11/19/2024 8:36 AM [facility] Hemoglobin 13.5 13.5 - 17.5 g/dL LAB HEMETOLOGY METHOD 11/19/2024 8:36 AM [facility] Hematocrit 43.0 42.0 - 54.0 % LAB HEMETOLOGY METHOD 11/19/2024 8:36 AM [facility] MCV 96.0 79.0 - 98.0 FL LAB HEMETOLOGY METHOD 11/19/2024 8:36 AM [facility] MCH 30.1 27.0 - 32.0 pcg LAB HEMETOLOGY METHOD 11/19/2024 8:36 AM [facility] MCHC 31.4(L) 32.0 - 37.0 g/dL LAB HEMETOLOGY METHOD 11/19/2024 8:36 AM [facility] RDW 14.8 11.0 - 15.0 % LAB HEMETOLOGY METHOD 11/19/2024 8:36 AM [facility] Platelets 156 130 - 400 K/mcL LAB HEMETOLOGY METHOD 11/19/2024 8:36 AM [facility] MPV 10.0 7.0 - 11.0 FL LAB HEMETOLOGY METHOD 11/19/2024 8:36 AM [facility] NRBC 0.0 <1.0 % LAB HEMETOLOGY METHOD 11/19/2024 8:36 AM [facility] NRBC Absolute 0.00 <0.10 K/mcL LAB HEMETOLOGY METHOD 11/19/2024 8:36 AM [facility] Neutrophils Relative 60.6 % LAB HEMETOLOGY METHOD 11/19/2024 8:36 AM [facility] Lymphocytes Relative 28.0 % LAB HEMETOLOGY METHOD 11/19/2024 8:36 AM [facility] Monocytes Relative 8.3 % LAB HEMETOLOGY METHOD 11/19/2024 8:36 AM [facility] Eosinophils Relative 2.4 % LAB HEMETOLOGY METHOD 11/19/2024 8:36 AM [facility] Basophils Relative 0.5 % LAB HEMETOLOGY METHOD 11/19/2024 8:36 AM [facility] Immature Granulocytes Relative 0.2 % LAB HEMETOLOGY METHOD 11/19/2024 8:36 AM [facility] Neutrophils Absolute 4.96 1.50 - 7.00 K/mcL LAB HEMETOLOGY METHOD 11/19/2024 8:36 AM [facility] Lymphocytes Absolute 2.30 1.00 - 5.00 K/mcL LAB HEMETOLOGY METHOD 11/19/2024 8:36 AM EDT [facility] Monocytes Absolute 0.68 0.20 - 1.00 K/[facility] LAB HEMETOLOGY METHOD 11/19/2024 8:36 AM EDT [facility] Eosinophils Absolute 0.20 0.00 - 0.50 K/[facility] LAB HEMETOLOGY METHOD 11/19/2024 8:36 AM EDT [facility] Basophils Absolute 0.04 0.00 - 0.20 K/[facility] LAB HEMETOLOGY METHOD 11/19/2024 8:36 AM EDT [facility] Immature Granulocytes Absolute 0.02 0.00 - 0.03 K/[facility] LAB HEMETOLOGY METHOD 11/19/2024 8:36 AM EDT [facility] Blood Venous blood specimen / Unknown Venipuncture / Unknown 11/19/2024 8:02 AM EDT 11/19/2024 8:24 AM EDT us Manny Ashraf DO LAB BLOOD ORDERABLES Final Result [facility] [address] [place] [address], * (ABNORMAL) Basic metabolic panel (11/19/2024 8:02 AM EDT) Sodium 140 133 - 145 mmol/L LAB CHEMISTRY METHOD 11/19/2024 8:56 AM EDT [facility] Potassium 4.7 3.5 - 5.5 mmol/L LAB CHEMISTRY METHOD 11/19/2024 8:56 AM EDT [facility] Chloride 103 96 - 110 mmol/L LAB CHEMISTRY METHOD 11/19/2024 8:56 AM EDT [facility] CO2 31 21 - 32 mmol/L LAB CHEMISTRY METHOD 11/19/2024 8:56 AM EDT [facility] Anion Gap 6 3 - 11 LAB CHEMISTRY METHOD 11/19/2024 8:56 AM EDT [facility] Glucose 135(H) 70 - 100 mg/dL LAB CHEMISTRY METHOD 11/19/2024 8:56 AM [facility] BUN 30(H) 5 - 25 mg/dL LAB CHEMISTRY METHOD 11/19/2024 8:56 AM [facility] Creatinine 1.33(H) 0.70 - 1.30 mg/dL LAB CHEMISTRY METHOD 11/19/2024 8:56 AM [facility] eGFR 53(L) >=60 mL/min/1. 73m2 LAB CHEMISTRY METHOD 11/19/2024 8:56 AM [facility] Comment:Calculation based on the??Chronic Kidney Disease Epidemiology Collaboration (CKD-EPI) equation refit??without adjustment for race. BUN/Creatinine Ratio 22.6 LAB CHEMISTRY METHOD 11/19/2024 8:56 AM T [facility] Calcium 9.7 8.5 - 10.5 mg/dL LAB CHEMISTRY METHOD 11/19/2024 8:56 AM [facility] Blood Venous blood specimen / Unknown Venipuncture / Unknown 11/19/2024 8:02 AM EDT 11/19/2024 8:24 AM EDT us Manny Ashraf DO LAB BLOOD ORDERABLES Final Result [facility] [address] [place] [address], [place] [phone] from Last 3 Months Insurance [employer] MEDICARE [place]ICAID - [place] Advance Directives Documents on File Type Date Recorded Patient Ball Sorter Expl anation Health Care Decision (hx) 05/10/2020 [...] (hx) 05/10/2020 AD [facility] DIRECTIVE Care Teams Hydraulics Teacher Relationship Specialty Start Date End Date Bonilla Quijano MD [address] [place] [address] PCP - General Internal Medicine 07/14/12
--- OUTSIDE RECORDS SUMMARY | 2024-12-08 08:01 | XMS_ITS | Encounter Summary ---
Author Organization [facility] Address [address] [place] [address] Care Team Providers Care Dental Assisting Instructor Name Role Phone Bonilla Quijano MD Primary Care Provider [phone] Encounter Details Date Type Department Care Team (Late st Contact Info) Description 05/05/2024 9:52 AM EDT Hospital Encounter TH HISTORIC ENCOUNTERS EASTERN CONVERSION ONLY Soto Stephenson MD [address] [place] [phone] Social History Tobacco Use Types Packs/Day [...] Description 03/11/2025 1:30 PM EDT Ancillary Procedure [facility] [address] [address] 05/24/2025 9:25 AM EDT Office Visit [facility] [address] [facility] [address] [place] [address] Jose David San MD [address] [address] documented as of this encounter Visit Diagnoses Not on filedocumented in this encounter Care Teams Dental Assisting Instructor Relationship Specialty Start Date End Date Bonilla Quijano MD [address] [place] [address] PCP - General Internal Medicine 07/14/12 documented as of this encounter
--- OUTSIDE RECORDS SUMMARY | 2024-12-08 08:01 | XMS_ITS | Data Portability ---
Author Organization [place] - [facility], [facility] Address [address] [place] [address] Assessment Encounter Date Assessment Date Assessment LastModified [...] Address Organization Details Recorded Time No complaints 408632333 Active Status : 'I'; Not Available [facility] 4 09:28:03 Problem Notes None recorded. Medical Equipment None Reported. Allergies Allergen ID Allergen Name Allergen Category Reaction Reaction Severity Criticality Documentation Date Start Date Code Code System Note Provider Name and Address Organization Details Recorded Time 26956 codeine sulfate medicatio n Not available Not available Not available 10/07/20232016 52863 RxNorm Not Available [facility] 4 12:08:52 84972 morphine sulfate medicatio n Not available Not available Not available 10/07/20232013 06296 RxNorm Not Available [facility] 12:08:52 Medications Name Sig Start Date Stop [...] Updated DateTime 12/27/2023 165.1 cm 35.1 kg/m2 07160.99 g SCAR VELIZ [place] - [facility] 12/27/2023 09:09:13 Social History None recorded. Functional Status None recorded. Mental Status None recorded. Family History Nothing Reported. Medical History No medical history recorded. Past Encounters Encounter ID Performer Location Encounter Start Date Encounter Closed Date Diagnosis/Indication Diagnosis SNOMED-CT Code Diagnosis ICD10 Code Diagnosis Note [id number] Augie Simons MD [facility] [address] [place] [address] 12/27/2023 08:37:56 01/15/2024 11:37:33 Lumbar post-laminectomy syndrome 360548243 M96.1 Health Concerns Section Related Observation LastModified by Organization Detai ls LastModified Time None Recorded Concern Status LastModified by Organization Details LastModified Time None Recorded Advance Directives Directive None Recorded Payers Encounter Date Sequence Insurance Name Policy Number Policy Oliver Covered Member ID Oliver Member ID Guarantor Name 12/27/2023 2 [place] [facility] Raine Ken [id number] Raine Ken 12/27/2023 1 [facility] (MEDICARE REPLACEMENT/A DVANTAGE - PPO) [id number] Raine Ken [id number] Raine Ken Notes Date Note Type Note [...] Not indicated PHYSICAL EXAMINATION: Augie Simons MD [address] [place] [address] [address], [place], [address], [facility] - [facility] 12/27/2023 12:28:38
--- OUTSIDE RECORDS SUMMARY | 2024-12-08 08:02 | XMS_ITS | Clinical Summary ---
Author Organization [facility] Address [address] [place] [address] Care Team Providers Care Welding Tester Name Role Phone Bonilla Quijano MD Primary Care Provider [phone] Allergies Active Allergy Reactions Criticality Noted Date [...] total) by mouth daily. 4 Active nystatin 750755 UNIT/GM powder APPLY ONE GRAM POWDER TOPICALLY [...] patient's age to complete this topic Insurance [facility] MEDICARE [facility] Care Teams Welding Tester Relationship Specialty Start Date End Date Bonilla Quijano MD [address] [place] [address] PCP - General 04/09/23
--- OUTSIDE RECORDS SUMMARY | 2024-12-08 08:02 | XMS_ITS | Data Portability ---
Author Organization [place] [facility] [place] [facility] [place], [facility] - INPATIENT Address [address] [place] [address] Care Team Providers Care Keel Press Operator Name Role Phone DEWEY GARCIA Food Broker Assessment Encounter Date Assessment Date Assessment LastModified [...] By Organization Details Last Modified Time 10/31/2022 [id number] Submit to Worker 's Comp. for approval. In person pre-op meeting Not available 10/31/2022 16:51:57 03/03/2024 [id number] MRI thoracic spi ne with and without contrast Extension fusion to T7/T8, possible T3-4 osteotomy with instrumentation Preop meeting with me [email or web address] Not available 03/03/2024 14:33:42 06/16/2024 [id number] Mr. 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 Results Created Date Observation Date Name Description Value Unit Range Abnormal Flag Note LastModifiedBy Organization Detail LastModifiedTime 03/27/2003/27/2024 COMPR EHENS DIANA METAB OLIC PANEL sodium 138 mmol/ L 135-14 5 Not Available [facility] [address] [facility], [place], [address], 03/27/2024 11:38:19 03/27/2003/27/2024 COMPR EHENS DIANA METAB OLIC PANEL potassium 5.7 mmol/ L 3.5-5. 3 high Not Available [facility] [address] [facility], [place], [address], 03/27/2024 11:38:19 03/27/20 24 03/27/2024 COMPR EHENS DIANA METAB OLIC PANEL chloride 100 mmol/ L 100-11 2 Not Available [facility] [address] [facility], [place], [address], 03/27/2024 11:38:19 03/27/20 24 03/27/2024 COMPR EHENS DIANA METAB OLIC PANEL total CO2 29 mmol/ L 21-30 Not Available [facility] [address] [facility], [place], [address], 03/27/2024 11:38:19 03/27/20 24 03/27/2024 COMPR EHENS DIANA METAB OLIC PANEL anion gap 9 mmol/ L 4-20 Not Available [facility] [address] [facility], [place], [address], 03/27/2024 11:38:19 03/27/20 24 03/27/2024 COMPR EHENS DIANA METAB OLIC PANEL BUN 28 mg/dL 6-20 high Not Available [facility] Lab [address] [facility], [place], [address], 03/27/2024 11:38:19 03/27/20 24 03/27/2024 COMPR EHENS DIANA METAB OLIC PANEL creatinine 1.30 mg/dL 0.00-1 .30 Not Available [facility] [address] [facility], [place], [address], 03/27/2024 11:38:19 03/27/20 24 03/27/2024 COMPR EHENS DIANA METAB OLIC PANEL glucose 124 mg/dL 70-105 high Not Available [facility] Lab [address] [facility], [place], [address], 03/27/2024 11:38:19 03/27/20 24 03/27/2024 COMPR EHENS DIANA METAB OLIC PANEL calcium 9.6 mg/dL 8.4-10 .2 Not Available [facility] [address] [facility], [place], [address], 03/27/2024 11:38:19 03/27/20 24 03/27/2024 COMPR EHENS DIANA METAB OLIC PANEL total protein 7.4 g/dL 6.5-8. 0 Not Available [facility] [address] [facility], [place], [address], 03/27/2024 11:38:19 03/27/20 24 03/27/2024 COMPR EHENS DIANA METAB OLIC PANEL albumin, blood 4.1 g/dL 3.5-5. 0 Not Available [facility] [address] [facility], [place], [address], 03/27/2024 11:38:19 03/27/20 24 03/27/2024 COMPR EHENS DIANA METAB OLIC PANEL globulin 3.3 g/dL 2.0-4. 0 Not Available [facility] [address] [facility], [place], [address], 03/27/2024 11:38:19 03/27/20 24 03/27/2024 COMPR EHENS DIANA METAB OLIC PANEL AST (SGOT) 69 U/L 0-40 high Speci men hemol yzed; resul t may be inval id. Inter pret with cauti on. Not Available [facility] [address] [facility], [place], [address], 03/27/2024 11:38:19 03/27/20 24 03/27/2024 COMPR EHENS DIANA METAB OLIC PANEL ALT (SGPT) 20 U/L 12-78 Speci men hemol yzed; resul t may be inval id. Inter pret with cauti on. Not Available [facility] [address] [place], [address], 03/27/2024 11:38:19 03/27/20 24 03/27/2024 COMPR EHENS DIANA METAB OLIC PANEL alk phosphatase 97 U/L 40-120 Speci men hemol yzed; resul t may be inval id. Inter pret with cauti on. Not Available [facility] [address] [facility], [place], [address], 03/27/2024 11:38:19 03/27/20 24 03/27/2024 COMPR EHENS DIANA METAB OLIC PANEL total bilirubin 0.5 mg/dL 0.0-1. 5 Not Available [facility] [address] [facility], [place], [address], 03/27/2024 11:38:19 03/27/20 24 03/27/2024 COMPR EHENS DIANA METAB OLIC PANEL estimated GFR (CKD-epi) 55 mL/mi n/bsa >=60 low Not Available [facility] [address] [facility], [place], [address], 03/27/2024 11:38:19 11/01/19 23 10/31/2022 CT, myelo gram, thora cic spine No observ ation record ed. [email or web address] Not Available 02/18 15:56:53 05/25/20 24 05/05/2024 MRI, thora cic spine , w/wo contr ast No observ ation record ed. [facility] [address] [place] [address], [place], [address], 06/04/2024 15:11:31 Result Notes None recorded. 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 Instrument ation. Not Available [employer] 16:31:37 Problem Notes None recorded. Procedures Surgical History Date Name Laterality Status Provider Name and Address Organization Details Recorded Time 12/26/20 23 Other completed Yimi Ortegatrena STEPHANIE [facility] [place] 03/03/2024 14:00:59 01/04/20 18 Orthopaedic Surgery completed Yimi Grayson MA [facility] [place] 03/03/2024 14:00:32 08/05/19 18 Orthopaedic Surgery completed Dalila Grider MA [facility] [place] 09/04/2022 09:12:44 Orthopaedic Surgery completed Dalila Grider MA [facility] [place] 09/04/2022 09:20:57 Orthopaedic Surgery completed Dalila Grider MA [facility] [place] 09/04/2022 09:21:01 Orthopaedic Surgery completed Dalila Grider MA [facility] [place] 09/04/2022 09:21:05 Orthopaedic Surgery completed Dalila Grider MA [facility] [place] 09/04/2022 09:21:10 Orthopaedic Surgery completed Dalila Grider MA [facility] [place] 09/04/2022 09:21:18 Orthopaedic Surgery completed Dalila Grider MA [facility] [place] 09/04/2022 09:21:34 cardiac pacemaker procedure completed Dalila Grider MA [facility] [place] 09/04/2022 09:21:53 Imaging Results Imaging Date Name Status LastModified by Organiz ation Details LastModified Time 10/31/2022 CT, myelogram, thoracic spine completed [email or web address] Information not available 02/18/2023 15:56:53 05/05/2024 MRI, thoracic spine, w/wo contrast completed [facility] [address] [place] [address], [address], 06/04/2024 15:11:31 Procedure Notes None recorded. Medical Equipment None Reported. Allergies Allergen ID Allergen Name Allergen Category Reaction Reaction Severity Criticality Documentation Date Start Date Code Code System Note Provider Name and Address Organization Details Recorded Time 680919 morphine medicatio n Not available Not available Not available 07/12/2022 7052 RxNorm React ion: Unkno wn, sever ity: Unkno wn Not Available [facility] 22:22:36 833393 latex environme nt,medica tion Not available Not available Not available 09/04/2022 61738 91 RxNorm Dalila Cheo zaragoza [facility] [place] 09:17:14 Medications Name Sig Start Date Stop [...] Updated DateTime 09/04/2022 165.1 cm 33.3 kg/m2 64466.47 g Dalila Cheo [facility] [place] 09/04/2022 09:16:56 Date Recorded Body height Body mass index (BMI) Body weight Provider Name and Address Organization Details Last Updated DateTime 10/31/2022 165.1 cm 33.3 kg/m2 23592.47 g Dalila Cheo [facility] [place] 10/31/2022 13:34:45 Social History Question Answer Notes LastModified by Organizat ion Details LastModified Time Tobacco Smoking Status Never Smoker Not Available [facility] 07/12/2022 23:20:40 What Is Your Level Of Alcohol Consumption? None Information not available 03/03/2024 Are You Currently Employed? 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 [id number] ASHU WOODS MD [facility] Office [address] [phone] 10/31/2022 12:13:15 10/31/2022 13:49:37 Degeneration of thoracic intervertebral disc 44011362 M51.34 T3-T7 posterior fusion, extension. Instrument ation. [id number] ASHU WOODS MD [facility] Office [address] [place] [phone] 03/03/2024 13:23:12 03/03/2024 21:35:17 Degeneration of thoracic intervertebral disc 74851526 M51.34 [id number] ASHU WOODS MD [facility] Office [address] [place] [phone] 06/16/2024 13:55:38 07/23/2024 10:43:28 Degeneration of thoracic intervertebral disc 12726882 M51.34 Health Concerns Section Related Observation LastModified by Organization Detai ls LastModified Time None Recorded Concern Status LastModified by Organization Details LastModified Time None Recorded Advance Directives Directive None Recorded Payers Encounter Date Sequence Insurance Name Policy Number Policy Oliver Covered Member ID Oliver Member ID Guarantor Name 09/04/2022 [employer] 10/31/2022 [employer] 03/03/2024 [employer] 06/16/2024 [employer] Notes Date Note Type Note Provider [...] 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 ASHU WOODS MD [address] [place] [address], [phone], [facility] [place] 09/04/2022 15:00:03 10/31/2022 text/html Raine is here w ith his son follow-up after thoracic CT myelogram. ASHU WOODS MD [address] [place] [address], [phone], [facility] [place] 10/31/2022 16:52:05 03/03/2024 text/html Last visit here [...] according to the patient. ASHU WOODS MD [address] [place] [address], [phone], [facility] [place] 03/03/2024 15:45:53 06/16/2024 text/html Here for MRI review. He states he has not had no improvement upper back pain still very sore. He also has pain in his thigh and calf ASHU WOODS MD [address] [place] [address], [phone], [facility] [place] 06/16/2024 16:37:04
[2024-12-08 08:11] LABS: Prothrombin Time Whole Bld POC 22.1 sec (11.1-13.5); ~PT, ~INR - Anti Coag Clinic 1.8 (0.9-1.1)
--- NOTE | 2024-12-08 08:21 | MHC.OFFVISCO ---
Intake Intake Visit Reasons: Anticoagulation Allergies morphine Allergy (Severe, Verified 11/24/24 08:02) Rash baclofen Adverse Reaction (Intermediate, Verified 11/24/24 08:02) Confusion codeine Adverse Reaction (Intermediate, Verified 11/24/24 08:02) GI UPSET divalproex sodium [From Depakote] Adverse Reaction (Intermediate, Verified 11/24/24 08:02) Chest Pain latex Adverse Reaction (Intermediate, Verified 11/24/24 08:02) RASH Nursing Note INR: 1.8 NOT IN therapeutic range X3 - will increase dose not sure why - possible meds or diet Medications and supplements reviewed No changes in health, diet, medications, or supplements, Denies any signs and symptoms of bleeding or bruising or clotting. Bleeding, bruising, clotting discussed Nutritional guidance given Dose: increase weekly [place] 5mg x 4 days/ 2.5mg x 3 days F/U INR: next week 11/17/2024 Patient verbalizes understanding of instructions given Coding Level of Care Code Est Patient Level 1 Diagnoses Current use of anticoagulant therapy Z79.01 Results AMB INR Fingerstick AMB INR Fingerstick 1.8 Last Edit by Sofía Gillette RN on 12/08/24 08:12 manual entry Assessment & Plan Assessment & Plan (1) Current use of anticoagulant therapy: Code(s): Z79.01 - correction (current) 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
== END 2024-12-08 08:21 | disposition home or self-care (01) ==
LOC: HO.ACS 07:59
PROVIDERS: PCP Internal Medicine; Visit Provider Internal Medicine Medical Oncology
DX: Z79.01 Long term (current) use of anticoagulants (principal)

== ENCOUNTER → 2024-12-08 07:59 | Outpatient (BNVA) | payer MEDICARE, SELFPAY | PROVIDERS: PCP Internal Medicine; Visit Provider Internal Medicine Medical Oncology | DX: I48.19 Other persistent atrial fibrillation (principal); Z79.01 Long term (current) use of anticoagulants; Z51.81 Encounter for therapeutic drug level monitoring | CPT/HCPCS: 85610; 99211 ==

== ENCOUNTER 2024-12-17 07:53 | Outpatient (AMB) | payer MEDICARE, SELFPAY ==
--- OUTSIDE RECORDS SUMMARY | 2024-12-17 07:54 | XMS_ITS | Data Portability ---
Author Organization [place] [facility] [place], [facility] - INPATIENT Address [address] [place] [address] Care Team Providers Care Contracts Manager Name Role Phone DEWEY GARCIA Dental Chairside Assistant [phone] Assessment Encounter Date Assessment Date Assessment LastModified [...] By Organization Details Last Modified Time 10/31/2022 [id number] Submit to Worker 's Comp. for approval. In person pre-op meeting Not available 10/31/2022 16:51:57 03/03/2024 [id number] MRI thoracic spi ne with and without contrast Extension fusion to T7/T8, possible T3-4 osteotomy with instrumentation Preop meeting with me [email or web address] Not available 03/03/2024 14:33:42 06/16/2024 [id number] Mr. 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 Results Created Date Observation Date Name Description Value Unit Range Abnormal Flag Note LastModifiedBy Organization Detail LastModifiedTime 03/27/2003/27/2024 COMPR EHENS DIANA METAB OLIC PANEL sodium 138 mmol/ L 135-14 5 Not Available [facility] - Lab [address] [facility], [place], [address], 03/27/2024 11:38:19 03/27/2003/27/2024 COMPR EHENS DIANA METAB OLIC PANEL potassium 5.7 mmol/ L 3.5-5. 3 high Not Available [facility] Lab [address] [facility], [place], [address], 03/27/2024 11:38:19 03/27/20 24 03/27/2024 COMPR EHENS DIANA METAB OLIC PANEL chloride 100 mmol/ L 100-11 2 Not Available [facility] - Lab [address] [facility], [place], [address], 03/27/2024 11:38:19 03/27/20 24 03/27/2024 COMPR EHENS DIANA METAB OLIC PANEL total CO2 29 mmol/ L 21-30 Not Available [facility] - Lab [address] [facility], [place], [address], 03/27/2024 11:38:19 03/27/20 24 03/27/2024 COMPR EHENS DIANA METAB OLIC PANEL anion gap 9 mmol/ L 4-20 Not Available [facility] - Lab [address] [facility], [place], [address], 03/27/2024 11:38:19 03/27/20 24 03/27/2024 COMPR EHENS DIANA METAB OLIC PANEL BUN 28 mg/dL 6-20 high Not Available [facility] - Lab [address] [facility], [place], [address], 03/27/2024 11:38:19 03/27/20 24 03/27/2024 COMPR EHENS DIANA METAB OLIC PANEL creatinine 1.30 mg/dL 0.00-1 .30 Not Available [facility] - Lab [address] [facility], [place], [address], 03/27/2024 11:38:19 03/27/20 24 03/27/2024 COMPR EHENS DIANA METAB OLIC PANEL glucose 124 mg/dL 70-105 high Not Available [facility] - Lab [address] [facility], [place], [address], 03/27/2024 11:38:19 03/27/20 24 03/27/2024 COMPR EHENS DIANA METAB OLIC PANEL calcium 9.6 mg/dL 8.4-10 .2 Not Available [facility] - Lab [address] [facility], [place], [address], 03/27/2024 11:38:19 03/27/20 24 03/27/2024 COMPR EHENS DIANA METAB OLIC PANEL total protein 7.4 g/dL 6.5-8. 0 Not Available [facility] - Lab [address] [facility], [place], [address], 03/27/2024 11:38:19 03/27/20 24 03/27/2024 COMPR EHENS DAINA METAB OLIC PANEL albumin, blood 4.1 g/dL 3.5-5. 0 Not Available [facility] - Lab [address] [facility], [place], [address], 03/27/2024 11:38:19 03/27/20 24 03/27/2024 COMPR EHENS DIANA METAB OLIC PANEL globulin 3.3 g/dL 2.0-4. 0 Not Available [facility] - Lab [address] [facility], [place], [address], 03/27/2024 11:38:19 03/27/20 24 03/27/2024 COMPR EHENS DIANA METAB OLIC PANEL AST (SGOT) 69 U/L 0-40 high Speci men hemol yzed; resul t may be inval id. Inter pret with cauti on. Not Available [facility] - Lab [address] [facility], [place], [address], 03/27/2024 11:38:19 03/27/20 24 03/27/2024 COMPR EHENS DIANA METAB OLIC PANEL ALT (SGPT) 20 U/L 12-78 Speci men hemol yzed; resul t may be inval id. Inter pret with cauti on. Not Available [facility] - Lab [address] [place], [address], 03/27/2024 11:38:19 03/27/20 24 03/27/2024 COMPR EHENS DIANA METAB OLIC PANEL alk phosphatase 97 U/L 40-120 Speci men hemol yzed; resul t may be inval id. Inter pret with cauti on. Not Available [facility] - Lab [address] [facility], [place], [address], 03/27/2024 11:38:19 03/27/20 24 03/27/2024 COMPR EHENS DIANA METAB OLIC PANEL total bilirubin 0.5 mg/dL 0.0-1. 5 Not Available [facility] - Lab [address] [facility], [place], [address], 03/27/2024 11:38:19 03/27/20 24 03/27/2024 COMPR EHENS DIANA METAB OLIC PANEL estimated GFR (CKD-epi) 55 mL/mi n/bsa >=60 low Not Available [facility] - Lab [address] [facility], [place], [address], 03/27/2024 11:38:19 11/01/19 23 10/31/2022 CT, myelo gram, thora cic spine No observ ation record ed. [email or web address] Not Available 02/18 15:56:53 05/25/20 24 05/05/2024 MRI, thora cic spine , w/wo contr ast No observ ation record ed. [facility] Imaging Dept [address] [place] [address], [place], [address], 06/04/2024 15:11:31 Result Notes None recorded. 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 Instrument ation. Not Available [employer] 16:31:37 Problem Notes None recorded. Procedures Surgical History Date Name Laterality Status Provider Name and Address Organization Details Recorded Time 12/26/20 23 Other completed Yimi Ortegatrena STEPHANIE [facility] [place] 03/03/2024 14:00:59 01/04/20 18 Orthopaedic Surgery completed Yimi Grayson [place] [facility] [place] 03/03/2024 14:00:32 08/05/19 18 Orthopaedic Surgery completed Dalila Grider [place] [facility] [place] 09/04/2022 09:12:44 Orthopaedic Surgery completed Dalila Grider [place] [facility] [place] 09/04/2022 09:20:57 Orthopaedic Surgery completed Dalila Grider [place] [facility] [place] 09/04/2022 09:21:01 Orthopaedic Surgery completed Dalila Grider [place] [facility] [place] 09/04/2022 09:21:05 Orthopaedic Surgery completed Dalila Grider [place] [facility] [place] 09/04/2022 09:21:10 Orthopaedic Surgery completed Dalila Grider [place] [facility] [place] 09/04/2022 09:21:18 Orthopaedic Surgery completed Dalila Grider [place] [facility] [place] 09/04/2022 09:21:34 cardiac pacemaker procedure completed Dalila Grider [place] [facility] [place] 09/04/2022 09:21:53 Imaging Results Imaging Date Name Status LastModified by Organiz ation Details LastModified Time 10/31/2022 CT, myelogram, thoracic spine completed [email or web address] Information not available 02/18/2023 15:56:53 05/05/2024 MRI, thoracic spine, w/wo contrast completed [facility] [address] [place] [address], [address], 06/04/2024 15:11:31 Procedure Notes None recorded. Medical Equipment None Reported. Allergies Allergen ID Allergen Name Allergen Category Reaction Reaction Severity Criticality Documentation Date Start Date Code Code System Note Provider Name and Address Organization Details Recorded Time 052664 morphine medicatio n Not available Not available Not available 07/12/2022 7052 RxNorm React ion: Unkno wn, sever ity: Unkno wn Not Available [facility] 22:22:36 691143 latex environme nt,medica tion Not available Not available Not available 09/04/2022 82815 91 RxNorm Dalila Grider [facility] [place] [facility] [place] 09:17:14 Medications Name Sig Start Date Stop [...] Updated DateTime 09/04/2022 165.1 cm 33.3 kg/m2 90796.47 g Dalila Huertaenter [place] [facility] [place] 09/04/2022 09:16:56 Date Recorded Body height Body mass index (BMI) Body weight Provider Name and Address Organization Details Last Updated DateTime 10/31/2022 165.1 cm 33.3 kg/m2 11889.47 g Dalila Huertaenter [facility] [place] 10/31/2022 13:34:45 Social History None recorded. Functional Status Question Answer Note LastModified by Organizat ion Details LastModified Time What is your level of alcohol consumption? None Information not available 03/03/2024 Do you or have you ever used smokeless tobacco? Never used smokeless tobacco Information not available 03/03/2024 Are you currently employed? No [email or web address] Information not available 09/04/2022 What is your occupation? Disabled Information not available 03/03/2024 Do you or have you ever used e-cigarettes or vape? Never used electronic cigarettes Information not available 03/03/2024 Mental Status None recorded. Family History Relationship Description Onset Age of this Age Resolved Age Notes LastModified by Organization Details LastModified Time Brother Myocardial infarction [email or web address] Not available 09:20:22 Sister Malignant neoplastic disease Not available 09:20:30 Medical History Condition Response Blood Clots / Phlebitis Y High Blood Pressure Y Irregular Heartbeat N MRSA N Reaction to General/Local Anesthesia N Weight Gain / Loss N Kidney / Bladder Infections N Diabetes Y Angina, Heart Failure or Attack Y Seizures / Epilepsy N Night Sweats N [...] SNOMED-CT Code Diagnosis ICD10 Code Diagnosis Note [id number] ASHU WOODS MD [facility] Office [address] [place] [address] 09/04/2022 08:37:15 09/04/2022 09:54:52 Spondylosis without myelopathy 90258162 M47.13 Prolapsed thoracic intervertebral disc 357854069 M51.24 CT myelogram thoracic spine. [id number] ASHU WOODS MD [facility] Office [address] [address] 10/31/2022 12:13:15 10/31/2022 13:49:37 Degeneration of thoracic intervertebral disc 95936917 M51.34 T3-T7 posterior fusion, extension. Instrument ation. [id number] ASHU WOODS MD [facility] Office [address] [place] [address] 03/03/2024 13:23:12 03/03/2024 21:35:17 Degeneration of thoracic intervertebral disc 26391734 M51.34 [id number] ASHU WOODS MD [facility] Office [address] [place] [address] 06/16/2024 13:55:38 07/23/2024 10:43:28 Degeneration of thoracic intervertebral disc 45310515 M51.34 Health Concerns Section Related Observation LastModified by Organization Detai ls LastModified Time None Recorded Concern Status LastModified by Organization Details LastModified Time None Recorded Advance Directives Directive None Recorded Payers Insurance Date Sequence Insurance Name Policy Number Policy Oliver Covered Member ID Oliver Member ID Guarantor Name 09/14/2022 [employer] 09/14/2022 [employer] localbacon Notes Date Note Type Note Provider Name [...] 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 ASHU WOODS MD [address] [place] [address], [phone], [facility] [place] 09/04/2022 15:00:03 10/31/2022 text/html Raine is here w ith his son follow-up after thoracic CT myelogram. ASHU WOODS MD [address] [place] [address], [phone], [facility] [place] 10/31/2022 16:52:05 03/03/2024 text/html Last visit here [...] according to the patient. ASHU WOODS MD [address] [place] [address], [phone], [facility] [place] 03/03/2024 15:45:53 06/16/2024 text/html Here for MRI review. He states he has not had no improvement upper back pain still very sore. He also has pain in his thigh and calf ASHU WOODS MD [address] [place] [address], [phone], [facility] [place] 06/16/2024 16:37:04
--- OUTSIDE RECORDS SUMMARY | 2024-12-17 07:54 | XMS_ITS | Data Portability ---
Author Organization [place] - [facility], [facility] Address [address] [place] [address] Assessment Encounter Date Assessment Date Assessment LastModified [...] Address Organization Details Recorded Time No complaints 176553313 Active Status : 'I'; Not Available [facility] 09:28:03 Problem Notes None recorded. Medical Equipment None Reported. Allergies Allergen ID Allergen Name Allergen Category Reaction Reaction Severity Criticality Documentation Date Start Date Code Code System Note Provider Name and Address Organization Details Recorded Time 99910 codeine sulfate medicatio n Not available Not available Not available 10/07/20232016 80952 RxNorm Not Available [facility] 12:08:52 00813 morphine sulfate medicatio n Not available Not available Not available 10/07/20232013 33006 RxNorm Not Available [facility] 12:08:52 Medications Name Sig Start Date [...] Updated DateTime 12/27/2023 165.1 cm 35.1 kg/m2 51936.99 g SCAR VELIZ [place] - [facility] 12/27/2023 09:09:13 Social History None recorded. Functional Status None recorded. Mental Status None recorded. Family History Nothing Reported. Medical History No medical history recorded. Past Encounters Encounter ID Performer Location Encounter Start Date Encounter Closed Date Diagnosis/Indication Diagnosis SNOMED-CT Code Diagnosis ICD10 Code Diagnosis Note [id number] Augie Simons MD [facility] [address] [place] [address] 12/27/2023 08:37:56 01/15/2024 11:37:33 Lumbar post-laminectomy syndrome 808478613 M96.1 Health Concerns Section Related Observation LastModified by Organization Detai ls LastModified Time None Recorded Concern Status LastModified by Organization Details LastModified Time None Recorded Advance Directives Directive None Recorded Payers Encounter Date Sequence Insurance Name Policy Number Policy Oliver Covered Member ID Oliver Member ID Guarantor Name 12/27/2023 2 [place] [facility] Raine Ken [id number] Raine Ken 12/27/2023 1 [facility] (MEDICARE REPLACEMENT/A DVANTAGE - PPO) [id number] Raine Ken [id number] Raine Ken Notes Date Note Type Note [...] Not indicated PHYSICAL EXAMINATION: Augie Simons MD [address] [place] [address] [address], [place], [address], [facility] - [facility] 12/27/2023 12:28:38
--- OUTSIDE RECORDS SUMMARY | 2024-12-17 07:54 | XMS_ITS | Encounter Summary ---
Author Organization [facility] Address [address] [place] [address] Care Team Providers Care Insulation Batting Machine Operator Name Role Phone Bonilla Quijano MD Primary Care Provider [phone] Encounter Details Date Type Department Care Team (Late st Contact Info) Description 05/05/2024 9:52 AM EDT Hospital Encounter TH HISTORIC ENCOUNTERS EASTERN CONVERSION ONLY Soto Stephenson MD [address] [place] [phone] Social History Tobacco Use Types Packs/Day [...] Description 03/11/2025 1:30 PM EDT Ancillary Procedure [facility] [address] [address] 05/24/2025 9:25 AM EDT Office Visit [facility] - [facility] [address] [facility] [address] [place] [address] Jose David San MD [address] [address] documented as of this encounter Visit Diagnoses Not on filedocumented in this encounter Care Teams Insulation Batting Machine Operator Relationship Specialty Start Date End Date Bonilla Quijano MD [address] [place] [address] PCP - General Internal Medicine 07/14/12 documented as of this encounter
--- OUTSIDE RECORDS SUMMARY | 2024-12-17 07:54 | XMS_ITS | Clinical Summary ---
Author Organization [address] [place] [address] [place] [phone] Phone Care Team Providers Care Garden Labourer Name Role Phone Bonilla Quijano MD Primary Care Provider [phone] Allergies Active Allergy Reactions Criticality Noted Date [...] He wants to do this at [facility] given his insurance does not cover [facility] and if he needs revascularization we will schedule a follow-up procedure at [facility]. (HFpEF) heart failure with p reserved ejection fraction ([facility] V24, [facility] V28) 02/02/2021 Overview (08/19/2024): Last Assessment [...] than 3 to 5 pounds. Cerebrovascular accident ([facility] V24, [facility] V 28) 02/01/2021 Overview (08/19/2024): Cerebrovascular accident Deep venous thrombosis ([facility] V24, [facility] V28 ) 02/01/2021 Overview (08/19/2024): Deep venous thrombosis Dizziness 02/01/2021 Overview (08/19/2024): Dizziness Atrial flutter ([facility] V24, [facility] V28) 2020 CHF (congestive heart failure) ([facility] V24, [facility] V28) 01/30/2021 HLD (hyperlipidemia) 01/30/2021 Overview [...] causing symptoms. PAF (paroxysmal atrial fibri llation) ([facility] V24, [facility] V28) 08/23/2020 Overview (08/19/2024): Last Assessment & [...] the procedure if successful. Peripheral vascular disease ([facility] V24) 2020 Overview (08/19/2024): Peripheral vascular disease Encounters Date Type Department Care Team Description 11/19/2024 8:29 AM EDT - 11/19/2024 10:03 AM EDT Emergency [facility] Emergency [address] [place] [address] Manny Ashraf DO Acute left eye pain (Primary Dx); Glaucoma, unspecified glaucoma type, unspecified laterality Discharge Disposition: Home or Self Care from Last 3 Months Surgical History Surgery Date Site/Laterality Comments OTHER SURGICAL HISTORY 01/04/2021 PROCEDURE: HISTORY OTHER; COMMENT: S/p cardioversion OTHER SURGICAL HISTORY 2014 PROCEDURE: HISTORY OTHER; COMMENT: Cardiac ablation OTHER SURGICAL HISTORY Right PROCEDURE: [place] ARTHRP ACETBLR/PROX FEM PROSTC AGRFT/ALGRFT TOTAL KNEE ARTHROPLASTY Left PROCEDURE: MA ARTHRP KNE CONDYLE&PLATU MEDIAL&LAT COMPARTMENTS SHOULDER SURGERY Bilateral PROCEDURE: HISTORICAL SHOULDER SURGERY OTHER SURGICAL HISTORY PROCEDURE: HISTORY OTHER; COMMENT: S/p Lumbar spine fusion OTHER SURGICAL HISTORY PROCEDURE: HISTORY OTHER; COMMENT: S/p Cervical and thoracic spine surgery with hardware placement Medical History Medical History Date Comments CVA (cerebral vascular accid ent) ([facility] V24, [facility] V28) DX:CVA (cerebral vascular a ccident) ([facility]); COMMENT: with right-sided weakness DVT (deep venous thrombosis) ([facility] V24, [facility] V28) DX:DVT (deep venous thrombos is) ([facility]) Gout DX:Gout Chronic back pain DX:Chronic jessenia k pain 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:Adjustment reaction with prolonged depressive reaction PVD (peripheral vascular dis ease) ([facility] V24) DX:PVD (peripheral vascular disease) ([facility]) Dizziness DX:Dizziness Obesity DX:Obesity Glaucoma DX:Glaucoma [...] Description 03/11/2025 1:30 PM EDT Ancillary Procedure [facility] [address] [facility] [address] [place] [address] 05/24/2025 9:25 AM EDT Office Visit [facility] [address] [facility] [address] [place] [address] Jose David San MD [address] [facility] [address] [place] [address] Health Maintenance Due Date Last Done Comments [...] this topic Medical Devices Implanted Type Area Restaurant General Manager Device Identifier Shelf Expiration Date Model / Serial / Lot Medt-Card Micra Av [id number] Implanted:02/2021 (Quantity not on file) 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 AV [id number] / [id number] / Procedures Procedure Name Priority Date/Time Associated [...] 11/19/2024 8:36 AM [facility] RBC 4.50 4.50 - 5.50 M/mcL LAB HEMETOLOGY METHOD 11/19/2024 8:36 AM [facility] Hemoglobin 13.5 13.5 - 17.5 g/dL LAB HEMETOLOGY METHOD 11/19/2024 8:36 AM [facility] Hematocrit 43.0 42.0 - 54.0 % LAB HEMETOLOGY METHOD 11/19/2024 8:36 AM [facility] MCV 96.0 79.0 - 98.0 [...] 8:36 AM [facility] Lymphocytes Absolute 2.30 1.00 - 5.00 K/mcL LAB HEMETOLOGY METHOD 11/19/2024 8:36 AM EDT [facility] Monocytes Absolute 0.68 0.20 - 1.00 K/[facility] LAB HEMETOLOGY METHOD 11/19/2024 8:36 AM EDT [facility] Eosinophils Absolute 0.20 0.00 - 0.50 K/[facility] LAB HEMETOLOGY METHOD 11/19/2024 8:36 AM EDT [facility] Basophils Absolute 0.04 0.00 - 0.20 K/[facility] LAB HEMETOLOGY METHOD 11/19/2024 8:36 AM EDT [facility] Immature Granulocytes Absolute 0.02 0.00 - 0.03 K/[facility] LAB HEMETOLOGY METHOD 11/19/2024 8:36 AM EDT [facility] Blood Venous blood specimen / Unknown Venipuncture / Unknown 11/19/2024 8:02 AM EDT 11/19/2024 8:24 AM EDT us Manny Ashraf DO LAB BLOOD ORDERABLES Final Result [facility] [address] [place] [address], * (ABNORMAL) Basic metabolic panel (11/19/2024 8:02 AM EDT) Sodium 140 133 - 145 mmol/L LAB CHEMISTRY METHOD 11/19/2024 8:56 AM EDT [facility] Potassium 4.7 3.5 - 5.5 mmol/L LAB CHEMISTRY METHOD 11/19/2024 8:56 AM EDT [facility] Chloride 103 96 - 110 mmol/L LAB CHEMISTRY METHOD 11/19/2024 8:56 AM EDT [facility] CO2 31 21 - 32 mmol/L LAB CHEMISTRY METHOD 11/19/2024 8:56 AM EDT [facility] Anion Gap 6 3 - 11 LAB CHEMISTRY METHOD 11/19/2024 8:56 AM EDT [facility] Glucose 135(H) 70 - 100 [...] LAB CHEMISTRY METHOD 11/19/2024 8:56 AM T [facility] Calcium 9.7 8.5 - 10.5 mg/dL LAB CHEMISTRY METHOD 11/19/2024 8:56 AM [facility] Blood Venous blood specimen / Unknown Venipuncture / Unknown 11/19/2024 8:02 AM EDT 11/19/2024 8:24 AM EDT us Manny Ashraf DO LAB BLOOD ORDERABLES Final Result [facility] [address] [place] [address], [place] [phone] from Last 3 Months Insurance [employer] MEDICARE MEDICAID - [place] Advance Directives Documents on File Type Date Recorded Patient Credit Collections Clerk Expl anation Health Care Decision (hx) 05/10/2020 [...] (hx) 05/10/2020 [facility] DIRECTIVE Care Teams Garden Labourer Relationship Specialty Start Date End Date Bonilla Quijano MD [address] [place] [address] PCP - General Internal Medicine 07/14/12
--- OUTSIDE RECORDS SUMMARY | 2024-12-17 07:55 | XMS_ITS | Clinical Summary ---
Author Organization [facility] Address [address] [place] [address] Care Team Providers Care Medicare Nurse Name Role Phone Bonilla Quijano MD Primary Care Provider [phone] Allergies Active Allergy Reactions Criticality Noted Date [...] total) by mouth daily. 4 Active nystatin 103584 UNIT/GM powder APPLY ONE GRAM POWDER TOPICALLY [...] Patients (1 - 1-dose 75+ series) 2017 COVID-19 Vaccine ( - 2023-2 5 season) 2024 Influenza Vaccine 03/05/2025 Hepatitis B Vaccines Aged Out No long er eligible based on patient's age to complete this topic Insurance [facility] MEDICARE [facility] Care Teams Medicare Nurse Relationship Specialty Start Date End Date Bonilla Quijano MD [address] [place] [id number] PCP - General 04/09/23
[2024-12-17 08:13] LABS: Prothrombin Time Whole Bld POC 17.4 sec (11.1-13.5); ~PT, ~INR - Anti Coag Clinic 1.5 (0.9-1.1)
--- NOTE | 2024-12-17 09:51 | MHC.OFFVISCO ---
Intake Intake Visit Reasons: Anticoagulation Allergies morphine Allergy (Severe, Verified 12/17/24 08:00) Rash baclofen Adverse Reaction (Intermediate, Verified 12/17/24 08:00) Confusion codeine Adverse Reaction (Intermediate, Verified 12/17/24 08:00) GI UPSET divalproex sodium [From Depakote] Adverse Reaction (Intermediate, Verified 12/17/24 08:00) Chest Pain latex Adverse Reaction (Intermediate, Verified 12/17/24 08:00) RASH Medication List - Last Reconciled 12/17/24 by Sofía Gillette RN acetaminophen ER 1,300 mg PO Q12H allopurinol 200 mg PO DAILY atorvastatin 80 mg PO DAILY brimonidine 0.2% 0 drps ophthalmic (eye) buprenorphine 10 mcg/hour 1 patch topical QWEEK chlorthalidone 25 mg PO DAILY cholecalciferol (vitamin D3) PO clopidogrel 75 mg PO DAILY duloxetine 30 mg PO BID erythromycin ophthalmic (eye) gabapentin 600 mg PO TID isosorbide mononitrate ER 30 mg PO DAILY ketorolac 0.5% drps ophthalmic (eye) latanoprost 0.005% drps ophthalmic (eye) lisinopril 20 mg PO DAILY gv-zph-HO-vit W-wkdxob-uxluucl (PreserVision AREDS 2 Plus MV) PO nitroglycerin mg sublingual omeprazole 20 mg PO DAILY PRN prednisolone acetate 1% 1 drp ophthalmic (eye) BID sotalol 120 mg PO BID [carlene bio healer topical] timolol maleate 0.5% 0 drps ophthalmic (eye) triamcinolone acetonide 0.1% 1 appl topical BID-TID warfarin 5 mg See Protocol PO DAILY Nursing Note INR 1.5 out of therapeutic range Medications and supplements reviewed Patient status: pt stated he missed 2 doses of warfarin in the past few evenings - occupied and forgot, he also has a small cut/tear near eye not bleeding - enc to call eye doctor to decrease risk of infection and to call [facility] with name of any antibiotic Medications or supplements: no other changes at this time Diet: good Denies any signs and symptoms of bleeding or clotting or unusual bruising Bleeding, bruising, clotting discussed Nutritional guidance given: avoid greens x 2 days then resume usual diet - eat orange or reds today Dose: booster dose tomorrow to 5mg then resume usual dose 5mg x 4 days/ 2.5mg mwf F/U INR Date: 12/21/2024 ?? Patient verbalizing understanding of instructions given with read back t/c to PCP regarding pt status spoke with junior sales assistant Brunilda who will notify medical team and will inform [facility] should there be a change in plan of care Coding Level of Care Code Est Patient Level 1 Diagnoses Current use of anticoagulant therapy Z79.01 Assessment & Plan Assessment & Plan (1) Current use of anticoagulant therapy: Code(s): Z79.01 - director long term care (current) 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
== END 2024-12-17 08:20 | disposition home or self-care (01) ==
LOC: HO.ACS 07:53
PROVIDERS: PCP Internal Medicine; Visit Provider Internal Medicine Medical Oncology
DX: Z79.01 Long term (current) use of anticoagulants (principal)

== ENCOUNTER → 2024-12-17 07:53 | Outpatient (BNVA) | payer MEDICARE, SELFPAY | PROVIDERS: PCP Internal Medicine; Visit Provider Internal Medicine Medical Oncology | DX: I48.19 Other persistent atrial fibrillation (principal); Z79.01 Long term (current) use of anticoagulants; Z51.81 Encounter for therapeutic drug level monitoring | CPT/HCPCS: 85610; 99211 ==

== ENCOUNTER 2024-12-21 08:22 | Outpatient (AMB) | payer MEDICARE, SELFPAY ==
--- OUTSIDE RECORDS SUMMARY | 2024-12-21 08:27 | XMS_ITS | Data Portability ---
Author Organization [place] [facility], [facility] Address [address] [place] [address] Assessment Encounter Date Assessment Date Assessment LastModified [...] Address Organization Details Recorded Time No complaints [id number] Active Status : 'I'; Not Available [facility] 4 09:28:03 Problem Notes None recorded. Medical Equipment None Reported. Allergies Allergen ID Allergen Name Allergen Category Reaction Reaction Severity Criticality Documentation Date Start Date Code Code System Note Provider Name and Address Organization Details Recorded Time 40239 codeine sulfate medicatio n Not available Not available Not available 10/07/20232016 28004 RxNorm Not Available [facility] 4 12:08:52 26756 morphine sulfate medicatio n Not available Not available Not available 10/07/20232013 15058 RxNorm Not Available [facility] 12:08[facility] Medications Name Sig Start Date Stop [...] Updated DateTime 12/27/2023 165.1 cm 35.1 kg/m2 28103.99 g SCAR VELIZ [place] - [facility] 12/27/2023 09:09:13 Social History None recorded. Functional Status None recorded. Mental Status None recorded. Family History Nothing Reported. Medical History No medical history recorded. Past Encounters Encounter ID Performer Location Encounter Start Date Encounter Closed Date Diagnosis/Indication Diagnosis SNOMED-CT Code Diagnosis ICD10 Code Diagnosis Note [id number] Augie Simons MD [place] [address] [place] [address] 12/27/2023 08:37:56 01/15/2024 11:37:33 Lumbar post-laminectomy syndrome [id number] M96.1 Health Concerns Section Related Observation LastModified by Organization Detai ls LastModified Time None Recorded Concern Status LastModified by Organization Details LastModified Time None Recorded Advance Directives Directive None Recorded Payers Encounter Date Sequence Insurance Name Policy Number Policy Oliver Covered Member ID Oliver Member ID Guarantor Name 12/27/2023 2 [place] [facility] Raine Ken [id number] Raine Ken 12/27/2023 1 [facility] (MEDICARE REPLACEMENT/A DVANTAGE - PPO) [id number] Raine Ken [id number] Raine Ken Notes Date Note Type Note [...] Not indicated PHYSICAL EXAMINATION: Augie Simons MD [address] [place] [address] [address], [place], [address], [facility] 12/27/2023 12:28:38
--- OUTSIDE RECORDS SUMMARY | 2024-12-21 08:27 | XMS_ITS | Encounter Summary ---
Author Organization [facility] Address [address] [place] [address] Care Team Providers Care Supervisor Livestock Yard Name Role Phone Bonilla Quijano MD Primary Care Provider [phone] Encounter Details Date Type Department Care Team (Late st Contact Info) Description 05/05/2024 9:52 AM EDT Hospital Encounter TH HISTORIC ENCOUNTERS EASTERN CONVERSION ONLY Soto Stephenson MD [address] [place] [phone] Social History Tobacco Use Types Packs/Day [...] Description 03/11/2025 1:30 PM EDT Ancillary Procedure [facility] Cardiology [facility] - [facility] [address] [address] 05/24/2025 9:25 AM EDT Office Visit [facility] 154 300 [facility] [address] [place] [address] Jose David San MD [address] [id number] documented as of this encounter Visit Diagnoses Not on filedocumented in this encounter Care Teams Supervisor Livestock Yard Relationship Specialty Start Date End Date Bonilla Quijano MD [address] [place] [address] PCP - General Internal Medicine 07/14/12 documented as of this encounter
--- OUTSIDE RECORDS SUMMARY | 2024-12-21 08:27 | XMS_ITS | Clinical Summary ---
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 He wants to do this at [facility] given his insurance does not cover [facility] and if he needs revascularization we will schedule a follow-up procedure at [facility]. 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 Cerebrovascular accident ([facility] V24, [facility] V 28) 02/01/2021 Overview (08/19/2024): Cerebrovascular accident Deep venous thrombosis ([facility] V24, [facility] V28 ) 02/01/2021 Overview (08/19/2024): Deep venous thrombosis Dizziness 02/01/2021 Overview (08/19/2024): Dizziness Atrial flutter ([facility] V24, [facility] V28) 2020 CHF (congestive heart failure) ([facility] V24, [facility] V28) 01/30/2021 HLD (hyperlipidemia) 01/30/2021 Overview (08/19/2024): [...] causing symptoms. PAF (paroxysmal atrial fibri llation) ([facility] V24, [facility] V28) 08/23/2020 Overview (08/19/2024): Last Assessment & [...] the procedure if successful. Peripheral vascular disease ([facility] V24) 2020 Overview (08/19/2024): Peripheral vascular disease Encounters Date Type Department Care Team Description 12/17/2024 Telephone [facility] [address] [place] [address] Jose David San MD OTHER (Low INR) 11/19/2024 8:29 AM EDT - 11/19/2024 10:03 AM EDT Emergency [facility] [address] [place] [address] Manny Ashraf DO Acute left eye pain (Primary Dx); Glaucoma, unspecified glaucoma type, unspecified laterality Discharge Disposition: Home or Self Care from Last 3 Months Surgical History Surgery Date Site/Laterality Comments OTHER SURGICAL HISTORY 01/04/2021 PROCEDURE: HISTORY OTHER; COMMENT: S/p cardioversion OTHER SURGICAL HISTORY 2014 PROCEDURE: HISTORY OTHER; COMMENT: Cardiac ablation OTHER SURGICAL HISTORY Right PROCEDURE: TX ARTHRP ACETBLR/PROX FEM PROSTC AGRFT/ALGRFT TOTAL KNEE ARTHROPLASTY Left PROCEDURE: TX ARTHRP KNE CONDYLE&PLATU MEDIAL&LAT COMPARTMENTS SHOULDER SURGERY Bilateral PROCEDURE: HISTORICAL SHOULDER SURGERY OTHER SURGICAL HISTORY PROCEDURE: HISTORY OTHER; COMMENT: S/p Lumbar spine fusion OTHER SURGICAL HISTORY PROCEDURE: HISTORY OTHER; COMMENT: S/p Cervical and thoracic spine surgery with hardware placement Medical History Medical History Date Comments CVA (cerebral vascular accid ent) ([facility] V24, [facility] V28) DX:CVA (cerebral vascular a ccident) ([facility]); COMMENT: with right-sided weakness DVT (deep venous thrombosis) ([facility] V24, [facility] V28) DX:DVT (deep venous thrombos is) ([facility]) Gout DX:Gout Chronic back pain DX:Chronic jessenia k pain 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:Adjustment reaction with prolonged depressive reaction PVD (peripheral vascular dis ease) ([facility] V24) DX:PVD (peripheral vascular disease) ([facility]) Dizziness DX:Dizziness Obesity DX:Obesity Glaucoma DX:Glaucoma Cervical [...] Description 03/11/2025 1:30 PM EDT Ancillary Procedure [facility] [address] [facility] [address] [place] [address] 05/24/2025 9:25 AM EDT Office Visit [facility] - [facility] [address] [facility] 154 [place] [address] Jose David San MD [address] [place] [address] [place] [address] Health Maintenance Due Date Last Done Comments [...] this topic Medical Devices Implanted Type Area Labor Relations Worker Device Identifier Shelf Expiration Date Model / Serial / Lot Medt-Card Micra Av [id number] Implanted:02/2021 (Quantity not on file) 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 AV [id number] / [id number] / Procedures Procedure Name Priority Date/Time Associated Diagnosis Comments CBC WITH AUTO DIFFERENTIAL STAT 11/19/2024 8:02 AM EDT CBC AND DIFFERENTIAL STAT 11/19/2024 8:02 AM EDT BASIC METABOLIC PANEL STAT 11/19/2024 8:02 AM EDT from Last 3 Months Results * (ABNORMAL) CBC auto differential (11/19/2024 8:02 AM EDT) WBC 8.2 4.8 - 10.8 K/[facility] LAB HEMETOLOGY METHOD 11/19/2024 8:36 AM [facility] RBC 4.50 4.50 - 5.50 M/mcL LAB HEMETOLOGY METHOD 11/19/2024 8:36 AM [facility] Hemoglobin 13.5 13.5 - 17.5 g/dL LAB HEMETOLOGY METHOD 11/19/2024 8:36 AM [facility] Hematocrit 43.0 42.0 - 54.0 % LAB HEMETOLOGY METHOD 11/19/2024 8:36 AM [facility] MCV 96.0 79.0 - 98.0 FL LAB HEMETOLOGY METHOD 11/19/2024 8:36 AM [facility] MCH 30.1 27.0 - 32.0 pcg LAB HEMETOLOGY METHOD 11/19/2024 8:36 AM [facility] MCHC 31.4(L) 32.0 - 37.0 g/dL LAB HEMETOLOGY METHOD 11/19/2024 8:36 AM [facility] RDW 14.8 11.0 - 15.0 % LAB HEMETOLOGY METHOD 11/19/2024 8:36 AM [facility] Platelets 156 130 - 400 K/mcL LAB HEMETOLOGY METHOD 11/19/2024 8:36 AM [facility] MPV 10.0 7.0 - 11.0 FL LAB HEMETOLOGY METHOD 11/19/2024 8:36 AM [facility] NRBC 0.0 <1.0 % LAB HEMETOLOGY METHOD 11/19/2024 8:36 AM [facility] NRBC Absolute 0.00 <0.10 K/mcL LAB HEMETOLOGY METHOD 11/19/2024 8:36 AM [facility] Neutrophils Relative 60.6 % LAB HEMETOLOGY METHOD 11/19/2024 8:36 AM [facility] Lymphocytes Relative 28.0 % LAB HEMETOLOGY METHOD 11/19/2024 8:36 AM [facility] Monocytes Relative 8.3 % LAB HEMETOLOGY METHOD 11/19/2024 8:36 AM [facility] Eosinophils Relative 2.4 % LAB HEMETOLOGY METHOD 11/19/2024 8:36 AM [facility] Basophils Relative 0.5 % LAB HEMETOLOGY METHOD 11/19/2024 8:36 AM [facility] Immature Granulocytes Relative 0.2 % LAB HEMETOLOGY METHOD 11/19/2024 8:36 AM [facility] Neutrophils Absolute 4.96 1.50 - 7.00 K/mcL LAB HEMETOLOGY METHOD 11/19/2024 8:36 AM [facility] Lymphocytes Absolute 2.30 1.00 - 5.00 K/mcL LAB HEMETOLOGY METHOD 11/19/2024 8:36 AM [facility] Monocytes Absolute 0.68 0.20 - 1.00 K/mcL LAB HEMETOLOGY METHOD 11/19/2024 8:36 AM [facility] Eosinophils Absolute 0.20 0.00 - 0.50 K/mcL LAB HEMETOLOGY METHOD 11/19/2024 8:36 AM [facility] Basophils Absolute 0.04 0.00 - 0.20 K/mcL LAB HEMETOLOGY METHOD 11/19/2024 8:36 AM [facility] Immature Granulocytes Absolute 0.02 0.00 - 0.03 K/mcL LAB HEMETOLOGY METHOD 11/19/2024 8:36 AM [facility] Blood Venous blood specimen / Unknown Venipuncture / Unknown 11/19/2024 8:02 AM EDT 11/19/2024 8:24 AM EDT us Manny Del Ashraf DO LAB BLOOD ORDERABLES Final Result [facility] [address] [place] [address], * (ABNORMAL) Basic metabolic panel (11/19/2024 8:02 AM EDT) Sodium 140 133 - 145 mmol/L LAB CHEMISTRY METHOD 11/19/2024 8:56 AM [facility] Potassium 4.7 3.5 - 5.5 mmol/L LAB CHEMISTRY METHOD 11/19/2024 8:56 AM [facility] Chloride 103 96 - 110 mmol/L LAB CHEMISTRY METHOD 11/19/2024 8:56 AM [facility] CO2 31 21 - 32 mmol/L LAB CHEMISTRY METHOD 11/19/2024 8:56 AM [facility] Anion Gap 6 3 - 11 LAB CHEMISTRY METHOD 11/19/2024 8:56 AM [facility] Glucose 135(H) 70 - 100 mg/dL LAB CHEMISTRY METHOD 11/19/2024 8:56 AM [facility] BUN 30(H) 5 - 25 mg/dL LAB CHEMISTRY METHOD 11/19/2024 8:56 AM [facility] Creatinine 1.33(H) 0.70 - 1.30 mg/dL LAB CHEMISTRY METHOD 11/19/2024 8:56 AM [facility] eGFR 53(L) >=60 mL/min/1. 73m2 LAB CHEMISTRY METHOD 11/19/2024 8:56 AM [facility] Comment:Calculation based on the??Chronic Kidney Disease Epidemiology Collaboration (CKD-EPI) equation refit??without adjustment for race. BUN/Creatinine Ratio 22.6 LAB CHEMISTRY METHOD 11/19/2024 8:56 AM [facility] Calcium 9.7 8.5 - 10.5 mg/dL LAB CHEMISTRY METHOD 11/19/2024 8:56 AM EDT [facility] Blood Venous blood specimen / Unknown Venipuncture / Unknown 11/19/2024 8:02 AM EDT 11/19/2024 8:24 AM EDT us Manny Ashraf DO LAB BLOOD ORDERABLES Final Result [facility] [address] [place] [address], [place] [phone] from Last 3 Months Insurance [employer] MEDICARE MEDICAID - [place] Advance Directives Documents on File Type Date Recorded Patient Puttying And Calking Supervisor Expl anation Health Care Decision (hx) 05/10/2020 [...] (hx) 05/10/2020 AD [facility] DIRECTIVE Care Teams [employer]um[employer] Applier Relationship Specialty Start Date End Date Bonilla Quijano MD [address] [place] [address] PCP - General Internal Medicine 07/14/12
--- OUTSIDE RECORDS SUMMARY | 2024-12-21 08:28 | XMS_ITS | Clinical Summary ---
Author Organization [facility] Address [address] [place] [address] Care Team Providers Care Airline Pilot Flight Instructor Name Role Phone Bonilla Quijano MD Primary Care Provider [phone] Allergies Active Allergy Reactions Criticality Noted Date [...] total) by mouth daily. 4 Active nystatin 618916 UNIT/GM powder APPLY ONE GRAM POWDER TOPICALLY [...] patient's age to complete this topic Insurance [facility] MEDICARE [facility] Care Teams Airline Pilot Flight Instructor Relationship Specialty Start Date End Date Bonilla Quijano MD [address] [place] [id number] PCP - General 04/09/23
--- OUTSIDE RECORDS SUMMARY | 2024-12-21 08:28 | XMS_ITS | Encounter Summary ---
Author Organization [facility] [place] [address] Care Team Providers Care Security Patrol Driver Name Role Phone Bonilla Quijano MD Primary Care Provider [phone] Reason for Visit * Reason Onset Date Comments OTHER 12/17/2024 Low INR Encounter Details Date Type Department Care Team (Late st Contact Info) Description 12/17/2024 Telephone [facility] 154 300 [facility] [address] [place] [address] Jose David San MD 300 [facility] [address] [place] [address] OTHER (Low INR) Social History Tobacco Use Types Packs/Day Years [...] as of this encounter Functional Status * Are you deaf or do you have serious difficulty hearing? Answer Date of Assessment Author No 11/19/2024 8:32 AM Xena Wolfe RN * Are you blind or do you have serious difficulty seeing, even when wearing glasses? Answer Date of Assessment Author No 11/19/2024 8:32 AM Xena Wolfe RN * Do you have serious difficulty walking or climbing stairs? Answer Date of Assessment Author No 11/19/2024 8:32 AM Xena Wolfe RN * Do you have serious difficulty dressing or bathing? Answer Date of Assessment Author No 11/19/2024 8:32 AM Xena Wolfe RN * Because of a physical, mental, or emotional condition, do you have serious difficulty doing errandsalone such as visiting the doctor? Answer Date of Assessment Author No 11/19/2024 8:32 AM Xena Wolfe RN documented as of this encounter Mental Status * Because of a physical, mental, or emotional condition, do you have serious difficulty concentrating, remembering, or making decisions? (5 years old or older) Answer Entry Date Author No 11/19/2024 8:32 AM Xena Wolfe RN documented in this encounter Ordered Prescriptions Prescription Sig Dispense Quantity Refills Last Filled Start Date End Date enoxaparin (LOVENOX) 100 mg/mL syringeIndications: Atypical atrial flutter (CMS/HCC V24, CMS/HCC V28),Cerebrovascula r accident (CVA) due to embolism of precerebral artery (CMS/HCC V24, CMS/HCC V28) Inject 1 mL (100 mg total) under the skin every 12 (twelve) hours. 20 mL 1 12/17/2024 documented in this encounter Progress Notes * Kalen Delgado RN - 12/18/2024 7:39 AM EDT Lovenox ordered by Lopez Werner and sent to requested pharmacy yesterday. * Kalen Delgado RN - 12/17/2024 4:57 PM EDT Called quan Mijares son this PM. Made aware that I have talked with another provider in the office Lorri and he will be sending RX for Lovenox to [facility] pharmacy in [place]. Is thankful for the call back. * Bailey Carter - 12/17/2024 4:23 PM EDT Patients son is calling regarding messages below and pharmacy still has not received it, he is concerned the pharmacy will be closing and he believes he is to take it tonight. * Ehsan Schaefer - 12/17/2024 4:11 PM EDT Patient's son called today because [facility] [address] in [place] had not received Lovenox script as below. I informed him we recently put it through and to allow some time for [facility] to process. If there are any questions he can be reached at [phone]. * Kalen Delgado RN - 12/17/2024 3:26 PM EDT LVM with Sofía from [facility] and made aware of further recs below and that RX wassent for Lovenox by us. Is aware if any further questions or concerns on below response from Indio Barrios, to call the office back. * Anina Barrios NP - 12/17/2024 3:22 PM EDT Order sent to pharmacy to begin Lovenox 140 mg (1.5 mg/kg daily) I sent for 3 doses, if he needs additional doses in the PCP cannot or is not available to fill just let us now. I ordered it to continue until INR is greater than 2 * Mae Ordoñez MA - 12/17/2024 2:58 PM EDT Tanja called again, she stated the patient does not have an active order for lovenox and an order would need to be made. She is wondering if we can put an order in as a one time thing until the PCP comes back. Please advise. * Yadi Ledesma MA - 12/17/2024 11:53 AM EDT PCP its on vacation and Tanja at the [facility]mad[facility] clinic doesn't think the covering MD knows patient enough. PCP wont be back until 12/21 Can you submit for Orders for this time being; one time thing She's going to also, find out if patient has any refills on lovenox or not * Yadi Ledesma MA - 12/17/2024 11:01 AM EDT Left message for call back * Annia Barrios NP - 12/17/2024 10:23 AM EDT Patient should be on Lovenox until INR is again therapeutic. Multiple CVAs off of warfarin. This really should be managed by the PCP, but if she cannot reach them just let me know and I will order... * Mae Ordoñez MA - 12/17/2024 10:03 AM EDT Tanja from [facility] called. The patient has been running on the lower side for hisINR, she stated typically around 1.8-1.9. His most recent INR however was 1.5. She stated the patient typically takes 5 mg four days a week, they are increasing to 5 mg five days a week. She stated that this is because he missed doses, she also gave him dietary instructions. She was unsure id Dr San wanted to also add Lovenox. She stated they are retesting his INR on Saturday. This is more of an FYI, however if Lovenox is suggested please reach out to Tanja. documented in this encounter Plan of Treatment Upcoming Encounters Date Type Department Care Team (Late st Contact Info) Description 03/11/2025 1:30 PM EDT Ancillary Procedure [facility] [address] [facility] [address] [place] [address] 05/24/2025 9:25 AM EDT Office Visit [facility] [address] [facility] [address] [place] [phone] Jose David San MD [address] [place] [address] [place] [address] documented as of this encounter Visit Diagnoses Diagnosis Atypical atrial flutter (CMS/HCC V24, CMS/HCC V28)- Primary 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
--- OUTSIDE RECORDS SUMMARY | 2024-12-21 08:28 | XMS_ITS | Data Portability ---
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 for approval. In person pre-op meeting Not available 10/31/2022 16:51:57 03/03/2024 [id number] MRI thoracic spi ne with and without contrast Extension fusion to T7/T8, possible T3-4 osteotomy with instrumentation Preop meeting with me [email or web address] Not available 03/03/2024 14:33:42 06/16/2024 [id number] Mr. 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 Results Created Date Observation Date Name Description Value Unit Range Abnormal Flag Note LastModifiedBy Organization Detail LastModifiedTime 03/27/2003/27/2024 COMPR EHENS DIANA METAB OLIC PANEL sodium 138 mmol/ L 135-14 5 Not Available [facility] [address] [facility], [place], [address], 03/27/2024 11:38:19 03/27/2003/27/2024 COMPR EHENS DIANA METAB OLIC PANEL potassium 5.7 mmol/ L 3.5-5. 3 high Not Available [facility] [address] [facility], [place], [address], 03/27/2024 11:38:19 03/27/20 24 03/27/2024 COMPR EHENS DIANA METAB OLIC PANEL chloride 100 mmol/ L 100-11 2 Not Available [facility] [address] [facility], [place], [address], 03/27/2024 11:38:19 03/27/20 24 03/27/2024 COMPR EHENS DIANA METAB OLIC PANEL total CO2 29 mmol/ L 21-30 Not Available [facility] [address] [facility], [place], [address], 03/27/2024 11:38:19 03/27/20 24 03/27/2024 COMPR EHENS DIANA METAB OLIC PANEL anion gap 9 mmol/ L 4-20 Not Available [facility] [address] [facility], [place], [address], 03/27/2024 11:38:19 03/27/20 24 03/27/2024 COMPR EHENS DIANA METAB OLIC PANEL BUN 28 mg/dL 6-20 high Not Available [facility] - Lab [address] [address], [place], [address], 03/27/2024 11:38:19 03/27/20 24 03/27/2024 COMPR EHENS DIANA METAB OLIC PANEL creatinine 1.30 mg/dL 0.00-1 .30 Not Available [facility] [address] [facility], [place], [address], 03/27/2024 11:38:19 03/27/20 24 03/27/2024 COMPR EHENS DIANA METAB OLIC PANEL glucose 124 mg/dL 70-105 high Not Available [facility] [address] [facility], [place], [address], 03/27/2024 11:38:19 03/27/20 24 03/27/2024 COMPR EHENS DIANA METAB OLIC PANEL calcium 9.6 mg/dL 8.4-10 .2 Not Available [facility] [address] [facility], [place], [address], 03/27/2024 11:38:19 03/27/20 24 03/27/2024 COMPR EHENS DIANA METAB OLIC PANEL total protein 7.4 g/dL 6.5-8. 0 Not Available [facility] [address] [facility], [place], [address], 03/27/2024 11:38:19 03/27/20 24 03/27/2024 COMPR EHENS DIANA METAB OLIC PANEL albumin, blood 4.1 g/dL 3.5-5. 0 Not Available [facility] [address] [facility], [place], [address], 03/27/2024 11:38:19 03/27/20 24 03/27/2024 COMPR EHENS DIANA METAB OLIC PANEL globulin 3.3 g/dL 2.0-4. 0 Not Available [facility] [address] [facility], [place], [address], 03/27/2024 11:38:19 03/27/20 24 03/27/2024 COMPR EHENS DIANA METAB OLIC PANEL AST (SGOT) 69 U/L 0-40 high Speci men hemol yzed; resul t may be inval id. Inter pret with cauti on. Not Available [facility] [address] [facility], [place], [address], 03/27/2024 11:38:19 03/27/20 24 03/27/2024 COMPR EHENS DIANA METAB OLIC PANEL ALT (SGPT) 20 U/L 12-78 Speci men hemol yzed; resul t may be inval id. Inter pret with cauti on. Not Available [facility] - Lab [address] [place], [address], 03/27/2024 11:38:19 03/27/20 24 03/27/2024 COMPR EHENS DIANA METAB OLIC PANEL alk phosphatase 97 U/L 40-120 Speci men hemol yzed; resul t may be inval id. Inter pret with cauti on. Not Available [facility] [address] [facility], [place], [address], 03/27/2024 11:38:19 03/27/20 24 03/27/2024 COMPR EHENS DIANA METAB OLIC PANEL total bilirubin 0.5 mg/dL 0.0-1. 5 Not Available [facility] [address] [facility], [place], [address], 03/27/2024 11:38:19 03/27/20 24 03/27/2024 COMPR EHENS DIANA METAB OLIC PANEL estimated GFR (CKD-epi) 55 mL/mi n/bsa >=60 low Not Available [facility] [address] [facility], [place], [address], 03/27/2024 11:38:19 11/01/19 23 10/31/2022 CT, myelo gram, thora cic spine No observ ation record ed. [email or web address] Not Available 02/18 15:56:53 05/25/20 24 05/05/2024 MRI, thora cic spine , w/wo contr ast No observ ation record ed. [facility] Dept [address] [place] [address], [place], [address], 06/04/2024 15:11:31 Result Notes None recorded. 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 Instrument ation. Not Available [employer] 16:31:37 Problem Notes None recorded. Procedures Surgical History Date Name Laterality Status Provider Name and Address Organization Details Recorded Time 12/26/20 23 Other completed Yimi Ortegatrena STEPHANIE [facility] 03/03/2024 14:00:59 01/04/20 18 Orthopaedic Surgery completed Yimi Grayson MA [facility] 03/03/2024 14:00:32 08/05/19 18 Orthopaedic Surgery completed Dalila Grider MA [facility] 09/04/2022 09:12:44 Orthopaedic Surgery completed Dalila Grider MA [facility] 09/04/2022 09:20:57 Orthopaedic Surgery completed Dalila Grider MA [facility] 09/04/2022 09:21:01 Orthopaedic Surgery completed Dalila Grider MA [facility] 09/04/2022 09:21:05 Orthopaedic Surgery completed Dalila Grider MA [facility] 09/04/2022 09:21:10 Orthopaedic Surgery completed Dalila Grider MA [facility] 09/04/2022 09:21:18 Orthopaedic Surgery completed Dalila Grider MA [facility] 09/04/2022 09:21:34 cardiac pacemaker procedure completed Dalila Grider MA [facility] 09/04/2022 09:21:53 Imaging Results Imaging Date Name Status LastModified by Organiz ation Details LastModified Time 10/31/2022 CT, myelogram, thoracic spine completed [email or web address] Information not available 02/18/2023 15:56:53 05/05/2024 MRI, thoracic spine, w/wo contrast completed [facility] [address] [place] [address], [address], 06/04/2024 15:11:31 Procedure Notes None recorded. Medical Equipment None Reported. Allergies Allergen ID Allergen Name Allergen Category Reaction Reaction Severity Criticality Documentation Date Start Date Code Code System Note Provider Name and Address Organization Details Recorded Time 537064 morphine medicatio n Not available Not available Not available 07/12/2022 7052 RxNorm React ion: Unkno wn, sever ity: Unkno wn Not Available [facility] 22:22:36 476973 latex environme nt,medica tion Not available Not available Not available 09/04/2022 33051 91 RxNorm Dalila Grider [facility] 09:17:14 Medications Name Sig Start Date Stop [...] Updated DateTime 09/04/2022 165.1 cm 33.3 kg/m2 74466.47 g Dalila Huertaenter [facility] 09/04/2022 09:16:56 Date Recorded Body height Body mass index (BMI) Body weight Provider Name and Address Organization Details Last Updated DateTime 10/31/2022 165.1 cm 33.3 kg/m2 05734.47 g Dalila Huertaenter [facility] 10/31/2022 13:34:45 Social History None recorded. Functional Status Question Answer Note LastModified by Organizat ion Details LastModified Time What is your level of alcohol consumption? None Information not available 03/03/2024 Do you or have you ever used smokeless tobacco? Never used smokeless tobacco Information not available 03/03/2024 Are you currently employed? No [email or web address] Information not available 09/04/2022 What is your occupation? Disabled Information not available 03/03/2024 Do you or have you ever used e-cigarettes or vape? Never used electronic cigarettes Information not available 03/03/2024 Mental Status None recorded. 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 [id number] ASHU WOODS MD [facility] Office [address] [address] 10/31/2022 12:13:15 10/31/2022 13:49:37 Degeneration of thoracic intervertebral disc 14651568 M51.34 T3-T7 posterior fusion, extension. Instrument ation. [id number] ASHU WOODS MD [facility] Office [address] [place] [phone] 03/03/2024 13:23:12 03/03/2024 21:35:17 Degeneration of thoracic intervertebral disc 22336371 M51.34 [id number] ASHU WOODS MD [facility] [address] [place] [phone] 06/16/2024 13:55:38 07/23/2024 10:43:28 Degeneration of thoracic intervertebral disc 38972507 M51.34 Health Concerns Section Related Observation LastModified by Organization Detai ls LastModified Time None Recorded Concern Status LastModified by Organization Details LastModified Time None Recorded Advance Directives Directive None Recorded Payers Insurance Date Sequence Insurance Name Policy Number Policy Oliver Covered Member ID Oliver Member ID Guarantor Name 09/14/2022 [employer] 09/14/2022 [employer] Notes Date Note Type Note Provider Name [...] 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 ASHU WOODS MD [address] [place] [address], [phone], [facility] 09/04/2022 15:00:03 10/31/2022 text/html Raine is here w ith his son follow-up after thoracic CT myelogram. ASHU WOODS MD [address] [place] [address], [phone], [facility] 10/31/2022 16:52:05 03/03/2024 text/html Last visit here [...] according to the patient. ASHU WOODS MD [address] [place] [address], [phone], [facility] 03/03/2024 15:45:53 06/16/2024 text/html Here for MRI review. He states he has not had no improvement upper back pain still very sore. He also has pain in his thigh and calf ASHU WOODS MD [address] [place] [address], [phone], [facility] 06/16/2024 16:37:04
[2024-12-21 08:30] LABS: Prothrombin Time Whole Bld POC 26.2 sec (11.1-13.5); ~PT, ~INR - Anti Coag Clinic 2.2 (0.9-1.1)
--- NOTE | 2024-12-21 08:38 | MHC.OFFVISCO ---
Intake Intake Visit Reasons: Anticoagulation Allergies morphine Allergy (Severe, Verified 12/21/24 08:24) Rash baclofen Adverse Reaction (Intermediate, Verified 12/21/24 08:24) Confusion codeine Adverse Reaction (Intermediate, Verified 12/21/24 08:24) GI UPSET divalproex sodium [From Depakote] Adverse Reaction (Intermediate, Verified 12/21/24 08:24) Chest Pain latex Adverse Reaction (Intermediate, Verified 12/21/24 08:24) RASH Medication List - Last Reconciled 12/21/24 by Sofía Gillette RN acetaminophen ER 1,300 mg PO Q12H allopurinol 200 mg PO DAILY atorvastatin 80 mg PO DAILY brimonidine 0.2% 0 drps ophthalmic (eye) buprenorphine 10 mcg/hour 1 patch topical QWEEK chlorthalidone 25 mg PO DAILY cholecalciferol (vitamin D3) PO clopidogrel 75 mg PO DAILY duloxetine 30 mg PO BID erythromycin ophthalmic (eye) gabapentin 600 mg PO TID isosorbide mononitrate ER 30 mg PO DAILY ketorolac 0.5% drps ophthalmic (eye) latanoprost 0.005% drps ophthalmic (eye) lisinopril 20 mg PO DAILY fy-hyy-FY-vit [id number]-[id number] (PreserVision AREDS 2 Plus MV) PO nitroglycerin mg sublingual omeprazole 20 mg PO DAILY PRN prednisolone acetate 1% 1 drp ophthalmic (eye) BID sotalol 120 mg PO BID [carlene bio healer topical] timolol maleate 0.5% 0 drps ophthalmic (eye) triamcinolone acetonide 0.1% 1 appl topical BID-TID warfarin 5 mg See Protocol PO DAILY Nursing Note INR: 2.2 in therapeutic range- previous INR was low r/t missed doses Enc to check date off on dosing paper along with pill box Medications and supplements reviewed had eyelid scratch- healed now with topical save. Denies any signs and symptoms of bleeding or bruising or clotting. 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
== END 2024-12-21 08:45 | disposition home or self-care (01) ==
LOC: HO.ACS 08:22
PROVIDERS: PCP Internal Medicine; Visit Provider Internal Medicine Medical Oncology
DX: Z79.01 Long term (current) use of anticoagulants (principal)

== ENCOUNTER → 2024-12-21 08:22 | Outpatient (BNVA) | payer MEDICARE, SELFPAY | PROVIDERS: PCP Internal Medicine; Visit Provider Internal Medicine Medical Oncology | DX: I48.19 Other persistent atrial fibrillation (principal); Z79.01 Long term (current) use of anticoagulants; Z51.81 Encounter for therapeutic drug level monitoring | CPT/HCPCS: 85610; 99211 ==

== ENCOUNTER 2025-01-04 08:15 | Outpatient (AMB) | payer MEDICARE, SELFPAY ==
--- OUTSIDE RECORDS SUMMARY | 2025-01-04 08:22 | XMS_ITS | Encounter Summary ---
Author Organization [facility] [place] [address] Care Team Providers Care Musculoskeletal Physician Name Role Phone Bonilla Quijano MD Primary Care Provider [phone] Encounter Details Date Type Department Care Team (Late st Contact Info) Description 05/05/2024 9:52 AM EDT Hospital Encounter TH HISTORIC ENCOUNTERS EASTERN CONVERSION ONLY Soto Stephenson MD [address] [place] [phone] Social History Tobacco Use Types Packs/Day [...] Description 03/11/2025 1:30 PM EDT Ancillary Procedure [facility] Cardiology [facility] [address] [phone] 05/24/2025 9:25 AM EDT Office Visit [facility] - [facility] [address] 300 [facility] [address] [place] [address] Jose David San MD [address] [address] documented as of this encounter Visit Diagnoses Not on filedocumented in this encounter Care Teams Musculoskeletal Physician Relationship Specialty Start Date End Date Bonilla Quijano MD [address] [place] [address] PCP - General Internal Medicine 07/14/12 documented as of this encounter
[2025-01-04 08:23] LABS: Prothrombin Time Whole Bld POC 26.9 sec (11.1-13.5); ~PT, ~INR - Anti Coag Clinic 2.2 (0.9-1.1)
--- NOTE | 2025-01-04 08:32 | MHC.OFFVISCO ---
Intake Intake Visit Reasons: Anticoagulation Allergies morphine Allergy (Severe, Verified 01/04/25 08:16) Rash baclofen Adverse Reaction (Intermediate, Verified 01/04/25 08:16) Confusion codeine Adverse Reaction (Intermediate, Verified 01/04/25 08:16) GI UPSET divalproex sodium [From Depakote] Adverse Reaction (Intermediate, Verified 01/04/25 08:16) Chest Pain latex Adverse Reaction (Intermediate, Verified 01/04/25 08:16) RASH Medication List - Last Reconciled 01/04/25 by Sofía Gillette, RN acetaminophen ER 1,300 mg PO Q12H allopurinol 200 mg PO DAILY atorvastatin 80 mg PO DAILY brimonidine 0.2% 0 drps ophthalmic (eye) buprenorphine 10 mcg/hour 1 patch topical QWEEK chlorthalidone 25 mg PO DAILY cholecalciferol (vitamin D3) PO clopidogrel 75 mg PO DAILY duloxetine 30 mg PO BID erythromycin ophthalmic (eye) gabapentin 600 mg PO TID isosorbide mononitrate ER 30 mg PO DAILY ketorolac 0.5% drps ophthalmic (eye) latanoprost 0.005% drps ophthalmic (eye) lisinopril 20 mg PO DAILY [id number]-vit [id number]-[id number] (PreserVision AREDS 2 Plus MV) PO nitroglycerin mg sublingual omeprazole 20 mg PO DAILY PRN prednisolone acetate 1% 1 drp ophthalmic (eye) BID sotalol 120 mg PO BID timolol maleate 0.5% 0 drps ophthalmic (eye) triamcinolone acetonide 0.1% 1 appl topical BID-TID warfarin 5 mg See Protocol PO DAILY Nursing Note INR: 2.2 in therapeutic range Medications and supplements reviewed No changes in health, diet, medications, or supplements, to have nerve conduction study Denies any signs and symptoms of bleeding or bruising or clotting. Bleeding, bruising, clotting discussed Nutritional guidance given Dose: keep same dose 2.5mg x 3 days/ 5mg x 4 days F/U INR: 3 weeks Patient verbalizes understanding of instructions given Coding Level of Care Code Est Patient Level 1 Diagnoses Current use of anticoagulant therapy Z79.01 Assessment & Plan Assessment & Plan (1) Current use of anticoagulant therapy: Code(s): Z79.01 - USP (current) 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
== END 2025-01-04 08:35 | disposition home or self-care (01) ==
LOC: HO.ACS 08:15
PROVIDERS: PCP Internal Medicine; Visit Provider Internal Medicine Medical Oncology
DX: Z79.01 Long term (current) use of anticoagulants (principal)

== ENCOUNTER → 2025-01-04 08:15 | Outpatient (BNVA) | payer MEDICARE, SELFPAY | PROVIDERS: PCP Internal Medicine; Visit Provider Internal Medicine Medical Oncology | DX: I48.19 Other persistent atrial fibrillation (principal); Z51.81 Encounter for therapeutic drug level monitoring; Z79.01 Long term (current) use of anticoagulants | CPT/HCPCS: 85610; 99211 ==

== ENCOUNTER 2025-01-25 07:54 | Outpatient (AMB) | payer MEDICARE, SELFPAY ==
--- OUTSIDE RECORDS SUMMARY | 2024-05-05 09:52 | XMS_ITS | Encounter Summary ---
Author Organization [facility] [place] [address] Care Team Providers Care Carbon Coating Machine Operator Name Role Phone Bonilla Quijano MD Primary Care Provider [phone] Encounter Details Date Type Department Care Team (Late st Contact Info) Description 05/05/2024 9:52 AM EDT Hospital Encounter TH HISTORIC ENCOUNTERS EASTERN CONVERSION ONLY Soto Stephenson MD [address] [place] [phone] Social History Tobacco Use Types Packs/Day [...] Description 03/11/2025 1:30 PM EDT Ancillary Procedure [facility] Cardiology [facility] [address] [address] 05/24/2025 9:25 AM EDT Office Visit [facility] - [facility] 154 300 [facility] 154 [place] [address] Jose David San MD [address] [address] documented as of this encounter Visit Diagnoses Not on filedocumented in this encounter Care Teams Carbon Coating Machine Operator Relationship Specialty Start Date End Date Bonilla Quijano MD [address] [place] [address] PCP - General Internal Medicine 07/14/12 documented as of this encounter
[2025-01-25 08:10] LABS: Prothrombin Time Whole Bld POC 21.7 sec (11.1-13.5); ~PT, ~INR - Anti Coag Clinic 1.8 (0.9-1.1)
--- NOTE | 2025-01-25 08:19 | MHC.OFFVISCO ---
Intake Intake Visit Reasons: Anticoagulation Allergies morphine Allergy (Severe, Verified 01/25/25 08:05) Rash baclofen Adverse Reaction (Intermediate, Verified 01/25/25 08:05) Confusion codeine Adverse Reaction (Intermediate, Verified 01/25/25 08:05) GI UPSET divalproex sodium (From Depakote) Adverse Reaction (Intermediate, Verified 01/25/25 08:05) Chest Pain latex Adverse Reaction (Intermediate, Verified 01/25/25 08:05) RASH Medication List - Last Reconciled 01/25/25 by Aster Barksdale, RN acetaminophen ER 1,300 mg PO Q12H allopurinol 200 mg PO DAILY atorvastatin 80 mg PO DAILY brimonidine 0.2% 0 drps ophthalmic (eye) buprenorphine 10 mcg/hour 1 patch topical QWEEK chlorthalidone 25 mg PO DAILY cholecalciferol (vitamin D3) PO clopidogrel 75 mg PO DAILY duloxetine 30 mg PO BID erythromycin ophthalmic (eye) gabapentin 600 mg PO TID isosorbide mononitrate ER 30 mg PO DAILY ketorolac 0.5% drps ophthalmic (eye) latanoprost 0.005% drps ophthalmic (eye) lisinopril 20 mg PO DAILY ow-rah-WI-vit S-hcdbjy-vpvhcpa (PreserVision AREDS 2 Plus MV) PO nitroglycerin mg sublingual omeprazole 20 mg PO DAILY PRN prednisolone acetate 1% 1 drp ophthalmic (eye) BID sotalol 120 mg PO BID timolol maleate 0.5% 0 drps ophthalmic (eye) triamcinolone acetonide 0.1% 1 appl topical BID-TID warfarin 5 mg See Protocol PO DAILY Nursing Note Pt to ACS with use of wheeled walker accompanied by son INR: 1.8?out of therapeutic range of 2-3 Pt denies missed dose . Appetite good. No changes in health, medications or supplements Patient status: no changes Diet: usual diet for pt Denies any signs and symptoms of bleeding or clotting or unusual bruising Bleeding, bruising, clotting discussed Nutritional guidance given: to avoid greens today and to have a serving of foods from the list that raises the INR Dose: increase today's dose to 5mg (2.5mg) then increase weekly dose by 2.5mg to 5mg X 5 days and 2.5mg X 2 days (Wed & Sat) F/U INR Date: 1 week?? Patient verbalizing understanding of instructions given. 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
== END 2025-01-25 08:27 | disposition home or self-care (01) ==
LOC: HO.ACS 07:54
PROVIDERS: PCP Internal Medicine; Visit Provider Internal Medicine Medical Oncology
DX: Z79.01 Long term (current) use of anticoagulants (principal)

== ENCOUNTER → 2025-01-25 07:54 | Outpatient (BNVA) | payer MEDICARE, SELFPAY | PROVIDERS: PCP Internal Medicine; Visit Provider Internal Medicine Medical Oncology | DX: I48.19 Other persistent atrial fibrillation (principal); Z79.01 Long term (current) use of anticoagulants; Z51.81 Encounter for therapeutic drug level monitoring | CPT/HCPCS: 85610; 99211 ==

== ENCOUNTER 2025-02-01 08:23 | Outpatient (AMB) | payer MEDICARE, SELFPAY ==
--- OUTSIDE RECORDS SUMMARY | 2024-05-05 09:52 | XMS_ITS | Encounter Summary ---
Author Organization [facility] [place] [address] Care Team Providers Care Spike Machine Heater Name Role Phone Bonilla Quijano MD Primary Care Provider [phone] Encounter Details Date Type Department Care Team (Late st Contact Info) Description 05/05/2024 9:52 AM EDT Hospital Encounter TH HISTORIC ENCOUNTERS EASTERN CONVERSION ONLY Soto Stephenson MD [address] [place] [phone] Social History Tobacco Use Types Packs/Day [...] Description 03/11/2025 1:30 PM EDT Ancillary Procedure [facility] [address] [address] 05/24/2025 9:25 AM EDT Office Visit [facility] - [facility] 154 300 [facility] 154 [place] [address] Jose David San MD [address] [address] documented as of this encounter Visit Diagnoses Not on filedocumented in this encounter Care Teams Spike Machine Heater Relationship Specialty Start Date End Date Bonilla Quijano MD [address] [place] [address] PCP - General Internal Medicine 07/14/12 documented as of this encounter
[2025-02-01 08:35] LABS: Prothrombin Time Whole Bld POC 26.9 sec (11.1-13.5); ~PT, ~INR - Anti Coag Clinic 2.2 (0.9-1.1)
--- NOTE | 2025-02-01 08:43 | MHC.OFFVISCO ---
Intake Intake Visit Reasons: Anticoagulation Allergies morphine Allergy (Severe, Verified 02/01/25 08:27) Rash baclofen Adverse Reaction (Intermediate, Verified 02/01/25 08:27) Confusion codeine Adverse Reaction (Intermediate, Verified 02/01/25 08:27) GI UPSET divalproex sodium (From Depakote) Adverse Reaction (Intermediate, Verified 02/01/25 08:27) Chest Pain latex Adverse Reaction (Intermediate, Verified 02/01/25 08:27) RASH Medication List - Last Reconciled 02/01/25 by Aster Barksdale, RN acetaminophen ER 1,300 mg PO Q12H allopurinol 200 mg PO DAILY atorvastatin 80 mg PO DAILY brimonidine 0.2% 0 drps ophthalmic (eye) buprenorphine 10 mcg/hour 1 patch topical QWEEK chlorthalidone 25 mg PO DAILY cholecalciferol (vitamin D3) PO clopidogrel 75 mg PO DAILY duloxetine 30 mg PO BID erythromycin ophthalmic (eye) gabapentin 600 mg PO TID isosorbide mononitrate ER 30 mg PO DAILY ketorolac 0.5% drps ophthalmic (eye) latanoprost 0.005% drps ophthalmic (eye) lisinopril 20 mg PO DAILY xa-mmu-CS-vit O-dlamhq-mcsxgyo (PreserVision AREDS 2 Plus MV) PO nitroglycerin mg sublingual omeprazole 20 mg PO DAILY PRN prednisolone acetate 1% 1 drp ophthalmic (eye) BID sotalol 120 mg PO BID timolol maleate 0.5% 0 drps ophthalmic (eye) triamcinolone acetonide 0.1% 1 appl topical BID-TID warfarin 5 mg See Protocol PO DAILY Nursing Note Pt to ACS with use of wheeled walker accompanied by son. INR: 2.2 in therapeutic range of 2-3 Medications and supplements reviewed No changes in health, diet, medications, or supplements, Denies any signs and symptoms of bleeding or bruising or clotting. Bleeding, bruising, clotting discussed Nutritional guidance given to have a serving of foods that raise the INR. Food list reviewed. Dose: 5mg X 5 days and 2.5mg X 2 days (Wed & Sat) F/U INR: 2 weeks Patient and son verbalizes understanding of instructions given Coding Level of Care Code Est Patient Level 1 Diagnoses Current use of anticoagulant therapy Z79.01 Assessment & Plan Assessment & Plan (1) Current use of anticoagulant therapy: Code(s): Z79.01 - prison (current) 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
== END 2025-02-01 08:45 | disposition home or self-care (01) ==
LOC: HO.ACS 08:23
PROVIDERS: PCP Internal Medicine; Visit Provider Internal Medicine Medical Oncology
DX: Z79.01 Long term (current) use of anticoagulants (principal)

== ENCOUNTER → 2025-02-01 08:23 | Outpatient (BNVA) | payer MEDICARE, SELFPAY | PROVIDERS: PCP Internal Medicine; Visit Provider Internal Medicine Medical Oncology | DX: I48.19 Other persistent atrial fibrillation (principal); Z79.01 Long term (current) use of anticoagulants; Z51.81 Encounter for therapeutic drug level monitoring | CPT/HCPCS: 85610; 99211 ==

== ENCOUNTER 2025-02-15 08:45 | Outpatient (AMB) | payer MEDICARE, SELFPAY ==
--- OUTSIDE RECORDS SUMMARY | 2024-05-05 09:52 | XMS_ITS | Encounter Summary ---
Author Organization [facility] [place] [address] Care Team Providers Care Police Superintendent Name Role Phone Bonilla Quijano MD Primary Care Provider [phone] Encounter Details Date Type Department Care Team (Late st Contact Info) Description 05/05/2024 9:52 AM EDT Hospital Encounter TH HISTORIC ENCOUNTERS EASTERN CONVERSION ONLY Soto Stephenson MD [address] [place] [phone] Social History Tobacco Use Types Packs/Day [...] Care Team (Late st Contact Info) Description 03/11/2025 1:30 PM EDT Ancillary Procedure [facility] Cardiology [facility] [address] [address] 05/24/2025 9:25 AM EDT Office Visit [facility] 154 300 [facility] 154 [place] [address] Jose David San MD [address] [address] documented as of this encounter Visit Diagnoses Not on filedocumented in this encounter Care Teams Police Superintendent Relationship Specialty Start Date End Date Bonilla Quijano MD [address] [place] [address] PCP - General Internal Medicine 07/14/12 documented as of this encounter
--- NOTE | 2025-02-15 08:46 | MHC.OFFVISCO ---
Intake Intake Visit Reasons: Anticoagulation Allergies morphine Allergy (Severe, Verified 02/15/25 08:37) Rash baclofen Adverse Reaction (Intermediate, Verified 02/15/25 08:37) Confusion codeine Adverse Reaction (Intermediate, Verified 02/15/25 08:37) GI UPSET divalproex sodium (From Depakote) Adverse Reaction (Intermediate, Verified 02/15/25 08:37) Chest Pain latex Adverse Reaction (Intermediate, Verified 02/15/25 08:37) RASH Medication List - Last Reconciled 02/15/25 by Aster Barksdale RN acetaminophen ER 1,300 mg PO Q12H allopurinol 200 mg PO DAILY atorvastatin 80 mg PO DAILY brimonidine 0.2% 0 drps ophthalmic (eye) buprenorphine 10 mcg/hour 1 patch topical QWEEK chlorthalidone 25 mg PO DAILY cholecalciferol (vitamin D3) PO clopidogrel 75 mg PO DAILY duloxetine 30 mg PO BID erythromycin ophthalmic (eye) gabapentin 600 mg PO TID isosorbide mononitrate ER 30 mg PO DAILY ketorolac 0.5% drps ophthalmic (eye) latanoprost 0.005% drps ophthalmic (eye) lisinopril 20 mg PO DAILY jo-kux-DR-vit T-yntgxy-jqjzbwn (PreserVision AREDS 2 Plus MV) PO nitroglycerin mg sublingual omeprazole 20 mg PO DAILY PRN polyethylene glycol 3350 4 grams PO .prn prednisolone acetate 1% 1 drp ophthalmic (eye) BID sotalol 120 mg PO BID timolol maleate 0.5% 0 drps ophthalmic (eye) triamcinolone acetonide 0.1% 1 appl topical BID-TID warfarin 5 mg See Protocol PO DAILY Nursing Note INR: 2.7 in therapeutic range of 2-3 Medications and supplements reviewed No changes in health, diet, medications, or supplements, Denies any signs and symptoms of bleeding or bruising or clotting. Bleeding, bruising, clotting discussed Nutritional guidance given Dose: 5mg X 5 days and 2.5mg X 2 days (Wed & Sat) F/U INR: 3 weeks Patient verbalizes understanding of instructions given Coding Level of Care Code Est Patient Level 1 Diagnoses Current use of anticoagulant therapy Z79.01 Results AMB INR Fingerstick AMB INR Fingerstick 2.7 Last Edit by Aster Barksdale, NEHEMIAS on 02/15/25 08:46 interface delay Assessment & Plan Assessment & Plan (1) Current use of anticoagulant therapy: Code(s): Z79.01 - senior living (current) 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
--- OUTSIDE RECORDS SUMMARY | 2025-02-15 08:51 | XMS_ITS | Clinical Summary ---
Author Organization [facility] Address [address] [place] [address] Care Team Providers Care Rn Faculty Name Role Phone Bonilla Quijano MD Primary Care Provider [phone] Allergies Active Allergy Reactions Criticality Noted Date [...] total) by mouth daily. 4 Active nystatin 708455 UNIT/GM powder APPLY ONE GRAM POWDER TOPICALLY [...] patient's age to complete this topic Insurance [facility] MEDICARE [facility] Care Teams Rn Faculty Relationship Specialty Start Date End Date Bonilla Quijano MD [address] [place] [phone] PCP - General 04/09/23
--- OUTSIDE RECORDS SUMMARY | 2025-02-15 08:51 | XMS_ITS ---
Author Name [facility] Organization Unknown History of Medication Use Medication Directions Dispensed Refills Start Date End Date Stat us timolol (TIMOPTIC) 0.5 % ophthalmic solution INSTILL 1 DROP INTO EACH EYE TWICE DAILY 09/18/2023 active nystatin 273639 UNIT/GM powder APPLY ONE GRAM POWDER TOPICALLY ONCE DAILY 08/27/2023 active clopidogrel (PLAVIX) 75 MG tablet Take 1 tablet (75 mg total) by mouth daily. 07/31/2023 active triamcinolone (KENALOG) 0.1 % cream apply topically once daily as needed, mix with moisturizer 04/09/2023 active allopurinol (ZYLOPRIM) 100 mg tablet 03/06/2023 active brimonidine (ALPHAGAN) 0.2 % ophthalmic solution INSTILL 1 DROP INTO LEFT EYE TWICE DAILY 02/27/2023 active atorvastatin (LIPITOR) 40 MG tablet 02/01/2023 active chlorthalidone (HYGROTON) 25 MG tablet 02/01/2023 active Allergies Allergen Reaction Severity Comment Documented Date Source Statu s MORPHINE HIVES 04/09/2023 [facility] active ADHESIVES/TAPE UNKNOWN/PATIENT AND FAMILY UNABLE TO DEFINE [facility] CODEINE GI INTOLERANCE/NAUSEA/VOMI TING [facility] Problems Problem Status Onset Date Problem Type Date of Resoluti on Source Inflamed seborrheic keratosis active EncounterDiagnosisAct [facility] Lentigines active EncounterDiagnosisAct [facility] Actinic keratosis active EncounterDiagnosisAct [facility] Sebaceous hyperplasia active EncounterDiagnosisAct [facility] History of basal cell carcinoma (BCC) active EncounterDiagnosisAct [facility] Seborrheic keratosis active EncounterDiagnosisA ct [facility] Vieyra angioma active EncounterDiagnosisAct [facility] Multiple melanocytic nevi active EncounterDiagnosisAct [facility] Encounters Encounter Type Encounter Reason Primary Diagnosis Location Date Ambulatory Actinic keratosis Actinic keratosis [facility] 10/08/2023 Ambulatory 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 NO PCP Primary Care 04/09/2023 04/09/2023
--- OUTSIDE RECORDS SUMMARY | 2025-02-15 08:51 | XMS_ITS | Data Portability ---
Author Organization [facility]AN[facility] - Cash Fitzpatrick [facility], [facility] Address [address] [place] [address] Assessment Encounter Date Assessment Date Assessment LastModified [...] Address Organization Details Recorded Time No complaints [id number] Active Status : 'I'; Not Available [facility] 4 09:28:03 Problem Notes None recorded. Medical Equipment None Reported. Allergies Allergen ID Allergen Name Allergen Category Reaction Reaction Severity Criticality Documentation Date Start Date Code Code System Note Provider Name and Address Organization Details Recorded Time 92314 codeine sulfate medicatio n Not available Not available Not available 10/07/20232016 74264 RxNorm Not Available [facility] 4 12:08:52 42319 morphine sulfate medicatio n Not available Not available Not available 10/07/20232013 04735 RxNorm Not Available [facility] 12:08:52 Medications Name Sig Start [...] Updated DateTime 12/27/2023 165.1 cm 35.1 kg/m2 71871.99 g SCAR VELIZ [place] - [facility] 12/27/2023 09:09:13 Social History None recorded. Functional Status None recorded. Mental Status None recorded. Family History Nothing Reported. Medical History No medical history recorded. Past Encounters Encounter ID Performer Location Encounter Start Date Encounter Closed Date Diagnosis/Indication Diagnosis SNOMED-CT Code Diagnosis ICD10 Code Diagnosis Note [id number] Augie Simons MD [place] [address] [place] [address] 12/27/2023 08:37:56 01/15/2024 11:37:33 Lumbar post-laminectomy syndrome 397124768 M96.1 Health Concerns Section Related Observation LastModified by Organization Detai ls LastModified Time None Recorded Concern Status LastModified by Organization Details LastModified Time None Recorded Advance Directives Directive None Recorded Payers Insurance Date Sequence Insurance Name Policy Number Policy Oliver Covered Member ID Oliver Member ID Guarantor Name 10/25/2023 SLIDING FEE SCHEDULE - DISCOUNT aRine Ken 03/11/2024 2 [place] [facility] Raine Ken [id number] Raine Ken 01/15/2024 1 [facility] (MEDICARE REPLACEMENT/A DVANTAGE - PPO) [id number] Raine Ken [id number] Raine Ken Notes Date Note Type Note [...] Not indicated PHYSICAL EXAMINATION: Augie Simons MD [address] [place] [address] [address], [place], [address], [facility] - [facility] 12/27/2023 12:28:38
[2025-02-15 09:30] LABS: Prothrombin Time Whole Bld POC 32.9 sec (11.1-13.5); ~PT, ~INR - Anti Coag Clinic 2.7 (0.9-1.1)
== END 2025-02-15 08:51 | disposition home or self-care (01) ==
LOC: HO.ACS 08:45
PROVIDERS: PCP Internal Medicine; Visit Provider Internal Medicine Medical Oncology
DX: Z79.01 Long term (current) use of anticoagulants (principal)

== ENCOUNTER → 2025-02-15 08:45 | Outpatient (BNVA) | payer MEDICARE, SELFPAY | PROVIDERS: PCP Internal Medicine; Visit Provider Internal Medicine Medical Oncology | DX: I48.19 Other persistent atrial fibrillation (principal); Z79.01 Long term (current) use of anticoagulants; Z51.81 Encounter for therapeutic drug level monitoring | CPT/HCPCS: 85610; 99211 ==

== ENCOUNTER 2025-03-08 08:05 | Outpatient (AMB) | payer MEDICARE, SELFPAY ==
--- OUTSIDE RECORDS SUMMARY | 2024-05-05 09:52 | XMS_ITS | Encounter Summary ---
Author Organization [facility] [place] [address] Care Team Providers Care Slotter Operator Name Role Phone Bonilla Quijano MD Primary Care Provider [phone] Encounter Details Date Type Department Care Team (Late st Contact Info) Description 05/05/2024 9:52 AM EDT Hospital Encounter TH HISTORIC ENCOUNTERS EASTERN CONVERSION ONLY Soto Stephenson MD [address] [place] [phone] Social History Tobacco Use Types Packs/Day [...] Description 04/07/2025 8:00 AM EDT Ancillary Procedure [facility] Cardiology [facility] [address] [address] 05/24/2025 9:25 AM EDT Office Visit [facility] 154 300 [facility] 154 [place] [address] Jose David San MD [address] [address] documented as of this encounter Visit Diagnoses Not on filedocumented in this encounter Care Teams Slotter Operator Relationship Specialty Start Date End Date Bonilla Quijano MD [address] [place] [address] PCP - General Internal Medicine 07/14/12 documented as of this encounter
--- OUTSIDE RECORDS SUMMARY | 2025-03-08 08:08 | XMS_ITS | Clinical Summary ---
Author Organization [facility] Address [address] [place] [address] Care Team Providers Care Criminal Justice Professor Name Role Phone Bonilla Quijano MD Primary Care Provider [phone] Allergies Active Allergy Reactions Criticality Noted Date [...] total) by mouth daily. 4 Active nystatin 333013 UNIT/GM powder APPLY ONE GRAM POWDER TOPICALLY [...] patient's age to complete this topic Insurance [facility] MEDICARE [facility] Care Teams Criminal Justice Professor Relationship Specialty Start Date End Date Bonilla Quijano MD [address] [place] [id number] PCP - General 04/09/23
--- NOTE | 2025-03-08 08:34 | MHC.OFFVISCO ---
Intake Intake Visit Reasons: Anticoagulation Allergies morphine Allergy (Severe, Verified 03/08/25 08:23) Rash baclofen Adverse Reaction (Intermediate, Verified 03/08/25 08:23) Confusion codeine Adverse Reaction (Intermediate, Verified 03/08/25 08:23) GI UPSET divalproex sodium (From Depakote) Adverse Reaction (Intermediate, Verified 03/08/25 08:23) Chest Pain latex Adverse Reaction (Intermediate, Verified 03/08/25 08:23) RASH Medication List - Last Reconciled 03/08/25 by Sofía Gillette RN acetaminophen ER 1,300 mg PO Q12H allopurinol 200 mg PO DAILY atorvastatin 80 mg PO DAILY brimonidine 0.2% 0 drps ophthalmic (eye) buprenorphine 10 mcg/hour 1 patch topical QWEEK chlorthalidone 25 mg PO DAILY cholecalciferol (vitamin D3) PO clopidogrel 75 mg PO DAILY duloxetine 30 mg PO BID erythromycin ophthalmic (eye) gabapentin 600 mg PO TID isosorbide mononitrate ER 30 mg PO DAILY ketorolac 0.5% drps ophthalmic (eye) latanoprost 0.005% drps ophthalmic (eye) lisinopril 20 mg PO DAILY ul-eqr-MP-vit X-wmpthg-xdfsziy (PreserVision AREDS 2 Plus MV) PO nitroglycerin mg sublingual omeprazole 20 mg PO DAILY PRN polyethylene glycol 3350 4 grams PO .prn prednisolone acetate 1% 1 drp ophthalmic (eye) BID sotalol 120 mg PO BID timolol maleate 0.5% 0 drps ophthalmic (eye) triamcinolone acetonide 0.1% 1 appl topical BID-TID warfarin 5 mg See Protocol PO DAILY Nursing Note INR: 2.4 in therapeutic range Medications and supplements reviewed No changes in health, diet, medications, or supplements, *it was notice pt had small amount of dried mouth around his mouth,pt states he sometimes wakes up with blood around his mouth and on his pillow - not sure exactly where from - appears to be from shaving, pt states he thinks it may be reflux, he was enc to discuss with md - he states with health he doesnt care- Denies any signs and symptoms of bruising or clotting. Bleeding, bruising, clotting discussed Nutritional guidance given Dose: 2.5mg x 2 days/ 5mg x 5 days F/U INR: 3 weeks Patient verbalizes understanding of instructions given Coding Level of Care Code Est Patient Level 1 Diagnoses Current use of anticoagulant therapy Z79.01 Results AMB INR Fingerstick AMB INR Fingerstick 2.4 Last Edit by Sofía Gillette RN on 03/08/25 08:32 manual entry Assessment & Plan Assessment & Plan (1) Current use of anticoagulant therapy: Code(s): Z79.01 - [facility] (current) 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
[2025-03-08 08:50] LABS: Prothrombin Time Whole Bld POC 29.1 sec (11.1-13.5); ~PT, ~INR - Anti Coag Clinic 2.4 (0.9-1.1)
== END 2025-03-08 08:41 | disposition home or self-care (01) ==
LOC: HO.ACS 08:05
PROVIDERS: PCP Internal Medicine; Visit Provider Internal Medicine Medical Oncology
DX: Z79.01 Long term (current) use of anticoagulants (principal)

== ENCOUNTER → 2025-03-08 08:05 | Outpatient (BNVA) | payer MEDICARE, SELFPAY | PROVIDERS: PCP Internal Medicine; Visit Provider Internal Medicine Medical Oncology | DX: Z51.81 Encounter for therapeutic drug level monitoring (principal); Z79.01 Long term (current) use of anticoagulants | CPT/HCPCS: 85610; 99211 ==

== ENCOUNTER 2025-03-29 07:59 | Outpatient (AMB) | payer MEDICARE, SELFPAY ==
--- OUTSIDE RECORDS SUMMARY | 2024-05-05 09:52 | XMS_ITS | Encounter Summary ---
Author Organization [facility] [place] [address] Care Team Providers Care Mesmerist Name Role Phone Bonilla Quijano MD Primary Care Provider [phone] Encounter Details Date Type Department Care Team (Late st Contact Info) Description 05/05/2024 9:52 AM EDT Hospital Encounter TH HISTORIC ENCOUNTERS EASTERN CONVERSION ONLY Soto Stephenson MD [address] [place] [phone] Social History Tobacco Use Types Packs/Day [...] Care Team (Late st Contact Info) Description 04/07/2025 8:00 AM EDT Ancillary Procedure [facility] Cardiology [facility] - [facility] [address] [address] 05/24/2025 9:25 AM EDT Office Visit [facility] - [facility] 154 300 [facility] 154 [place] [address] Jose David San MD [address] [address] documented as of this encounter Visit Diagnoses Not on filedocumented in this encounter Care Teams Mesmerist Relationship Specialty Start Date End Date Bonilla Quijano MD [address] [place] [address] PCP - General Internal Medicine 07/14/12 documented as of this encounter
--- OUTSIDE RECORDS SUMMARY | 2025-03-29 08:02 | XMS_ITS | Clinical Summary ---
Author Organization [facility] Address [address] [place] [address] Care Team Providers Care Fire Marshal Refinery Name Role Phone Bonilla Quijano MD Primary Care Provider [phone] Allergies Active Allergy Reactions Criticality Noted Date [...] total) by mouth daily. 4 Active nystatin 005091 UNIT/GM powder APPLY ONE GRAM POWDER TOPICALLY [...] patient's age to complete this topic Insurance [facility] MEDICARE [facility] Care Teams Fire Marshal Refinery Relationship Specialty Start Date End Date Bonilla Quijano MD [address] [place] [phone] PCP - General 04/09/23
[2025-03-29 08:07] LABS: Prothrombin Time Whole Bld POC 32.8 sec (11.1-13.5); ~PT, ~INR - Anti Coag Clinic 2.7 (0.9-1.1)
--- NOTE | 2025-03-29 08:08 | MHC.OFFVISCO ---
Intake Intake Visit Reasons: Anticoagulation Allergies morphine Allergy (Severe, Verified 03/29/25 08:01) Rash baclofen Adverse Reaction (Intermediate, Verified 03/29/25 08:01) Confusion codeine Adverse Reaction (Intermediate, Verified 03/29/25 08:01) GI UPSET divalproex sodium (From Depakote) Adverse Reaction (Intermediate, Verified 03/29/25 08:01) Chest Pain latex Adverse Reaction (Intermediate, Verified 03/29/25 08:01) RASH Medication List - Last Reconciled 03/29/25 by Aster Barksdale, RN acetaminophen ER 1,300 mg PO Q12H allopurinol 200 mg PO DAILY atorvastatin 80 mg PO DAILY brimonidine 0.2% 0 drps ophthalmic (eye) buprenorphine 10 mcg/hour 1 patch topical QWEEK chlorthalidone 25 mg PO DAILY cholecalciferol (vitamin D3) PO clopidogrel 75 mg PO DAILY duloxetine 30 mg PO BID erythromycin ophthalmic (eye) gabapentin 600 mg PO TID isosorbide mononitrate ER 30 mg PO DAILY ketorolac 0.5% drps ophthalmic (eye) latanoprost 0.005% drps ophthalmic (eye) lisinopril 20 mg PO DAILY wh-oph-SX-vit J-hwqxes-pfedzms (PreserVision AREDS 2 Plus MV) PO nitroglycerin mg sublingual omeprazole 20 mg PO DAILY PRN polyethylene glycol 3350 4 grams PO .prn prednisolone acetate 1% 1 drp ophthalmic (eye) BID sotalol 120 mg PO BID timolol maleate 0.5% 0 drps ophthalmic (eye) triamcinolone acetonide 0.1% 1 appl topical BID-TID warfarin 5 mg See Protocol PO DAILY Nursing Note INR: 2.7 in therapeutic range of 2-3 Medications and supplements reviewed No changes in health, diet, medications, or supplements, Denies any signs and symptoms of bleeding or bruising or clotting. 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
== END 2025-03-29 08:11 | disposition home or self-care (01) ==
LOC: HO.ACS 07:59
PROVIDERS: PCP Internal Medicine; Visit Provider Internal Medicine Medical Oncology
DX: Z79.01 Long term (current) use of anticoagulants (principal)

== ENCOUNTER → 2025-03-29 07:59 | Outpatient (BNVA) | payer MEDICARE, SELFPAY | PROVIDERS: PCP Internal Medicine; Visit Provider Internal Medicine Medical Oncology | DX: Z51.81 Encounter for therapeutic drug level monitoring (principal); Z79.01 Long term (current) use of anticoagulants | CPT/HCPCS: 85610; 99211 ==

== ENCOUNTER 2025-04-26 07:57 | Outpatient (AMB) | payer MEDICARE, SELFPAY ==
--- OUTSIDE RECORDS SUMMARY | 2024-05-05 09:52 | XMS_ITS | Encounter Summary ---
Author Organization [facility] Address [address] [place] [address] Care Team Providers Care Administrative Nursing Supervisor Name Role Phone Bonilla Quijano MD Primary Care Provider [phone] Encounter Details Date Type Department Care Team (Late st Contact Info) Description 05/05/2024 9:52 AM EDT Hospital Encounter TH HISTORIC ENCOUNTERS EASTERN CONVERSION ONLY Soto Stephenson MD [address] [place] [phone] Social History Tobacco Use Types Packs/Day [...] Care Team (Late st Contact Info) Description 05/24/2025 9:25 AM EDT Office Visit [facility] Cardiology [facility] [address] 300 [facility] 154 [place] [address] Jose David San MD [address] [place] [address] Dr [address] [place] [phone] 04/14/2026 9:00 AM EDT Ancillary Procedure [facility] [address] [facility] 154 [place] [address] documented as of this encounter Visit Diagnoses Not on filedocumented in this encounter Care Teams Administrative Nursing Supervisor Relationship Specialty Start Date End Date Bonilla Quijano MD [address] [place] [address] PCP - General Internal Medicine 07/14/12 documented as of this encounter
--- OUTSIDE RECORDS SUMMARY | 2025-04-26 08:00 | XMS_ITS | Clinical Summary ---
Author Organization [address] [place] [address] [place] [phone] Phone Care Team Providers Care Corporate Logistics Manager Name Role Phone Bonilla Quijano MD Primary Care Provider [phone] Allergies Active Allergy Reactions Criticality Noted Date [...] mg by mouth 3 times daily. Active lisinopriL (PRINIVIL,ZESTRI L) 20 mg tablet [...] day. Do not change dietary habits. 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 20 mL 1 12/17/2024 Active sotalol AF (BETAPACE AF) 120 mg tablet TAKE 1 TABLET BY MOUTH TWICE DAILY 200 tablet 2 02/11/2025 Active isosorbide mononitrate (IMDUR) 30 mg 24 hr tablet Take 1 tablet by mouth once daily 90 tablet 1 03/15/2025 Active Active Problems Problem Noted Date Diagnosed [...] catheterization. He wants to do this at [facility] given his insurance does not cover [facility] and if he needs revascularization we will schedule a follow-up procedure at [facility]. 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 Cerebrovascular accident ([facility] V24, [facility] V 28) 02/01/2021 Overview (08/19/2024): Cerebrovascular accident Deep venous thrombosis ([facility] V24, [facility] V28 ) 02/01/2021 Overview (08/19/2024): Deep venous thrombosis Dizziness 02/01/2021 Overview (08/19/2024): Dizziness Atrial flutter ([facility] V24, [facility] V28) 2020 CHF (congestive heart failure) ([facility] V24, [facility] V28) 01/30/2021 HLD (hyperlipidemia) 01/30/2021 Overview (08/19/2024): [...] causing symptoms. PAF (paroxysmal atrial fibri llation) ([facility] V24, [facility] V28) 08/23/2020 Overview (08/19/2024): Last Assessment & [...] the procedure if successful. Peripheral vascular disease ([facility] V24) 2020 Overview (08/19/2024): Peripheral vascular disease Encounters Date Type Department Care Team Description 04/14/2025 2:30 PM EDT Ancillary Procedure [facility] - [address] [place] [address] Encounter for adjustment or management of cardiac device 04/09/2025 Telephone [facility] - [address] [place] [address] Olga Lidia Cornelius MA 02/01/2025 9:25 AM EDT Ancillary Procedure [facility] - [address] [place] [address] from Last 3 Months Surgical History Surgery Date Site/Laterality Comments OTHER SURGICAL HISTORY 01/04/2021 PROCEDURE: HISTORY OTHER; COMMENT: S/p cardioversion OTHER SURGICAL HISTORY 2014 PROCEDURE: HISTORY OTHER; COMMENT: Cardiac ablation OTHER SURGICAL HISTORY Right PROCEDURE: MT ARTHRP ACETBLR/PROX FEM PROSTC AGRFT/ALGRFT TOTAL KNEE ARTHROPLASTY Left PROCEDURE: MT ARTHRP KNE CONDYLE&PLATU MEDIAL&LAT COMPARTMENTS SHOULDER SURGERY Bilateral PROCEDURE: HISTORICAL SHOULDER SURGERY OTHER SURGICAL HISTORY PROCEDURE: HISTORY OTHER; COMMENT: S/p Lumbar spine fusion OTHER SURGICAL HISTORY PROCEDURE: HISTORY OTHER; COMMENT: S/p Cervical and thoracic spine surgery with hardware placement Medical History Medical History Date Comments CVA (cerebral vascular accid ent) ([facility] V24, [facility] V28) DX:CVA (cerebral vascular a ccident) ([facility]); COMMENT: with right-sided weakness DVT (deep venous thrombosis) ([facility] V24, [facility] V28) DX:DVT (deep venous thrombos is) ([facility]) Gout DX:Gout Chronic back pain DX:Chronic jessenia k pain 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:Adjustment reaction with prolonged depressive reaction PVD (peripheral vascular dis ease) ([facility] V24) DX:PVD (peripheral vascular disease) ([facility]) Dizziness DX:Dizziness Obesity DX:Obesity Glaucoma DX:Glaucoma Cervical [...] 85 11/19/2024 7:55 AM EDT Temperature 36.4 C (97.5 F) 11/19/2024 7:55 AM EDT Respiratory Rate 18 11/19/2024 7:55 AM EDT [...] Description 05/24/2025 9:25 AM EDT Office Visit [facility] Cardiology [facility] [address] [facility] [address] [place] [address] Jose David San MD [address] [place] [address] [address] [place] [phone] 04/14/2026 9:00 AM EDT Ancillary Procedure [facility] - [facility] [address] [facility] [address] [place] [phone] Health Maintenance Due Date Last Done Comments DTaP,Tdap,and Td Vaccines (1 - Tdap) 1959 Pneumococcal Vaccine: 50+ Years (1 of 1 - PCV) 01/04/1992 Zoster Vaccines (1 of 2) 01/04/1992 RSV Immunization Adult Patients (1 - 1-dose 75+ series) 2017 Cholesterol Screening (Lipid Panel) 07/14/2022 Falls Risk Assessment 07/14/2022 Medicare Annual Wellness Visit 07/14/2022 Social Influencers of Health Screening 07/14/2022 Depression Screening 08/05/2024 COVID-19 Vaccine ( season) 2025 07/05/2021, 12/01/2020, 11/10/2020 Influenza Vaccine (#1) 2025 , 04/27/2019, 04/24/2018, Additional history exists Hypertension/CHF/CAD Annual [...] this topic Medical Devices Implanted Type Area Composite Technician Device Identifier Shelf Expiration Date Model / Serial / Lot Medt-Card Micra Av [id number] Implanted:02/2021 (Quantity not on file) 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 AV [id number] / [id number] / Procedures Procedure Name Priority Date/Time Associated Diagnosis Comments CARDIAC DEVICE CHECK- REMOTE- MURJ Routine 02/01/2025 9:21 AM EDT BASIC METABOLIC PANEL STAT 11/19/2024 8:02 AM EDT from Last 3 Months or Most Recently Relevant to Health Maintenance Results * Cardiac device check - Remote- MURJ (02/01/2025 9:21 AM EDT) Date Time Interrogation Session [id number] CV DEVICE CHECK Type Interrogation Session Remote CV DEVICE CHECK Implantable Pulse Generator Composite Technician MDT CV DEVICE CHECK Implantable Pulse Generator Type IPG CV DEVICE CHECK Implantable Pulse Generator Model Micra AV [id number] CV DEVICE CHECK Implantable Pulse Generator Serial Number [id number] CV DEVICE CHECK Implantable Pulse Generator Implant Date 20210109 CV DEVICE CHECK Battery Remaining Longevity 67.0 CV DEVICE CHECK Battery Voltage 2.960 CV D EVICE CHECK Battery WIRE ROPE SLING MAKER Trigger 2.558 CV DEVICE CHECK Battery Status Middle of Service CV DEVICE CHECK Lead Channel Sensing Intrinsic Amplitude 17.888 CV DEVICE CHECK Lead Channel Setting Sensing Sensitivity 2.00 CV DEVICE CHECK Lead Channel Impedance Value 470 CV DEVICE CHECK Lead Channel Pacing Threshold Amplitude 0.625 CV DEVICE CHECK Lead Channel Pacing Threshold Pulse Width 0.2 CV DEVICE CHECK Lead Channel RV Pacing Threshold Date 2025-01-21 CV DEVICE CHECK Lead Channel Setting Pacing Amplitude 1.125 CV DEVICE CHECK Lead Channel Setting Pacing Pulse Width 0.2 CV DEVICE CHECK Kavon Setting Mode (NBG Code) VDD CV DEVICE CHECK Kavon Setting Lower Rate Limit 50 CV DEVICE CHECK Kavon Setting Maximum Tracking Rate 100 CV DEVICE CHECK Kavon Setting Maximum Sensor Rate 100 CV DEVICE CHECK Kavon Setting PEDRITO Delay 20 CV DEVICE CHECK Date of Service 2025-02-01 CV DEVICE CHECK Anatomical Region Laterality Modality Device Interroga tion 01/21/2025 8:22 AM EDT Impressions 02/01/2025 7:37 AM EDT Normal Remote: No Events * Normal Device Function * Alerts or events: None * Battery: OK, 5.58 yrs * Sensing, impedance and thresholds reviewed * Programmed parameters reviewed * Presenting rhythm reviewed * Heart Rate Histograms reviewed * No significant changes noted Narrative Procedure Note Jose David San MD - 02/01/2025 IMPRESSION: Normal Remote: No Events * Normal Device Function * Alerts or events: None * Battery: OK, 5.58 yrs * Sensing, impedance and thresholds reviewed * Programmed parameters reviewed * Presenting rhythm reviewed * Heart Rate Histograms reviewed * No significant changes noted Jose David San MD CV IMPLANTABLE CARDIAC DEVICE PROCEDURES Final Result * (ABNORMAL) Basic metabolic panel (11/19/2024 8:02 AM EDT) Sodium 140 133 - 145 mmol/L LAB CHEMISTRY METHOD 11/19/2024 8:56 AM [facility] Potassium 4.7 3.5 - 5.5 mmol/L LAB CHEMISTRY METHOD 11/19/2024 8:56 AM [facility] Chloride 103 96 - 110 mmol/L LAB CHEMISTRY METHOD 11/19/2024 8:56 AM [facility] CO2 31 21 - 32 mmol/L LAB CHEMISTRY METHOD 11/19/2024 8:56 AM [facility] Anion Gap 6 3 - 11 LAB CHEMISTRY METHOD 11/19/2024 8:56 AM EDT [facility] Glucose 135(H) 70 - 100 mg/dL LAB CHEMISTRY METHOD 11/19/2024 8:56 AM EDT [facility] BUN 30(H) 5 - 25 mg/dL LAB CHEMISTRY METHOD 11/19/2024 8:56 AM T [facility] Creatinine 1.33(H) 0.70 - 1.30 mg/dL LAB CHEMISTRY METHOD 11/19/2024 8:56 AM EDT [facility] eGFR 53(L) >=60 mL/min/1. 73m2 LAB CHEMISTRY METHOD 11/19/2024 8:56 AM EDT [facility] Comment:Calculation based on the Chronic Kidney Disease Epidemiology Collaboration (CKD-EPI) equation refit without adjustment for race. BUN/Creatinine Ratio 22.6 LAB CHEMISTRY METHOD 11/19/2024 8:56 AM EDT [facility] Calcium 9.7 8.5 - 10.5 mg/dL LAB CHEMISTRY METHOD 11/19/2024 8:56 AM T [facility] Blood Venous blood specimen / Unknown Venipuncture / Unknown 11/19/2024 8:02 AM EDT 11/19/2024 8:24 AM EDT us Manny Ashraf DO LAB BLOOD ORDERABLES Final Result [facility] [address] [place] [address], from Last 3 Months or Most Recently Relevant to Health Maintenance Insurance [employer] MEDICARE MEDICAID - [place] Advance Directives Documents on File Type Date Recorded Patient Computer System Technician Expl anation Health Care Decision (hx) 05/10/2020 [...] (hx) 05/10/2020 AD [facility] DIRECTIVE Care Teams Corporate Logistics Manager Relationship Specialty Start Date End Date Bonilla Quijano MD [address] [place] [address] PCP - General Internal Medicine 07/14/12
--- OUTSIDE RECORDS SUMMARY | 2025-04-26 08:00 | XMS_ITS | Clinical Summary ---
Author Organization [facility] Address [address] [place] [address] Care Team Providers Care Rfid Specialist Name Role Phone Bonilla Quijano MD Primary Care Provider [phone] Allergies Active Allergy Reactions Criticality Noted Date [...] total) by mouth daily. 4 Active nystatin 468584 UNIT/GM powder APPLY ONE GRAM POWDER TOPICALLY [...] Health Maintenance Due Date Last Done Comments Advance Care Planning 1940 DTaP/Tdap/Td Vaccines (1 - Tdap) 1961 Pneumococcal Vaccines 50+ (1 of 1 - PCV) 01/04/1992 Zoster (Shingles) Vaccine (1 of 2) 01/04/1992 RSV Vaccine 60 years and old er and Patients (1 - 1-dose 75+ series) 2017 Influenza Vaccine 03/05/2025 COVID-19 Vaccine ( - 2023-2 5 season) 2025 Hepatitis B Vaccines Aged Out No long er eligible based on patient's age to complete this topic Insurance [facility] MEDICARE [facility] Care Teams Rfid Specialist Relationship Specialty Start Date End Date Bonilla Quijano MD [address] [place] [id number] PCP - General 04/09/23
[2025-04-26 08:05] LABS: Prothrombin Time Whole Bld POC 26.7 sec (11.1-13.5); ~PT, ~INR - Anti Coag Clinic 2.2 (0.9-1.1)
--- NOTE | 2025-04-26 08:09 | MHC.OFFVISCO ---
Intake Intake Visit Reasons: Anticoagulation Allergies morphine Allergy (Severe, Verified 04/26/25 07:59) Rash baclofen Adverse Reaction (Intermediate, Verified 04/26/25 07:59) Confusion codeine Adverse Reaction (Intermediate, Verified 04/26/25 07:59) GI UPSET divalproex sodium (From Depakote) Adverse Reaction (Intermediate, Verified 04/26/25 07:59) Chest Pain latex Adverse Reaction (Intermediate, Verified 04/26/25 07:59) RASH Medication List - Last Reconciled 04/26/25 by Sofía Gillette, RN acetaminophen ER 1,300 mg PO Q12H allopurinol 200 mg PO DAILY atorvastatin 80 mg PO DAILY brimonidine 0.2% 0 drps ophthalmic (eye) buprenorphine 15 mcg/hour 1 patch topical QWEEK chlorthalidone 25 mg PO DAILY cholecalciferol (vitamin D3) PO clopidogrel 75 mg PO DAILY duloxetine 30 mg PO BID erythromycin ophthalmic (eye) gabapentin 600 mg PO TID isosorbide mononitrate ER 30 mg PO DAILY ketorolac 0.5% drps ophthalmic (eye) latanoprost 0.005% drps ophthalmic (eye) lisinopril 20 mg PO DAILY xg-zer-QR-vit P-tqzgam-ivflbej (PreserVision AREDS 2 Plus MV) PO nitroglycerin mg sublingual omeprazole 20 mg PO DAILY PRN polyethylene glycol 3350 4 grams PO .prn prednisolone acetate 1% 1 drp ophthalmic (eye) BID sotalol 120 mg PO BID timolol maleate 0.5% 0 drps ophthalmic (eye) triamcinolone acetonide 0.1% 1 appl topical BID-TID warfarin 5 mg See Protocol PO DAILY Nursing Note INR: 2.2 in therapeutic range Medications and supplements reviewed No changes in health, diet, medications, or supplements, Denies any signs and symptoms of bleeding or bruising or clotting. Bleeding, bruising, clotting discussed Nutritional guidance given Dose: 2.5MG X 2 DAYS/ 5MG X 5 DAYS F/U INR: 1MONTH Patient verbalizes understanding of instructions given Coding Level of Care Code Est Patient Level 1 Diagnoses Current use of anticoagulant therapy Z79.01 Assessment & Plan Assessment & Plan (1) Current use of anticoagulant therapy: Code(s): Z79.01 - microsoft solutions architect (current) 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
== END 2025-04-26 08:10 | disposition home or self-care (01) ==
LOC: HO.ACS 07:57
PROVIDERS: PCP Internal Medicine; Visit Provider Internal Medicine Medical Oncology
DX: Z79.01 Long term (current) use of anticoagulants (principal)

== ENCOUNTER → 2025-04-26 07:57 | Outpatient (BNVA) | payer MEDICARE, SELFPAY | PROVIDERS: PCP Internal Medicine; Visit Provider Internal Medicine Medical Oncology | DX: Z51.81 Encounter for therapeutic drug level monitoring (principal); Z79.01 Long term (current) use of anticoagulants | CPT/HCPCS: 85610; 99211 ==

== ENCOUNTER 2025-05-24 07:59 | Outpatient (AMB) | payer MEDICARE, SELFPAY ==
--- OUTSIDE RECORDS SUMMARY | 2024-05-05 09:52 | XMS_ITS | Encounter Summary ---
Author Organization [facility] [place] [address] Care Team Providers Care Striker Off Name Role Phone Bonilla Quijano MD Primary Care Provider [phone] Encounter Details Date Type Department Care Team (Late st Contact Info) Description 05/05/2024 9:52 AM EDT Hospital Encounter TH HISTORIC ENCOUNTERS EASTERN CONVERSION ONLY Soto Stephenson MD [address] [place] [phone] Social History Tobacco Use Types Packs/Day [...] 7:50 AM EDT Renan Doshi RN * [place] Suicide Severity Rating Scale (Screener/Recent Self-Report) Question Answer Date of Assessment Author 1. Wish to be (Past 1 Month) No 025 7:50 AM EDT Renan Doshi, RN 2. Non-Specific Active Suici narcisa Thoughts (Past 1 Month) No 11/19/2024 7:50 AM EDT Yaakov Doshi RN 6. Suicidal Behavior (Lifetime) No 7:50 [...] pacing thresholds. IMPRESSION: Normal device function. BEVERLY ATKINSON-Del May 05, 2024 11:28 documented in this encounter Plan of Treatment Upcoming Encounters Date Type Department Care Team (Late st Contact Info) Description 05/24/2025 9:25 AM EDT Office Visit [facility] Cardiology [facility] [address] [phone] Jose David San MD [address] [facility] 154 [place] [address] 04/14/2026 9:00 AM EDT Ancillary Procedure [facility] Cardiology [facility] - [facility] [address] [address] documented as of this encounter Visit Diagnoses Not on filedocumented in this encounter Care Teams Striker Off Relationship Specialty Start Date End Date Bonilla Quijano MD [address] [place] [address] PCP - General Internal Medicine 07/14/12 documented as of this encounter
--- OUTSIDE RECORDS SUMMARY | 2025-05-24 08:01 | XMS_ITS | Clinical Summary ---
Author Organization [address] [place] [address] [place] [phone] Phone Care Team Providers Care Rehabilitation Caseworker Name Role Phone Bonilla Quijano MD Primary Care Provider [phone] Allergies Active Allergy Reactions Criticality Noted Date [...] 3 doses total. 25 tablet 2 5 08/18/19 26 Active acetaminophen (TYLENOL) 325 mg tablet Take 650 mg by mouth every 6 hours as needed. Active allopurinoL (ZYLOPRIM) 100 mg tablet Take 1 Tablet by mouth 2 times daily. Active atorvastatin (LIPITOR) 80 mg tablet Take 1 Tablet by mouth at bedtime. 4 Active chlorthalidone (HYGROTON) 25 mg tablet Take 25 mg by mouth daily. Active gabapentin (NEURONTIN) 300 mg capsule Take [...] BY MOUTH TWICE DAILY 200 tablet 2 5 Active isosorbide mononitrate (IMDUR) 30 mg 24 hr tablet Take 1 tablet by mouth once daily 90 tablet 1 5 Active clopidogreL (PLAVIX) 75 mg tablet Take 1 tablet (75 mg total) by mouth 1 (one) time each day. 90 tablet 1 5 Active clopidogreL (PLAVIX) 75 mg tablet Take 1 tablet by mouth once daily 4 05/03/20 25 Discontinu ed(Reorder ) Active Problems Problem Noted Date Diagnosed Date [...] He wants to do this at [facility] given his insurance does not cover [facility] and if he needs revascularization we will schedule a follow-up procedure at [facility]. 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 Cerebrovascular accident ([facility] V24, [facility] V 28) 02/01/2021 Overview (08/19/2024): Cerebrovascular accident Deep venous thrombosis ([facility] V24, [facility] V28 ) 02/01/2021 Overview (08/19/2024): Deep venous thrombosis Dizziness 02/01/2021 Overview (08/19/2024): Dizziness Atrial flutter ([facility] V24, [facility] V28) 2020 CHF (congestive heart failure) ([facility] V24, [facility] V28) 01/30/2021 HLD (hyperlipidemia) 01/30/2021 [...] causing symptoms. PAF (paroxysmal atrial fibri llation) ([facility] V24, [facility] V28) 08/23/2020 Overview (08/19/2024): Last [...] the procedure if successful. Peripheral vascular disease ([facility] V24) 2020 Overview (08/19/2024): Peripheral vascular disease Encounters Date Type Department Care Team Description 05/03/2025 Telephone [facility] Cardiology [facility] - [address] [place] [address] Jose David San MD 04/14/2025 2:30 PM EDT Ancillary Procedure [facility] - [address] [place] [address] Encounter for adjustment or management of cardiac device 04/09/2025 Telephone [facility] Cardiology [facility] - [address] [place] [address] Olga Lidia Cornelius MA from Last 3 Months Surgical History Surgery Date Site/Laterality Comments OTHER SURGICAL HISTORY 01/04/2021 PROCEDURE: HISTORY OTHER; COMMENT: S/p cardioversion OTHER SURGICAL HISTORY 2014 PROCEDURE: HISTORY OTHER; COMMENT: Cardiac ablation OTHER SURGICAL HISTORY Right PROCEDURE: AR ARTHRP ACETBLR/PROX FEM PROSTC AGRFT/ALGRFT TOTAL KNEE ARTHROPLASTY Left PROCEDURE: AR ARTHRP KNE CONDYLE&PLATU MEDIAL&LAT COMPARTMENTS SHOULDER SURGERY Bilateral PROCEDURE: HISTORICAL SHOULDER SURGERY OTHER SURGICAL HISTORY PROCEDURE: HISTORY OTHER; COMMENT: S/p Lumbar spine fusion OTHER SURGICAL HISTORY PROCEDURE: HISTORY OTHER; COMMENT: S/p Cervical and thoracic spine surgery with hardware placement Medical History Medical History Date Comments CVA (cerebral vascular accid ent) ([facility] V24, [facility] V28) DX:CVA (cerebral vascular a ccident) ([facility]); COMMENT: with right-sided weakness DVT (deep venous thrombosis) ([facility] V24, [facility] V28) DX:DVT (deep venous thrombos is) ([facility]) Gout DX:Gout Chronic back pain DX:Chronic jessenia k pain 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:Adjustment reaction with prolonged depressive reaction PVD (peripheral vascular dis ease) ([facility] V24) DX:PVD (peripheral vascular disease) ([facility]) Dizziness DX:Dizziness Obesity DX:Obesity Glaucoma [...] Description 05/24/2025 9:25 AM EDT Office Visit [facility] Cardiology [facility] [address] [place] [address] Jose David San MD [address] [place] [address] 04/14/2026 9:00 AM EDT Ancillary Procedure [facility] - [facility] [address] [facility] [address] [place] [address] Health Maintenance Due Date Last Done Comments [...] this topic Medical Devices Implanted Type Area Lay Out Machine Operator Device Identifier Shelf Expiration Date Model / Serial / Lot Medt-Card Micra Av [id number] Implanted:02/2021 (Quantity not on file) 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 AV [id number] / [id number] / Medt-Card Micra Av [id number] Implanted:02/2021 (Quantity not on file) 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 AV [id number] / [id number] / Procedures Procedure Name Priority Date/Time Associated Diagnosis Comments CARDIAC DEVICE CHECK- IN CLINIC- MURJ Routine 04/14/2025 2:51 PM EDT Encounter for adjustment or management of cardiac device BASIC METABOLIC PANEL STAT 11/19/2024 8:02 AM EDT from Last 3 Months or Most Recently Relevant to Health Maintenance Results * CARDIAC DEVICE CHECK- IN CLINIC- MURJ (04/14/2025 2:51 PM EDT) Date Time Interrogation Session [id number] CV DEVICE CHECK Implantable Pulse Generator Lay Out Machine Operator MDT CV DEVICE CHECK Implantable Pulse Generator Type IPG CV DEVICE CHECK Implantable Pulse Generator Model Micra AV [id number] CV DEVICE CHECK Implantable Pulse Generator Serial Number [id number] CV DEVICE CHECK Implantable Pulse Generator Implant Date 20210109 CV DEVICE CHECK Battery Voltage 2.950 CV D EVICE CHECK Battery Status Middle of Service CV DEVICE CHECK Lead Channel Sensing Intrinsic Amplitude 17.900 CV DEVICE CHECK Lead Channel Setting Sensing Sensitivity 2.00 CV DEVICE CHECK Lead Channel Impedance Value 500 CV DEVICE CHECK Lead Channel Pacing Threshold Amplitude 0.630 CV DEVICE CHECK Lead Channel Pacing Threshold Pulse Width 0.2 CV DEVICE CHECK Lead Channel RV Pacing Threshold Date 2025-04-14 CV DEVICE CHECK Lead Channel Setting Pacing Amplitude 1.130 CV DEVICE CHECK Lead Channel Setting Pacing Pulse Width 0.2 CV DEVICE CHECK Kavon Setting Mode (NBG Code) VDD CV DEVICE CHECK Kavon Setting Lower Rate Limit 50 CV DEVICE CHECK Kavon Setting Maximum Tracking Rate 100 CV DEVICE CHECK Date of Service 2026-03-11 CV DEVICE CHECK Anatomical Region Laterality Modality Device Interroga tion 04/14/2025 Impressions 05/04/2025 12:25 PM EDT Normal In-Office: No Events * Normal Device Function * Alerts or events: None * Battery: MOS, 5.3 years (4.7 - 5.8 years) * Sensing, impedance and thresholds reviewed and tested * Presenting Rhythm: NONDESTRUCTIVE TESTER 80s * No R waves @ VVI 30 bpm today * Heart Rate Histograms reviewed * Pacing and Detection Parameters were evaluated Narrative Procedure Note Jose David San MD - 05/04/2025 IMPRESSION: Normal In-Office: No Events * Normal Device Function * Alerts or events: None * Battery: MOS, 5.3 years (4.7 - 5.8 years) * Sensing, impedance and thresholds reviewed and tested * Presenting Rhythm: NONDESTRUCTIVE TESTER 80s * No R waves @ VVI 30 bpm today * Heart Rate Histograms reviewed * Pacing and Detection Parameters were evaluated us Order Referral Cardiovascular CV IMPLANTABLE CAR DIAC DEVICE PROCEDURES Final Result * (ABNORMAL) Basic metabolic panel (11/19/2024 8:02 AM EDT) [facility] Sodium 140 133 - 145 mmol/L LAB CHEMISTRY METHOD 11/19/2024 8:56 AM EDT [facility] Potassium 4.7 3.5 - [...] [facility] Comment:Calculation based on the Chronic Kidney Disease Epidemiology Collaboration (CKD-EPI) equation refit without adjustment for race. 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
--- OUTSIDE RECORDS SUMMARY | 2025-05-24 08:01 | XMS_ITS | Data Portability ---
Author Organization STEPHANIE - Cash Fitzpatrick Alker[facility], [facility] Address [address] [place] [address] Assessment Encounter Date Assessment Date Assessment LastModified [...] Address Organization Details Recorded Time No complaints [id number] Active Status : 'I'; Not Available [facility] 4 09:28:03 Problem Notes None recorded. Medical Equipment None Reported. Allergies Allergen ID Allergen Name Allergen Category Reaction Reaction Severity Criticality Documentation Date Start Date Code Code System Note Provider Name and Address Organization Details Recorded Time 14659 codeine sulfate medicatio n Not available Not available Not available 10/07/20232016 41818 RxNorm Not Available [facility] 4 12:08:52 22592 morphine sulfate medicatio n Not available Not available Not available 10/07/20232013 63142 RxNorm Not Available [facility] 12:08:52 Medications Name Sig Start Date [...] Updated DateTime 12/27/2023 165.1 cm 35.1 kg/m2 17972.99 g SCAR VELIZ [place] - [facility] 12/27/2023 09:09:13 Social History None recorded. Functional Status None recorded. Mental Status None recorded. Family History Nothing Reported. Medical History No medical history recorded. Past Encounters Encounter ID Performer Location Encounter Start Date Encounter Closed Date Diagnosis/Indication Diagnosis SNOMED-CT Code Diagnosis ICD10 Code Diagnosis IMO Codes Diagnosis Note [id number] Augie Simons MD [place] [address] [place] [address] 12/27/2023 08:37:56 01/15/2024 11:37:33 Lumbar post-laminectomy syndrome 326317739 M96.1 Health Concerns Section Related Observation LastModified by Organization Detai ls LastModified Time None Recorded Concern Status LastModified by Organization Details LastModified Time None Recorded Advance Directives Directive None Recorded Payers Insurance Date Sequence Insurance Name Policy Number Policy Oliver Covered Member ID Oliver Member ID Guarantor Name 10/25/2023 SLIDING FEE SCHEDULE - DISCOUNT Raine Ken 03/11/2024 2 [place] [facility] Raine Ken [id number] Raine Ken 01/15/2024 1 [facility] (MEDICARE REPLACEMENT/A DVANTAGE - PPO) [id number] Raine Ken [id number] Raine Ken Notes Date Note Type Note Provider Name and Address Organization Details Recorded Time 12/27/2023 text/html ROS as noted in the HPI HPI: 83-year-old man with ongoing debilitating back [...] Not indicated PHYSICAL EXAMINATION: Augie Simons MD [address] [place] [address] [address], [place], [address], [facility] - [facility] 12/27/2023 12:28:38
--- OUTSIDE RECORDS SUMMARY | 2025-05-24 08:01 | XMS_ITS | Clinical Summary ---
Author Organization [facility] Address [address] [place] [address] Care Team Providers Care Wheat Washer Name Role Phone Bonilla Quijano MD Primary Care Provider [phone] Allergies Active Allergy Reactions Criticality Noted Date [...] total) by mouth daily. 4 Active nystatin 428532 UNIT/GM powder APPLY ONE GRAM POWDER TOPICALLY [...] Vaccine (1 of 2) 01/04/1992 RSV Vaccine 50 years and old er and Patients (1 - 1-dose 75+ series) 2017 Influenza Vaccine 03/05/2025 COVID-19 Vaccine ( - 2023-2 5 season) 2025 Hepatitis B Vaccines Aged Out No long er eligible based on patient's age to complete this topic Insurance [facility] MEDICARE [place] Care Teams Wheat Washer Relationship Specialty Start Date End Date Bonilla Quijano MD [address] [place] [id number] PCP - General 04/09/23
--- OUTSIDE RECORDS SUMMARY | 2025-05-24 08:01 | XMS_ITS | Data Portability ---
Author Organization [place] - [facility] [place], [facility] Address [address] [place] [address] Care Team Providers Care Supervisor [employer] Name Role Phone DEWEY GARCIA Major Sales Associate Assessment Encounter Date Assessment Date Assessment LastModified [...] By Organization Details Last Modified Time 10/31/2022 [id number] Submit to Worker 's Comp. for approval. In person pre-op meeting Not available 10/31/2022 16:51:57 03/03/2024 [id number] MRI thoracic spi ne with and without contrast Extension fusion to T7/T8, possible T3-4 osteotomy with instrumentation Preop meeting with me [email or web address] Not available 03/03/2024 14:33:42 06/16/2024 [id number] Mr. Gunter should get in touch with [facility] or have his hearing aid technician's office called [facility] to discuss his financial responsibility and the various scenarios [email or web address] Not available 06/16/2024 16:34:47 Reason for Referral None Reported. Results Created Date Observation Date Name Description Value Unit Range Abnormal Flag Note LastModifiedBy Organization Detail LastModifiedTime 03/27/2003/27/2024 COMPR EHENS DIANA METAB OLIC PANEL sodium 138 mmol/ L 135-14 5 Not Available [facility] [address], [place], [address], 03/27/2024 11:38:19 03/27/20 03/27/2024 COMPR EHENS DIANA METAB OLIC PANEL potassium 5.7 mmol/ L 3.5-5. 3 high Not Available [facility] [address], [place], [address], 03/27/2024 11:38:19 03/27/20 24 03/27/2024 COMPR EHENS DIANA METAB OLIC PANEL chloride 100 mmol/ L 100-11 2 Not Available [facility] [address], [place], [address], 03/27/2024 11:38:19 03/27/20 24 03/27/2024 COMPR EHENS DIANA METAB OLIC PANEL total CO2 29 mmol/ L 21-30 Not Available [facility] [address], [place], [address], 03/27/2024 11:38:19 03/27/20 24 03/27/2024 COMPR EHENS DIANA METAB OLIC PANEL anion gap 9 mmol/ L 4-20 Not Available [facility] [address], [place], [address], 03/27/2024 11:38:19 03/27/20 24 03/27/2024 COMPR EHENS DIANA METAB OLIC PANEL BUN 28 mg/dL 6-20 high Not Available [facility] [address], [place], [address], 03/27/2024 11:38:19 03/27/20 24 03/27/2024 COMPR EHENS DIANA METAB OLIC PANEL creatinine 1.30 mg/dL 0.00-1 .30 Not Available [facility] [address], [place], [address], 03/27/2024 11:38:19 03/27/20 24 03/27/2024 COMPR EHENS DIANA METAB OLIC PANEL glucose 124 mg/dL 70-105 high Not Available [facility] [address], [place], [address], 03/27/2024 11:38:19 03/27/20 24 03/27/2024 COMPR EHENS DIANA METAB OLIC PANEL calcium 9.6 mg/dL 8.4-10 .2 Not Available [facility] [address] [facility] [place], [place], [address], 03/27/2024 11:38:19 03/27/20 24 03/27/2024 COMPR EHENS DIANA METAB OLIC PANEL total protein 7.4 g/dL 6.5-8. 0 Not Available [facility] [address] [facility] [place], [place], [address], 03/27/2024 11:38:19 03/27/20 24 03/27/2024 COMPR EHENS DIANA METAB OLIC PANEL albumin, blood 4.1 g/dL 3.5-5. 0 Not Available [facility] [address], [place], [address], 03/27/2024 11:38:19 03/27/20 24 03/27/2024 COMPR EHENS DIANA METAB OLIC PANEL globulin 3.3 g/dL 2.0-4. 0 Not Available [facility] [address], [place], [address], 03/27/2024 11:38:19 03/27/20 24 03/27/2024 COMPR EHENS DIANA METAB OLIC PANEL AST (SGOT) 69 U/L 0-40 high Speci men hemol yzed; resul t may be inval id. Inter pret with cauti on. Not Available [facility] [address], [place], [address], 03/27/2024 11:38:19 03/27/20 24 03/27/2024 COMPR EHENS DIANA METAB OLIC PANEL ALT (SGPT) 20 U/L 12-78 Speci men hemol yzed; resul t may be inval id. Inter pret with cauti on. Not Available [facility] [address] [facility], [place], [address], 03/27/2024 11:38:19 03/27/20 24 03/27/2024 COMPR EHENS DIANA METAB OLIC PANEL alk phosphatase 97 U/L 40-120 Speci men hemol yzed; resul t may be inval id. Inter pret with cauti on. Not Available [facility] [address] [facility], [place], [address], 03/27/2024 11:38:19 03/27/20 24 03/27/2024 COMPR EHENS DIANA METAB OLIC PANEL total bilirubin 0.5 mg/dL 0.0-1. 5 Not Available [facility] [address], [place], [address], 03/27/2024 11:38:19 03/27/20 24 03/27/2024 COMPR EHENS DIANA METAB OLIC PANEL estimated GFR (CKD-epi) 55 mL/mi n/bsa >=60 low Not Available [facility] [address], [place], [address], 03/27/2024 11:38:19 11/01/19 23 10/31/2022 CT, myelo gram, thora cic spine No observ ation record ed. [email or web address] Not Available 02/18 15:56:53 05/25/20 24 05/05/2024 MRI, thora cic spine , w/wo contr ast No observ ation record ed. [facility] [address] [place] [address], [place], [address], 06/04/2024 15:11:31 Result Notes None recorded. 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 Instrument ation. Not Available [employer] 16:31:37 Problem Notes None recorded. Procedures Surgical History Date Name Laterality Status Provider Name and Address Organization Details Recorded Time 07/30/20 23 Other completed Yimi Grayson MA [facility] [place] 03/03/2024 14:00:59 01/04/20 18 Orthopaedic Surgery completed Yimi Grayson MA [facility] [place] 03/03/2024 14:00:32 08/05/19 18 Orthopaedic Surgery completed Dalila Huertadustin BROWN [facility] [place] 09/04/2022 09:12:44 Orthopaedic Surgery completed Dalila Huertadustin BROWN [facility] [place] 09/04/2022 09:20:57 Orthopaedic Surgery completed Dalila Huertaenter STEPHANIE [facility] [place] 09/04/2022 09:21:01 Orthopaedic Surgery completed Dalila Huertadustin BROWN [facility] [place] 09/04/2022 09:21:05 Orthopaedic Surgery completed Dalila Huertaenter STEPHANIE [facility] [place] 09/04/2022 09:21:10 Orthopaedic Surgery completed Dalila Huertaenter STEPHANIE [facility] [place] 09/04/2022 09:21:18 Orthopaedic Surgery completed Dalila Huertaenter STEPHANIE [facility] [place] 09/04/2022 09:21:34 cardiac pacemaker procedure completed Dalila Grider MA [facility] [place] 09/04/2022 09:21:53 Imaging Results None recorded. Procedure Notes None recorded. Medical Equipment None Reported. Allergies Allergen ID Allergen Name Allergen Category Reaction Reaction Severity Criticality Documentation Date Start Date Code Code System Note Provider Name and Address Organization Details Recorded Time 994793 morphine medicatio n Not available Not available Not available 07/12/2022 7052 RxNorm React ion: Unkno wn, sever ity: Unkno wn Not Available [facility] 2 22:22:36 438424 latex environme nt,medica tion Not available Not available Not available 09/04/2022 30417 91 RxNorm Dalila zaragoza MA [facility] [place] 3 09:17:14 Medications Name Sig Start Date Stop [...] Updated DateTime 09/04/2022 165.1 cm 33.3 kg/m2 17981.47 g Dalila Grider [facility] [place] 09/04/2022 09:16:56 Date Recorded Body height Body mass index (BMI) Body weight Provider Name and Address Organization Details Last Updated DateTime 10/31/2022 165.1 cm 33.3 kg/m2 23251.47 g Dalila Grider [facility] [place] 10/31/2022 13:34:45 Social History None recorded. Functional Status Question Answer Note LastModified by Organizat ion Details LastModified Time What is your level of alcohol consumption? None Information not available 03/03/2024 Do you or have you ever used smokeless tobacco? Never used smokeless tobacco Information not available 03/03/2024 Are you currently employed? No [email or web address] Information not available 09/04/2022 What is your occupation? Disabled Information not available 03/03/2024 Do you or have you ever used e-cigarettes or vape? Never used electronic cigarettes Information not available 03/03/2024 Mental Status None recorded. Family History Relationship Description Onset Age of this Age Resolved Age Notes LastModified by Organization Details LastModified Time Brother Myocardial infarction [email or web address] Not available 09:20:22 Sister Malignant neoplastic disease [email or web address] Not available 09:20:30 Medical History Condition Response High Blood Pressure Y MRSA N Weight Gain / Loss N Heart Condition: Heart Attac k, Afib, Irregular Heartbeat, etc. (please specify) Y Night Sweats N Cancer N Stroke Y Visual Loss or Glaucoma Y Reaction to General/Local Anesthesia N Kidney / Bladder Infections N Thyroid Disorder N Pulmonary Embolism N Seizures / Epilepsy N Ulcer / Stomach Bleeding / Indigestion N Blood Clots / Phlebitis Y Diabetes: Type I or II (please specify) Y Psoriasis / Skin Rash N Past Encounters Encounter ID Performer Location Encounter Start Date Encounter Closed Date Diagnosis/Indication Diagnosis SNOMED-CT Code Diagnosis ICD10 Code Diagnosis IMO Codes Diagnosis Note [id number] ASHU WOODS MD [address] [address] 09/04/2022 08:37:15 09/04/2022 09:54:52 Spondylosis without myelopathy 06510313 M47.13 Prolapsed thoracic intervertebral disc 879817652 M51.24 CT myelogram thoracic spine. [id number] ASHU WOODS MD [facility] Office [address] [address] 10/31/2022 12:13:15 10/31/2022 13:49:37 Degeneration of thoracic intervertebral disc 00466398 M51.34 T3-T7 posterior fusion, extension. Instrument ation. [id number] ASHU WOODS MD [facility] Office [address] [place] [address] 03/03/2024 13:23:12 03/03/2024 21:35:17 Degeneration of thoracic intervertebral disc 50356368 M51.34 [id number] ASHU WOODS MD [address] [address] 06/16/2024 13:55:38 07/23/2024 10:43:28 Degeneration of thoracic intervertebral disc 55431751 M51.34 Health Concerns Section Related Observation LastModified by Organization Detai ls LastModified Time None Recorded Concern Status LastModified by Organization Details LastModified Time None Recorded Advance Directives Directive None Recorded Payers Insurance Date Sequence Insurance Name Policy Number Policy Oliver Covered Member ID Oliver Member ID Guarantor Name 09/14/2022 [employer] 09/14/2022 [employer] Notes Date Note Type Note Provider Name [...] 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 ASHU WOODS MD [address] [place] [address], [phone], [facility] [place] 09/04/2022 15:00:03 10/31/2022 text/html Raine is here with his son follow-up after thoracic CT myelogram. ASHU WOODS MD [address] [place] [address], [phone], [facility] [place] 10/31/2022 16:52:05 03/03/2024 text/html Last visit here [...] according to the patient. ASHU WOODS MD [address] [place] [address], [phone], [facility] [place] 03/03/2024 15:45:53 06/16/2024 text/html Here for MRI review. He states he has not had no improvement upper back pain still very sore. He also has pain in his thigh and calf ASHU WOODS MD [address] [place] [address], [phone], [facility] [place] 06/16/2024 16:37:04
[2025-05-24 08:07] LABS: Prothrombin Time Whole Bld POC 42.9 sec (11.1-13.5); ~PT, ~INR - Anti Coag Clinic 3.6 (0.9-1.1)
--- NOTE | 2025-05-24 08:15 | MHC.OFFVISCO ---
Intake Intake Visit Reasons: Anticoagulation Allergies morphine Allergy (Severe, Verified 05/24/25 07:59) Rash baclofen Adverse Reaction (Intermediate, Verified 05/24/25 07:59) Confusion codeine Adverse Reaction (Intermediate, Verified 05/24/25 07:59) GI UPSET divalproex sodium (From Depakote) Adverse Reaction (Intermediate, Verified 05/24/25 07:59) Chest Pain latex Adverse Reaction (Intermediate, Verified 05/24/25 07:59) RASH Medication List - Last Reconciled 05/24/25 by Sofía Gillette RN acetaminophen ER 1,300 mg PO Q12H allopurinol 200 mg PO DAILY atorvastatin 80 mg PO DAILY brimonidine 0.2% 0 drps ophthalmic (eye) buprenorphine 20 mcg/hour 1 patch topical QWEEK chlorthalidone 25 mg PO DAILY cholecalciferol (vitamin D3) PO clopidogrel 75 mg PO DAILY duloxetine 30 mg PO BID erythromycin ophthalmic (eye) gabapentin 600 mg PO TID isosorbide mononitrate ER 30 mg PO DAILY ketorolac 0.5% drps ophthalmic (eye) latanoprost 0.005% drps ophthalmic (eye) lisinopril 20 mg PO DAILY lo-ead-KO-vit X-usxxpk-nqkpxdl (PreserVision AREDS 2 Plus MV) PO nitroglycerin mg sublingual omeprazole 20 mg PO DAILY PRN polyethylene glycol 3350 4 grams PO .prn prednisolone acetate 1% 1 drp ophthalmic (eye) BID sotalol 120 mg PO BID timolol maleate 0.5% 0 drps ophthalmic (eye) triamcinolone acetonide 0.1% 1 appl topical BID-TID warfarin 5 mg See Protocol PO DAILY Nursing Note GUM BLEED INR 3.6 out of therapeutic range Medications and supplements reviewed Patient status: States his gums have been bleeding everyday - enc to not take warfarin today and go to ER, enc cold wet compresses, call urgent care dental he stated that after swallowing the blood it made him nauseated causing him to regurgitate moss vomit and decreased his appetite - again he was strongly enc to see PCP and oral surgeon or ER - he stated he will go today and call [facility] with results. Medications or supplements: no new medications Diet: fair Denies any signs and symptoms of bleeding or clotting or unusual bruising Bleeding, bruising, clotting discussed Nutritional guidance given: soft greens today Dose: hold today then 2.5mg x 3 days/ 5mg x 4 days F/U INR Date : 1 WEEK ?? Patient verbalizing understanding of instructions given. Coding Level of Care Code Est Patient Level 1 Diagnoses Current use of anticoagulant therapy Z79.01 Results AMB INR Fingerstick AMB INR Fingerstick 3.6 Last Edit by Sofía Gillette RN on 05/24/25 08:06 Assessment & Plan Assessment & Plan (1) Current use of anticoagulant therapy: Code(s): Z79.01 - assisted (current) 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
== END 2025-05-24 11:45 | disposition home or self-care (01) ==
LOC: HO.ACS 07:59
PROVIDERS: PCP Internal Medicine; Visit Provider Internal Medicine Medical Oncology
DX: Z79.01 Long term (current) use of anticoagulants (principal)

== ENCOUNTER → 2025-05-24 07:59 | Outpatient (BNVA) | payer MEDICARE, SELFPAY | PROVIDERS: PCP Internal Medicine; Visit Provider Internal Medicine Medical Oncology | DX: I48.19 Other persistent atrial fibrillation (principal); Z51.81 Encounter for therapeutic drug level monitoring; Z79.01 Long term (current) use of anticoagulants | CPT/HCPCS: 85610; 99211 ==

== ENCOUNTER 2025-05-31 08:10 | Outpatient (AMB) | payer MEDICARE, SELFPAY ==
[2025-05-31 08:35] LABS: Prothrombin Time Whole Bld POC 26.6 sec (11.1-13.5); ~PT, ~INR - Anti Coag Clinic 2.2 (0.9-1.1)
--- NOTE | 2025-05-31 08:43 | MHC.OFFVISCO ---
Intake Intake Visit Reasons: Anticoagulation Allergies morphine Allergy (Severe, Verified 05/31/25 08:29) Rash baclofen Adverse Reaction (Intermediate, Verified 05/31/25 08:29) Confusion codeine Adverse Reaction (Intermediate, Verified 05/31/25 08:29) GI UPSET divalproex sodium (From Depakote) Adverse Reaction (Intermediate, Verified 05/31/25 08:29) Chest Pain latex Adverse Reaction (Intermediate, Verified 05/31/25 08:29) RASH Medication List - Last Reconciled 05/31/25 by Sofía Gillette RN acetaminophen ER 1,300 mg PO Q12H allopurinol 200 mg PO DAILY atorvastatin 80 mg PO DAILY brimonidine 0.2% 0 drps ophthalmic (eye) buprenorphine 20 mcg/hour 1 patch topical QWEEK chlorthalidone 25 mg PO DAILY cholecalciferol (vitamin D3) PO clopidogrel 75 mg PO DAILY duloxetine 30 mg PO BID erythromycin ophthalmic (eye) gabapentin 600 mg PO TID isosorbide mononitrate ER 30 mg PO DAILY ketorolac 0.5% drps ophthalmic (eye) latanoprost 0.005% drps ophthalmic (eye) lisinopril 20 mg PO DAILY hf-fav-ZT-vit F-bkxqda-wfmrwmh (PreserVision AREDS 2 Plus MV) PO nitroglycerin mg sublingual omeprazole 20 mg PO DAILY PRN polyethylene glycol 3350 4 grams PO .prn prednisolone acetate 1% 1 drp ophthalmic (eye) BID sotalol 120 mg PO BID timolol maleate 0.5% 0 drps ophthalmic (eye) triamcinolone acetonide 0.1% 1 appl topical BID-TID warfarin 5 mg See Protocol PO DAILY Nursing Note INR: 2.2 in therapeutic range Medications and supplements reviewed *Pt had gums that were bleeding last week - held warfarin and decreased dose, plus family concerns- brother n law - sister now has to go to care home Denies any signs and symptoms of bleeding or bruising or clotting. 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
== END 2025-05-31 08:49 | disposition home or self-care (01) ==
LOC: HO.ACS 08:10
PROVIDERS: Visit Provider Internal Medicine Medical Oncology
DX: Z79.01 Long term (current) use of anticoagulants (principal)

== ENCOUNTER → 2025-05-31 08:10 | Outpatient (BNVA) | payer MEDICARE, SELFPAY | PROVIDERS: Visit Provider Internal Medicine Medical Oncology | DX: I48.19 Other persistent atrial fibrillation (principal); Z51.81 Encounter for therapeutic drug level monitoring; Z79.01 Long term (current) use of anticoagulants | CPT/HCPCS: 85610; 99211 ==

== ENCOUNTER 2025-06-10 08:36 | Outpatient (AMB) | payer MEDICARE, SELFPAY ==
--- OUTSIDE RECORDS SUMMARY | 2024-05-05 08:52 | XMS_ITS | Encounter Summary ---
Author Organization [facility] [place] [address] Care Team Providers Care Integrity Manager Name Role Phone Bonilla Quijano MD Primary Care Provider [phone] Encounter Details Date Type Department Care Team (Late st Contact Info) Description 05/05/2024 9:52 AM EDT Hospital Encounter TH HISTORIC ENCOUNTERS EASTERN CONVERSION ONLY Soto Stephenson MD [address] [place] [phone] Social History Tobacco Use Types Packs/Day [...] 7:50 AM EDT Renan Doshi RN * [place] Suicide Severity Rating Scale (Screener/Recent Self-Report) Question [...] Description 04/14/2026 9:00 AM EDT Ancillary Procedure [facility] - [address] [facility] 154 [place] [phone] documented as of this encounter Visit Diagnoses Not on filedocumented in this encounter Care Teams Integrity Manager Relationship Specialty Start Date End Date Bonilla Quijano MD [address] [place] [address] PCP - General Internal Medicine 07/14/12 documented as of this encounter
[2025-06-10 08:48] LABS: Prothrombin Time Whole Bld POC 35.1 sec (11.1-13.5); ~PT, ~INR - Anti Coag Clinic 2.9 (0.9-1.1)
--- NOTE | 2025-06-10 08:59 | MHC.OFFVISCO ---
Intake Intake Visit Reasons: Anticoagulation Allergies morphine Allergy (Severe, Verified 06/10/25 08:41) Rash baclofen Adverse Reaction (Intermediate, Verified 06/10/25 08:41) Confusion codeine Adverse Reaction (Intermediate, Verified 06/10/25 08:41) GI UPSET divalproex sodium (From Depakote) Adverse Reaction (Intermediate, Verified 06/10/25 08:41) Chest Pain latex Adverse Reaction (Intermediate, Verified 06/10/25 08:41) RASH Medication List - Last Reconciled 06/10/25 by Sofía Gillette RN acetaminophen ER 1,300 mg PO Q12H allopurinol 200 mg PO DAILY atorvastatin 80 mg PO DAILY brimonidine 0.2% 0 drps ophthalmic (eye) buprenorphine 20 mcg/hour 1 patch topical QWEEK chlorthalidone 25 mg PO DAILY cholecalciferol (vitamin D3) PO clopidogrel 75 mg PO DAILY duloxetine 30 mg PO BID erythromycin ophthalmic (eye) gabapentin 600 mg PO TID isosorbide mononitrate ER 30 mg PO DAILY ketorolac 0.5% drps ophthalmic (eye) latanoprost 0.005% drps ophthalmic (eye) lisinopril 20 mg PO DAILY je-dmb-IL-vit N-mckafa-xutyjif (PreserVision AREDS 2 Plus MV) PO nitroglycerin mg sublingual omeprazole 20 mg PO DAILY PRN polyethylene glycol 3350 4 grams PO .prn prednisolone acetate 1% 1 drp ophthalmic (eye) BID sotalol 120 mg PO BID timolol maleate 0.5% 0 drps ophthalmic (eye) triamcinolone acetonide 0.1% 1 appl topical BID-TID warfarin 5 mg See Protocol PO DAILY Nursing Note INR: 2.9 in therapeutic range Medications and supplements reviewed No changes in diet, medications, or supplements, *Pt reports decreased gums bleeding - paying more attention to dental care and rinses *More active ( walking more) visiting his sister Denies any signs and symptoms of bruising or clotting. Bleeding, bruising, clotting discussed Nutritional guidance given - keep up weekly greens and blueberries Dose: 2.5MG X 3 DAYS/ 5MG X 4 DAYS F/U INR: 2 weeks Patient verbalizes understanding of instructions given Coding Level of Care Code Est Patient Level 1 Diagnoses Current use of anticoagulant therapy Z79.01 Results AMB INR Fingerstick AMB INR Fingerstick 2.9 Last Edit by Sofía Gillette RN on 06/10/25 08:51 manual entry Assessment & Plan Assessment & Plan (1) Current use of anticoagulant therapy: Code(s): Z79.01 - senior living (current) 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
--- OUTSIDE RECORDS SUMMARY | 2025-06-10 09:06 | XMS_ITS | Clinical Summary ---
Author Organization [address] [place] [address] [place] [address] Phone Care Team Providers Care Binder Operator Name Role Phone Bonilla Quijano MD Primary Care Provider [phone] Allergies Active Allergy Reactions Criticality Noted Date [...] once daily 90 tablet 1 03/15/2025 Active clopidogreL (PLAVIX) 75 mg tablet Take 1 tablet (75 mg total) by mouth 1 (one) time each day. 90 tablet 1 05/03/2025 Active DULoxetine (CYMBALTA) [address] capsule Take 1 capsule (30 mg total) by mouth 2 (two) times a day. 04/05/2023 Active BUPRENORPHINE HCL SDRM Place 50 mg on the skin 1 (one) time per week. Active Active Problems Problem Noted Date Diagnosed Date CAD (coronary artery disease) 08/27/2023 Assessment & Plan (05/24/2025 10:24 AM EDT): Stable coronary disease with no active angina. He has occasional atypical pains that do not sound coronary ischemic nature. On antiplatelet therapy with clopidogrel. No aspirin given he is on warfarin. He is tolerating isosorbide well and no need to change the dose given he is not having active angina. Atypical chest pain 07/24/2022 Overview (08/19/2024): Last [...] [place] given his insurance does not cover [facility] and if he needs revascularization we will schedule a follow-up procedure at [facility]. (HFpEF) heart failure with p reserved ejection fraction ([facility] V24, [facility] V28) 02/02/2021 Overview (08/19/2024): Last Assessment [...] gains more than 3 to 5 pounds. Assessment & Plan (05/24/2025 10:23 AM EDT): Patient euvolemic on examination today. Following a low-sodium diet and monitoring his weight. Would be a candidate for an SGLT2 inhibitor but he is currently doing well from a HFpEF standpoint. Cerebrovascular accident ([facility] V24, [facility] V 28) 02/01/2021 Overview (08/19/2024): Cerebrovascular accident Deep venous thrombosis ([facility] V24, [facility] V28 ) 02/01/2021 Overview (08/19/2024): Deep venous thrombosis Dizziness 02/01/2021 Overview (08/19/2024): Dizziness Atrial flutter ([facility] V24, [facility] V28) 2020 CHF (congestive heart failure) ([facility] V24, [facility] V28) 01/30/2021 HLD (hyperlipidemia) 01/30/2021 Overview [...] causing symptoms. PAF (paroxysmal atrial fibri llation) ([facility] V24, [facility] V28) 08/23/2020 Overview (08/19/2024): Last Assessment & [...] discontinue it after the procedure if successful. Assessment & Plan (05/24/2025 10:25 AM EDT): Appears to be maintaining sinus rhythm on sotalol. He is not always tracking his atrial electrogram adequately given the leadless Micra AV cannot always sensed the atrial activation perfectly. Pacemaker is working well with adequate battery longevity sensing and impedances. Continue monitoring in the office. Peripheral vascular disease (CMS/HCC V24) 2020 Overview (08/19/2024): Peripheral vascular disease Encounters Date Type Department Care Team Description 05/27/2025 3:20 PM EDT Ancillary Procedure [facility] Cardiology [facility] [address] [place] [address] 05/24/2025 9:25 AM EDT Office Visit [facility] [address] [place] [address] Jose David San MD PAF (paroxysmal atrial fibrillation) (CMS/HCC V24, CMS/HCC V28) (Primary Dx); Chronic heart failure with preserved ejection fraction (HFpEF) (CMS/HCC V24, CMS/HCC V28); Coronary artery disease involving [place] ira coronary artery of [place] ira heart without angina pectoris 05/03/2025 Telephone [facility] [address] [place] [address] Jose David San MD 04/14/2025 2:30 PM EDT Ancillary Procedure [facility] [address] [place] [address] Encounter for adjustment or management of cardiac device 04/09/2025 Telephone [facility] [address] [place] [address] Olga Lidia Cornelius MA from Last 3 Months Surgical History Surgery Date Site/Laterality Comments OTHER SURGICAL HISTORY 01/04/2021 PROCEDURE: HISTORY OTHER; COMMENT: S/p cardioversion OTHER SURGICAL HISTORY 2014 PROCEDURE: HISTORY OTHER; COMMENT: Cardiac ablation OTHER SURGICAL HISTORY Right PROCEDURE: AL ARTHRP ACETBLR/PROX FEM PROSTC AGRFT/ALGRFT TOTAL KNEE ARTHROPLASTY Left PROCEDURE: AL ARTHRP KNE CONDYLE&PLATU MEDIAL&LAT COMPARTMENTS SHOULDER SURGERY Bilateral PROCEDURE: HISTORICAL SHOULDER SURGERY OTHER SURGICAL HISTORY PROCEDURE: HISTORY OTHER; COMMENT: S/p Lumbar spine fusion OTHER SURGICAL HISTORY PROCEDURE: HISTORY OTHER; COMMENT: S/p Cervical and thoracic spine surgery with hardware placement Medical History Medical History Date Comments CVA (cerebral vascular accid ent) ([facility] V24, [facility] V28) DX:CVA (cerebral vascular a ccident) ([facility]); COMMENT: with right-sided weakness DVT (deep venous thrombosis) ([facility] V24, [facility] V28) DX:DVT (deep venous thrombos is) ([facility]) Gout DX:Gout Chronic back pain DX:Chronic jessenia k pain 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:Adjustment reaction with prolonged depressive reaction PVD (peripheral vascular dis ease) ([facility] V24) DX:PVD (peripheral vascular disease) ([facility]) Dizziness DX:Dizziness Obesity DX:Obesity Glaucoma DX:Glaucoma [...] Sign Reading Time Taken Comments Blood Pressure 120/60 05/24/2025 9:50 AM EDT Pulse 84 05/24/2025 9:50 AM EDT Temperature 36.4 C (97.5 F) 11/19/2024 7:55 AM EDT Respiratory Rate 18 11/19/2024 7:55 AM EDT Oxygen Saturation 98% 05/24/2025 9:50 AM EDT Inhaled Oxygen Concentration - - Weight 87.5 kg (193 lb) 05/24/2025 9:50 AM EDT Height 167.6 cm (5' 6 ) 05/24/2025 9:50 AM EDT Body Mass Index 31.15 05/24/2025 9:50 AM EDT Plan of Treatment Upcoming Encounters Date Type Department Care Team (Late st Contact Info) Description 04/14/2026 9:00 AM EDT Ancillary Procedure [facility] [address] [facility] [address] [place] [address] Health Maintenance Due Date Last Done Comments DTaP,Tdap,and Td Vaccines (1 - Tdap) 1959 Pneumococcal Vaccine: 50+ Years (1 of 2 - PCV) 1959 Zoster Vaccines (1 of 2) 01/04/1992 RSV [...] this topic Medical Devices Implanted Type Area Cigarette Packing Machine Operator Device Identifier Shelf Expiration Date Model / Serial / Lot Medt-Card Micra Av [id number] Implanted:02/2021 (Quantity not on file) 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 AV [id number] / [id number] / Medt-Card Micra Av [id number] Implanted:02/2021 (Quantity not on file) 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 AV [id number] / [id number] / Procedures Procedure Name Priority Date/Time Associated Diagnosis Comments CARDIAC DEVICE CHECK- REMOTE- MURJ Routine 05/27/2025 3:18 PM EDT ECG 12-LEAD Routine 05/24/2025 10:25 AM EDT PAF (paroxysmal atrial fibrillation) (CMS/HCC V24, CMS/HCC V28) CARDIAC DEVICE CHECK- IN CLINIC- MURJ Routine 04/14/2025 2:51 PM EDT Encounter for adjustment or management of cardiac device BASIC METABOLIC PANEL STAT 11/19/2024 8:02 AM EDT from Last 3 Months or Most Recently Relevant to Health Maintenance Results * Cardiac device check - Remote- MURJ (05/27/2025 3:18 PM EDT) Date Time Interrogation Session [id number] CV DEVICE CHECK Type Interrogation Session Remote CV DEVICE CHECK Implantable Pulse Generator Cigarette Packing Machine Operator MDT CV DEVICE CHECK Implantable Pulse Generator Type IPG CV DEVICE CHECK Implantable Pulse Generator Model Micra AV [id number] CV DEVICE CHECK Implantable Pulse Generator Serial Number [id number] CV DEVICE CHECK Implantable Pulse Generator Implant Date 20210109 CV DEVICE CHECK Battery Remaining Longevity 61.0 CV DEVICE CHECK Battery Voltage 2.950 CV D EVICE CHECK Battery GAS DISTRIBUTION AND EMERGENCY CLERK Trigger 2.558 CV DEVICE CHECK Battery Status Middle of Service CV DEVICE CHECK Lead Channel Sensing Intrinsic Amplitude 17.888 CV DEVICE CHECK Lead Channel Setting Sensing Sensitivity 2.00 CV DEVICE CHECK Lead Channel Impedance Value 480 CV DEVICE CHECK Lead Channel Pacing Threshold Amplitude 0.625 CV DEVICE CHECK Lead Channel Pacing Threshold Pulse Width 0.2 CV DEVICE CHECK Lead Channel RV Pacing Threshold Date 2025-05-20 CV DEVICE CHECK Lead Channel Setting Pacing [...] 20 CV DEVICE CHECK Date of Service 2025-05-27 CV DEVICE CHECK Anatomical Region Laterality Modality Device Interroga tion 05/20/2025 8:33 AM EDT Impressions 05/27/2025 7:47 AM EDT Normal Remote: No Events * Normal Device Function * Alerts or events: None * Battery: OK, 5.08 yrs * Sensing, impedance and thresholds reviewed * Programmed parameters reviewed * Presenting rhythm reviewed * Heart Rate Histograms reviewed * No significant changes noted Narrative Procedure Note Jose David San MD - 05/27/2025 IMPRESSION: Normal Remote: No Events * Normal Device Function * Alerts or events: None * Battery: OK, 5.08 yrs * Sensing, impedance and thresholds reviewed * Programmed parameters reviewed * Presenting rhythm reviewed * Heart Rate Histograms reviewed * No significant changes noted Jose David San MD CV IMPLANTABLE CARDIAC DEVICE PROCEDURES Final Result * ECG 12 lead (05/24/2025 10:25 AM EDT) Ventricular Rate ECG 84 BPM GEMUSE Atrial Rate 84 BPM GEMUSE QRS Duration 160 ms GEMUSE Q-T Interval 428 ms GEMUSE QTc 505 ms GEMUSE P Wave Plover 66 degrees GEMUSE R Plover 97 degrees GEMUSE T Plover 106 degrees GEMUSE ECG Interpretation Sinus rhythm with A-V dissociation and paced ventricular rhythm Abnormal ECG When compared with ECG of 08-JUL-2023 08:00, No significant changes are noted Confirmed by Gini SAN JOHN ([id number]) on 05/26/2025 7:42:25 PM GEMUSE 05/24/2025 9:58 AM EDT 05/26/2025 7:42 PM EDT us Jose David San MD ECG ORDERABLES Edited Result - Final GEMUSE * CARDIAC DEVICE CHECK- [facility] (04/14/2025 2:51 PM EDT) Date Time Interrogation Session [id number] CV DEVICE CHECK Implantable Pulse Generator Cigarette Packing Machine Operator MDT CV DEVICE CHECK Implantable Pulse Generator Type IPG CV DEVICE CHECK Implantable Pulse Generator Model Micra AV [id number] CV DEVICE CHECK Implantable Pulse Generator Serial Number [id number] CV DEVICE CHECK Implantable Pulse Generator Implant [...] thresholds reviewed and tested * Presenting Rhythm: AIR BREAKER OPERATOR 80s * No R waves @ VVI [...] thresholds reviewed and tested * Presenting Rhythm: AIR BREAKER OPERATOR 80s * No R waves @ VVI 30 bpm today * Heart Rate Histograms reviewed * Pacing and Detection Parameters were evaluated us Order Referral Cardiovascular CV IMPLANTABLE CAR DIAC DEVICE PROCEDURES Final Result * (ABNORMAL) Basic metabolic panel (11/19/2024 8:02 AM EDT) Pathologist [facility] Sodium 140 133 - 145 mmol/L LAB CHEMISTRY METHOD 11/19/2024 8:56 AM [facility] Potassium 4.7 3.5 - 5.5 mmol/L LAB CHEMISTRY METHOD 11/19/2024 8:56 AM [facility] Chloride 103 96 - 110 mmol/L LAB CHEMISTRY METHOD 11/19/2024 8:56 AM [facility] CO2 31 21 - 32 mmol/L LAB CHEMISTRY METHOD 11/19/2024 8:56 AM [facility] Anion Gap 6 3 - 11 LAB CHEMISTRY METHOD 11/19/2024 8:56 AM [facility] Glucose 135(H) 70 - 100 mg/dL LAB CHEMISTRY METHOD 11/19/2024 8:56 AM [facility] BUN 30(H) 5 - 25 mg/dL LAB CHEMISTRY METHOD 11/19/2024 8:56 AM [facility] Creatinine 1.33(H) 0.70 - 1.30 mg/dL LAB CHEMISTRY METHOD 11/19/2024 8:56 AM [facility] eGFR 53(L) >=60 mL/min/1. 73m2 LAB CHEMISTRY METHOD 11/19/2024 8:56 AM [facility] Comment:Calculation based on the Chronic Kidney Disease Epidemiology Collaboration (CKD-EPI) equation refit without adjustment for race. BUN/Creatinine Ratio 22.6 LAB CHEMISTRY METHOD 11/19/2024 8:56 AM EDT [facility] Calcium 9.7 8.5 - 10.5 mg/dL LAB CHEMISTRY METHOD 11/19/2024 8:56 AM EDT [facility] Blood Venous blood specimen / Unknown Venipuncture / Unknown 11/19/2024 8:02 AM EDT 11/19/2024 8:24 AM EDT us Manny Ashraf DO LAB BLOOD ORDERABLES Final Result [facility] ([facility]) [facility] [address] [place] [address], from Last 3 Months or Most Recently Relevant to Health Maintenance Insurance [employer] MEDICARE [place]ICA[place] - [place] Advance Directives Documents on File Type Date Recorded 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
--- OUTSIDE RECORDS SUMMARY | 2025-06-10 09:06 | XMS_ITS | Clinical Summary ---
Author Organization [facility] Address [address] [place] [address] Care Team Providers Care Desktop Specialist Name Role Phone Bonilla Quijano MD Primary Care Provider [phone] Allergies Active Allergy Reactions Criticality Noted Date [...] total) by mouth daily. 4 Active nystatin 743877 UNIT/GM powder APPLY ONE GRAM POWDER TOPICALLY [...] patient's age to complete this topic Insurance [facility] MEDICARE [facility] Care Teams Desktop Specialist Relationship Specialty Start Date End Date Bonilla Quijano MD [address] [place] [id number] PCP - General 04/09/23
== END 2025-06-10 09:02 | disposition home or self-care (01) ==
LOC: HO.ACS 08:36
PROVIDERS: Visit Provider Internal Medicine Medical Oncology
DX: Z79.01 Long term (current) use of anticoagulants (principal)

== ENCOUNTER → 2025-06-10 08:36 | Outpatient (BNVA) | payer MEDICARE, SELFPAY | PROVIDERS: Visit Provider Internal Medicine Medical Oncology | DX: Z79.01 Long term (current) use of anticoagulants (principal) | CPT/HCPCS: 85610; 99211 ==

== ENCOUNTER 2025-06-28 08:16 | Outpatient (REF) | payer MEDICARE, SELFPAY ==
[2025-06-28 09:00] LABS: MANUAL DIFF FLAG NO
[2025-06-28 09:03] LABS: Hematocrit 42.1 % (42.0-52.0); Hemoglobin 13.0 g/dl (14.0-18.0); Imm Gran Abs Auto 0.02 X10*3/uL (0.00-0.03); Imm Gran Pct Auto 0.2 % (0.0-0.4); Lymphocytes Absolute Auto 2.7 X10*3/uL (1.2-4.9); Mean Corpuscular HGB Conc 30.9 g/dl (31.0-36.0); Mean Corpuscular Hemoglobin 29.6 pg (27.0-33.0); Mean Corpuscular Volume 95.9 fL (80.0-98.0); NRBC Abs Auto 0.000 X10*3/uL (0.0-0.012); NRBC Pct Auto 0.0 /100WBC (0.0-0.2); Platelet Count 141 X10*3/uL (160-400); Red Blood Count 4.39 X10*6/uL (4.60-5.80); White Blood Count 8.5 X10*3/uL (4.8-10.8)
[2025-06-28 09:13] LABS: INTERNATIONAL NORM RATIO 4.6 (0.9-1.1); Prothrombin Time 54.2 SEC (11.2-13.5)
== END 2025-06-28 08:17 | disposition home or self-care (01) ==
LOC: HO.LAB 08:16
PROVIDERS: Visit Provider Internal Medicine Medical Oncology
DX: Z79.01 Long term (current) use of anticoagulants (principal)
CPT/HCPCS: 36415; 85025; 85610; 99211

== ENCOUNTER 2025-06-28 08:16 | Outpatient (AMB) | payer MEDICARE, SELFPAY ==
--- OUTSIDE RECORDS SUMMARY | 2024-05-05 08:52 | XMS_ITS | Encounter Summary ---
Author Organization [facility] [place] [address] Care Team Providers Care Offal Baler Name Role Phone Bonilla Quijano MD Primary Care Provider Encounter Details Date Type Department Care Team (Late st Contact Info) Description 05/05/2024 9:52 AM EDT Hospital Encounter TH HISTORIC ENCOUNTERS EASTERN CONVERSION ONLY Soto Stephenson MD [address] [place] [phone] Social History Tobacco Use Types Packs/Day Years Used Date Smoking Tobacco: Former Smokeless Tobacco: Never Alcohol Use Standard Drinks/Week Comments Yes 0 (1 standard drink = 0.6 oz pur e alcohol) Sex and Gender Information Value Date Recorded Sex Assigned at Not on file Legal Sex Male 7:08 PM EST Gender Identity Not on file Sexual Orientation Not on file documented as of this encounter Functional Status * Calculated C-SSRS Risk Score (Lifetime/Recent) Answer Date of Assessment Author No Risk Indicated 11/19/2024 7:50 AM EDT Renan Doshi RN * [place] Suicide Severity Rating Scale (Screener/Recent Self-Report) Question Answer Date of Assessment Author 1. Wish to be (Past 1 Month) No 025 7:50 AM EDT Renan Doshi, RN 2. Non-Specific Active Suici narcisa Thoughts (Past 1 Month) No 11/19/2024 7:50 AM EDT Doshi, Yaakov s B, RN 6. Suicidal Behavior (Lifetime) No 7:50 AM EDT Renan Doshi RN documented as of this encounter Procedure Notes * Beverly Atkinson NP - 05/05/2024 11:28 AM EDT Procedure Note Encounter Date & Time 05/05/24 11:27 Procedure Note Pacemaker pulse generator programming pre and post-MRI, testing pre and post-MRI and monitoring for the duration of MRI. The patient has a Medtronic Micra AV pacemaker. The device was programmed to a DOO mode for the duration of MRI. There were no EKG issues during the MRI. Testing of the device post-MRI did not show any significant change in sensing lead impedances or pacing thresholds. IMPRESSION: Normal device function. BEVERLY ATKINSON May 05, 2024 11:28 documented in this encounter Plan of Treatment Upcoming Encounters Date Type Department Care Team (Late st Contact Info) Description 04/14/2026 9:00 AM EDT Ancillary Procedure [facility] - [address] [facility] 154 [place] [phone] documented as of this encounter Visit Diagnoses Not on filedocumented in this encounter Care Teams Offal Baler Relationship Specialty Start Date End Date Bonilla Quijano MD [address] [place] [address] PCP - General Internal Medicine 07/14/12 documented as of this encounter
--- OUTSIDE RECORDS SUMMARY | 2025-06-24 08:18 | XMS_ITS | Clinical Summary ---
Author Organization [facility] Address [address] [place] [address] Care Team Providers Care Envelope Sealer Operator Name Role Phone Bonilla Quijano MD Primary Care Provider [phone] Allergies Active Allergy Reactions Criticality Noted Date [...] total) by mouth daily. 4 Active nystatin 795041 UNIT/GM powder APPLY ONE GRAM POWDER TOPICALLY [...] patient's age to complete this topic Insurance [facility] MEDICARE [facility] Care Teams Envelope Sealer Operator Relationship Specialty Start Date End Date Bonilla Quijano MD [address] [place] [id number] PCP - General 04/09/23
--- OUTSIDE RECORDS SUMMARY | 2025-06-24 08:18 | XMS_ITS | Data Portability ---
Author Organization [facility] - [facility] Fitz[facility], [facility] Address [address] [place] [address] Assessment Encounter Date Assessment Date Assessment LastModified [...] Address Organization Details Recorded Time No complaints [id number] Active Status : 'I'; Not Available [facility] 4 09:28:03 Problem Notes None recorded. Medical Equipment None Reported. Allergies Allergen ID Allergen Name Allergen Category Reaction Reaction Severity Criticality Documentation Date Start Date Code Code System Note Provider Name and Address Organization Details Recorded Time 01689 codeine sulfate medicatio n Not available Not available Not available 10/07/20232016 17422 RxNorm Not Available [facility] 4 12:08:52 25151 morphine sulfate medicatio n Not available Not available Not available 10/07/20232013 33885 RxNorm Not Available [facility] 12:08:52 Medications Name Sig Start [...] Updated DateTime 12/27/2023 165.1 cm 35.1 kg/m2 09970.99 g SCAR VELIZ [place] - [facility] 12/27/2023 09:09:13 Social History None recorded. Functional Status None recorded. Mental Status None recorded. Family History Nothing Reported. Medical History No medical history recorded. Past Encounters Encounter ID Performer Location Encounter Start Date Encounter Closed Date Diagnosis/Indication Diagnosis SNOMED-CT Code Diagnosis ICD10 Code Diagnosis IMO Codes Diagnosis Note [id number] Augie Simons MD [place] [address] [place] [address] 12/27/2023 08:37:56 01/15/2024 11:37:33 Lumbar post-laminectomy syndrome 550942710 M96.1 Health Concerns Section Related Observation LastModified by Organization Detai ls LastModified Time None Recorded Concern Status LastModified by Organization Details LastModified Time None Recorded Advance Directives Directive None Recorded Payers Insurance Date Sequence Insurance Name Policy Number Policy Oliver Covered Member ID Oliver Member ID Guarantor Name 10/25/2023 SLIDING FEE SCHEDULE - DISCOUNT Raine Ken 03/11/2024 2 [place] [facility] Raine Ken [id number] Raine Ken 01/15/2024 1 [facility] (MEDICARE REPLACEMENT/A DVANTAGE - PPO) [id number] Raine Ken [id number] Raine Ken Notes Date Note Type Note [...] Not indicated PHYSICAL EXAMINATION: Augie Simons MD [address] [place] [address] [address], [place], [address], [facility] 12/27/2023 12:28:38
--- OUTSIDE RECORDS SUMMARY | 2025-06-28 08:23 | XMS_ITS | Clinical Summary ---
Author Organization [address] [place] [address] [place] [phone] Phone Care Team Providers Care Eating Disorder Psychologist Name Role Phone Bonilla Quijano MD Primary Care Provider [phone] Allergies Active Allergy Reactions Criticality Noted Date [...] catheterization. He wants to do this at [facility] given his insurance does not cover [facility] and if he needs revascularization we will schedule a follow-up procedure at [facility]. (HFpEF) heart failure with p reserved ejection fraction ([facility] V24, [facility] V28) 02/02/2021 Overview (08/19/2024): Last Assessment & [...] well from a HFpEF standpoint. Cerebrovascular accident ([facility] V24, [facility] V 28) 02/01/2021 Overview (08/19/2024): Cerebrovascular accident Deep venous thrombosis ([facility] V24, [facility] V28 ) 02/01/2021 Overview (08/19/2024): Deep venous thrombosis Dizziness 02/01/2021 Overview (08/19/2024): Dizziness Atrial flutter ([facility] V24, [facility] V28) 2020 CHF (congestive heart failure) ([facility] V24, [facility] V28) 01/30/2021 HLD (hyperlipidemia) 01/30/2021 Overview (08/19/2024): [...] causing symptoms. PAF (paroxysmal atrial fibri llation) ([facility] V24, [facility] V28) 08/23/2020 Overview (08/19/2024): Last Assessment & [...] Description 05/27/2025 3:20 PM EDT Ancillary Procedure [facility] [address] [place] [address] 05/24/2025 9:25 AM EDT Office Visit [facility] [address] [place] [address] Jose David San MD PAF (paroxysmal atrial fibrillation) (CMS/HCC V24, CMS/HCC V28) (Primary Dx); Chronic heart failure with preserved ejection fraction (HFpEF) (CMS/HCC V24, CMS/HCC V28); 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 05/03/2025 Telephone [facility] [address] [place] [address] Jose David San MD 04/14/2025 2:30 PM EDT Ancillary Procedure [facility] [address] [place] [address] Encounter for adjustment or management of cardiac device 04/09/2025 Telephone [facility] [address] [place] [address] Olga Lidia Cornelius MA from Last 3 [...] Date Comments CVA (cerebral vascular accid ent) ([facility] V24, [facility] V28) DX:CVA (cerebral vascular a ccident) ([facility]); COMMENT: with right-sided weakness DVT (deep venous thrombosis) ([facility] V24, [facility] V28) DX:DVT (deep venous thrombos is) ([facility]) Gout DX:Gout Chronic back pain DX:Chronic jessenia k pain 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:Adjustment reaction with prolonged depressive reaction PVD (peripheral vascular dis ease) ([facility] V24) DX:PVD (peripheral vascular disease) ([facility]) Dizziness DX:Dizziness Obesity DX:Obesity Glaucoma DX:Glaucoma Cervical [...] Description 04/14/2026 9:00 AM EDT Ancillary Procedure [facility] [address] [facility] [address] [place] [address] Health Maintenance Due Date Last [...] this topic Medical Devices Implanted Type Area Candy Cooker Helper Device Identifier Shelf Expiration Date Model / Serial / Lot Medt-Card Micra Av [id number] Implanted:02/2021 (Quantity not on file) 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 AV [id number] / [id number] / Medt-Card Micra Av Mc1avr [id number] Implanted:02/2021 (Quantity not on file) 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 AV [id number] / [id number] / Procedures Procedure Name Priority Date/Time Associated [...] 3:18 PM EDT) Date Time Interrogation Session [id number] CV DEVICE CHECK Type Interrogation Session Remote CV DEVICE CHECK Implantable Pulse Generator Candy Cooker Helper MDT CV DEVICE CHECK Implantable Pulse Generator Type IPG CV DEVICE CHECK Implantable Pulse Generator Model Micra AV [id number] CV DEVICE CHECK Implantable Pulse Generator Serial Number [id number] CV DEVICE CHECK Implantable Pulse Generator Implant Date 20210109 CV DEVICE CHECK Battery Remaining Longevity 61.0 CV DEVICE CHECK Battery Voltage 2.950 CV D EVICE CHECK Battery ELECTRICAL SIGN WIRER Trigger 2.558 CV DEVICE CHECK Battery Status [...] GEMUSE QTc 505 ms GEMUSE P Wave [place] 66 degrees GEMUSE R [place] 97 degrees GEMUSE T [place] 106 degrees GEMUSE ECG Interpretation Sinus rhythm with A-V dissociation and paced ventricular rhythm Abnormal ECG When compared with ECG of 08-JUL-2023 08:00, No significant changes are noted Confirmed by Gini ASN JOHN ([id number]) on 05/26/2025 7:42:25 PM GEMUSE 05/24/2025 9:58 AM EDT 05/26/2025 7:42 PM EDT us Jose David San MD ECG ORDERABLES Edited Result - Final GEMUSE * CARDIAC DEVICE CHECK- IN [facility]- [facility] (04/14/2025 2:51 PM EDT) Date Time Interrogation Session [id number] CV DEVICE CHECK Implantable Pulse Generator Candy Cooker Helper MDT CV DEVICE CHECK Implantable Pulse Generator Type IPG CV DEVICE CHECK Implantable Pulse Generator Model Micra AV [id number] CV DEVICE CHECK Implantable Pulse Generator Serial Number [id number] CV DEVICE CHECK Implantable Pulse Generator Implant [...] thresholds reviewed and tested * Presenting Rhythm: CONVEYOR MAINTENANCE MECHANIC 80s * No R waves @ VVI [...] thresholds reviewed and tested * Presenting Rhythm: CONVEYOR MAINTENANCE MECHANIC 80s * No R waves @ VVI 30 bpm today * Heart Rate Histograms reviewed * Pacing and Detection Parameters were evaluated us Order Referral Cardiovascular CV IMPLANTABLE CAR DIAC DEVICE PROCEDURES Final Result * (ABNORMAL) Basic metabolic panel (11/19/2024 8:02 AM EDT) Pathologist [facility] Sodium 140 133 - 145 mmol/L LAB CHEMISTRY METHOD 11/19/2024 8:56 AM [facility] Potassium 4.7 3.5 - 5.5 mmol/L LAB CHEMISTRY METHOD 11/19/2024 8:56 AM [facility] Chloride 103 96 - 110 mmol/L LAB CHEMISTRY METHOD 11/19/2024 8:56 AM [facility] CO2 31 21 - 32 mmol/L LAB CHEMISTRY METHOD 11/19/2024 8:56 AM [facility] Anion Gap 6 3 - 11 LAB CHEMISTRY METHOD 11/19/2024 8:56 AM [facility] Glucose 135(H) 70 - 100 mg/dL LAB CHEMISTRY METHOD 11/19/2024 8:56 AM [facility] BUN 30(H) 5 - 25 mg/dL LAB CHEMISTRY METHOD 11/19/2024 8:56 AM [facility] Creatinine 1.33(H) 0.70 - 1.30 mg/dL LAB CHEMISTRY METHOD 11/19/2024 8:56 AM [facility] eGFR 53(L) >=60 mL/min/1. 73m2 LAB CHEMISTRY METHOD 11/19/2024 8:56 AM [facility] Comment:Calculation based on the Chronic Kidney Disease Epidemiology Collaboration (CKD-EPI) equation refit without adjustment for race. BUN/Creatinine Ratio 22.6 LAB CHEMISTRY METHOD 11/19/2024 8:56 AM EDT [facility] Calcium 9.7 8.5 - 10.5 mg/dL LAB CHEMISTRY METHOD 11/19/2024 8:56 AM EDT [facility] Blood Venous blood specimen / Unknown Venipuncture / Unknown 11/19/2024 8:02 AM EDT 11/19/2024 8:24 AM EDT us Manny Asrhaf DO LAB BLOOD ORDERABLES Final Result [facility] ([facility] [address] [place] [address], from Last 3 Months or Most Recently Relevant to Health Maintenance Insurance [employer] MEDICARE [place]ICAID - [place] Advance Directives Documents on File Type Date Recorded Patient Road Equipment Operator Expl anation Health Care Decision (hx) [...] (hx) 05/10/2020 [facility] DIRECTIVE Care Teams Eating Disorder Psychologist Relationship Specialty Start Date End Date Bonilla Quijano MD [address] [place] [address] PCP - General Internal Medicine 07/14/12
--- OUTSIDE RECORDS SUMMARY | 2025-06-28 08:23 | XMS_ITS | Data Portability ---
Author Organization [facility] - Cash Fitzpatrick [facility], [facility] Address [address] [place] [address] Assessment Encounter Date Assessment Date Assessment LastModified [...] Address Organization Details Recorded Time No complaints [id number] Active Status : 'I'; Not Available [facility] 4 09:28:03 Problem Notes None recorded. Medical Equipment None Reported. Allergies Allergen ID Allergen Name Allergen Category Reaction Reaction Severity Criticality Documentation Date Start Date Code Code System Note Provider Name and Address Organization Details Recorded Time 28657 codeine sulfate medicatio n Not available Not available Not available 10/07/20232016 09609 RxNorm Not Available [facility] 4 12:08:52 63114 morphine sulfate medicatio n Not available Not available Not available 10/07/20232013 18581 RxNorm Not Available [facility] 12:08:52 Medications Name Sig Start Date [...] Updated DateTime 12/27/2023 165.1 cm 35.1 kg/m2 73001.99 g SCAR VELIZ [place] - [facility] 12/27/2023 09:09:13 Social History None recorded. Functional Status None recorded. Mental Status None recorded. Family History Nothing Reported. Medical History No medical history recorded. Past Encounters Encounter ID Performer Location Encounter Start Date Encounter Closed Date Diagnosis/Indication Diagnosis SNOMED-CT Code Diagnosis ICD10 Code Diagnosis IMO Codes Diagnosis Note [id number] Augie Simons MD [place] [address] [place] [address] 12/27/2023 08:37:56 01/15/2024 11:37:33 Lumbar post-laminectomy syndrome 271709362 M96.1 Health Concerns Section Related Observation LastModified by Organization Detai ls LastModified Time None Recorded Concern Status LastModified by Organization Details LastModified Time None Recorded Advance Directives Directive None Recorded Payers Insurance Date Sequence Insurance Name Policy Number Policy Oliver Covered Member ID Oliver Member ID Guarantor Name 10/25/2023 SLIDING FEE SCHEDULE - DISCOUNT Raine Ken 03/11/2024 2 [place] [facility] Raine Ken [id number] Raine Ken 01/15/2024 1 [facility] (MEDICARE REPLACEMENT/A DVANTAGE - PPO) [id number] Raine Ken [id number] Raine Ken Notes Date Note Type Note [...] Not indicated PHYSICAL EXAMINATION: Augie Simons MD [address] [place] [address] [address], [place], [address], [facility] - [facility] 12/27/2023 12:28:38
--- OUTSIDE RECORDS SUMMARY | 2025-06-28 08:23 | XMS_ITS | Clinical Summary ---
Author Organization [facility] Address [address] [place] [address] Care Team Providers Care Quill Worker Name Role Phone Bonilla Quijano MD Primary Care Provider [phone] Allergies Active Allergy Reactions Criticality Noted Date [...] total) by mouth daily. 4 Active nystatin 019028 UNIT/GM powder APPLY ONE GRAM POWDER TOPICALLY [...] patient's age to complete this topic Insurance [facility] MEDICARE [facility] Care Teams Quill Worker Relationship Specialty Start Date End Date Bonilla Quijano MD [address] [place] [id number] PCP - General 04/09/23
[2025-06-28 08:34] LABS: Prothrombin Time Whole Bld POC 60.0 sec (11.1-13.5); ~PT, ~INR - Anti Coag Clinic 5.0 (0.9-1.1)
--- NOTE | 2025-06-28 08:59 | MHC.OFFVISCO ---
Intake Intake Visit Reasons: Anticoagulation Allergies morphine Allergy (Severe, Verified 06/28/25 08:26) Rash baclofen Adverse Reaction (Intermediate, Verified 06/28/25 08:26) Confusion codeine Adverse Reaction (Intermediate, Verified 06/28/25 08:26) GI UPSET divalproex sodium (From Depakote) Adverse Reaction (Intermediate, Verified 06/28/25 08:26) Chest Pain latex Adverse Reaction (Intermediate, Verified 06/28/25 08:26) RASH Medication List - Last Reconciled 06/28/25 by Sofía Gillette RN acetaminophen ER 1,300 mg PO Q12H allopurinol 200 mg PO DAILY atorvastatin 80 mg PO DAILY brimonidine 0.2% 0 drps ophthalmic (eye) buprenorphine 20 mcg/hour 1 patch topical QWEEK chlorthalidone 25 mg PO DAILY cholecalciferol (vitamin D3) PO clopidogrel 75 mg PO DAILY duloxetine 30 mg PO BID erythromycin ophthalmic (eye) gabapentin 600 mg PO TID isosorbide mononitrate ER 30 mg PO DAILY ketorolac 0.5% drps ophthalmic (eye) latanoprost 0.005% drps ophthalmic (eye) lisinopril 20 mg PO DAILY pv-izg-NI-vit X-gqnqgb-wnqpqcv (PreserVision AREDS 2 Plus MV) PO nitroglycerin mg sublingual omeprazole 20 mg PO DAILY PRN polyethylene glycol 3350 4 grams PO .prn prednisolone acetate 1% 1 drp ophthalmic (eye) BID sotalol 120 mg PO BID timolol maleate 0.5% 0 drps ophthalmic (eye) triamcinolone acetonide 0.1% 1 appl topical BID-TID warfarin 5 mg See Protocol PO DAILY Nursing Note INR 5.0 out of therapeutic range Medications and supplements reviewed Patient status: Pt ill x 3-4 days with covid/flu like symptoms: extremely sore throat, nausea and vomiting - just started eating yesterday Medications or supplements: no other changes Diet: was poor for a few days * When pt INR above 3.0 his gums bleed Bleeding, bruising, clotting discussed Nutritional guidance given: cooked soft greens today Dose: no warfarin x 2 days the decrease warfarin dose 2.5mg x 4 days/ 5mg x 3 days F/U INR Date : 06/30/25 ?? Patient verbalizing understanding of instructions given. t/c to PCP office spoke with Negin who will convey msg to PCP of result and plan of care Coding Level of Care Code Est Patient Level 1 Diagnoses Current use of anticoagulant therapy Z79.01 Comment t/c to PCP and spoke with son regarding bleed risk and f/u 2 days Results AMB INR Fingerstick AMB INR Fingerstick 5.0 Last Edit by Sofía Gillette RN on 06/28/25 08:35 MD NOTIFIED Sofía Gillette 06/28/25 08:35 MANUAL ENTRY Assessment & Plan Assessment & Plan (1) Current use of anticoagulant therapy: Code(s): Z79.01 - group home (current) 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 Orders: Orders Prothrombin Time INR Today Z79.01 - group home (current) use of anticoagulants Complete Blood Count Auto Diff Today Z79.01 - group home (current) use of anticoagulants Complete Blood Count Auto Diff Today Z79.01 - exterminator helper (current) use of anticoagulants
== END 2025-06-28 09:07 | disposition home or self-care (01) ==
PROVIDERS: Visit Provider Internal Medicine Medical Oncology
DX: Z79.01 Long term (current) use of anticoagulants (principal)

== ENCOUNTER 2025-06-30 08:56 | Outpatient (AMB) | payer MEDICARE, SELFPAY ==
--- OUTSIDE RECORDS SUMMARY | 2024-05-05 08:52 | XMS_ITS | Encounter Summary ---
Author Organization [facility] [place] [address] Care Team Providers Care Outreach Manager Name Role Phone Bonilla Quijano MD Primary Care Provider [phone] Encounter Details Date Type Department Care Team (Late st Contact Info) Description 05/05/2024 9:52 AM EDT Hospital Encounter TH HISTORIC ENCOUNTERS EASTERN CONVERSION ONLY Soto Stephenson MD [address] [place] [phone] Social History Tobacco Use Types Packs/Day [...] 7:50 AM EDT Renan Doshi RN * [place] Suicide Severity Rating Scale (Screener/Recent Self-Report) Question [...] Description 04/14/2026 9:00 AM EDT Ancillary Procedure [facility] Associates - [address] [facility] 154 [place] [phone] documented as of this encounter Visit Diagnoses Not on filedocumented in this encounter Care Teams Outreach Manager Relationship Specialty Start Date End Date Bonilla Quijano MD [address] [place] [address] PCP - General Internal Medicine 07/14/12 documented as of this encounter
--- NOTE | 2025-06-30 09:02 | MHC.OFFVISCO ---
Intake Intake Visit Reasons: Anticoagulation Allergies morphine Allergy (Severe, Verified 06/30/25 08:57) Rash baclofen Adverse Reaction (Intermediate, Verified 06/28/25 08:26) Confusion codeine Adverse Reaction (Intermediate, Verified 06/30/25 08:57) GI UPSET divalproex sodium (From Depakote) Adverse Reaction (Intermediate, Verified 06/30/25 08:57) Chest Pain latex Adverse Reaction (Intermediate, Verified 06/30/25 08:57) RASH Medication List - Last Reconciled 06/30/25 by Africa Cao RN acetaminophen ER 1,300 mg PO Q12H allopurinol 200 mg PO DAILY atorvastatin 80 mg PO DAILY brimonidine 0.2% 0 drps ophthalmic (eye) buprenorphine 20 mcg/hour 1 patch topical QWEEK chlorthalidone 25 mg PO DAILY cholecalciferol (vitamin D3) PO clopidogrel 75 mg PO DAILY duloxetine 30 mg PO BID erythromycin ophthalmic (eye) gabapentin 600 mg PO TID isosorbide mononitrate ER 30 mg PO DAILY ketorolac 0.5% drps ophthalmic (eye) latanoprost 0.005% drps ophthalmic (eye) lisinopril 20 mg PO DAILY iw-pge-OL-vit R-vgqbus-lxelcfn (PreserVision AREDS 2 Plus MV) PO nitroglycerin mg sublingual omeprazole 20 mg PO DAILY PRN polyethylene glycol 3350 4 grams PO .prn prednisolone acetate 1% 1 drp ophthalmic (eye) BID sotalol 120 mg PO BID timolol maleate 0.5% 0 drps ophthalmic (eye) triamcinolone acetonide 0.1% 1 appl topical BID-TID warfarin 5 mg See Protocol PO DAILY Nursing Note INR 3.1- out of therapeutic range 2-3 Medications and supplements reviewed Patient status: pt c.o bleeding from mouth - dried blood noted on roxanne shirt. pt states this happens when inr greater than 3.0, bleeding occurs when he eats and brushes teeth. pt states pcp aware pt states cold symptoms are acid reflux Medications or supplements: no changes , tylenol prn Diet: appetite improved Denies any signs and symptoms of bleeding or clotting or unusual bruising Bleeding, bruising, clotting discussed Nutritional guidance given: eat a green today Dose: hold 2.5mg today due to bleeding F/U INR Date : 1 week? Patient verbalizing understanding of instructions given. Coding Level of Care Code Est Patient Level 1 Diagnoses Current use of anticoagulant therapy Z79.01 Assessment & Plan Assessment & Plan (1) Current use of anticoagulant therapy: Code(s): Z79.01 - extermination supervisor (current) 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
[2025-06-30 09:03] LABS: Prothrombin Time Whole Bld POC 37.2 sec (11.1-13.5); ~PT, ~INR - Anti Coag Clinic 3.1 (0.9-1.1)
--- OUTSIDE RECORDS SUMMARY | 2025-06-30 09:30 | XMS_ITS | Clinical Summary ---
Author Organization [facility] Address [address] [place] [address] Care Team Providers Care Layer Up Name Role Phone Bonilla Quijano MD Primary Care Provider [phone] Allergies Active Allergy Reactions Criticality Noted Date [...] total) by mouth daily. 4 Active nystatin 309180 UNIT/GM powder APPLY ONE GRAM POWDER TOPICALLY [...] to complete this topic Insurance [facility] MEDICARE [facility] Care Teams Layer Up Relationship Specialty Start Date End Date Bonilla Quijano MD [address] [place] [id number] PCP - General 04/09/23
--- OUTSIDE RECORDS SUMMARY | 2025-06-30 09:30 | XMS_ITS | Clinical Summary ---
Author Organization [address] [place] [address] [place] [phone] Phone Care Team Providers Care Clinical Supervisor Name Role Phone Bonilla Quijano MD Primary Care Provider [phone] Allergies Active Allergy Reactions Criticality Noted Date [...] catheterization. He wants to do this at [facility] given his insurance does not cover [facility] and if he needs revascularization we will schedule a follow-up procedure at [facility]. (HFpEF) heart failure with p reserved ejection fraction ([facility] V24, [facility] V28) 02/02/2021 Overview (08/19/2024): Last [...] well from a HFpEF standpoint. Cerebrovascular accident ([facility] V24, [facility] V 28) 02/01/2021 Overview (08/19/2024): Cerebrovascular accident Deep venous thrombosis ([facility] V24, [facility] V28 ) 02/01/2021 Overview (08/19/2024): Deep venous thrombosis Dizziness 02/01/2021 Overview (08/19/2024): Dizziness Atrial flutter ([facility] V24, [facility] V28) 2020 CHF (congestive heart failure) ([facility] V24, [facility] V28) 01/30/2021 HLD (hyperlipidemia) 01/30/2021 [...] causing symptoms. PAF (paroxysmal atrial fibri llation) ([facility] V24, [facility] V28) 08/23/2020 Overview (08/19/2024): Last [...] Description 05/27/2025 3:20 PM EDT Ancillary Procedure [facility] [address] [place] [address] 05/24/2025 9:25 AM EDT Office Visit [facility] [address] [place] [address] Jose David San MD PAF (paroxysmal atrial fibrillation) (CMS/HCC V24, CMS/HCC V28) (Primary Dx); Chronic heart failure with preserved ejection fraction (HFpEF) (CMS/HCC V24, CMS/HCC V28); Coronary artery disease involving [place] coronary artery of [place] heart without angina pectoris 05/03/2025 Telephone [facility] [address] [place] [address] Jose David San MD 04/14/2025 2:30 PM EDT Ancillary Procedure [facility] [address] [place] [address] Encounter for adjustment or management of cardiac device 04/09/2025 Telephone [facility] [address] [place] [address] Olga Lidia Cornelius MA from Last 3 [...] Date Comments CVA (cerebral vascular accid ent) ([facility] V24, [facility] V28) DX:CVA (cerebral vascular a ccident) ([facility]); COMMENT: with right-sided weakness DVT (deep venous thrombosis) ([facility] V24, [facility] V28) DX:DVT (deep venous thrombos is) ([facility]) Gout DX:Gout Chronic back pain DX:Chronic jessenia k pain 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:Adjustment reaction with prolonged depressive reaction PVD (peripheral vascular dis ease) ([facility] V24) DX:PVD (peripheral vascular disease) ([facility]) Dizziness DX:Dizziness Obesity DX:Obesity Glaucoma [...] Description 04/14/2026 9:00 AM EDT Ancillary Procedure [facility] [address] [facility] [address] [place] [address] Health Maintenance Due Date Last [...] this topic Medical Devices Implanted Type Area Bioprocessing Manufacturing Technician Device Identifier Shelf Expiration Date Model / Serial / Lot Medt-Card Micra Av [id number] Implanted:02/2021 (Quantity not on file) 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 AV [id number] / [id number] / Medt-Card Micra Av Mc1avr [id number] Implanted:02/2021 (Quantity not on file) 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 AV [id number] / [id number] / Procedures Procedure Name Priority Date/Time Associated [...] 3:18 PM EDT) Date Time Interrogation Session [id number] CV DEVICE CHECK Type Interrogation Session Remote CV DEVICE CHECK Implantable Pulse Generator Bioprocessing Manufacturing Technician MDT CV DEVICE CHECK Implantable Pulse Generator Type IPG CV DEVICE CHECK Implantable Pulse Generator Model Micra AV [id number] CV DEVICE CHECK Implantable Pulse Generator Serial Number [id number] CV DEVICE CHECK Implantable Pulse Generator Implant Date 20210109 CV DEVICE CHECK Battery Remaining Longevity 61.0 CV DEVICE CHECK Battery Voltage 2.950 CV D EVICE CHECK Battery SALES REVIEW CLERK Trigger 2.558 CV DEVICE CHECK Battery [...] GEMUSE QTc 505 ms GEMUSE P Wave [place] 66 degrees GEMUSE R [place] 97 degrees GEMUSE T [place] 106 degrees GEMUSE ECG Interpretation Sinus rhythm [...] GEMUSE * CARDIAC DEVICE CHECK- [facility] (04/14/2025 2:51 PM EDT) Date Time Interrogation Session [id number] CV DEVICE CHECK Implantable Pulse Generator Bioprocessing Manufacturing Technician MDT CV DEVICE CHECK Implantable Pulse Generator Type IPG CV DEVICE CHECK Implantable Pulse Generator Model Micra AV [id number] CV DEVICE CHECK Implantable Pulse Generator Serial Number [id number] CV DEVICE CHECK Implantable Pulse Generator Implant [...] thresholds reviewed and tested * Presenting Rhythm: CLOTH COLORER 80s * No R waves @ VVI [...] thresholds reviewed and tested * Presenting Rhythm: CLOTH COLORER 80s * No R waves @ VVI 30 bpm today * Heart Rate Histograms reviewed * Pacing and Detection Parameters were evaluated us Order Referral Cardiovascular CV IMPLANTABLE CAR DIAC DEVICE PROCEDURES Final Result * (ABNORMAL) Basic metabolic panel (11/19/2024 8:02 AM EDT) Pathologist [facility] Sodium 140 133 - 145 mmol/L LAB CHEMISTRY METHOD 11/19/2024 8:56 AM [facility] Potassium 4.7 3.5 - 5.5 mmol/L LAB CHEMISTRY METHOD 11/19/2024 8:56 AM [facility] Chloride 103 96 - 110 mmol/L LAB CHEMISTRY METHOD 11/19/2024 8:56 AM [facility] CO2 31 21 - 32 [...] [facility] Comment:Calculation based on the Chronic Kidney Disease Epidemiology Collaboration (CKD-EPI) equation refit without adjustment for race. BUN/Creatinine Ratio 22.6 LAB CHEMISTRY METHOD 11/19/2024 8:56 AM EDT [facility] Calcium 9.7 8.5 - 10.5 mg/dL LAB CHEMISTRY METHOD 11/19/2024 8:56 AM EDT [facility] Blood Venous blood specimen / Unknown Venipuncture / Unknown 11/19/2024 8:02 AM EDT 11/19/2024 8:24 AM EDT us Manny Ashraf DO LAB BLOOD ORDERABLES Final Result [facility] [address] [place] [address], from Last 3 Months or Most Recently Relevant to Health Maintenance Insurance [employer] MEDICARE MEDICAID - [place] Advance Directives Documents on File Type Date Recorded Patient Brand Executive Expl anation Health Care Decision (hx) 05/10/2020 [...] (hx) 05/10/2020 AD [facility] DIRECTIVE Care Teams Clinical Supervisor Relationship Specialty Start Date End Date Bonilla Quijano MD [address] [place] [address] PCP - General Internal Medicine 07/14/12
--- OUTSIDE RECORDS SUMMARY | 2025-06-30 09:30 | XMS_ITS | Data Portability ---
Author Organization [facility]PHANIE - Cash Fitz[facility], [facility] Address [address] [place] [address] Assessment Encounter Date Assessment Date Assessment LastModified [...] Address Organization Details Recorded Time No complaints [id number] Active Status : 'I'; Not Available [facility] 4 09:28:03 Problem Notes None recorded. Medical Equipment None Reported. Allergies Allergen ID Allergen Name Allergen Category Reaction Reaction Severity Criticality Documentation Date Start Date Code Code System Note Provider Name and Address Organization Details Recorded Time 18419 codeine sulfate medicatio n Not available Not available Not available 10/07/20232016 38612 RxNorm Not Available [facility] 4 12:08:52 98843 morphine sulfate medicatio n Not available Not available Not available 10/07/20232013 94731 RxNorm Not Available [facility] 12:08:52 Medications Name Sig Start Date [...] Updated DateTime 12/27/2023 165.1 cm 35.1 kg/m2 52701.99 g SCAR VELIZ [place] - [facility] 12/27/2023 09:09:13 Social History None recorded. Functional Status None recorded. Mental Status None recorded. Family History Nothing Reported. Medical History No medical history recorded. Past Encounters Encounter ID Performer Location Encounter Start Date Encounter Closed Date Diagnosis/Indication Diagnosis SNOMED-CT Code Diagnosis ICD10 Code Diagnosis IMO Codes Diagnosis Note [id number] Augie Simons MD [place] [address] [place] [address] 12/27/2023 08:37:56 01/15/2024 11:37:33 Lumbar post-laminectomy syndrome 688880127 M96.1 Health Concerns Section Related Observation LastModified by Organization Detai ls LastModified Time None Recorded Concern Status LastModified by Organization Details LastModified Time None Recorded Advance Directives Directive None Recorded Payers Insurance Date Sequence Insurance Name Policy Number Policy Oliver Covered Member ID Oliver Member ID Guarantor Name 10/25/2023 SLIDING FEE SCHEDULE - DISCOUNT Raine Ken 03/11/2024 2 [place] [facility] Raine Ken [id number] Raine Ken 01/15/2024 1 [facility] (MEDICARE REPLACEMENT/A DVANTAGE - PPO) [id number] Raine Ken [id number] Raine Ken Notes Date Note Type Note [...] Not indicated PHYSICAL EXAMINATION: Augie Simons MD [address] [place] [address] [address], [place], [address], [facility] 12/27/2023 12:28:38
== END 2025-06-30 09:17 | disposition home or self-care (01) ==
LOC: HO.ACS 08:56
PROVIDERS: Visit Provider Internal Medicine Medical Oncology
DX: Z79.01 Long term (current) use of anticoagulants (principal)

== ENCOUNTER → 2025-06-30 08:56 | Outpatient (BNVA) | payer MEDICARE, SELFPAY | PROVIDERS: Visit Provider Internal Medicine Medical Oncology | DX: I48.19 Other persistent atrial fibrillation (principal); Z51.81 Encounter for therapeutic drug level monitoring; Z79.01 Long term (current) use of anticoagulants | CPT/HCPCS: 85610; 99211 ==

== ENCOUNTER 2025-07-06 08:00 | Outpatient (AMB) | payer MEDICARE, SELFPAY ==
--- OUTSIDE RECORDS SUMMARY | 2024-05-05 08:52 | XMS_ITS | Encounter Summary ---
Author Organization [facility] [place] [address] Care Team Providers Care Director Life Sales Name Role Phone Bonilla Quijano MD Primary Care Provider [phone] Encounter Details Date Type Department Care Team (Late st Contact Info) Description 05/05/2024 9:52 AM EDT Hospital Encounter TH HISTORIC ENCOUNTERS EASTERN CONVERSION ONLY Soto Stephenson MD [address] [place] [phone] Social History Tobacco Use Types Packs/Day [...] 7:50 AM EDT Renan Doshi RN * [place] Suicide Severity Rating Scale (Screener/Recent Self-Report) Question [...] Description 04/14/2026 9:00 AM EDT Ancillary Procedure [facility] Associates - [address] [facility] 154 [place] [phone] documented as of this encounter Visit Diagnoses Not on filedocumented in this encounter Care Teams Director Life Sales Relationship Specialty Start Date End Date Bonilla Quijano MD [address] [place] [address] PCP - General Internal Medicine 07/14/12 documented as of this encounter
--- OUTSIDE RECORDS SUMMARY | 2025-07-06 08:02 | XMS_ITS | Clinical Summary ---
Author Organization [address] [place] [address] [place] [phone] Phone Care Team Providers Care Raise Driller Name Role Phone Bonilla Quijano MD Primary Care Provider [phone] Allergies Active Allergy Reactions Criticality Noted Date [...] catheterization. He wants to do this at [facility] given his insurance does not cover [facility] and if he needs revascularization we will schedule a follow-up procedure at [facility]. (HFpEF) heart failure with p reserved ejection fraction ([facility] V24, [facility] V28) 02/02/2021 Overview (08/19/2024): Last Assessment & [...] well from a HFpEF standpoint. Cerebrovascular accident ([facility] V24, [facility] V 28) 02/01/2021 Overview (08/19/2024): Cerebrovascular accident Deep venous thrombosis ([facility] V24, [facility] V28 ) 02/01/2021 Overview (08/19/2024): Deep venous thrombosis Dizziness 02/01/2021 Overview (08/19/2024): Dizziness Atrial flutter ([facility] V24, [facility] V28) 2020 CHF (congestive heart failure) ([facility] V24, [facility] V28) 01/30/2021 HLD (hyperlipidemia) 01/30/2021 Overview (08/19/2024): [...] causing symptoms. PAF (paroxysmal atrial fibri llation) ([facility] V24, [facility] V28) 08/23/2020 Overview (08/19/2024): Last Assessment & [...] Description 05/27/2025 3:20 PM EDT Ancillary Procedure [facility] Cardiology [facility] [address] [place] [address] 05/24/2025 9:25 AM EDT [facility] Visit [facility] [address] [place] [address] Edy San MD PAF (paroxysmal atrial fibrillation) (CMS/HCC V24, CMS/HCC V28) (Primary Dx); Chronic heart failure with preserved ejection fraction (HFpEF) (CMS/HCC V24, CMS/HCC V28); Coronary artery disease involving [place] coronary artery of [place] heart without angina pectoris 05/03/2025 Telephone [facility] [address] [place] [address] Edy San MD 04/14/2025 2:30 PM EDT Ancillary Procedure [facility] [address] [place] [address] Encounter for adjustment or management of cardiac device 04/09/2025 Telephone [facility] [address] [place] [address] Olga Lidia Cornelius MA from Last 3 Months Surgical History Surgery Date Site/Laterality Comments OTHER SURGICAL HISTORY 01/04/2021 PROCEDURE: HISTORY OTHER; COMMENT: S/p cardioversion OTHER SURGICAL HISTORY 2014 PROCEDURE: HISTORY OTHER; COMMENT: Cardiac ablation OTHER SURGICAL HISTORY Right PROCEDURE: IN ARTHRP ACETBLR/PROX FEM PROSTC AGRFT/ALGRFT TOTAL KNEE ARTHROPLASTY Left PROCEDURE: IN ARTHRP KNE CONDYLE&PLATU MEDIAL&LAT COMPARTMENTS SHOULDER SURGERY Bilateral PROCEDURE: HISTORICAL SHOULDER SURGERY OTHER SURGICAL HISTORY PROCEDURE: HISTORY OTHER; COMMENT: S/p Lumbar spine fusion OTHER SURGICAL HISTORY PROCEDURE: HISTORY OTHER; COMMENT: S/p Cervical and thoracic spine surgery with hardware placement Medical History Medical History Date Comments CVA (cerebral vascular accid ent) ([facility] V24, [facility] V28) DX:CVA (cerebral vascular a ccident) ([facility]); COMMENT: with right-sided weakness DVT (deep venous thrombosis) ([facility] V24, [facility] V28) DX:DVT (deep venous thrombos is) ([facility]) Gout DX:Gout Chronic back pain DX:Chronic jessenia k pain 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:Adjustment reaction with prolonged depressive reaction PVD (peripheral vascular dis ease) ([facility] V24) DX:PVD (peripheral vascular disease) ([facility]) Dizziness DX:Dizziness Obesity DX:Obesity Glaucoma DX:Glaucoma Cervical [...] Description 04/14/2026 9:00 AM EDT Ancillary Procedure [facility] - [address] [facility] [address] [place] [address] Health Maintenance Due Date Last [...] this topic Medical Devices Implanted Type Area Practice Performance Manager Device Identifier Shelf Expiration Date Model / Serial / Lot Medt-Card Micra Av [id number] Implanted:02/2021 (Quantity not on file) 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 AV [id number] / [id number] / Medt-Card Micra Av Mc1avr [id number] Implanted:02/2021 (Quantity not on file) 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 AV [id number] / [id number] / Procedures Procedure Name Priority Date/Time Associated Diagnosis Comments EXTERNAL CLINICAL LAB Routine 06/28/2025 11:15 AM EST CARDIAC DEVICE CHECK- REMOTE- MURJ Routine 05/27/2025 [...] Health Maintenance Results * External clinical lab (06/28/2025 11:15 AM EST) us Historical Provider MD LAB BLOOD ORDERABLES Sonja l Result * Cardiac device check - Remote- MURJ (05/27/2025 3:18 PM EDT) Date Time Interrogation Session [id number] CV DEVICE CHECK Type Interrogation Session Remote CV DEVICE CHECK Implantable Pulse Generator Practice Performance Manager MDT CV DEVICE CHECK Implantable Pulse Generator Type IPG CV DEVICE CHECK Implantable Pulse Generator Model Micra AV [id number] CV DEVICE CHECK Implantable Pulse Generator Serial Number [id number] CV DEVICE CHECK Implantable Pulse Generator Implant Date 20210109 CV DEVICE CHECK Battery Remaining Longevity 61.0 CV DEVICE CHECK Battery Voltage 2.950 CV D EVICE CHECK Battery VENEER JOINER Trigger 2.558 CV DEVICE CHECK Battery Status [...] No significant changes noted Narrative Procedure Note Edy San MD - 05/27/2025 IMPRESSION: Normal Remote: No Events * Normal Device Function * Alerts or events: None * Battery: OK, 5.08 yrs * Sensing, impedance and thresholds reviewed * Programmed parameters reviewed * Presenting rhythm reviewed * Heart Rate Histograms reviewed * No significant changes noted Edy San MD CV IMPLANTABLE CARDIAC DEVICE PROCEDURES Final Result * ECG 12 lead (05/24/2025 10:25 AM EDT) Ventricular Rate ECG 84 BPM GEMUSE Atrial Rate 84 BPM GEMUSE QRS Duration 160 ms GEMUSE Q-T Interval 428 ms GEMUSE QTc 505 ms GEMUSE P Wave [place] 66 degrees GEMUSE R [place] 97 degrees GEMUSE T [place] 106 degrees GEMUSE ECG Interpretation Sinus rhythm with A-V dissociation and paced ventricular rhythm Abnormal ECG When compared with ECG of 08-JUL-2023 08:00, No significant changes are noted Confirmed by Gini SAN, EDY ([id number]) on 05/26/2025 7:42:25 PM GEMUSE 05/24/2025 9:58 AM EDT 05/26/2025 7:42 PM EDT us Edy San MD ECG ORDERABLES Edited Result - Final GEMUSE * CARDIAC DEVICE CHECK- IN [facility]IC- [facility] (04/14/2025 2:51 PM EDT) Date Time Interrogation Session [id number] CV DEVICE CHECK Implantable Pulse Generator Practice Performance Manager MDT CV DEVICE CHECK Implantable Pulse Generator Type IPG CV DEVICE CHECK Implantable Pulse Generator Model Micra AV [id number] CV DEVICE CHECK Implantable Pulse Generator Serial Number [id number] CV DEVICE CHECK Implantable Pulse Generator Implant [...] thresholds reviewed and tested * Presenting Rhythm: LAST PATTERN GRADER 80s * No R waves @ VVI 30 bpm today * Heart Rate Histograms reviewed * Pacing and Detection Parameters were evaluated Narrative Procedure Note Edy San MD - 05/04/2025 IMPRESSION: Normal In-Office: No Events * Normal Device Function * Alerts or events: None * Battery: MOS, 5.3 years (4.7 - 5.8 years) * Sensing, impedance and thresholds reviewed and tested * Presenting Rhythm: LAST PATTERN GRADER 80s * No R waves @ VVI [...] [facility] [address] [place] [address], from Last 3 Months or Most Recently Relevant to Health Maintenance Insurance [place] [address] MEDICAID - [place] Advance Directives Documents on File Type Date Recorded Patient Elevator Inspector Expl anation Health Care Decision (hx) 05/10/2020 [...] (hx) 05/10/2020 AD [facility] DIRECTIVE Care Teams Raise Driller Relationship Specialty Start Date End Date Bonilla Quijano MD [address] [place] [address] PCP - General Internal Medicine 07/14/12
--- OUTSIDE RECORDS SUMMARY | 2025-07-06 08:02 | XMS_ITS | Clinical Summary ---
Author Organization [facility] Address [address] [place] [address] Care Team Providers Care Tree Fruit And Nut Crops Farmer Name Role Phone Bonilla Quijano MD Primary Care Provider [phone] Allergies Active Allergy Reactions Criticality Noted Date [...] total) by mouth daily. 4 Active nystatin 178170 UNIT/GM powder APPLY ONE GRAM POWDER TOPICALLY [...] to complete this topic Insurance [facility]IC[facility] Care Teams Tree Fruit And Nut Crops Farmer Relationship Specialty Start Date End Date Bonilla Quijano MD [address] [place] [id number] PCP - General 04/09/23
[2025-07-06 08:33] LABS: Prothrombin Time Whole Bld POC 33.2 sec (11.1-13.5); ~PT, ~INR - Anti Coag Clinic 2.8 (0.9-1.1)
--- NOTE | 2025-07-06 08:39 | MHC.OFFVISCO ---
Intake Intake Visit Reasons: Anticoagulation Allergies morphine Allergy (Severe, Verified 07/06/25 08:28) Rash baclofen Adverse Reaction (Intermediate, Verified 07/06/25 08:28) Confusion codeine Adverse Reaction (Intermediate, Verified 07/06/25 08:28) GI UPSET divalproex sodium (From Depakote) Adverse Reaction (Intermediate, Verified 07/06/25 08:28) Chest Pain latex Adverse Reaction (Intermediate, Verified 07/06/25 08:28) RASH Medication List - Last Reconciled 07/06/25 by Aster Barksdale, RN acetaminophen ER 1,300 mg PO Q12H allopurinol 200 mg PO DAILY atorvastatin 80 mg PO DAILY brimonidine 0.2% 0 drps ophthalmic (eye) buprenorphine 20 mcg/hour 1 patch topical QWEEK chlorthalidone 25 mg PO DAILY cholecalciferol (vitamin D3) PO clopidogrel 75 mg PO DAILY duloxetine 30 mg PO BID erythromycin ophthalmic (eye) gabapentin 600 mg PO TID isosorbide mononitrate ER 30 mg PO DAILY ketorolac 0.5% drps ophthalmic (eye) latanoprost 0.005% drps ophthalmic (eye) lisinopril 20 mg PO DAILY rp-rkf-GZ-vit X-swglzu-ixdduzg (PreserVision AREDS 2 Plus MV) PO nitroglycerin mg sublingual omeprazole 20 mg PO DAILY PRN polyethylene glycol 3350 4 grams PO .prn prednisolone acetate 1% 1 drp ophthalmic (eye) BID sotalol 120 mg PO BID timolol maleate 0.5% 0 drps ophthalmic (eye) triamcinolone acetonide 0.1% 1 appl topical BID-TID warfarin 5 mg See Protocol PO DAILY Nursing Note INR: 2.8 in therapeutic range of 2-3 Medications and supplements reviewed No changes in health, diet, medications, or supplements, Denies any signs and symptoms of bleeding or bruising or clotting. Bleeding, bruising, clotting discussed. Pt states he has been having bleeding gums. Has a dentist appointment today. Nutritional guidance given Dose: decrease this weeks total dose by 2.5mg. see Dose Management Sheet. F/U INR: 07/16/25 Patient verbalizes understanding of instructions given Coding Level of Care Code Est Patient Level 1 Diagnoses Current use of anticoagulant therapy Z79.01 Results AMB INR Fingerstick AMB INR Fingerstick 2.8 Last Edit by Aster Barksdale RN on 07/06/25 08:41 interface delay Assessment & Plan Assessment & Plan (1) Current use of anticoagulant therapy: Code(s): Z79.01 - halfway (current) 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
== END 2025-07-06 08:48 | disposition home or self-care (01) ==
LOC: HO.ACS 08:00
PROVIDERS: Visit Provider Internal Medicine Medical Oncology
DX: Z79.01 Long term (current) use of anticoagulants (principal)

== ENCOUNTER → 2025-07-06 08:00 | Outpatient (BNVA) | payer MEDICARE, SELFPAY | PROVIDERS: Visit Provider Internal Medicine Medical Oncology | DX: I48.19 Other persistent atrial fibrillation (principal); Z51.81 Encounter for therapeutic drug level monitoring; Z79.01 Long term (current) use of anticoagulants | CPT/HCPCS: 85610; 99211 ==

== ENCOUNTER 2025-07-16 08:08 | Outpatient (AMB) | payer MEDICARE, SELFPAY ==
[2025-07-16 08:15] LABS: Prothrombin Time Whole Bld POC 38.1 sec (11.1-13.5); ~PT, ~INR - Anti Coag Clinic 3.2 (0.9-1.1)
--- NOTE | 2025-07-16 08:22 | MHC.OFFVISCO ---
Intake Intake Visit Reasons: Anticoagulation Allergies morphine Allergy (Severe, Verified 07/16/25 08:08) Rash baclofen Adverse Reaction (Intermediate, Verified 07/16/25 08:08) Confusion codeine Adverse Reaction (Intermediate, Verified 07/16/25 08:08) GI UPSET divalproex sodium (From Depakote) Adverse Reaction (Intermediate, Verified 07/16/25 08:08) Chest Pain latex Adverse Reaction (Intermediate, Verified 07/16/25 08:08) RASH Medication List - Last Reconciled 07/16/25 by Sofía Gillette RN acetaminophen ER 1,300 mg PO Q12H allopurinol 200 mg PO DAILY atorvastatin 80 mg PO DAILY brimonidine 0.2% 0 drps ophthalmic (eye) buprenorphine 20 mcg/hour 1 patch topical QWEEK chlorthalidone 25 mg PO DAILY cholecalciferol (vitamin D3) PO clopidogrel 75 mg PO DAILY duloxetine 30 mg PO BID erythromycin ophthalmic (eye) gabapentin 600 mg PO TID isosorbide mononitrate ER 30 mg PO DAILY ketorolac 0.5% drps ophthalmic (eye) latanoprost 0.005% drps ophthalmic (eye) lisinopril 20 mg PO DAILY oh-exf-CF-vit T-jsnbqm-trxilva (PreserVision AREDS 2 Plus MV) PO nitroglycerin mg sublingual omeprazole 20 mg PO DAILY PRN polyethylene glycol 3350 4 grams PO .prn prednisolone acetate 1% 1 drp ophthalmic (eye) BID sotalol 120 mg PO BID timolol maleate 0.5% 0 drps ophthalmic (eye) triamcinolone acetonide 0.1% 1 appl topical BID-TID warfarin 5 mg See Protocol PO DAILY Nursing Note INR: 3.2 OUT therapeutic range- has not been having greens - INR have been trending high Medications and supplements reviewed No changes in health, diet, medications, or supplements, Denies any signs and symptoms of bleeding or bruising or clotting. Bleeding, bruising, clotting discussed Nutritional guidance given - resume weekly greens Dose: decrease to 5mg x 2 days/ 2.5mg x 5 days due to gums bleeding- he has yet to make a dental appt F/U INR: 2 weeks Patient verbalizes understanding of instructions given Coding Level of Care Code Est Patient Level 1 Diagnoses Current use of anticoagulant therapy Z79.01 Results AMB INR Fingerstick AMB INR Fingerstick 3.2 Last Edit by Sofía Gillette RN on 07/16/25 08:16 Assessment & Plan Assessment & Plan (1) Current use of anticoagulant therapy: Code(s): Z79.01 - medical terminologist (current) 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
== END 2025-07-16 08:22 | disposition home or self-care (01) ==
LOC: HO.ACS 08:08
PROVIDERS: Visit Provider Internal Medicine Medical Oncology
DX: Z79.01 Long term (current) use of anticoagulants (principal)

== ENCOUNTER → 2025-07-16 08:08 | Outpatient (BNVA) | payer MEDICARE, SELFPAY | PROVIDERS: Visit Provider Internal Medicine Medical Oncology | DX: Z79.01 Long term (current) use of anticoagulants (principal) | CPT/HCPCS: 85610; 99211 ==

== ENCOUNTER 2025-08-02 08:03 | Outpatient (AMB) | payer MEDICARE, SELFPAY ==
--- OUTSIDE RECORDS SUMMARY | 2024-05-05 08:52 | XMS_ITS | Encounter Summary ---
Author Organization [facility] Address [address] [place] [address] Care Team Providers Care Probate Judge Name Role Phone Bonilla Quijano MD Primary Care Provider [phone] Encounter Details Date Type Department Care Team (Late st Contact Info) Description 05/05/2024 9:52 AM EDT Hospital Encounter TH HISTORIC ENCOUNTERS EASTERN CONVERSION ONLY Soto Stephenson MD [address] [place] [phone] Social History Tobacco Use Types Packs/Day [...] on file documented as of this encounter Procedure Notes [...] Description 04/14/2026 9:00 AM EDT Ancillary Procedure [facility] - [facility] [address] [facility] 154 [place] [address] documented as of this encounter Visit Diagnoses Not on filedocumented in this encounter Care Teams Probate Judge Relationship Specialty Start Date End Date Bonilla Quijano MD [address] [place] [address] PCP - General Internal Medicine 07/14/12 documented as of this encounter
--- OUTSIDE RECORDS SUMMARY | 2025-08-02 08:06 | XMS_ITS | Clinical Summary ---
Author Organization [facility]al Address [address] [place] [id number] Care Team Providers Care Miller Helper Name Role Phone Bonilla Quijano Unavailable Bonilla Quijano Primary Care Provider Social History Tobacco Use Types Packs/Day Years Used Date Smoking Tobacco: Never Assessed Sex and Gender Information Value Date Recorded Sex Assigned at Male 03/19/2024 3:47 PM EDT Legal Sex Male 11:21 PM EST Gender Identity Male 03/19/2024 3:47 PM EDT Sexual Orientation Not on file Last Filed Vital Signs Vital Sign Reading Time Taken Comments Blood Pressure - - Pulse - - Temperature - - Respiratory Rate - - Oxygen Saturation - - Inhaled Oxygen Concentration - - Weight 89.4 kg (197 lb) 03/11/2018 11:55 AM EDT Height 167.6 cm (5' 6 ) 03/11/2018 11:55 AM EDT Body Mass Index 31.8 03/11/2018 11:55 AM EDT Plan of Treatment Health Maintenance Due Date Last Done Comments Blood Pressure 1942 Depression Screening 1954 DTaP,Tdap,and Td Vaccines (1 - Tdap) 1961 Pneumococcal Vaccine: 50+ Years (1 of 1 - PCV) 01/04/1992 Zoster Vaccine (1 of 2) 01/04/1992 COVID-19 Vaccine (4 - 2024- season) 2025 07/05/2021, 12/01/2020, 11/10/2020 Influenza Vaccine (#1) 2025 , 04/27/2019, 04/24/2018, Additional history exists Meningococcal B Vaccines Aged Out No longer eligible based on patient's age to complete this topic Meningococcal Vaccines Aged Out No lo nger eligible based on patient's age to complete this topic Insurance [facility] MEDICARE ADVANTAGE [facility] MEDICARE ADVANTAGE REVECORE[employer]WORKERS COMPENSATION [employer] Care Teams Miller Helper Relationship Specialty Start Date End Date Bonilla Quijano [address] [place] [phone] PCP - Insurance Assigned PCP 03/19/24 Bonilla Quijano [address] [place] [phone] PCP - General 03/27/24
--- OUTSIDE RECORDS SUMMARY | 2025-08-02 08:06 | XMS_ITS | Data Portability ---
Author Organization STEPHANIE - Cash Fitz[facility], [facility] Address [address] [place] [address] Assessment Encounter Date Assessment Date Assessment LastModified [...] Treatment Reminders Order Date Submit Date Provider Name Organization Details Last Modified By Last Modified Time Details Appointments None record ed. Lab None record ed. Referral None record ed. Procedures None record ed. Surgeries None record ed. Imaging None record ed. MedicationOrders None record ed. VaccineOrders None record ed. Patient TargetsNo targets recorded. Patient InstructionsNo instructions recorded. Reason for Referral None Reported. Problems Name Problem SNOMED Code Status Onset Date Resolution Date Notes Provider Name and Address Organization Details Recorded Time No complaints 097648479 Active Status : 'I'; Not Available [facility] 4 09:28:03 Problem Notes None recorded. Medical Equipment None Reported. Allergies Allergen ID Allergen Name Allergen Category Reaction Reaction Severity Criticality Documentation Date Start Date Code Code System Note Provider Name and Address Organization Details Recorded Time 58663 codeine sulfate medicatio n Not available Not available Not available 10/07/20232016 78378 RxNorm Not Available [facility] 12:08:52 19006 morphine sulfate medicatio n Not available Not available Not available 10/07/20232013 47819 RxNorm Not Available [facility] 12:08:52 Medications Name Authored On Sig Start Date Stop Date Status Note Indication Fill Status Repeat Number Dispense Quantity LastModified by Organization Details LastModified Time pseud darrell gurrola in ER 80-70 0 mg table t,ext ended relea se 19:04:54 DO NOT ARIEL Brady ON THIS MEDI EPIFANIO ON 2013 active Statu s: 'Curr ent'; Not Available Not availab le 0 Not Available Not Available [facility] 10/07/2023 19:04:54 Vitals Date Recorded Body height Body mass index (BMI) Body weight Provider Name and Address Organization Details Last Updated DateTime 12/27/2023 165.1 cm 35.1 kg/m2 68539.99 g SCAR VELIZ [place] - [facility] 12/27/2023 09:09:13 Social History Social History Observation Description Date Observed Sex Unknown 08/04/2024 Legal Sex Male Status Not (finding) 08/02/20 25 No social history survey screeners recorded No social history SDOH screeners recorded Functional Status None recorded. No Functional Screening assessment recorded No Functional SDOH screeners recorded Mental Status None recorded. No Mental Screening assessment recorded No Mental SDOH screeners recorded Family History Nothing Reported. Medical History No medical history recorded. Past Encounters Encounter ID Performer Location Encounter Start Date Encounter Closed Date Diagnosis/Indication Diagnosis SNOMED-CT Code Diagnosis ICD10 Code Diagnosis IMO Codes Diagnosis Note [id number] Augie Simons MD [place] [address] [place] [address] 12/27/2023 08:37:56 01/15/2024 11:37:33 Lumbar post-laminectomy syndrome 785600386 M96.1 Health Concerns Section Related Observation LastModified by Organization Detai ls LastModified Time None Recorded Concern Status LastModified by Organization Details LastModified Time None Recorded SDOH Concern Status LastModified by Organization Detandreina ls LastModified Time None Recorded Advance Directives Directive None Recorded Payers Insurance Date Sequence Insurance Name Policy Number Policy Oliver Covered Member ID Oliver Member ID Guarantor Name 10/25/2023 SLIDING FEE SCHEDULE - DISCOUNT Raine Jesus Manuel 03/11/2024 2 [place] [facility] Raine Jesus Manuel [id number] Raine Jesus Manuel 01/15/2024 1 [facility] (MEDICARE REPLACEMENT/A DVANTAGE - PPO) [id number] Raine Jesus Manuel [id number] Raine Ken Notes Date Note Type Note [...] Not indicated PHYSICAL EXAMINATION: Augie Simons MD [address] [facility] [address], [place], [address], [facility] - [facility] 12/27/2023 12:28:38 Care Team Name Role Member ID Specialty Address Phone None Recorded.
--- OUTSIDE RECORDS SUMMARY | 2025-08-02 08:06 | XMS_ITS | Clinical Summary ---
Author Organization [facility] Address [address] [place] [address] Care Team Providers Care Smokehouse Worker Name Role Phone Bonilla Quijano MD Primary Care Provider [phone] Allergies Active Allergy Reactions Criticality Noted Date [...] total) by mouth daily. 4 Active nystatin 166411 UNIT/GM powder APPLY ONE GRAM POWDER TOPICALLY [...] Influenza Vaccine 03/05/2025 COVID-19 Vaccine ( - 2024-2 6 season) 2025 Hepatitis B Vaccines Aged Out No long er eligible based on patient's age to complete this topic Insurance [employer] [facility] MEDICARE [facility] Care Teams Smokehouse Worker Relationship Specialty Start Date End Date Bonilla Quijano MD [address] [place] [phone] PCP - General 04/09/23
--- OUTSIDE RECORDS SUMMARY | 2025-08-02 08:06 | XMS_ITS | Clinical Summary ---
Author Organization [address] [place] [address] [place] [phone] Phone Care Team Providers Care Director Instrumentation Name Role Phone Bonilla Quijano MD Primary Care Provider [phone] Allergies Active Allergy Reactions Criticality Noted Date [...] catheterization. He wants to do this at [facility] given his insurance does not cover [facility] and if he needs revascularization we will schedule a follow-up procedure at [facility]. (HFpEF) heart failure with preserved ejection fr [...] well from a HFpEF standpoint. Cerebrovascular accident 02/01/2021 Overview (08/19/2024): Cerebrovascular accident [...] monitoring in the office. Peripheral vascular disease 08/23/2020 Overview (08/19/2024): Peripheral vascular disease Encounters Date Type Department Care Team Description 05/27/2025 3:20 PM EDT Ancillary Procedure [facility] [address] [place] [address] 05/24/2025 9:25 AM EDT Office Visit [facility] [address] [place] [address] Jose David San MD PAF (paroxysmal atrial fibrillation) [place] [place] [facility] [place]) (Primary Dx); Chronic heart failure with preserved ejection fraction (HFpEF) ([facility] [place], [facility] [place]); Coronary artery disease involving [place] coronary artery of [place] heart without angina pectoris 05/03/2025 Telephone [facility] [address] [place] [address] Jose David aSn MD from Last 3 Months Surgical History Surgery Date Site/Laterality Comments OTHER SURGICAL HISTORY 01/04/2021 PROCEDURE: HISTORY OTHER; COMMENT: S/p cardioversion OTHER SURGICAL HISTORY 2014 PROCEDURE: HISTORY OTHER; COMMENT: Cardiac ablation OTHER SURGICAL HISTORY Right PROCEDURE: MN ARTHRP ACETBLR/PROX FEM PROSTC AGRFT/ALGRFT TOTAL KNEE ARTHROPLASTY Left PROCEDURE: MN ARTHRP KNE CONDYLE&PLATU MEDIAL&LAT COMPARTMENTS SHOULDER SURGERY Bilateral PROCEDURE: HISTORICAL SHOULDER SURGERY OTHER SURGICAL HISTORY PROCEDURE: HISTORY OTHER; COMMENT: S/p Lumbar spine fusion OTHER SURGICAL HISTORY PROCEDURE: HISTORY OTHER; COMMENT: S/p Cervical and thoracic spine surgery with hardware placement Medical History Medical History Date Comments CVA (cerebral vascular accid ent) [place] [place] [facility] [place]) DX:CVA (cerebral vascular a ccident) ([facility]); COMMENT: with right-sided weakness DVT (deep venous thrombosis) ([facility] [place] [facility] [place]) DX:DVT (deep venous thrombos is) ([facility]) Gout DX:Gout Chronic back pain DX:Chronic jessenia k pain 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:Adjustment reaction with prolonged depressive reaction PVD (peripheral vascular dis ease) ([facility] [place]) DX:PVD (peripheral vascular disease) (HCC) Dizziness DX:Dizziness [...] on file Sexual Orientation Not on file Last Filed [...] Description 04/14/2026 9:00 AM EDT Ancillary Procedure [facility] [address] [place] [address] Health Maintenance Due Date Last [...] this topic Medical Devices Implanted Type Area Fiber Locking Supervisor Device Identifier Shelf Expiration Date Model / Serial / Lot Medt-Card Micra Av [id number] Implanted:02/2021 (Quantity not on file) 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 AV [id number] / [id number] / Medt-Card Micra Av [id number] Implanted:02/2021 (Quantity not on file) 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 AV [id number] / [id number] / Procedures Procedure Name Priority Date/Time Associated Diagnosis Comments EXTERNAL CLINICAL LAB Routine 06/28/2025 11:15 AM EST CARDIAC DEVICE CHECK- REMOTE- MURJ Routine 05/27/2025 3:18 PM EDT ECG 12-LEAD Routine 05/24/2025 10:25 AM EDT PAF (paroxysmal atrial fibrillation) (CMS/HCC V24, CMS/HCC V28) BASIC METABOLIC PANEL STAT 11/19/2024 8:02 AM EDT from Last 3 Months or Most Recently Relevant to Health Maintenance Results * External clinical lab (06/28/2025 11:15 AM EST) us Historical Provider MD LAB BLOOD ORDERABLES Sonja l Result * Cardiac device check - Remote- MURJ (05/27/2025 3:18 PM EDT) Date Time Interrogation Session [id number] CV DEVICE CHECK Type Interrogation Session Remote CV DEVICE CHECK Implantable Pulse Generator Fiber Locking Supervisor MDT CV DEVICE CHECK Implantable Pulse Generator Type IPG CV DEVICE CHECK Implantable Pulse Generator Model Micra AV [id number] CV DEVICE CHECK Implantable Pulse Generator Serial Number [id number] CV DEVICE CHECK Implantable Pulse Generator Implant Date 20210109 CV DEVICE CHECK Battery Remaining Longevity 61.0 CV DEVICE CHECK Battery Voltage 2.950 CV D EVICE CHECK Battery SUPERVIS[employer] Trigger 2.558 CV DEVICE CHECK Battery Status [...] GEMUSE QTc 505 ms GEMUSE P Wave [place] 66 degrees GEMUSE R [place] 97 degrees GEMUSE T [place] 106 degrees GEMUSE ECG Interpretation Sinus rhythm with A-V dissociation and paced ventricular rhythm Abnormal ECG When compared with ECG of 08-JUL-2023 08:00, No significant changes are noted Confirmed by Gini SAN JOHN ([id number]) on 05/26/2025 7:42:25 PM GEMUSE 05/24/2025 9:58 AM EDT 05/26/2025 7:42 PM EDT us Jose David Sna MD ECG ORDERABLES Edited Result - Final GEMUSE * (ABNORMAL) Basic metabolic panel (11/19/2024 8:02 AM EDT) Pathologist [facility] Sodium 140 133 - 145 mmol/L LAB CHEMISTRY METHOD 11/19/2024 8:56 AM EDT [facility] Potassium 4.7 3.5 - 5.5 mmol/L LAB CHEMISTRY METHOD 11/19/2024 8:56 AM EDT [facility] Chloride 103 96 - 110 mmol/L LAB CHEMISTRY METHOD 11/19/2024 8:56 AM [facility] CO2 31 21 - 32 mmol/L LAB CHEMISTRY METHOD 11/19/2024 8:56 AM [facility] Anion Gap 6 3 - 11 LAB CHEMISTRY METHOD 11/19/2024 8:56 AM [facility] Glucose 135(H) 70 - 100 mg/dL LAB CHEMISTRY METHOD 11/19/2024 8:56 AM [facility] BUN 30(H) 5 - 25 mg/dL LAB CHEMISTRY METHOD 11/19/2024 8:56 AM [facility] Creatinine 1.33(H) 0.70 - 1.30 mg/dL LAB CHEMISTRY METHOD 11/19/2024 8:56 AM [facility] eGFR 53(L) >=60 mL/min/1. 73m2 LAB CHEMISTRY METHOD 11/19/2024 8:56 AM [facility] Comment:Calculation based on the Chronic Kidney Disease Epidemiology Collaboration (CKD-EPI) equation refit without adjustment for race. BUN/Creatinine Ratio 22.6 LAB CHEMISTRY METHOD 11/19/2024 8:56 AM [facility] Calcium 9.7 8.5 - 10.5 mg/dL LAB CHEMISTRY METHOD 11/19/2024 8:56 AM [facility] Blood Venous blood specimen / Unknown Venipuncture / Unknown 11/19/2024 8:02 AM EDT 11/19/2024 8:24 AM EDT us Manny Ashraf DO LAB BLOOD ORDERABLES Final Result [facility] [address] [place] [address], from Last 3 Months or Most Recently Relevant to Health Maintenance Insurance [employer] MEDICARE [place]ICAID - [place] Advance Directives Documents on File Type Date Recorded Patient Machine I Engraver Expl anation Health Care Decision (hx) 05/10/2020 [...] (hx) 05/10/2020 [facility] DIRECTIVE Care Teams Director Instrumentation Relationship Specialty Start Date End Date Bonilla Quijano MD [address] [place] [address] PCP - General Internal Medicine 07/14/12
[2025-08-02 08:16] LABS: Prothrombin Time Whole Bld POC 26.7 sec (11.1-13.5); ~PT, ~INR - Anti Coag Clinic 2.2 (0.9-1.1)
--- NOTE | 2025-08-02 08:21 | MHC.OFFVISCO ---
Intake Intake Visit Reasons: Anticoagulation Allergies morphine Allergy (Severe, Verified 08/02/25 08:07) Rash baclofen Adverse Reaction (Intermediate, Verified 08/02/25 08:07) Confusion codeine Adverse Reaction (Intermediate, Verified 08/02/25 08:07) GI UPSET divalproex sodium (From Depakote) Adverse Reaction (Intermediate, Verified 08/02/25 08:07) Chest Pain latex Adverse Reaction (Intermediate, Verified 08/02/25 08:07) RASH Medication List - Last Reconciled 08/02/25 by Annia Mckeon RN acetaminophen ER 1,300 mg PO Q12H allopurinol 200 mg PO DAILY atorvastatin 80 mg PO DAILY brimonidine 0.2% 0 drps ophthalmic (eye) buprenorphine 20 mcg/hour 1 patch topical QWEEK chlorthalidone 25 mg PO DAILY cholecalciferol (vitamin D3) PO clopidogrel 75 mg PO DAILY duloxetine 30 mg PO BID erythromycin ophthalmic (eye) gabapentin 600 mg PO TID isosorbide mononitrate ER 30 mg PO DAILY ketorolac 0.5% drps ophthalmic (eye) latanoprost 0.005% drps ophthalmic (eye) lisinopril 20 mg PO DAILY fp-ihw-MK-vit R-vxivsg-ppnqasq (PreserVision AREDS 2 Plus MV) PO nitroglycerin mg sublingual omeprazole 20 mg PO DAILY PRN polyethylene glycol 3350 4 grams PO .prn prednisolone acetate 1% 1 drp ophthalmic (eye) BID sotalol 120 mg PO BID timolol maleate 0.5% 0 drps ophthalmic (eye) triamcinolone acetonide 0.1% 1 appl topical BID-TID warfarin 5 mg See Protocol PO DAILY Nursing Note PT.STATES THAT HE HAS HAD OCCAISIONAL CHEST PAIN AND SOB WITH EXERTION FOR THE PAST FEW MONTHS. NEXT CARDIOLOGY APPT.IS IN SEP 2025. PT.DENIES ANY SX TODAY, BUT IS ENCOURAGED TO CALL MD FOR SOONER APPT. PT.AGREES TO DO THIS, AND STATES THAT HE FEELS WELL TODAY. PT.USES WALKER AND REFUSES W/C AT THIS TIME. Coding Level of Care Code Est Patient Level 1 Diagnoses Current use of anticoagulant therapy Z79.01 Assessment & Plan Assessment & Plan (1) Current use of anticoagulant therapy: Code(s): Z79.01 - ocean transportation intermediary (current) 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
--- NOTE | 2025-08-02 08:26 | MHC.OFFVISCO ---
Intake Intake Visit Reasons: Anticoagulation Allergies morphine Allergy (Severe, Verified 08/02/25 08:07) Rash baclofen Adverse Reaction (Intermediate, Verified 08/02/25 08:07) Confusion codeine Adverse Reaction (Intermediate, Verified 08/02/25 08:07) GI UPSET divalproex sodium (From Depakote) Adverse Reaction (Intermediate, Verified 08/02/25 08:07) Chest Pain latex Adverse Reaction (Intermediate, Verified 08/02/25 08:07) RASH Medication List - Last Reconciled 08/02/25 by Annia Mckeon RN acetaminophen ER 1,300 mg PO Q12H allopurinol 200 mg PO DAILY atorvastatin 80 mg PO DAILY brimonidine 0.2% 0 drps ophthalmic (eye) buprenorphine 20 mcg/hour 1 patch topical QWEEK chlorthalidone 25 mg PO DAILY cholecalciferol (vitamin D3) PO clopidogrel 75 mg PO DAILY duloxetine 30 mg PO BID erythromycin ophthalmic (eye) gabapentin 600 mg PO TID isosorbide mononitrate ER 30 mg PO DAILY ketorolac 0.5% drps ophthalmic (eye) latanoprost 0.005% drps ophthalmic (eye) lisinopril 20 mg PO DAILY ak-kdy-SK-vit T-jnvjik-gftuoin (PreserVision AREDS 2 Plus MV) PO nitroglycerin mg sublingual omeprazole 20 mg PO DAILY PRN polyethylene glycol 3350 4 grams PO .prn prednisolone acetate 1% 1 drp ophthalmic (eye) BID sotalol 120 mg PO BID timolol maleate 0.5% 0 drps ophthalmic (eye) triamcinolone acetonide 0.1% 1 appl topical BID-TID warfarin 5 mg See Protocol PO DAILY Nursing Note PT.STATES THAT HE HS HAD INTERMITT.CP AND SOB WITH EXERTION FOR THE PAST FEW MONTHS. NEXT CARDIOLOGY APPT.IS IN HE IS ASYMPYOMATIC TODAY, BUT IS ENCOURAGED TO CALL MD FOR SOONER APPT.TO EVAL THESE SX. ADV.TO UTILIZE ANY ED IF SX RECUR. IN MEANTIME WILL CONTINUE PRESENT DOSE AND FOLLOW-UP IN 3 WEEKS GOOD UNDERSTANDING OF DOSING INSTR.VERB. Coding Level of Care Code Est Patient Level 1 Diagnoses Current use of anticoagulant therapy Z79.01 Assessment & Plan Assessment & Plan (1) Current use of anticoagulant therapy: Code(s): Z79.01 - FDC (current) 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
== END 2025-08-02 08:31 | disposition home or self-care (01) ==
LOC: HO.ACS 08:03
PROVIDERS: Visit Provider Internal Medicine Medical Oncology
DX: Z79.01 Long term (current) use of anticoagulants (principal)

== ENCOUNTER → 2025-08-02 08:03 | Outpatient (BNVA) | payer MEDICARE, SELFPAY | PROVIDERS: Visit Provider Internal Medicine Medical Oncology | DX: I48.19 Other persistent atrial fibrillation (principal); Z51.81 Encounter for therapeutic drug level monitoring; Z79.01 Long term (current) use of anticoagulants | CPT/HCPCS: 85610; 99211 ==